=== PATIENT | male | born 1935 | race Caucasian/White ===

== ENCOUNTER 2018-10-30 16:00 | Outpatient (RCR) | payer MEDICARE, BC, SELFPAY ==
--- NOTE | 2018-07-10 17:45 | PT.OIE ---
Current Diagnoses Unspecified sequelae of cerebral infarction (07/10/18) Other symptoms and signs involving the musculoskeletal system (07/10/18) Weakness (07/10/18) Provider Visit Care Team Role Provider Type Franky Wynn MD Family Provider Non-Staff Primary Care Provider Specialty: Medical Address: [address] [place] [address] [address], [address] Email: Salina Felton Attending Provider Non-Staff Specialty: Neurology Address: [address] [place] [address] [address], [place], [address] Phone: Fax: Email: Physical Therapy Initial Evaluation PT-OP-A Visit Information Start: 07/10/18 17:00 Freq: Status: Active Protocol: Document 07/10/18 15:15 HH (Rec: 07/10/18 17:44 [email or web address]) Out-Patient Physical Therapy Visit Information Visit Information Visit Type Initial Evaluation Visit Start Time 15:15 Visit Stop Time 16:00 Total Visit Minutes 45 Visit Number 1 Number of ELECTRIC DETECTOR OPERATOR Visits 0 Evaluation Information Evaluation Date 07/10/18 Precautions Precautions fall risk PT-OP-B Current Condition Start: 07/10/18 17:00 Freq: Status: Active Protocol: Document 07/10/18 15:15 HH (Rec: 07/10/18 17:44 [email or web address]) Current Condition History of Current Condition Onset Date 2010 Current Complaints 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 Pt is now able to amb as tolerated at home and community with his tripod cane. He c/o multiple falls during functional activities due to L sided weakness. But he states he is aware of his L sided weakness and position at all time. Pt also c/o difficulty to perform functional activities such as holding a cup of water and stair negotiation. Pt also c/o difficulty performing sit to stand from a lower surface. pt also currently uses step to pattern to ascend and descend with the use of handrail on R side. Prior Treatments and Tests Pt received physical therapy before and it did not help. Treatment Goals Patient/Caregiver Goals Pt and his expect receiving physical therapy can help pt's overall strength and functional mobility to reduce fall risks. Prior Functional Status Baseline Function- ADL's Modified Independent Baseline Function- Mobility Modified Independent Baseline Function- Gait use cane for community mobility; without cane for home mobility Current Functional Impairments (Reported) Functional Limitations- ADL's Pt reports difficulty doning his clothes and hold an object with his L arm due to weakness and insufficient ROM. Functional Limitations- Mobility/Gait Pt uses step to pattern with R sided handrails for stability during stair negotiation. Difficulty getting up from a lower surface. PT-OP-C Subjective Start: 07/10/18 17:00 Freq: Status: Active Protocol: Document 07/10/18 15:15 HH (Rec: 07/10/18 17:44 [email or web address]) OP-PT Subjective Patient Comments Patient Comments pt reports his mobility and strength has been the same for the past few years. Patient Reported Progress Same Patient Questionnaires Other Questionnaire Name and Score Pt did not fill out a questionnair. remind pt next visit OP-PT Pain Assessment Location Left Shoulder Pain Location Details anterior aspect of the L shoulder Intensity 3 Scale Used Numeric (1 - 10) Description Aching Dull Pinching Variations/Patterns during L shoulder passive elevation >90 degrees PT-OP-G Mobility & Gait Start: 07/10/18 17:00 Freq: Status: Active Protocol: Document 07/10/18 15:15 HH (Rec: 07/10/18 17:44 [email or web address]) OP Gait Assessment Gait Gait Assistance Required: Independent Assistive Devices Assistive Device Tripod Cane/Hurry Cane Comments Gait Comments L hip hiked and circumduction during swing phase of L LE PT-OP-H Neuro Start: 07/10/18 17:00 Freq: Status: Active Protocol: Document 07/10/18 15:15 HH (Rec: 07/10/18 17:44 [email or web address]) Sensation Evaluation Gross Sensation Gross Sensation WNL Muscle Tone Tone Assessment Left Upper Extremity Flexor Tone Description Moderate Hypertonicity Muscle Tone Comments Flexion synergy during exertion and reaching activities PT-OP-K Range of Motion Start: 07/10/18 17:00 Freq: Status: Active Protocol: Document 07/10/18 15:15 HH (Rec: 07/10/18 17:44 [email or web address]) Shoulder Goniometric Range of Motion Shoulder Measured in Degrees Left Passive Shoulder ROM WFL No Testing Position Sitting Flexion 70 Extension 30 Abduction 70 PT-OP-M Strength Start: 07/10/18 17:00 Freq: Status: Active Protocol: Document 07/10/18 15:15 (Rec: 07/10/18 17:44 [email or web address]) Shoulder Strength Shoulder Manual Muscle Testing Left Flexion 2+ Poor+ Extension 2+ Poor+ Abduction (C5) 2+ Poor+ Adduction 3+ Fair+ External Rotation 2+ Poor+ Internal Rotation 2+ Poor+ Elbow/Forearm Strength Elbow and Forearm Manual Muscle Testing Left Flexion (C6) 3+ Fair+ Extension (C7) 2+ Poor+ Hip Strength Hip Manual Muscle Testing Left Flexion (L2) 3 Fair Extension (S1) 3 Fair Abduction 3 Fair Adduction 4- Good- Knee Strength Knee Manual Muscle Testing Left Flexion (S2) 4- Good- Extension (L3) 4 Good PT-OP-Q Treatments Start: 07/10/18 17:00 Freq: Status: Active Protocol: Document 07/10/18 15:15 (Rec: 07/10/18 17:44 [email or web address]) Therapeutic Exercises Sitting Exercises 2 Sitting Exercise Name sit to stand with 3 inch box on R LE Side left Equipment Used grab bar, 3 inch box Reps/Minutes 5 x 2 sets Comments 3 inch box underneath right foot to facilitate WB on L LE 1 Sitting Exercise Name seated L arm reach with cane ( ARROM from R UE as needed) Side left Equipment Used mirror, cane Reps/Minutes 20 times x 5 Comments sagittal plane and frontal plane PT-OP-T Assessment and Plan Start: 07/10/18 17:00 Freq: Status: Active Protocol: Document 07/10/18 15:15 (Rec: 07/10/18 17:44 [email or web address]) Physical Therapy Assessment Rehab Potential Rehabilitation Potential Good Evaluation Complexity Number of Personal Factors/Comorbidities 3 or More Number of Body Systems Impaired 3 Clinical Presentation at Evaluation Stable Impairments Impairments Activity Tolerance Balance Functional Activities Functional Mobility Gait Pain Posture ROM Soft Tissue Mobility Strength Tone Transfers Goals Four Impairment ROM Short Term Goal (STG) To increase L GH passive/ active assisted flexion and abduction by 10 degrees STG Duration 4 weeks Custodial Goal (LTG) To increase L GH passive/ active assisted flexion and abduction by 20 degrees LTG Duration 8 weeks Three Impairment strength Short Term Goal (STG) improve overall hip muscular strength by 1/2 MMT grade for hip stability during amb STG Duration 4 weeks Custodial Goal (LTG) improve overall hip muscular strength by 1 MMT grade fpr hip stability during amb LTG Duration 8 weeks Two Impairment ADLs Short Term Goal (STG) able to perform floor recovery with min A with the use of chair STG Duration 4 weeks Counter Pocket Sewer Goal (LTG) able to perform floor recovery with SBA with the use of chair LTG Duration 8 weeks One Impairment strength Short Term Goal (STG) To be able to perform sit to stand with 3 inch box underneath R foot x 10 times with UE support STG Duration 4 weeks Counter Pocket Sewer Goal (LTG) to perform sit to stand with 3 inch box underneath R foot x 10 times without UE support LTG Duration 8 weeks Assessment Summary Assessment Pt is a very pleasant and motivated 83yo male who has chronic hx of MCA since 9 years ago. Pt also had multiple falls over the years due to weakness. Pt's also participated in this IE session as well today. Pt reports his functional mobility and strength have been the same over the years and previous physical therapy did not help to address his needs. Pt and his expect participating physical therapy will be able to increase overall strength and reduce his fall risks. pt currently is an independent ambulator at home and community with his tripod cane. He also able to negotiate 3 flights of stair at home with the use of R sided handrail and step to pattern independently. Upon assessment, pt demonstrates significant L hip weakness along with L hip hike and circumduction (swing phase) during amb. He also demonstrates flexor synergy at his L UE during exertion and reaching activities and c/o pinching pain during passive L GH flexion and abduction at 70-80 degrees. Pt is instructed to use his tripod cane for AAROM of L GH flexion and abduction with R UE assistance as needed. He is also instructed to use an 3-5 inch box underneath his R foot to perform sit to stand repeatedly to facilitate WB / muscular activation from the L LE. Pt will cont require skilled physical therapy to increase his overall functional strength and mobility for his multiple impairments (regain L UE ROM/ motor pattern, L LE strengthening, gait training.) Physical Therapy Plan Frequency and Duration Frequency of Treatment 2x/Week Duration of Treatment 8 weeks Plan of Care Start Date 07/10/18 Plan of Care End Date 09/02/18 Therapeutic Interventions Therapeutic Interventions Balance Training Gait Training Home Exercise Program Manual Therapy Neuromuscular Re-education Patient/Caregiver Education Soft Tissue Mobilization Therapeutic Activities Therapeutic Exercises Next Visit Focus/Plan Next Note Type Treatment Note Next Visit Plan PNF D1D2 neuro reeducation sit to stand with 3 inch box underneath his R foot UBE for AAROM on L UE AAROM bottle reach
--- NOTE | 2018-07-16 16:37 | PT.OTN ---
Current Diagnoses Unspecified sequelae of cerebral infarction (07/16/18) Other symptoms and signs involving the musculoskeletal system (07/16/18) Weakness (07/16/18) Physical Therapy Treatment Note PT-OP-A Visit Information Start: 07/10/18 17:00 Freq: Status: Active Protocol: Document 07/16/18 12:00 HH (Rec: 07/16/18 16:37 HH [email or web address]) Out-Patient Physical Therapy Visit Information Visit Information Visit Type Treatment Note Visit Start Time 12:00 Visit Stop Time 12:45 Total Visit Minutes 45 Visit Number 2 PT-OP-B Current Condition Start: 07/10/18 17:00 Freq: Status: Active Protocol: Document 07/10/18 15:15 HH (Rec: 07/10/18 17:44 HH [email or web address]) Current Condition History of Current Condition Onset Date 2010 Current Complaints 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 Pt is now able to amb as tolerated at home and community with his tripod cane. He c/o multiple falls during functional activities due to L sided weakness. But he states he is aware of his L sided weakness and position at all time. Pt also c/o difficulty to perform functional activities such as holding a cup of water and stair negotiation. Pt also c/o difficulty performing sit to stand from a lower surface. pt also currently uses step to pattern to ascend and descend with the use of handrail on R side. Prior Treatments and Tests Pt received physical therapy before and it did not help. Treatment Goals Patient/Caregiver Goals Pt and his expect receiving physical therapy can help pt's overall strength and functional mobility to reduce fall risks. Prior Functional Status Baseline Function- ADL's Modified Independent Baseline Function- Mobility Modified Independent Baseline Function- Gait use cane for community mobility; without cane for home mobility Current Functional Impairments (Reported) Functional Limitations- ADL's Pt reports difficulty doning his clothes and hold an object with his L arm due to weakness and insufficient ROM. Functional Limitations- Mobility/Gait Pt uses step to pattern with R sided handrails for stability during stair negotiation. Difficulty getting up from a lower surface. PT-OP-C Subjective Start: 07/10/18 17:00 Freq: Status: Active Protocol: Document 07/16/18 12:00 HH (Rec: 07/16/18 16:37 [email or web address]) OP-PT Subjective Patient Comments Patient Comments Pt compliant to HEP but he states I have trouble to doing the sit to stand with the book underneath of R foot. I've been using my cane to stretch my arm and I walked couple flight of stairs everyday. PT-OP-G Mobility & Gait Start: 07/10/18 17:00 Freq: Status: Active Protocol: Document 07/10/18 15:15 HH (Rec: 07/10/18 17:44 [email or web address]) OP Gait Assessment Gait Gait Assistance Required: Independent Assistive Devices Assistive Device Tripod Cane/Hurry Cane Comments Gait Comments L hip hiked and circumduction during swing phase of L LE PT-OP-H Neuro Start: 07/10/18 17:00 Freq: Status: Active Protocol: Document 07/10/18 15:15 HH (Rec: 07/10/18 17:44 [email or web address]) Sensation Evaluation Gross Sensation Gross Sensation WNL Muscle Tone Tone Assessment Left Upper Extremity Flexor Tone Description Moderate Hypertonicity Muscle Tone Comments Flexion synergy during exertion and reaching activities PT-OP-K Range of Motion Start: 07/10/18 17:00 Freq: Status: Active Protocol: Document 07/10/18 15:15 HH (Rec: 07/10/18 17:44 [email or web address]) Shoulder Goniometric Range of Motion Shoulder Measured in Degrees Left Passive Shoulder ROM WFL No Testing Position Sitting Flexion 70 Extension 30 Abduction 70 PT-OP-M Strength Start: 07/10/18 17:00 Freq: Status: Active Protocol: Document 07/10/18 15:15 HH (Rec: 07/10/18 17:44 [email or web address]) Shoulder Strength Shoulder Manual Muscle Testing Left Flexion 2+ Poor+ Extension 2+ Poor+ Abduction (C5) 2+ Poor+ Adduction 3+ Fair+ External Rotation 2+ Poor+ Internal Rotation 2+ Poor+ Elbow/Forearm Strength Elbow and Forearm Manual Muscle Testing Left Flexion (C6) 3+ Fair+ Extension (C7) 2+ Poor+ Hip Strength Hip Manual Muscle Testing Left Flexion (L2) 3 Fair Extension (S1) 3 Fair Abduction 3 Fair Adduction 4- Good- Knee Strength Knee Manual Muscle Testing Left Flexion (S2) 4- Good- Extension (L3) 4 Good PT-OP-Q Treatments Start: 07/10/18 17:00 Freq: Status: Active Protocol: Document 07/16/18 12:00 (Rec: 07/16/18 16:37 [email or web address]) Therapeutic Exercises Sitting Exercises 4 Sitting Exercise Name UBE Reps/Minutes 3 mins Comments 30 secs clockwise and 30 secs anticlockwise 3 Sitting Exercise Name recumbent UE LE bike Reps/Minutes 5 mins 2 Sitting Exercise Name sit to stand with 4 inch box on R LE Side left Equipment Used grab bar, 4 inch box Reps/Minutes 10 x 3 sets Comments 4 inch box underneath right foot to facilitate WB on L LE 1 Sitting Exercise Name seated L arm reach with cane ( ARROM from R UE as needed) Side left Reps/Minutes 5 mins Comments hip hinge pattern, pass GH 90 degrees Standing Exercises 2 Standing Exercise Name Step over 5 inch yanci Equipment Used R UE on grab bar Reps/Minutes 2 minutes 1 Standing Exercise Name step up and down with 3 inch box Equipment Used R UE on grab bar Reps/Minutes 5 mins PT-OP-T Assessment and Plan Start: 07/10/18 17:00 Freq: Status: Active Protocol: Document 07/16/18 12:00 (Rec: 07/16/18 16:37 [email or web address]) Physical Therapy Assessment Impairments Impairments Activity Tolerance Balance Functional Activities Functional Mobility Gait Pain Posture ROM Soft Tissue Mobility Strength Tone Transfers Progress Towards Goals Progress Towards Goals Slow Progress due to Activity Tolerance Slow Progress - Other Progress Comments Pt progress slowly due to L shoulder pain and poor understanding on pain science. Assessment Summary Assessment Pt reports difficulty performing sit to stand with 3 inch book under his R LE to facilitate increased WB on LLE . HEP education is given on proper set up the aforementioned ex and to use hip hinge for L GH AAROM with the cane. Pt is educated on pain science and safe painful range for ROM. Pt cont require overall strengthening on L hip flexor and hip extensors for stair negotiation. Pt presents difficulty to step over huddle in backward direction. Cont POC on neuro re-ed with the use UBE, recumbent bike to facilitate cross training effect, stagger sit to stand for L LE strengthening and overall dynamic balance training. Physical Therapy Plan Therapeutic Interventions Therapeutic Interventions Balance Training Gait Training Home Exercise Program Manual Therapy Neuromuscular Re-education Patient/Caregiver Education Soft Tissue Mobilization Therapeutic Activities Therapeutic Exercises Next Visit Focus/Plan Next Note Type Treatment Note Next Visit Plan UBE, recumbent bike to facilitate cross training effect, stagger sit to stand for L LE strengthening and overall dynamic balance training.
--- NOTE | 2018-07-31 18:00 | PT.OTN ---
Current Diagnoses Unspecified sequelae of cerebral infarction (07/31/18) Other symptoms and signs involving the musculoskeletal system (07/31/18) Weakness (07/31/18) Physical Therapy Treatment Note PT-OP-A Visit Information Start: 07/10/18 17:00 Freq: Status: Active Protocol: Document 07/31/18 16:00 HH (Rec: 07/31/18 17:59 HH [email or web address]) Out-Patient Physical Therapy Visit Information Visit Information Visit Type Treatment Note Visit Start Time 16:00 Visit Stop Time 16:45 Total Visit Minutes 45 Visit Number 3 Number of QUANTITY SURVEYOR Visits 0 PT-OP-B Current Condition Start: 07/10/18 17:00 Freq: Status: Active Protocol: Document 07/10/18 15:15 HH (Rec: 07/10/18 17:44 HH [email or web address]) Current Condition History of Current Condition Onset Date 2010 Current Complaints 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 Pt is now able to amb as tolerated at home and community with his tripod cane. He c/o multiple falls during functional activities due to L sided weakness. But he states he is aware of his L sided weakness and position at all time. Pt also c/o difficulty to perform functional activities such as holding a cup of water and stair negotiation. Pt also c/o difficulty performing sit to stand from a lower surface. pt also currently uses step to pattern to ascend and descend with the use of handrail on R side. Prior Treatments and Tests Pt received physical therapy before and it did not help. Treatment Goals Patient/Caregiver Goals Pt and his expect receiving physical therapy can help pt's overall strength and functional mobility to reduce fall risks. Prior Functional Status Baseline Function- ADL's Modified Independent Baseline Function- Mobility Modified Independent Baseline Function- Gait use cane for community mobility; without cane for home mobility Current Functional Impairments (Reported) Functional Limitations- ADL's Pt reports difficulty doning his clothes and hold an object with his L arm due to weakness and insufficient ROM. Functional Limitations- Mobility/Gait Pt uses step to pattern with R sided handrails for stability during stair negotiation. Difficulty getting up from a lower surface. PT-OP-C Subjective Start: 07/10/18 17:00 Freq: Status: Active Protocol: Document 07/31/18 16:00 HH (Rec: 07/31/18 17:59 HH [email or web address]) OP-PT Subjective Patient Comments Patient Comments Pt missed visits due to holiday celebration. Pt reports he has not done any HEP. I am lazy to do those exercises. I also feel my leg is stiff lately. Patient Reported Progress Same PT-OP-G Mobility & Gait Start: 07/10/18 17:00 Freq: Status: Active Protocol: Document 07/10/18 15:15 HH (Rec: 07/10/18 17:44 [email or web address]) OP Gait Assessment Gait Gait Assistance Required: Independent Assistive Devices Assistive Device Tripod Cane/Hurry Cane Comments Gait Comments L hip hiked and circumduction during swing phase of L LE PT-OP-H Neuro Start: 07/10/18 17:00 Freq: Status: Active Protocol: Document 07/10/18 15:15 HH (Rec: 07/10/18 17:44 [email or web address]) Sensation Evaluation Gross Sensation Gross Sensation WNL Muscle Tone Tone Assessment Left Upper Extremity Flexor Tone Description Moderate Hypertonicity Muscle Tone Comments Flexion synergy during exertion and reaching activities PT-OP-K Range of Motion Start: 07/10/18 17:00 Freq: Status: Active Protocol: Document 07/10/18 15:15 HH (Rec: 07/10/18 17:44 [email or web address]) Shoulder Goniometric Range of Motion Shoulder Measured in Degrees Left Passive Shoulder ROM WFL No Testing Position Sitting Flexion 70 Extension 30 Abduction 70 PT-OP-M Strength Start: 07/10/18 17:00 Freq: Status: Active Protocol: Document 07/10/18 15:15 HH (Rec: 07/10/18 17:44 [email or web address]) Shoulder Strength Shoulder Manual Muscle Testing Left Flexion 2+ Poor+ Extension 2+ Poor+ Abduction (C5) 2+ Poor+ Adduction 3+ Fair+ External Rotation 2+ Poor+ Internal Rotation 2+ Poor+ Elbow/Forearm Strength Elbow and Forearm Manual Muscle Testing Left Flexion (C6) 3+ Fair+ Extension (C7) 2+ Poor+ Hip Strength Hip Manual Muscle Testing Left Flexion (L2) 3 Fair Extension (S1) 3 Fair Abduction 3 Fair Adduction 4- Good- Knee Strength Knee Manual Muscle Testing Left Flexion (S2) 4- Good- Extension (L3) 4 Good PT-OP-Q Treatments Start: 07/10/18 17:00 Freq: Status: Active Protocol: Document 07/31/18 16:00 (Rec: 07/31/18 17:59 [email or web address]) Therapeutic Exercises Sitting Exercises 3 Sitting Exercise Name recumbent UE LE bike Reps/Minutes 5 mins 1 Sitting Exercise Name seated L arm reach with cane ( ARROM from R UE as needed) Side left Reps/Minutes 5 mins Comments hip hinge pattern, pass GH 90 degrees Standing Exercises 3 Standing Exercise Name side step over 5 inch with UE on bar Equipment Used R UE on grab bar Reps/Minutes 2 minutes 2 Standing Exercise Name Step over 5 inch yanci Equipment Used R UE on grab bar Reps/Minutes 2 minutes Manual Therapy Treatment Manual Techniques PNF on L scap and hip Type D1 D2 Body Position Sidelying Comments along with pelvic rotation PT-OP-T Assessment and Plan Start: 07/10/18 17:00 Freq: Status: Active Protocol: Document 07/31/18 16:00 (Rec: 07/31/18 17:59 [email or web address]) Physical Therapy Assessment Assessment Summary Assessment Review of HEP with pt today. Pt requires constant encouragment for HEP participation. Pt also requires constant cues to facilitate foot clearance during gait training. Physical Therapy Plan Next Visit Focus/Plan Next Note Type Treatment Note Next Visit Plan UBE, recumbent press, stair training, fall recovery, dynamic balance training, gait training with cues on feet clearance.
--- NOTE | 2018-08-05 16:01 | PT.OTN ---
Current Diagnoses Unspecified sequelae of cerebral infarction (08/05/18) Other symptoms and signs involving the musculoskeletal system (08/05/18) Weakness (08/05/18) Physical Therapy Treatment Note PT-OP-A Visit Information Start: 07/10/18 17:00 Freq: Status: Active Protocol: Document 08/05/18 15:15 DCW (Rec: 08/05/18 16:01 DCW [id number]) Out-Patient Physical Therapy Visit Information Visit Information Visit Type Treatment Note Visit Start Time 15:15 Visit Stop Time 16:00 Total Visit Minutes 45 Visit Number 4 Number of HARD ROCK MINER BLASTING Visits 0 Evaluation Information Evaluation Date 07/10/18 PT-OP-B Current Condition Start: 07/10/18 17:00 Freq: Status: Active Protocol: Document 07/10/18 15:15 HH (Rec: 07/10/18 17:44 HH [email or web address]) Current Condition History of Current Condition Onset Date 2010 Current Complaints 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 Pt is now able to amb as tolerated at home and community with his tripod cane. He c/o multiple falls during functional activities due to L sided weakness. But he states he is aware of his L sided weakness and position at all time. Pt also c/o difficulty to perform functional activities such as holding a cup of water and stair negotiation. Pt also c/o difficulty performing sit to stand from a lower surface. pt also currently uses step to pattern to ascend and descend with the use of handrail on R side. Prior Treatments and Tests Pt received physical therapy before and it did not help. Treatment Goals Patient/Caregiver Goals Pt and his expect receiving physical therapy can help pt's overall strength and functional mobility to reduce fall risks. Prior Functional Status Baseline Function- ADL's Modified Independent Baseline Function- Mobility Modified Independent Baseline Function- Gait use cane for community mobility; without cane for home mobility Current Functional Impairments (Reported) Functional Limitations- ADL's Pt reports difficulty doning his clothes and hold an object with his L arm due to weakness and insufficient ROM. Functional Limitations- Mobility/Gait Pt uses step to pattern with R sided handrails for stability during stair negotiation. Difficulty getting up from a lower surface. PT-OP-C Subjective Start: 07/10/18 17:00 Freq: Status: Active Protocol: Document 08/05/18 15:15 DCW (Rec: 08/05/18 16:01 DCW [id number]) OP-PT Subjective Patient Comments Patient Comments Pt reports he feels fine today . Pt reports that he walked around the block this weekend, and has been spending time trying to clean up his yard. PT-OP-G Mobility & Gait Start: 07/10/18 17:00 Freq: Status: Active Protocol: Document 07/10/18 15:15 HH (Rec: 07/10/18 17:44 HH [email or web address]) OP Gait Assessment Gait Gait Assistance Required: Independent Assistive Devices Assistive Device Tripod Cane/Hurry Cane Comments Gait Comments L hip hiked and circumduction during swing phase of L LE PT-OP-H Neuro Start: 07/10/18 17:00 Freq: Status: Active Protocol: Document 07/10/18 15:15 HH (Rec: 07/10/18 17:44 HH [email or web address]) Sensation Evaluation Gross Sensation Gross Sensation WNL Muscle Tone Tone Assessment Left Upper Extremity Flexor Tone Description Moderate Hypertonicity Muscle Tone Comments Flexion synergy during exertion and reaching activities PT-OP-K Range of Motion Start: 07/10/18 17:00 Freq: Status: Active Protocol: Document 07/10/18 15:15 HH (Rec: 07/10/18 17:44 HH [email or web address]) Shoulder Goniometric Range of Motion Shoulder Measured in Degrees Left Passive Shoulder ROM WFL No Testing Position Sitting Flexion 70 Extension 30 Abduction 70 PT-OP-M Strength Start: 07/10/18 17:00 Freq: Status: Active Protocol: Document 07/10/18 15:15 HH (Rec: 07/10/18 17:44 HH [email or web address]) Shoulder Strength Shoulder Manual Muscle Testing Left Flexion 2+ Poor+ Extension 2+ Poor+ Abduction (C5) 2+ Poor+ Adduction 3+ Fair+ External Rotation 2+ Poor+ Internal Rotation 2+ Poor+ Elbow/Forearm Strength Elbow and Forearm Manual Muscle Testing Left Flexion (C6) 3+ Fair+ Extension (C7) 2+ Poor+ Hip Strength Hip Manual Muscle Testing Left Flexion (L2) 3 Fair Extension (S1) 3 Fair Abduction 3 Fair Adduction 4- Good- Knee Strength Knee Manual Muscle Testing Left Flexion (S2) 4- Good- Extension (L3) 4 Good PT-OP-Q Treatments Start: 07/10/18 17:00 Freq: Status: Active Protocol: Document 08/05/18 15:15 DCW (Rec: 08/05/18 16:01 [facility] [id number]) Therapeutic Exercises Sitting Exercises 5 Sitting Exercise Name Sit<->stand on level ground /s UE support 3 Sitting Exercise Name recumbent UE LE bike Reps/Minutes 5 mins 2 Sitting Exercise Name sit to stand with 4 inch box on R LE Side left Equipment Used grab bar, 4 inch box Reps/Minutes 10 x 3 sets Comments 4 inch box underneath right foot to facilitate WB on L LE 1 Sitting Exercise Name seated L arm reach with cane ( ARROM from R UE as needed) Side left Reps/Minutes 5 mins Comments hip hinge pattern, pass GH 90 degrees Standing Exercises 3 Standing Exercise Name side step over 5 inch with UE on bar Equipment Used R UE on grab bar Reps/Minutes 2 minutes 2 Standing Exercise Name Step over 5 inch yanci Equipment Used R UE on grab bar Reps/Minutes 2 minutes Manual Therapy Treatment Joint Mobilizations GH joint Joint GH Direction Joint compression Body Position Sitting Comments Increased joint proprioception Manual Techniques PNF on L GH Type D1/D2 Body Position Sitting PT-OP-T Assessment and Plan Start: 07/10/18 17:00 Freq: Status: Active Protocol: Document 08/05/18 15:15 DCW (Rec: 08/05/18 16:01 [facility] [id number]) Physical Therapy Assessment Impairments Impairments Activity Tolerance Balance Functional Activities Functional Mobility Gait Pain Posture ROM Soft Tissue Mobility Strength Tone Transfers Progress Towards Goals Progress Towards Goals Slow Progress due to Activity Tolerance Slow Progress - Other Progress Comments Pt progress slowly due to L shoulder pain and poor understanding on pain science. Assessment Summary Assessment Pt tolerated treatment well, although admitted when he was leaving that he is embarrassed that he has to rely so much on other people. Physical Therapy Plan Therapeutic Interventions Therapeutic Interventions Balance Training Gait Training Home Exercise Program Manual Therapy Neuromuscular Re-education Patient/Caregiver Education Soft Tissue Mobilization Therapeutic Activities Therapeutic Exercises Next Visit Focus/Plan Next Note Type Treatment Note Next Visit Plan UBE, recumbent bike to facilitate cross training effect, stagger sit to stand for L LE strengthening and overall dynamic balance training.
--- NOTE | 2018-08-07 17:40 | PT.OTN ---
Current Diagnoses Unspecified sequelae of cerebral infarction (08/07/18) Other symptoms and signs involving the musculoskeletal system (08/07/18) Weakness (08/07/18) Physical Therapy Treatment Note PT-OP-A Visit Information Start: 07/10/18 17:00 Freq: Status: Active Protocol: Document 08/07/18 15:15 HH (Rec: 08/07/18 17:40 HH [email or web address]) Out-Patient Physical Therapy Visit Information Visit Information Visit Type Treatment Note Visit Start Time 15:15 Visit Stop Time 16:00 Total Visit Minutes 45 Visit Number 5 Number of MINE ENGINEER Visits 0 PT-OP-B Current Condition Start: 07/10/18 17:00 Freq: Status: Active Protocol: Document 07/10/18 15:15 HH (Rec: 07/10/18 17:44 HH [email or web address]) Current Condition History of Current Condition Onset Date 2010 Current Complaints 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 Pt is now able to amb as tolerated at home and community with his tripod cane. He c/o multiple falls during functional activities due to L sided weakness. But he states he is aware of his L sided weakness and position at all time. Pt also c/o difficulty to perform functional activities such as holding a cup of water and stair negotiation. Pt also c/o difficulty performing sit to stand from a lower surface. pt also currently uses step to pattern to ascend and descend with the use of handrail on R side. Prior Treatments and Tests Pt received physical therapy before and it did not help. Treatment Goals Patient/Caregiver Goals Pt and his expect receiving physical therapy can help pt's overall strength and functional mobility to reduce fall risks. Prior Functional Status Baseline Function- ADL's Modified Independent Baseline Function- Mobility Modified Independent Baseline Function- Gait use cane for community mobility; without cane for home mobility Current Functional Impairments (Reported) Functional Limitations- ADL's Pt reports difficulty doning his clothes and hold an object with his L arm due to weakness and insufficient ROM. Functional Limitations- Mobility/Gait Pt uses step to pattern with R sided handrails for stability during stair negotiation. Difficulty getting up from a lower surface. PT-OP-C Subjective Start: 07/10/18 17:00 Freq: Status: Active Protocol: Document 08/07/18 15:15 HH (Rec: 08/07/18 17:40 HH [email or web address]) OP-PT Subjective Patient Comments Patient Comments pt reports he has been trying to walk more but his L arm is doing the same so far. Pt also states he is compliant to HEP arm reaching with cane. Patient Reported Progress Same PT-OP-G Mobility & Gait Start: 07/10/18 17:00 Freq: Status: Active Protocol: Document 07/10/18 15:15 HH (Rec: 07/10/18 17:44 [email or web address]) OP Gait Assessment Gait Gait Assistance Required: Independent Assistive Devices Assistive Device Tripod Cane/Hurry Cane Comments Gait Comments L hip hiked and circumduction during swing phase of L LE PT-OP-H Neuro Start: 07/10/18 17:00 Freq: Status: Active Protocol: Document 07/10/18 15:15 HH (Rec: 07/10/18 17:44 [email or web address]) Sensation Evaluation Gross Sensation Gross Sensation WNL Muscle Tone Tone Assessment Left Upper Extremity Flexor Tone Description Moderate Hypertonicity Muscle Tone Comments Flexion synergy during exertion and reaching activities PT-OP-K Range of Motion Start: 07/10/18 17:00 Freq: Status: Active Protocol: Document 07/10/18 15:15 HH (Rec: 07/10/18 17:44 [email or web address]) Shoulder Goniometric Range of Motion Shoulder Measured in Degrees Left Passive Shoulder ROM WFL No Testing Position Sitting Flexion 70 Extension 30 Abduction 70 PT-OP-M Strength Start: 07/10/18 17:00 Freq: Status: Active Protocol: Document 07/10/18 15:15 HH (Rec: 07/10/18 17:44 [email or web address]) Shoulder Strength Shoulder Manual Muscle Testing Left Flexion 2+ Poor+ Extension 2+ Poor+ Abduction (C5) 2+ Poor+ Adduction 3+ Fair+ External Rotation 2+ Poor+ Internal Rotation 2+ Poor+ Elbow/Forearm Strength Elbow and Forearm Manual Muscle Testing Left Flexion (C6) 3+ Fair+ Extension (C7) 2+ Poor+ Hip Strength Hip Manual Muscle Testing Left Flexion (L2) 3 Fair Extension (S1) 3 Fair Abduction 3 Fair Adduction 4- Good- Knee Strength Knee Manual Muscle Testing Left Flexion (S2) 4- Good- Extension (L3) 4 Good PT-OP-Q Treatments Start: 07/10/18 17:00 Freq: Status: Active Protocol: Document 08/07/18 15:15 HH (Rec: 08/07/18 17:40 [email or web address]) Therapeutic Exercises Sitting Exercises 3 Sitting Exercise Name recumbent UE LE bike Resistance 5 Reps/Minutes 10 mins Comments with L UE and LE only 1 Sitting Exercise Name seated L arm reach with cane ( ARROM from R UE as needed) Side left Reps/Minutes 5 mins Comments hip hinge pattern, pass GH 90 degrees Standing Exercises single leg stance with support on bar Standing Exercise Name high knee hold, R UE on grab bar Equipment Used grab bar Reps/Minutes 10 mins Comments alternate R and L. 3 Standing Exercise Name side step over 5 inch with UE on bar Equipment Used R UE on grab bar Reps/Minutes 5 mins Manual Therapy Treatment Soft Tissue Mobilization posterior glide Body Location post glide at L GH joint Body Position seated Comments post glide with passive L GH flexion PT-OP-T Assessment and Plan Start: 07/10/18 17:00 Freq: Status: Active Protocol: Document 08/07/18 15:15 HH (Rec: 08/07/18 17:40 [email or web address]) Physical Therapy Assessment Assessment Summary Assessment Pt momo tx well. Tx focused on L UE and LE strengthening and single leg balance. Pt presents WFL hip and knee flexion to facilitate foot clearance but he somehow prefers to use circumduction during amb. pt does present slight right hip drop during single leg stance. Educated pt to focus on single leg stance with UE support at kitchen counter. Recommended pt to participate fitness class at [facility] to increase overall fitness with the use of machines. Physical Therapy Plan Next Visit Focus/Plan Next Note Type Treatment Note Next Visit Plan recumbent press on L side primarily, stagger sit to stand for L LE strengthening and single leg balance balance gait training to increase stride length on R LE
--- NOTE | 2018-08-12 16:00 | PT.OTN ---
Current Diagnoses Unspecified sequelae of cerebral infarction (08/12/18) Other symptoms and signs involving the musculoskeletal system (08/12/18) Weakness (08/12/18) Physical Therapy Treatment Note PT-OP-A Visit Information Start: 07/10/18 17:00 Freq: Status: Active Protocol: Document 08/12/18 15:15 DCW (Rec: 08/12/18 16:00 DCW [id number]) Out-Patient Physical Therapy Visit Information Visit Information Visit Type Treatment Note Visit Start Time 15:15 Visit Stop Time 16:00 Total Visit Minutes 45 Visit Number 6 Number of AUTOMATIC LEHR OPERATOR Visits 0 Evaluation Information Evaluation Date 07/10/18 PT-OP-B Current Condition Start: 07/10/18 17:00 Freq: Status: Active Protocol: Document 07/10/18 15:15 HH (Rec: 07/10/18 17:44 HH [email or web address]) Current Condition History of Current Condition Onset Date 2010 Current Complaints 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 Pt is now able to amb as tolerated at home and community with his tripod cane. He c/o multiple falls during functional activities due to L sided weakness. But he states he is aware of his L sided weakness and position at all time. Pt also c/o difficulty to perform functional activities such as holding a cup of water and stair negotiation. Pt also c/o difficulty performing sit to stand from a lower surface. pt also currently uses step to pattern to ascend and descend with the use of handrail on R side. Prior Treatments and Tests Pt received physical therapy before and it did not help. Treatment Goals Patient/Caregiver Goals Pt and his expect receiving physical therapy can help pt's overall strength and functional mobility to reduce fall risks. Prior Functional Status Baseline Function- ADL's Modified Independent Baseline Function- Mobility Modified Independent Baseline Function- Gait use cane for community mobility; without cane for home mobility Current Functional Impairments (Reported) Functional Limitations- ADL's Pt reports difficulty doning his clothes and hold an object with his L arm due to weakness and insufficient ROM. Functional Limitations- Mobility/Gait Pt uses step to pattern with R sided handrails for stability during stair negotiation. Difficulty getting up from a lower surface. PT-OP-C Subjective Start: 07/10/18 17:00 Freq: Status: Active Protocol: Document 08/12/18 15:15 DCW (Rec: 08/12/18 16:00 DCW [id number]) OP-PT Subjective Patient Comments Patient Comments Pt notes pain along the clavicle today, admits he doesn't have any idesa what I did to it. PT-OP-G Mobility & Gait Start: 07/10/18 17:00 Freq: Status: Active Protocol: Document 07/10/18 15:15 HH (Rec: 07/10/18 17:44 HH [email or web address]) OP Gait Assessment Gait Gait Assistance Required: Independent Assistive Devices Assistive Device Tripod Cane/Hurry Cane Comments Gait Comments L hip hiked and circumduction during swing phase of L LE PT-OP-H Neuro Start: 07/10/18 17:00 Freq: Status: Active Protocol: Document 07/10/18 15:15 HH (Rec: 07/10/18 17:44 HH [email or web address]) Sensation Evaluation Gross Sensation Gross Sensation WNL Muscle Tone Tone Assessment Left Upper Extremity Flexor Tone Description Moderate Hypertonicity Muscle Tone Comments Flexion synergy during exertion and reaching activities PT-OP-K Range of Motion Start: 07/10/18 17:00 Freq: Status: Active Protocol: Document 07/10/18 15:15 HH (Rec: 07/10/18 17:44 HH [email or web address]) Shoulder Goniometric Range of Motion Shoulder Measured in Degrees Left Passive Shoulder ROM WFL No Testing Position Sitting Flexion 70 Extension 30 Abduction 70 PT-OP-M Strength Start: 07/10/18 17:00 Freq: Status: Active Protocol: Document 07/10/18 15:15 HH (Rec: 07/10/18 17:44 HH [email or web address]) Shoulder Strength Shoulder Manual Muscle Testing Left Flexion 2+ Poor+ Extension 2+ Poor+ Abduction (C5) 2+ Poor+ Adduction 3+ Fair+ External Rotation 2+ Poor+ Internal Rotation 2+ Poor+ Elbow/Forearm Strength Elbow and Forearm Manual Muscle Testing Left Flexion (C6) 3+ Fair+ Extension (C7) 2+ Poor+ Hip Strength Hip Manual Muscle Testing Left Flexion (L2) 3 Fair Extension (S1) 3 Fair Abduction 3 Fair Adduction 4- Good- Knee Strength Knee Manual Muscle Testing Left Flexion (S2) 4- Good- Extension (L3) 4 Good PT-OP-Q Treatments Start: 07/10/18 17:00 Freq: Status: Active Protocol: Document 08/12/18 15:15 DCW (Rec: 08/12/18 16:00 DCW [id number]) Therapeutic Exercises Sitting Exercises Shoulder Flexion/Abduction Sitting Exercise Name Shoulder Flex/Abd Side bilateral Equipment Used Wand Comments AAROM 3 Sitting Exercise Name recumbent UE LE bike Resistance 5 Reps/Minutes 5 mins 1 Sitting Exercise Name seated L arm reach with cane ( ARROM from R UE as needed) Side left Reps/Minutes 5 mins Comments hip hinge pattern, pass GH 90 degrees Standing Exercises Weightbearing through UEs Standing Exercise Name WBing through UEs Side bilateral Equipment Used @ rail 3 Standing Exercise Name side step over 5 inch with UE on bar Equipment Used R UE on grab bar Reps/Minutes 2 minutes 2 Standing Exercise Name Step over 5 inch aynci Equipment Used R UE on grab bar Reps/Minutes 2 minutes Manual Therapy Treatment Joint Mobilizations GH joint Joint GH Direction Joint compression Body Position Sitting Comments Increased joint proprioception Manual Techniques PNF on L GH Type D1/D2 Body Position Sitting PT-OP-T Assessment and Plan Start: 07/10/18 17:00 Freq: Status: Active Protocol: Document 08/12/18 15:15 DCW (Rec: 08/12/18 16:00 DCW [id number]) Physical Therapy Assessment Impairments Impairments Activity Tolerance Balance Functional Activities Functional Mobility Gait Pain Posture ROM Soft Tissue Mobility Strength Tone Transfers Assessment Summary Assessment Pt in better spirits today, performed much of his hurdles with improved left foot clearance Physical Therapy Plan Therapeutic Interventions Therapeutic Interventions Balance Training Gait Training Home Exercise Program Manual Therapy Neuromuscular Re-education Patient/Caregiver Education Soft Tissue Mobilization Therapeutic Activities Therapeutic Exercises Next Visit Focus/Plan Next Note Type Treatment Note Next Visit Plan UBE, recumbent bike to facilitate cross training effect, stagger sit to stand for L LE strengthening and overall dynamic balance training.
--- NOTE | 2018-08-14 16:30 | PT.OPPN ---
Current Diagnoses Unspecified sequelae of cerebral infarction (08/14/18) Other symptoms and signs involving the musculoskeletal system (08/14/18) Weakness (08/14/18) Physical Therapy Progress Note PT-OP-A Visit Information Start: 07/10/18 17:00 Freq: Status: Active Protocol: Document 08/14/18 15:15 HH (Rec: 08/14/18 16:30 HH [email or web address]) Out-Patient Physical Therapy Visit Information Visit Information Visit Type Progress Note Visit Start Time 15:15 Visit Stop Time 16:00 Total Visit Minutes 45 Visit Number 7 Number of BOOK SALESMAN Visits 0 PT-OP-B Current Condition Start: 07/10/18 17:00 Freq: Status: Active Protocol: Document 07/10/18 15:15 HH (Rec: 07/10/18 17:44 HH [email or web address]) Current Condition History of Current Condition Onset Date 2010 Current Complaints 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 Pt is now able to amb as tolerated at home and community with his tripod cane. He c/o multiple falls during functional activities due to L sided weakness. But he states he is aware of his L sided weakness and position at all time. Pt also c/o difficulty to perform functional activities such as holding a cup of water and stair negotiation. Pt also c/o difficulty performing sit to stand from a lower surface. pt also currently uses step to pattern to ascend and descend with the use of handrail on R side. Prior Treatments and Tests Pt received physical therapy before and it did not help. Treatment Goals Patient/Caregiver Goals Pt and his expect receiving physical therapy can help pt's overall strength and functional mobility to reduce fall risks. Prior Functional Status Baseline Function- ADL's Modified Independent Baseline Function- Mobility Modified Independent Baseline Function- Gait use cane for community mobility; without cane for home mobility Current Functional Impairments (Reported) Functional Limitations- ADL's Pt reports difficulty doning his clothes and hold an object with his L arm due to weakness and insufficient ROM. Functional Limitations- Mobility/Gait Pt uses step to pattern with R sided handrails for stability during stair negotiation. Difficulty getting up from a lower surface. PT-OP-C Subjective Start: 07/10/18 17:00 Freq: Status: Active Protocol: Document 08/14/18 15:15 HH (Rec: 08/14/18 16:30 HH [email or web address]) OP-PT Subjective Patient Comments Patient Comments Pt reports his L shoulder pain decreased. I've been trying to walk a little bit more. PT-OP-G Mobility & Gait Start: 07/10/18 17:00 Freq: Status: Active Protocol: Document 07/10/18 15:15 HH (Rec: 07/10/18 17:44 HH [email or web address]) OP Gait Assessment Gait Gait Assistance Required: Independent Assistive Devices Assistive Device Tripod Cane/Hurry Cane Comments Gait Comments L hip hiked and circumduction during swing phase of L LE PT-OP-H Neuro Start: 07/10/18 17:00 Freq: Status: Active Protocol: Document 07/10/18 15:15 HH (Rec: 07/10/18 17:44 [email or web address]) Sensation Evaluation Gross Sensation Gross Sensation WNL Muscle Tone Tone Assessment Left Upper Extremity Flexor Tone Description Moderate Hypertonicity Muscle Tone Comments Flexion synergy during exertion and reaching activities PT-OP-K Range of Motion Start: 07/10/18 17:00 Freq: Status: Active Protocol: Document 07/10/18 15:15 HH (Rec: 07/10/18 17:44 [email or web address]) Shoulder Goniometric Range of Motion Shoulder Measured in Degrees Left Passive Shoulder ROM WFL No Testing Position Sitting Flexion 70 Extension 30 Abduction 70 PT-OP-M Strength Start: 07/10/18 17:00 Freq: Status: Active Protocol: Document 07/10/18 15:15 HH (Rec: 07/10/18 17:44 [email or web address]) Shoulder Strength Shoulder Manual Muscle Testing Left Flexion 2+ Poor+ Extension 2+ Poor+ Abduction (C5) 2+ Poor+ Adduction 3+ Fair+ External Rotation 2+ Poor+ Internal Rotation 2+ Poor+ Elbow/Forearm Strength Elbow and Forearm Manual Muscle Testing Left Flexion (C6) 3+ Fair+ Extension (C7) 2+ Poor+ Hip Strength Hip Manual Muscle Testing Left Flexion (L2) 3 Fair Extension (S1) 3 Fair Abduction 3 Fair Adduction 4- Good- Knee Strength Knee Manual Muscle Testing Left Flexion (S2) 4- Good- Extension (L3) 4 Good PT-OP-T Assessment and Plan Start: 12/12/18 17:00 Freq: Status: Active Protocol: Document 08/14/18 15:15 (Rec: 08/14/18 16:30 [email or web address]) Physical Therapy Assessment Goals 5 Impairment gait pattern Process Cheese Cooker Goal (LTG) to use 2 point gait pattern with SPC on R side. LTG Duration 8 weeks Progress Towards Goals Progress Towards Goals Slow Progress due to Activity Tolerance Slow Progress due to Noncompliance Slow Progress - Other Progress Comments pt's L UE ROM did not progress as expected due to poor compliance for HEP and his chronic CVA. However, pt has shown improved B LE strength and improved L foot clearance during amb along with faster gait speed. Assessment Summary Assessment Adjusted pt's cane height today. Pt presents reduced R trunk lean and improved L LE stride length. Introduced 2 point gait pattern today but he requires max cues for initial contact for LLE and R cane. Pt does demonstrates improved L single leg balance and weight acceptance for R LE propulsion. Physical Therapy Plan Next Visit Focus/Plan Next Note Type Treatment Note Next Visit Plan cont 2 point gait pattern training L step over/up training single leg balance
--- NOTE | 2018-08-19 16:07 | PT.OTN ---
Current Diagnoses Unspecified sequelae of cerebral infarction (08/19/18) Other symptoms and signs involving the musculoskeletal system (08/19/18) Weakness (08/19/18) Physical Therapy Treatment Note PT-OP-A Visit Information Start: 07/10/18 17:00 Freq: Status: Active Protocol: Document 08/19/18 15:20 DCW (Rec: 08/19/18 16:00 DCW [id number]) Out-Patient Physical Therapy Visit Information Visit Information Visit Type Treatment Note Visit Start Time 15:20 Visit Stop Time 16:00 Total Visit Minutes 40 Visit Number 8 Number of NUMERICAL CONTROL NESTING OPERATOR Visits 0 Evaluation Information Evaluation Date 07/10/18 PT-OP-B Current Condition Start: 07/10/18 17:00 Freq: Status: Active Protocol: Document 07/10/18 15:15 HH (Rec: 07/10/18 17:44 HH [email or web address]) Current Condition History of Current Condition Onset Date 2010 Current Complaints 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 Pt is now able to amb as tolerated at home and community with his tripod cane. He c/o multiple falls during functional activities due to L sided weakness. But he states he is aware of his L sided weakness and position at all time. Pt also c/o difficulty to perform functional activities such as holding a cup of water and stair negotiation. Pt also c/o difficulty performing sit to stand from a lower surface. pt also currently uses step to pattern to ascend and descend with the use of handrail on R side. Prior Treatments and Tests Pt received physical therapy before and it did not help. Treatment Goals Patient/Caregiver Goals Pt and his expect receiving physical therapy can help pt's overall strength and functional mobility to reduce fall risks. Prior Functional Status Baseline Function- ADL's Modified Independent Baseline Function- Mobility Modified Independent Baseline Function- Gait use cane for community mobility; without cane for home mobility Current Functional Impairments (Reported) Functional Limitations- ADL's Pt reports difficulty doning his clothes and hold an object with his L arm due to weakness and insufficient ROM. Functional Limitations- Mobility/Gait Pt uses step to pattern with R sided handrails for stability during stair negotiation. Difficulty getting up from a lower surface. PT-OP-C Subjective Start: 07/10/18 17:00 Freq: Status: Active Protocol: Document 08/19/18 15:20 DCW (Rec: 08/19/18 16:00 DCW [id number]) OP-PT Subjective Patient Comments Patient Comments Pt reports continued decline of shoulder pain, but admits the shoulder movement on the recumbent stepper does bother it a bit. PT-OP-G Mobility & Gait Start: 07/10/18 17:00 Freq: Status: Active Protocol: Document 07/10/18 15:15 HH (Rec: 07/10/18 17:44 HH [email or web address]) OP Gait Assessment Gait Gait Assistance Required: Independent Assistive Devices Assistive Device Tripod Cane/Hurry Cane Comments Gait Comments L hip hiked and circumduction during swing phase of L LE PT-OP-H Neuro Start: 07/10/18 17:00 Freq: Status: Active Protocol: Document 07/10/18 15:15 HH (Rec: 07/10/18 17:44 HH [email or web address]) Sensation Evaluation Gross Sensation Gross Sensation WNL Muscle Tone Tone Assessment Left Upper Extremity Flexor Tone Description Moderate Hypertonicity Muscle Tone Comments Flexion synergy during exertion and reaching activities PT-OP-K Range of Motion Start: 07/10/18 17:00 Freq: Status: Active Protocol: Document 07/10/18 15:15 HH (Rec: 07/10/18 17:44 HH [email or web address]) Shoulder Goniometric Range of Motion Shoulder Measured in Degrees Left Passive Shoulder ROM WFL No Testing Position Sitting Flexion 70 Extension 30 Abduction 70 PT-OP-M Strength Start: 07/10/18 17:00 Freq: Status: Active Protocol: Document 07/10/18 15:15 HH (Rec: 07/10/18 17:44 HH [email or web address]) Shoulder Strength Shoulder Manual Muscle Testing Left Flexion 2+ Poor+ Extension 2+ Poor+ Abduction (C5) 2+ Poor+ Adduction 3+ Fair+ External Rotation 2+ Poor+ Internal Rotation 2+ Poor+ Elbow/Forearm Strength Elbow and Forearm Manual Muscle Testing Left Flexion (C6) 3+ Fair+ Extension (C7) 2+ Poor+ Hip Strength Hip Manual Muscle Testing Left Flexion (L2) 3 Fair Extension (S1) 3 Fair Abduction 3 Fair Adduction 4- Good- Knee Strength Knee Manual Muscle Testing Left Flexion (S2) 4- Good- Extension (L3) 4 Good PT-OP-Q Treatments Start: 07/10/18 17:00 Freq: Status: Active Protocol: Document 08/19/18 15:20 DCW (Rec: 08/19/18 16:00 DCW [id number]) Cardio Equipment Recumbent Stepper (Sci-Fit) Duration (Minutes) 5 Resistance 3 Seat Position 14 Therapeutic Exercises Sitting Exercises Shoulder Flexion/Abduction Sitting Exercise Name Shoulder Flex/Abd Side bilateral Equipment Used Wand Comments AAROM 5 Sitting Exercise Name Sit<->stand on level ground /s UE support 4 Sitting Exercise Name Shoulder PROM Flexion Equipment Used Pulleys 1 Sitting Exercise Name seated L arm reach with cane ( ARROM from R UE as needed) Side left Reps/Minutes 5 mins Standing Exercises 3 Standing Exercise Name lateral toe-tap onto 6 inch step with UE on bar Equipment Used R UE on grab bar Reps/Minutes 2 minutes Manual Therapy Treatment Soft Tissue Mobilization posterior glide Body Location post glide at L GH joint Body Position seated Comments post glide with passive L GH flexion Joint Mobilizations GH joint Joint GH Direction Joint compression Body Position Sitting Comments Increased joint proprioception Manual Techniques PNF on L GH Type D1/D2 Body Position Sitting PT-OP-T Assessment and Plan Start: 07/10/18 17:00 Freq: Status: Active Protocol: Document 08/19/18 15:20 DCW (Rec: 08/19/18 16:00 DCW [id number]) Physical Therapy Assessment Impairments Impairments Activity Tolerance Balance Functional Activities Functional Mobility Gait Pain Posture ROM Soft Tissue Mobility Strength Tone Transfers Goals 5 Impairment gait pattern Alf Goal (LTG) to use 2 point gait pattern with SPC on R side. LTG Duration 8 weeks Four Impairment ROM Short Term Goal (STG) To increase L GH passive/ active assisted flexion and abduction by 10 degrees STG Duration 4 weeks Alf Goal (LTG) To increase L GH passive/ active assisted flexion and abduction by 20 degrees LTG Duration 8 weeks Three Impairment strength Short Term Goal (STG) improve overall hip muscular strength by 1/2 MMT grade for hip stability during amb STG Duration 4 weeks Alf Goal (LTG) improve overall hip muscular strength by 1 MMT grade fpr hip stability during amb LTG Duration 8 weeks Two Impairment ADLs Short Term Goal (STG) able to perform floor recovery with min A with the use of chair STG Duration 4 weeks Alf Goal (LTG) able to perform floor recovery with SBA with the use of chair LTG Duration 8 weeks One Impairment strength Short Term Goal (STG) To be able to perform sit to stand with 3 inch box underneath R foot x 10 times with UE support STG Duration 4 weeks Alf Goal (LTG) to perform sit to stand with 3 inch box underneath R foot x 10 times without UE support LTG Duration 8 weeks Assessment Summary Assessment Pt tolerated treatment well today, feels he is making some slow improvements. Physical Therapy Plan Therapeutic Interventions Therapeutic Interventions Balance Training Gait Training Home Exercise Program Manual Therapy Neuromuscular Re-education Patient/Caregiver Education Soft Tissue Mobilization Therapeutic Activities Therapeutic Exercises Next Visit Focus/Plan Next Note Type Treatment Note Next Visit Plan UBE, recumbent bike to facilitate cross training effect, stagger sit to stand for L LE strengthening and overall dynamic balance training.
--- NOTE | 2018-08-21 17:14 | PT.OTN ---
Current Diagnoses Unspecified sequelae of cerebral infarction (08/21/18) Other symptoms and signs involving the musculoskeletal system (08/21/18) Weakness (08/21/18) Physical Therapy Treatment Note PT-OP-A Visit Information Start: 07/10/18 17:00 Freq: Status: Active Protocol: Document 08/21/18 15:15 HH (Rec: 08/21/18 17:14 HH [email or web address]) Out-Patient Physical Therapy Visit Information Visit Information Visit Type Treatment Note Visit Start Time 15:15 Visit Stop Time 16:00 Total Visit Minutes 45 Visit Number 9 Number of SUPERINTENDENT RECREATION Visits 0 PT-OP-B Current Condition Start: 07/10/18 17:00 Freq: Status: Active Protocol: Document 07/10/18 15:15 HH (Rec: 07/10/18 17:44 HH [email or web address]) Current Condition History of Current Condition Onset Date 2010 Current Complaints 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 Pt is now able to amb as tolerated at home and community with his tripod cane. He c/o multiple falls during functional activities due to L sided weakness. But he states he is aware of his L sided weakness and position at all time. Pt also c/o difficulty to perform functional activities such as holding a cup of water and stair negotiation. Pt also c/o difficulty performing sit to stand from a lower surface. pt also currently uses step to pattern to ascend and descend with the use of handrail on R side. Prior Treatments and Tests Pt received physical therapy before and it did not help. Treatment Goals Patient/Caregiver Goals Pt and his expect receiving physical therapy can help pt's overall strength and functional mobility to reduce fall risks. Prior Functional Status Baseline Function- ADL's Modified Independent Baseline Function- Mobility Modified Independent Baseline Function- Gait use cane for community mobility; without cane for home mobility Current Functional Impairments (Reported) Functional Limitations- ADL's Pt reports difficulty doning his clothes and hold an object with his L arm due to weakness and insufficient ROM. Functional Limitations- Mobility/Gait Pt uses step to pattern with R sided handrails for stability during stair negotiation. Difficulty getting up from a lower surface. PT-OP-C Subjective Start: 07/10/18 17:00 Freq: Status: Active Protocol: Document 08/21/18 15:15 HH (Rec: 08/21/18 17:14 HH [email or web address]) OP-PT Subjective Patient Comments Patient Comments Pt states My told me i' ve been walking faster and better than before which is a good sign. Anita been conciously focusing on taking longer step as well. Patient Reported Progress Improving PT-OP-G Mobility & Gait Start: 07/10/18 17:00 Freq: Status: Active Protocol: Document 07/10/18 15:15 HH (Rec: 07/10/18 17:44 [email or web address]) OP Gait Assessment Gait Gait Assistance Required: Independent Assistive Devices Assistive Device Tripod Cane/Hurry Cane Comments Gait Comments L hip hiked and circumduction during swing phase of L LE PT-OP-H Neuro Start: 07/10/18 17:00 Freq: Status: Active Protocol: Document 07/10/18 15:15 HH (Rec: 07/10/18 17:44 [email or web address]) Sensation Evaluation Gross Sensation Gross Sensation WNL Muscle Tone Tone Assessment Left Upper Extremity Flexor Tone Description Moderate Hypertonicity Muscle Tone Comments Flexion synergy during exertion and reaching activities PT-OP-K Range of Motion Start: 07/10/18 17:00 Freq: Status: Active Protocol: Document 07/10/18 15:15 HH (Rec: 07/10/18 17:44 [email or web address]) Shoulder Goniometric Range of Motion Shoulder Measured in Degrees Left Passive Shoulder ROM WFL No Testing Position Sitting Flexion 70 Extension 30 Abduction 70 PT-OP-M Strength Start: 07/10/18 17:00 Freq: Status: Active Protocol: Document 07/10/18 15:15 HH (Rec: 07/10/18 17:44 [email or web address]) Shoulder Strength Shoulder Manual Muscle Testing Left Flexion 2+ Poor+ Extension 2+ Poor+ Abduction (C5) 2+ Poor+ Adduction 3+ Fair+ External Rotation 2+ Poor+ Internal Rotation 2+ Poor+ Elbow/Forearm Strength Elbow and Forearm Manual Muscle Testing Left Flexion (C6) 3+ Fair+ Extension (C7) 2+ Poor+ Hip Strength Hip Manual Muscle Testing Left Flexion (L2) 3 Fair Extension (S1) 3 Fair Abduction 3 Fair Adduction 4- Good- Knee Strength Knee Manual Muscle Testing Left Flexion (S2) 4- Good- Extension (L3) 4 Good PT-OP-Q Treatments Start: 07/10/18 17:00 Freq: Status: Active Protocol: Document 08/21/18 15:15 HH (Rec: 08/21/18 17:14 [email or web address]) Therapeutic Exercises Sitting Exercises scap retraction Sitting Exercise Name seated row Resistance black theratube Reps/Minutes 5 mins leg press Resistance 75 = 3 stripes Reps/Minutes 20 then 10 Comments L LE only Shoulder Flexion/Abduction Sitting Exercise Name Shoulder Flex/Abd Equipment Used with OH pulleys Comments AAROM 4 Sitting Exercise Name Shoulder PROM Flexion Equipment Used Pulleys Standing Exercises Step up with 3 inch box on LLE Side left Equipment Used 3 inch box Reps/Minutes 5 mins Comments trunk hold to facilitate increase hip flexion on L 2 Standing Exercise Name 1 step over on stair Reps/Minutes 10 mins Comments with finger touch support and without UE support Manual Therapy Treatment Soft Tissue Mobilization posterior glide Body Location post glide at L GH joint Body Position seated Comments post glide with AAROM L GH flexion during OH pulleys PT-OP-T Assessment and Plan Start: 07/10/18 17:00 Freq: Status: Active Protocol: Document 08/21/18 15:15 HH (Rec: 08/21/18 17:14 [email or web address]) Physical Therapy Assessment Assessment Summary Assessment Pt momo treatment well. Pt is able to reach L active elbow extension and shoulder extension to neutral during OH monae. post glide during AAROM flexion and abduction also performed today. Pt states he does feel stronger of his L LE and able to walk faster than before. But he cont feel unsafe to perform step over stair/ yanci without UE support. However, pt is able to perform R leg step over step today with CGA/ SBA without UE support due to his sufficient LLE strength. pt requires cues and confidence to make him feel safe. Recommend to cont focus on LLE strength and single leg balance. Physical Therapy Plan Next Visit Focus/Plan Next Note Type Treatment Note Next Visit Plan Recommend to cont focus on LLE strength and single leg balance. cont scap strengthening and mobility ex
--- NOTE | 2018-08-26 15:52 | PT.OTN ---
Current Diagnoses Unspecified sequelae of cerebral infarction (08/26/18) Other symptoms and signs involving the musculoskeletal system (08/26/18) Weakness (08/26/18) Physical Therapy Treatment Note PT-OP-A Visit Information Start: 07/10/18 17:00 Freq: Status: Active Protocol: Document 08/26/18 14:30 AMB (Rec: 08/26/18 15:50 AMB [email or web address]) Out-Patient Physical Therapy Visit Information Visit Information Visit Type Treatment Note Visit Start Time 15:15 Visit Stop Time 16:00 Total Visit Minutes 45 Visit Number 10 Number of HOTEL CONTROLLER Visits 0 PT-OP-B Current Condition Start: 07/10/18 17:00 Freq: Status: Active Protocol: Document 07/10/18 15:15 HH (Rec: 07/10/18 17:44 HH [email or web address]) Current Condition History of Current Condition Onset Date 2010 Current Complaints 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 Pt is now able to amb as tolerated at home and community with his tripod cane. He c/o multiple falls during functional activities due to L sided weakness. But he states he is aware of his L sided weakness and position at all time. Pt also c/o difficulty to perform functional activities such as holding a cup of water and stair negotiation. Pt also c/o difficulty performing sit to stand from a lower surface. pt also currently uses step to pattern to ascend and descend with the use of handrail on R side. Prior Treatments and Tests Pt received physical therapy before and it did not help. Treatment Goals Patient/Caregiver Goals Pt and his expect receiving physical therapy can help pt's overall strength and functional mobility to reduce fall risks. Prior Functional Status Baseline Function- ADL's Modified Independent Baseline Function- Mobility Modified Independent Baseline Function- Gait use cane for community mobility; without cane for home mobility Current Functional Impairments (Reported) Functional Limitations- ADL's Pt reports difficulty doning his clothes and hold an object with his L arm due to weakness and insufficient ROM. Functional Limitations- Mobility/Gait Pt uses step to pattern with R sided handrails for stability during stair negotiation. Difficulty getting up from a lower surface. PT-OP-C Subjective Start: 07/10/18 17:00 Freq: Status: Active Protocol: Document 08/26/18 14:30 AMB (Rec: 08/26/18 15:50 AMB [email or web address]) OP-PT Subjective Patient Comments Patient Comments I don't feel like I'm improving that much, but maybe a little. PT-OP-G Mobility & Gait Start: 07/10/18 17:00 Freq: Status: Active Protocol: Document 07/10/18 15:15 HH (Rec: 07/10/18 17:44 HH [email or web address]) OP Gait Assessment Gait Gait Assistance Required: Independent Assistive Devices Assistive Device Tripod Cane/Hurry Cane Comments Gait Comments L hip hiked and circumduction during swing phase of L LE PT-OP-H Neuro Start: 07/10/18 17:00 Freq: Status: Active Protocol: Document 07/10/18 15:15 HH (Rec: 07/10/18 17:44 HH [email or web address]) Sensation Evaluation Gross Sensation Gross Sensation WNL Muscle Tone Tone Assessment Left Upper Extremity Flexor Tone Description Moderate Hypertonicity Muscle Tone Comments Flexion synergy during exertion and reaching activities PT-OP-K Range of Motion Start: 07/10/18 17:00 Freq: Status: Active Protocol: Document 07/10/18 15:15 HH (Rec: 07/10/18 17:44 HH [email or web address]) Shoulder Goniometric Range of Motion Shoulder Measured in Degrees Left Passive Shoulder ROM WFL No Testing Position Sitting Flexion 70 Extension 30 Abduction 70 PT-OP-M Strength Start: 07/10/18 17:00 Freq: Status: Active Protocol: Document 07/10/18 15:15 HH (Rec: 07/10/18 17:44 HH [email or web address]) Shoulder Strength Shoulder Manual Muscle Testing Left Flexion 2+ Poor+ Extension 2+ Poor+ Abduction (C5) 2+ Poor+ Adduction 3+ Fair+ External Rotation 2+ Poor+ Internal Rotation 2+ Poor+ Elbow/Forearm Strength Elbow and Forearm Manual Muscle Testing Left Flexion (C6) 3+ Fair+ Extension (C7) 2+ Poor+ Hip Strength Hip Manual Muscle Testing Left Flexion (L2) 3 Fair Extension (S1) 3 Fair Abduction 3 Fair Adduction 4- Good- Knee Strength Knee Manual Muscle Testing Left Flexion (S2) 4- Good- Extension (L3) 4 Good PT-OP-Q Treatments Start: 07/10/18 17:00 Freq: Status: Active Protocol: Document 08/26/18 14:30 AMB (Rec: 08/26/18 15:50 AMB [email or web address]) Therapeutic Exercises Sitting Exercises leg press Resistance 75 = 3 stripes Reps/Minutes 20 then 10 Comments L LE only Shoulder Flexion/Abduction Sitting Exercise Name Shoulder Flex/Abd Equipment Used with OH pulleys Comments AAROM 5 Sitting Exercise Name Sit<->stand on level ground /s UE support Standing Exercises Step up with 3 inch box on LLE Side left Equipment Used 4 inch box Reps/Minutes 5 mins Comments trunk hold to facilitate increase hip flexion on L 3 Standing Exercise Name lateral toe-tap onto 6 inch step with UE on bar Equipment Used R UE on grab bar Reps/Minutes 2 minutes 1 Standing Exercise Name ascend/descend stairs Reps/Minutes with step over step gait Comments heavy use of rail Manual Therapy Treatment Joint Mobilizations GH joint Joint GH Direction Joint compression Body Position Sitting Comments Increased joint proprioception PT-OP-T Assessment and Plan Start: 07/10/18 17:00 Freq: Status: Active Protocol: Document 08/26/18 14:30 AMB (Rec: 08/26/18 15:52 AMB [email or web address]) Physical Therapy Assessment Assessment Summary Assessment Pt can better control L LE with gait, but this takes extensive concentration that is fatigueing for him. Physical Therapy Plan Next Visit Focus/Plan Next Note Type Treatment Note Next Visit Plan Recommend to cont focus on LLE strength and single leg balance. cont scap strengthening and mobility ex
--- NOTE | 2018-08-28 16:45 | PT.OTRE ---
Current Diagnoses Unspecified sequelae of cerebral infarction (08/28/18) Other symptoms and signs involving the musculoskeletal system (08/28/18) Weakness (08/28/18) Provider Visit Care Team Role Provider Type Franky Wynn MD Family Provider Non-Staff Primary Care Provider Specialty: Medical Address: [address] [place] [address] [address], [place], [address] Email: Salina Felton Attending Provider Non-Staff Specialty: Neurology Address: [address] [place] [address] [address], [address] Phone: Fax: Email: Physical Therapy Re-Evaluation PT-OP-A Visit Information Start: 07/10/18 17:00 Freq: Status: Active Protocol: Document 08/28/18 15:15 HH (Rec: 08/28/18 16:45 [email or web address]) Out-Patient Physical Therapy Visit Information Visit Information Visit Type Treatment Note Visit Note Re-eval today. 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 Pt is now able to amb as tolerated at home and community with his tripod cane. He c/o multiple falls during functional activities due to L sided weakness. But he states he is aware of his L sided weakness and position at all time. Pt also c/o difficulty to perform functional activities such as holding a cup of water and stair negotiation. Pt also c/o difficulty performing sit to stand from a lower surface. pt also currently uses step to pattern to ascend and descend with the use of handrail on R side. Prior Treatments and Tests Pt received physical therapy before and it did not help. Treatment Goals Patient/Caregiver Goals Pt and his expect receiving physical therapy can help pt's overall strength and functional mobility to reduce fall risks. Prior Functional Status Baseline Function- ADL's Modified Independent Baseline Function- Mobility Modified Independent Baseline Function- Gait use cane for community mobility; without cane for home mobility Current Functional Impairments (Reported) Functional Limitations- ADL's Pt reports difficulty doning his clothes and hold an object with his L arm due to weakness and insufficient ROM. Functional Limitations- Mobility/Gait Pt uses step to pattern with R sided handrails for stability during stair negotiation. Difficulty getting up from a lower surface. PT-OP-C Subjective Start: 07/10/18 17:00 Freq: Status: Active Protocol: Document 08/28/18 15:15 HH (Rec: 08/28/18 16:45 [email or web address]) OP-PT Subjective Patient Comments Patient Comments I think my walking speed and gait pattern have been improving lately. I feel faster and better. My shoulder didnt hurt as much lately as well Patient Reported Progress Improving OP-PT Pain Assessment Location Left Shoulder Intensity 2 Scale Used Numeric (1 - 10) Description Pinching Frequency Occasional Pain Aggravating Factors Exercise Pain Alleviating Factors Inactivity PT-OP-G Mobility & Gait Start: 07/10/18 17:00 Freq: Status: Active Protocol: Document 08/28/18 15:15 HH (Rec: 08/28/18 16:45 [email or web address]) OP Gait Assessment Assistive Devices Assistive Device Tripod Cane/Hurry Cane Gait Deviations General Gait Pattern Decreased Stride Length Decreased Feet Clearance Comments Gait Comments Pt is able to perform step over step gait now with improved L foot clearance PT-OP-H Neuro Start: 07/10/18 17:00 Freq: Status: Active Protocol: Document 07/10/18 15:15 HH (Rec: 07/10/18 17:44 [email or web address]) Sensation Evaluation Gross Sensation Gross Sensation WNL Muscle Tone Tone Assessment Left Upper Extremity Flexor Tone Description Moderate Hypertonicity Muscle Tone Comments Flexion synergy during exertion and reaching activities PT-OP-K Range of Motion Start: 07/10/18 17:00 Freq: Status: Active Protocol: Document 08/28/18 15:15 HH (Rec: 08/28/18 16:45 [email or web address]) Shoulder Goniometric Range of Motion Shoulder Measured in Degrees Left Passive Testing Position Sitting Flexion 100 Extension 35 Abduction 80 PT-OP-M Strength Start: 07/10/18 17:00 Freq: Status: Active Protocol: Document 08/28/18 15:15 HH (Rec: 08/28/18 16:45 [email or web address]) Shoulder Strength Shoulder Manual Muscle Testing Left Flexion 3- Fair- Extension 3- Fair- Abduction (C5) 2+ Poor+ Adduction 3+ Fair+ Hip Strength Hip Manual Muscle Testing Left Flexion (L2) 4- Good- Extension (S1) 4- Good- Abduction 3+ Fair+ Adduction 3+ Fair+ PT-OP-Q Treatments Start: 07/10/18 17:00 Freq: Status: Active Protocol: Document 08/28/18 15:15 (Rec: 08/28/18 16:45 [email or web address]) Therapeutic Exercises Sitting Exercises Shoulder Flexion/Abduction Sitting Exercise Name Shoulder Flex/Abd Equipment Used with OH pulleys Comments AAROM 5 Sitting Exercise Name Sit<->stand on level ground /s UE support Equipment Used with 4 inch box under R LE Reps/Minutes 6 reps x 5 sets Comments cues to use momentum 4 Sitting Exercise Name Shoulder PROM Flexion Equipment Used Pulleys Comments L FL to 110 degrees Standing Exercises step up with 3 inch box on R LE Side right Equipment Used 4 inch box Reps/Minutes 5 mins Step up with 3 inch box on LLE Side left Equipment Used 4 inch box Reps/Minutes 5 mins Comments trunk hold to facilitate increase hip flexion on L Gait Training Gait Activity step over step pattern Device Used tripod cane Comments step over step PT-OP-T Assessment and Plan Start: 07/10/18 17:00 Freq: Status: Active Protocol: Document 08/28/18 15:15 (Rec: 08/28/18 16:45 [email or web address]) Physical Therapy Assessment Goals sts 5 times Impairment STS Snf Goal (LTG) STS x 5 times under 40 seconds LTG Duration 4 weeks TUG Impairment TUG Practice Architect Goal (LTG) TUG under 30 seconds LTG Duration 4 weeks 5 Impairment gait pattern Snf Goal (LTG) to use 2 point gait pattern with SPC on R side. LTG Duration 4 weeks Four Snf Goal (LTG) To increase L GH passive/ active assisted flexion and abduction by 20 degrees LTG Duration 4 weeks Three Snf Goal (LTG) improve overall hip muscular strength by 1/2 MMT grade fpr hip stability during amb LTG Duration 4 weeks One Practice Architect Goal (LTG) to perform sit to stand with 3 inch box underneath R foot x 8 times without UE support LTG Duration 4 weeks Progress Towards Goals Progress Towards Goals Slow Progress due to Activity Tolerance Slow Progress - Other Assessment Summary Assessment Reeval today. Pt demonstrates improved overall 10-20 degrees shoulder passive/ assisted ROM since IE. Pt also able to step over 1 step with R foot without UE support for the first time today, but he cont to need UE support with L LE step up. Pt also demosntrates improve gait speed with step over step pattern. today's TUG = 35s and STS 5 times = 50s. Education on using momentum and place his L foot underneath chair for sit to stand activities. Pt is quite satisfied with his progress lately. Physical Therapy Plan Frequency and Duration Frequency of Treatment 2x/Week Duration of Treatment 4 weeks Plan of Care Start Date 08/28/18 Plan of Care End Date 09/26/18 Therapeutic Interventions Therapeutic Interventions Balance Training Gait Training Home Exercise Program Manual Therapy Neuromuscular Re-education Patient/Caregiver Education Soft Tissue Mobilization Therapeutic Activities Therapeutic Exercises Next Visit Focus/Plan Next Note Type Treatment Note Next Visit Plan Reassess techniques during sit to stand, Cont overall LE strengthening, focus on weigth acceptance on LLE, single leg balance, focus step over /step up training as well
--- NOTE | 2018-08-28 16:46 | PT.OPPOC ---
Current Diagnoses Unspecified sequelae of cerebral infarction (08/28/18) Other symptoms and signs involving the musculoskeletal system (08/28/18) Weakness (08/28/18) Provider Visit Care Team Role Provider Type Franky Wynn MD Family Provider Non-Staff Primary Care Provider Specialty: Medical Address: [address] [place] [address] [address], [place], [address] Email: Salina Felton Attending Provider Non-Staff Specialty: Neurology Address: [address] [place] [address] [address], [address] Phone: Fax: Email: Plan Of Care PT-OP-T Assessment and Plan Start: 07/10/18 17:00 Freq: Status: Active Protocol: Document 08/28/18 15:15 HH (Rec: 08/28/18 16:45 HH [email or web address]) Physical Therapy Assessment Goals sts 5 times Impairment STS Compliance Investigator Goal (LTG) STS x 5 times under 40 seconds LTG Duration 4 weeks TUG Impairment TUG Compliance Investigator Goal (LTG) TUG under 30 seconds LTG Duration 4 weeks 5 Impairment gait pattern Compliance Investigator Goal (LTG) to use 2 point gait pattern with SPC on R side. LTG Duration 4 weeks Four Compliance Investigator Goal (LTG) To increase L GH passive/ active assisted flexion and abduction by 20 degrees LTG Duration 4 weeks Three Alf Goal (LTG) improve overall hip muscular strength by 1/2 MMT grade fpr hip stability during amb LTG Duration 4 weeks One Compliance Investigator Goal (LTG) to perform sit to stand with 3 inch box underneath R foot x 8 times without UE support LTG Duration 4 weeks Progress Towards Goals Progress Towards Goals Slow Progress due to Activity Tolerance Slow Progress - Other Assessment Summary Assessment Reeval today. Pt demonstrates improved overall 10-20 degrees shoulder passive/ assisted ROM since IE. Pt also able to step over 1 step with R foot without UE support for the first time today, but he cont to need UE support with L LE step up. Pt also demosntrates improve gait speed with step over step pattern. today's TUG = 35s and STS 5 times = 50s. Education on using momentum and place his L foot underneath chair for sit to stand activities. Pt is quite satisfied with his progress lately. Physical Therapy Plan Frequency and Duration Frequency of Treatment 2x/Week Duration of Treatment 4 weeks Plan of Care Start Date 08/28/18 Plan of Care End Date 09/26/18 Therapeutic Interventions Therapeutic Interventions Balance Training Gait Training Home Exercise Program Manual Therapy Neuromuscular Re-education Patient/Caregiver Education Soft Tissue Mobilization Therapeutic Activities Therapeutic Exercises Next Visit Focus/Plan Next Note Type Treatment Note Next Visit Plan Reassess techniques during sit to stand, Cont overall LE strengthening, focus on weigth acceptance on LLE, single leg balance, focus step over /step up training as well Plan of Care Dates Plan of Care Start Date 08/28/18 Plan of Care End Date 09/26/18 Please Sign and Return: I have reviewed this Plan of Care and certify that the skilled therapy services above are required to meet the patient?s needs. Physician Signature Date Printed Name and Credentials Clinical Instructor Signature Printed Name and Credentials
--- NOTE | 2018-09-16 17:46 | PT.OTN ---
Current Diagnoses Unspecified sequelae of cerebral infarction (09/16/18) Other symptoms and signs involving the musculoskeletal system (09/16/18) Weakness (09/16/18) Physical Therapy Treatment Note PT-OP-A Visit Information Start: 07/10/18 17:00 Freq: Status: Active Protocol: Document 09/16/18 16:45 [facility] (Rec: 09/16/18 17:46 [facility] [id number]) Out-Patient Physical Therapy Visit Information Visit Information Visit Type Treatment Note Visit Start Time 16:45 Visit Stop Time 17:25 Total Visit Minutes 40 Visit Number 12 Number of MOTOR CHECKER Visits 0 PT-OP-B Current Condition Start: 07/10/18 17:00 Freq: Status: Active Protocol: Document 07/10/18 15:15 HH (Rec: 07/10/18 17:44 HH [email or web address]) Current Condition History of Current Condition Onset Date 2010 Current Complaints 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 Pt is now able to amb as tolerated at home and community with his tripod cane. He c/o multiple falls during functional activities due to L sided weakness. But he states he is aware of his L sided weakness and position at all time. Pt also c/o difficulty to perform functional activities such as holding a cup of water and stair negotiation. Pt also c/o difficulty performing sit to stand from a lower surface. pt also currently uses step to pattern to ascend and descend with the use of handrail on R side. Prior Treatments and Tests Pt received physical therapy before and it did not help. Treatment Goals Patient/Caregiver Goals Pt and his expect receiving physical therapy can help pt's overall strength and functional mobility to reduce fall risks. Prior Functional Status Baseline Function- ADL's Modified Independent Baseline Function- Mobility Modified Independent Baseline Function- Gait use cane for community mobility; without cane for home mobility Current Functional Impairments (Reported) Functional Limitations- ADL's Pt reports difficulty doning his clothes and hold an object with his L arm due to weakness and insufficient ROM. Functional Limitations- Mobility/Gait Pt uses step to pattern with R sided handrails for stability during stair negotiation. Difficulty getting up from a lower surface. PT-OP-C Subjective Start: 07/10/18 17:00 Freq: Status: Active Protocol: Document 09/16/18 16:45 LR (Rec: 09/16/18 17:46 [facility] [id number]) OP-PT Subjective Patient Comments Patient Comments notes some decline since he has had some days off PT d/ t weather & moving. PT-OP-G Mobility & Gait Start: 07/10/18 17:00 Freq: Status: Active Protocol: Document 08/28/18 15:15 HH (Rec: 08/28/18 16:45 HH [email or web address]) OP Gait Assessment Assistive Devices Assistive Device Tripod Cane/Hurry Cane Gait Deviations General Gait Pattern Decreased Stride Length Decreased Feet Clearance Comments Gait Comments Pt is able to perform step over step gait now with improved L foot clearance PT-OP-H Neuro Start: 07/10/18 17:00 Freq: Status: Active Protocol: Document 07/10/18 15:15 HH (Rec: 07/10/18 17:44 HH [email or web address]) Sensation Evaluation Gross Sensation Gross Sensation WNL Muscle Tone Tone Assessment Left Upper Extremity Flexor Tone Description Moderate Hypertonicity Muscle Tone Comments Flexion synergy during exertion and reaching activities PT-OP-K Range of Motion Start: 07/10/18 17:00 Freq: Status: Active Protocol: Document 08/28/18 15:15 HH (Rec: 08/28/18 16:45 HH [email or web address]) Shoulder Goniometric Range of Motion Shoulder Measured in Degrees Left Passive Testing Position Sitting Flexion 100 Extension 35 Abduction 80 PT-OP-M Strength Start: 07/10/18 17:00 Freq: Status: Active Protocol: Document 08/28/18 15:15 HH (Rec: 08/28/18 16:45 HH [email or web address]) Shoulder Strength Shoulder Manual Muscle Testing Left Flexion 3- Fair- Extension 3- Fair- Abduction (C5) 2+ Poor+ Adduction 3+ Fair+ Hip Strength Hip Manual Muscle Testing Left Flexion (L2) 4- Good- Extension (S1) 4- Good- Abduction 3+ Fair+ Adduction 3+ Fair+ PT-OP-Q Treatments Start: 07/10/18 17:00 Freq: Status: Active Protocol: Document 09/16/18 16:45 LR (Rec: 09/16/18 17:46 [facility] [id number]) Gym Equipment Shuttle Recovery Unilateral Squats Resistance 75 Shuttle Recovery Platform Stable Reps/Time 20 Bilateral Squats Resistance 100 Shuttle Recovery Platform Stable Reps/Time 20 Shuttle Balance blue clips Details WBOS progressing to no UE support Therapeutic Exercises Sitting Exercises Shoulder Flexion/Abduction Sitting Exercise Name Shoulder Flex/Abd Equipment Used with TRISH coolnatacha Comments AAROM 5 Sitting Exercise Name Sit<->stand on level ground /s UE support Standing Exercises step up with 3 inch box on R LE Side right Equipment Used 6 in step w/rail Reps/Minutes 10 Step up with 3 inch box on LLE Side left Equipment Used 6 inch step w/rail Reps/Minutes 10 Comments trunk hold to facilitate increase hip flexion on L Neuro Re-Education Treatment Balance Activities back walking Details backwards walk Reps/Duration 2x15ft rail prn fwd september Details fwd september Reps/Duration 15ft bar prn tandem stance Details tandem stance B toe taps Details toe taps to stair with limited bar support Reps/Duration 2x5 B Comments 6 in step PT-OP-T Assessment and Plan Start: 07/10/18 17:00 Freq: Status: Active Protocol: Document 09/16/18 16:45 [facility] (Rec: 09/16/18 17:46 [facility] [id number]) Physical Therapy Assessment Goals sts 5 times Impairment STS Ore Digger Goal (LTG) STS x 5 times under 40 seconds LTG Duration 4 weeks TUG Impairment TUG Ore Digger Goal (LTG) TUG under 30 seconds LTG Duration 4 weeks 5 Impairment gait pattern Care Home Goal (LTG) to use 2 point gait pattern with SPC on R side. LTG Duration 4 weeks Four Care Home Goal (LTG) To increase L GH passive/ active assisted flexion and abduction by 20 degrees LTG Duration 4 weeks Three Ore Digger Goal (LTG) improve overall hip muscular strength by 1/2 MMT grade fpr hip stability during amb LTG Duration 4 weeks One Care Home Goal (LTG) to perform sit to stand with 3 inch box underneath R foot x 8 times without UE support LTG Duration 4 weeks Assessment Summary Assessment Pt unable to do sit to stands with box under RLE today, but was able to tolerate further balance and gait training. Physical Therapy Plan Frequency and Duration Frequency of Treatment 2x/Week Duration of Treatment 4 weeks Plan of Care Start Date 08/28/18 Plan of Care End Date 09/26/18 Next Visit Focus/Plan Next Note Type Treatment Note Next Visit Plan Reassess techniques during sit to stand, Cont overall LE strengthening, focus on weigth acceptance on LLE, single leg balance, focus step over /step up training as well
--- NOTE | 2018-09-18 16:42 | PT.OTN ---
Current Diagnoses Unspecified sequelae of cerebral infarction (09/18/18) Other symptoms and signs involving the musculoskeletal system (09/18/18) Weakness (09/18/18) Physical Therapy Treatment Note PT-OP-A Visit Information Start: 07/10/18 17:00 Freq: Status: Active Protocol: Document 09/18/18 15:35 HH (Rec: 09/18/18 16:40 HH [email or web address]) Out-Patient Physical Therapy Visit Information Visit Information Visit Type Treatment Note Visit Start Time 15:35 Visit Stop Time 16:20 Total Visit Minutes 45 Visit Number 13 Number of MACHINE PECAN GATHERER Visits 0 PT-OP-B Current Condition Start: 07/10/18 17:00 Freq: Status: Active Protocol: Document 07/10/18 15:15 HH (Rec: 07/10/18 17:44 HH [email or web address]) Current Condition History of Current Condition Onset Date 2010 Current Complaints 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 Pt is now able to amb as tolerated at home and community with his tripod cane. He c/o multiple falls during functional activities due to L sided weakness. But he states he is aware of his L sided weakness and position at all time. Pt also c/o difficulty to perform functional activities such as holding a cup of water and stair negotiation. Pt also c/o difficulty performing sit to stand from a lower surface. pt also currently uses step to pattern to ascend and descend with the use of handrail on R side. Prior Treatments and Tests Pt received physical therapy before and it did not help. Treatment Goals Patient/Caregiver Goals Pt and his expect receiving physical therapy can help pt's overall strength and functional mobility to reduce fall risks. Prior Functional Status Baseline Function- ADL's Modified Independent Baseline Function- Mobility Modified Independent Baseline Function- Gait use cane for community mobility; without cane for home mobility Current Functional Impairments (Reported) Functional Limitations- ADL's Pt reports difficulty doning his clothes and hold an object with his L arm due to weakness and insufficient ROM. Functional Limitations- Mobility/Gait Pt uses step to pattern with R sided handrails for stability during stair negotiation. Difficulty getting up from a lower surface. PT-OP-C Subjective Start: 07/10/18 17:00 Freq: Status: Active Protocol: Document 09/18/18 15:35 HH (Rec: 09/18/18 16:40 HH [email or web address]) OP-PT Subjective Patient Comments Patient Comments Me and my wish I could cont therapy to get stronger and more mobile. So i could help out my if needed. Pt just received new prescription for cont therapy. Pt is now amb at home without SPC sometimes. PT-OP-G Mobility & Gait Start: 07/10/18 17:00 Freq: Status: Active Protocol: Document 08/28/18 15:15 HH (Rec: 08/28/18 16:45 HH [email or web address]) OP Gait Assessment Assistive Devices Assistive Device Tripod Cane/Hurry Cane Gait Deviations General Gait Pattern Decreased Stride Length Decreased Feet Clearance Comments Gait Comments Pt is able to perform step over step gait now with improved L foot clearance PT-OP-H Neuro Start: 07/10/18 17:00 Freq: Status: Active Protocol: Document 07/10/18 15:15 HH (Rec: 07/10/18 17:44 [email or web address]) Sensation Evaluation Gross Sensation Gross Sensation WNL Muscle Tone Tone Assessment Left Upper Extremity Flexor Tone Description Moderate Hypertonicity Muscle Tone Comments Flexion synergy during exertion and reaching activities PT-OP-K Range of Motion Start: 07/10/18 17:00 Freq: Status: Active Protocol: Document 08/28/18 15:15 HH (Rec: 08/28/18 16:45 [email or web address]) Shoulder Goniometric Range of Motion Shoulder Measured in Degrees Left Passive Testing Position Sitting Flexion 100 Extension 35 Abduction 80 PT-OP-M Strength Start: 07/10/18 17:00 Freq: Status: Active Protocol: Document 08/28/18 15:15 HH (Rec: 08/28/18 16:45 [email or web address]) Shoulder Strength Shoulder Manual Muscle Testing Left Flexion 3- Fair- Extension 3- Fair- Abduction (C5) 2+ Poor+ Adduction 3+ Fair+ Hip Strength Hip Manual Muscle Testing Left Flexion (L2) 4- Good- Extension (S1) 4- Good- Abduction 3+ Fair+ Adduction 3+ Fair+ PT-OP-Q Treatments Start: 07/10/18 17:00 Freq: Status: Active Protocol: Document 09/18/18 15:35 HH (Rec: 09/18/18 16:40 HH [email or web address]) Therapeutic Exercises Sitting Exercises 4 Sitting Exercise Name Shoulder PROM Flexion Equipment Used Pulleys Comments L FL to 110 degrees Standing Exercises standing heel raise Standing Exercise Name unilateral heel raise without UE support Reps/Minutes 5 mins Comments without UE support step up with 3 inch box on R LE Side right Equipment Used 6 in step w/rail Reps/Minutes 10 Step up with 3 inch box on LLE Side left Equipment Used 6 inch step w/rail Reps/Minutes 10 Comments trunk hold to facilitate increase hip flexion on L Neuro Re-Education Treatment Balance Activities RLE step up on 5/7inch step without UE Equipment stair Comments facilitate LLE single leg balance gait belt and CGA PT-OP-T Assessment and Plan Start: 07/10/18 17:00 Freq: Status: Active Protocol: Document 09/18/18 15:35 HH (Rec: 09/18/18 16:40 [email or web address]) Physical Therapy Assessment Assessment Summary Assessment Pt presented to clinic with slight decrease in gait speed compared to 2 weeks ago possibly due to inactivity because of snow recently. Tx focus on LLE single leg balance. Pt was able to progress to 7inch step up without RUE support today , with CGA. Pt states 'I do feel more confident if i do it consistently regarding my single leg balance.' Physical Therapy Plan Next Visit Focus/Plan Next Note Type Treatment Note Next Visit Plan Reassess TUG, 5 times STS, Cont overall LE strengthening, focus on weigth acceptance on LLE, single leg balance, focus step over /step up training as well attempt 2 pt gait training again.
--- NOTE | 2018-09-23 14:05 | PT.OTN ---
Current Diagnoses Unspecified sequelae of cerebral infarction (09/23/18) Other symptoms and signs involving the musculoskeletal system (09/23/18) Weakness (09/23/18) Physical Therapy Treatment Note PT-OP-A Visit Information Start: 07/10/18 17:00 Freq: Status: Active Protocol: Document 09/23/18 12:46 LRN (Rec: 09/23/18 13:11 LRN [id number]) Out-Patient Physical Therapy Visit Information Visit Information Visit Type Treatment Note Visit Start Time 12:46 Visit Stop Time 13:33 Total Visit Minutes 47 Visit Number 14 Number of CLASSIFIED AD TAKER Visits 0 Evaluation Information Evaluation Date 07/10/18 PT-OP-B Current Condition Start: 07/10/18 17:00 Freq: Status: Active Protocol: Document 07/10/18 15:15 HH (Rec: 07/10/18 17:44 HH [email or web address]) Current Condition History of Current Condition Onset Date 2010 Current Complaints 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 Pt is now able to amb as tolerated at home and community with his tripod cane. He c/o multiple falls during functional activities due to L sided weakness. But he states he is aware of his L sided weakness and position at all time. Pt also c/o difficulty to perform functional activities such as holding a cup of water and stair negotiation. Pt also c/o difficulty performing sit to stand from a lower surface. pt also currently uses step to pattern to ascend and descend with the use of handrail on R side. Prior Treatments and Tests Pt received physical therapy before and it did not help. Treatment Goals Patient/Caregiver Goals Pt and his expect receiving physical therapy can help pt's overall strength and functional mobility to reduce fall risks. Prior Functional Status Baseline Function- ADL's Modified Independent Baseline Function- Mobility Modified Independent Baseline Function- Gait use cane for community mobility; without cane for home mobility Current Functional Impairments (Reported) Functional Limitations- ADL's Pt reports difficulty doning his clothes and hold an object with his L arm due to weakness and insufficient ROM. Functional Limitations- Mobility/Gait Pt uses step to pattern with R sided handrails for stability during stair negotiation. Difficulty getting up from a lower surface. PT-OP-C Subjective Start: 07/10/18 17:00 Freq: Status: Active Protocol: Document 09/23/18 12:46 LRN (Rec: 09/23/18 13:38 LRN [id number]) OP-PT Subjective Patient Comments Patient Comments UTI and on antibiotics. Last night went to ER for GI problems and was given an enema. Has a cold. PT-OP-E Functional Tests Start: 07/10/18 17:00 Freq: Status: Active Protocol: Document 09/23/18 12:46 LRN (Rec: 09/23/18 13:38 LRN [id number]) Functional Tests Five Times Sit to Stand Test Score 51 sec's Comments GB/Use of hands to assist standing Timed Up and Go (TUG) Score 34 secs Comments Used hands and SPC TUG Impairment Rating 100% Impaired (Score 20) PT-OP-G Mobility & Gait Start: 07/10/18 17:00 Freq: Status: Active Protocol: Document 08/28/18 15:15 HH (Rec: 08/28/18 16:45 HH [email or web address]) OP Gait Assessment Assistive Devices Assistive Device Tripod Cane/Hurry Cane Gait Deviations General Gait Pattern Decreased Stride Length Decreased Feet Clearance Comments Gait Comments Pt is able to perform step over step gait now with improved L foot clearance PT-OP-H Neuro Start: 07/10/18 17:00 Freq: Status: Active Protocol: Document 07/10/18 15:15 HH (Rec: 07/10/18 17:44 HH [email or web address]) Sensation Evaluation Gross Sensation Gross Sensation WNL Muscle Tone Tone Assessment Left Upper Extremity Flexor Tone Description Moderate Hypertonicity Muscle Tone Comments Flexion synergy during exertion and reaching activities PT-OP-K Range of Motion Start: 07/10/18 17:00 Freq: Status: Active Protocol: Document 08/28/18 15:15 HH (Rec: 08/28/18 16:45 HH [email or web address]) Shoulder Goniometric Range of Motion Shoulder Measured in Degrees Left Passive Testing Position Sitting Flexion 100 Extension 35 Abduction 80 PT-OP-M Strength Start: 07/10/18 17:00 Freq: Status: Active Protocol: Document 08/28/18 15:15 HH (Rec: 08/28/18 16:45 HH [email or web address]) Shoulder Strength Shoulder Manual Muscle Testing Left Flexion 3- Fair- Extension 3- Fair- Abduction (C5) 2+ Poor+ Adduction 3+ Fair+ Hip Strength Hip Manual Muscle Testing Left Flexion (L2) 4- Good- Extension (S1) 4- Good- Abduction 3+ Fair+ Adduction 3+ Fair+ PT-OP-Q Treatments Start: 07/10/18 17:00 Freq: Status: Active Protocol: Document 09/23/18 12:46 LRN (Rec: 09/23/18 13:38 LRN [id number]) Gym Equipment Shuttle Recovery Unilateral Squats Details Knee control with 50# Resistance 50# & 75# Reps/Time 20x each Therapeutic Exercises Sitting Exercises LLE knee roll in Side left Comments Assist to start Standing Exercises Sit to Stand Equipment Used Chair hand supports Reps/Minutes 5x 2 Comments Appears to have poor WBing in LLE on standing step up with 3 inch box on R LE Side right Equipment Used 6 in step w/rail Reps/Minutes 5 Step up with 3 inch box on LLE Side left Equipment Used 6 inch step w/rail Reps/Minutes 5' Comments trunk hold to facilitate increase hip flexion on L Gait Training Gait Activity step over step pattern Device Used tripod cane Comments step over step Keeping L toes headed forward. TUG assessed. Neuro Re-Education Treatment Balance Activities Hurdles Details Stepping over widespread hurdles Surface Level Equipment Single rail & tripod cane Reps/Duration 6 laps Self-Care/Home Management Treatment Education Patient Education Home Exercise Program Activities Self-Care/Home Management Activities I/S pt to restart LLE Hip rolls inward in supine and sitting. PT-OP-T Assessment and Plan Start: 07/10/18 17:00 Freq: Status: Active Protocol: Document 09/23/18 12:46 LRN (Rec: 09/23/18 13:11 LRN [id number]) Physical Therapy Assessment Goals sts 5 times Impairment STS Windows Infrastructure Engineer Goal (LTG) STS x 5 times under 40 seconds LTG Duration 4 weeks (09/23/18: 51 sec's) TUG Impairment TUG Long-Term Goal (LTG) TUG under 30 seconds LTG Duration 4 weeks (09/23/18: 34 sec's) 5 Impairment gait pattern Long-Term Goal (LTG) to use 2 point gait pattern with SPC on R side. LTG Duration 4 weeks Four Long-Term Goal (LTG) To increase L GH passive/ active assisted flexion and abduction by 20 degrees LTG Duration 4 weeks Three Long-Term Goal (LTG) improve overall hip muscular strength by 1/2 MMT grade fpr hip stability during amb LTG Duration 4 weeks Two Impairment ADLs Short Term Goal (STG) able to perform floor recovery with min A with the use of chair STG Duration 4 weeks Long-Term Goal (LTG) able to perform floor recovery with SBA with the use of chair LTG Duration 8 weeks One Long-Term Goal (LTG) to perform sit to stand with 3 inch box underneath R foot x 8 times without UE support LTG Duration 4 weeks Progress Towards Goals Progress Towards Goals Slow Progress due to Activity Tolerance Slow Progress - Other Assessment Summary Assessment Per TUG of 34 sec's pt is 100 impaired. Per 5TST Test pt is at risk of falling with score of 51 sec's. Pt has had other medical issues to deal with and appeared fatigued. Pt follows directions well. Physical Therapy Plan Frequency and Duration Frequency of Treatment 2x/Week Duration of Treatment 4 weeks Plan of Care Start Date 08/28/18 Plan of Care End Date 09/26/18 Next Visit Focus/Plan Next Note Type Treatment Note Next Visit Plan Review LLE roll in ex (pt calls AOT Bedding Super Holdingsfly ex), Cont overall LE strengthening, focus on weigth acceptance on LLE, single leg balance, focus step over /step up training as well attempt 2 pt gait training again.
--- NOTE | 2018-09-25 17:58 | PT.OTRE ---
Current Diagnoses Unspecified sequelae of cerebral infarction (09/25/18) Other symptoms and signs involving the musculoskeletal system (09/25/18) Weakness (09/25/18) Provider Visit Care Team Role Provider Type Franky Wynn MD Family Provider Non-Staff Primary Care Provider Specialty: Medical Address: [address] [place] [address] [address], [address] Email: Salina Felton Attending Provider Non-Staff Specialty: Neurology Address: [address] [place] [address] [address], [address] Phone: Fax: Email: Physical Therapy Re-Evaluation PT-OP-A Visit Information Start: 07/10/18 17:00 Freq: Status: Active Protocol: Document 09/25/18 16:45 HH (Rec: 09/25/18 17:54 HH [email or web address]) Out-Patient Physical Therapy Visit Information Visit Information Visit Type Treatment Note Visit Note POC ends today. Reeval today. 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 Pt is now able to amb as tolerated at home and community with his tripod cane. He c/o multiple falls during functional activities due to L sided weakness. But he states he is aware of his L sided weakness and position at all time. Pt also c/o difficulty to perform functional activities such as holding a cup of water and stair negotiation. Pt also c/o difficulty performing sit to stand from a lower surface. pt also currently uses step to pattern to ascend and descend with the use of handrail on R side. Prior Treatments and Tests Pt received physical therapy before and it did not help. Treatment Goals Patient/Caregiver Goals Pt and his expect receiving physical therapy can help pt's overall strength and functional mobility to reduce fall risks. Prior Functional Status Baseline Function- ADL's Modified Independent Baseline Function- Mobility Modified Independent Baseline Function- Gait use cane for community mobility; without cane for home mobility Current Functional Impairments (Reported) Functional Limitations- ADL's Pt reports difficulty doning his clothes and hold an object with his L arm due to weakness and insufficient ROM. Functional Limitations- Mobility/Gait Pt uses step to pattern with R sided handrails for stability during stair negotiation. Difficulty getting up from a lower surface. PT-OP-C Subjective Start: 07/10/18 17:00 Freq: Status: Active Protocol: Document 09/25/18 16:45 HH (Rec: 09/25/18 17:54 [email or web address]) OP-PT Subjective Patient Comments Patient Comments Im feeling better now from the UTI. I think i am getting stronger for the past 2 months . i am now able to amb without AD at home. I am also able to touch my forehead with my wrist everyday now. PT-OP-E Functional Tests Start: 07/10/18 17:00 Freq: Status: Active Protocol: Document 09/25/18 16:45 HH (Rec: 09/25/18 17:56 [email or web address]) Functional Tests Five Times Sit to Stand Test Score 51 sec's Timed Up and Go (TUG) Score 34 secs Comments Used hands and SPC TUG Impairment Rating 100% Impaired (Score 20) PT-OP-G Mobility & Gait Start: 07/10/18 17:00 Freq: Status: Active Protocol: Document 08/28/18 15:15 HH (Rec: 08/28/18 16:45 [email or web address]) OP Gait Assessment Assistive Devices Assistive Device Tripod Cane/Hurry Cane Gait Deviations General Gait Pattern Decreased Stride Length Decreased Feet Clearance Comments Gait Comments Pt is able to perform step over step gait now with improved L foot clearance PT-OP-H Neuro Start: 07/10/18 17:00 Freq: Status: Active Protocol: Document 07/10/18 15:15 HH (Rec: 07/10/18 17:44 [email or web address]) Sensation Evaluation Gross Sensation Gross Sensation WNL Muscle Tone Tone Assessment Left Upper Extremity Flexor Tone Description Moderate Hypertonicity Muscle Tone Comments Flexion synergy during exertion and reaching activities PT-OP-K Range of Motion Start: 07/10/18 17:00 Freq: Status: Active Protocol: Document 08/28/18 15:15 HH (Rec: 08/28/18 16:45 [email or web address]) Shoulder Goniometric Range of Motion Shoulder Measured in Degrees Left Passive Testing Position Sitting Flexion 100 Extension 35 Abduction 80 PT-OP-M Strength Start: 07/10/18 17:00 Freq: Status: Active Protocol: Document 09/25/18 16:45 HH (Rec: 09/25/18 17:56 [email or web address]) Hip Strength Hip Manual Muscle Testing Left Flexion (L2) 4- Good- Extension (S1) 4- Good- Abduction 3+ Fair+ Adduction 4 Good Knee Strength Knee Manual Muscle Testing Left Flexion (S2) 4 Good Extension (L3) 4 Good PT-OP-Q Treatments Start: 07/10/18 17:00 Freq: Status: Active Protocol: Document 09/25/18 16:45 HH (Rec: 09/25/18 17:54 [email or web address]) Therapeutic Exercises Standing Exercises Sit to Stand Equipment Used without support Reps/Minutes 5 x [address] his L LE underneath chair Therapeutic Activity Therapeutic Activity stair climbing Name ascend and descend Comments up with RLE down with LLE Gait Training Gait Activity step over step pattern Device Used without AD Comments step over step Keeping L toes headed forward. TUG assessed. Neuro Re-Education Treatment Balance Activities RLE step up on 5/7inch step without UE Details ascend Equipment stair Comments facilitate LLE single leg balance gait belt and CGA PT-OP-T Assessment and Plan Start: 07/10/18 17:00 Freq: Status: Active Protocol: Document 09/25/18 16:45 (Rec: 09/25/18 17:54 [email or web address]) Physical Therapy Assessment Goals sts 5 times Impairment STS Mcfp Goal (LTG) STS x 5 times under 40 seconds LTG Duration 4 weeks (09/23/18: 51 sec's) TUG Impairment TUG Travel Guide Goal (LTG) TUG under 30 seconds LTG Duration 4 weeks (09/23/18: 34 sec's) 5 Impairment gait pattern Mcfp Goal (LTG) to use 2 point gait pattern with/ without SPC on R side. LTG Duration 4 weeks Two Mcfp Goal (LTG) able to perform floor recovery with SBA with the use of chair LTG Duration 4 weeks One Mcfp Goal (LTG) to perform sit to stand without AD/ support x 5 times independently LTG Duration 4 weeks Progress Towards Goals Progress Towards Goals Slow Progress due to Activity Tolerance Slow Progress - Other Assessment Summary Assessment Pt has shown slight improvements recently. Pt started to amb at home without AD. Pt was also able to sit to stand without AD x 5 x2 today but needed cues to place his LLE under the chair to facilitate WB on LLE. He amb without AD x 400 feet today with CGA/SBA. Physical Therapy Plan Frequency and Duration Frequency of Treatment 2x/Week Duration of Treatment 4 weeks Plan of Care Start Date 09/25/18 Plan of Care End Date 10/26/18 Therapeutic Interventions Therapeutic Interventions Balance Training Gait Training Home Exercise Program Manual Therapy Neuromuscular Re-education Patient/Caregiver Education Soft Tissue Mobilization Therapeutic Activities Therapeutic Exercises Next Visit Focus/Plan Next Note Type Treatment Note Next Visit Plan Review LLE roll in ex (pt calls butterfly ex), review sit to stand Cont overall LE strengthening, focus on weigth acceptance on LLE, single leg balance, focus step over /step up training as well gait training without AD
--- NOTE | 2018-09-25 17:58 | PT.OPPOC ---
Current Diagnoses Unspecified sequelae of cerebral infarction (09/25/18) Other symptoms and signs involving the musculoskeletal system (09/25/18) Weakness (09/25/18) Provider Visit Care Team Role Provider Type Franky Wynn MD Family Provider Non-Staff Primary Care Provider Specialty: Medical Address: [address] [place] [address] [address], [address] Email: Salina Felton Attending Provider Non-Staff Specialty: Neurology Address: [address] [place] [address] [address], [place], [address] Phone: Fax: Email: Plan Of Care PT-OP-T Assessment and Plan Start: 07/10/18 17:00 Freq: Status: Active Protocol: Document 09/25/18 16:45 HH (Rec: 09/25/18 17:54 HH [email or web address]) Physical Therapy Assessment Goals sts 5 times Impairment STS Nuclear Equipment Research Engineer Goal (LTG) STS x 5 times under 40 seconds LTG Duration 4 weeks (09/23/18: 51 sec's) TUG Impairment TUG [facility] Goal (LTG) TUG under 30 seconds LTG Duration 4 weeks (09/23/18: 34 sec's) 5 Impairment gait pattern [facility] Goal (LTG) to use 2 point gait pattern with/ without SPC on R side. LTG Duration 4 weeks Two [facility] Goal (LTG) able to perform floor recovery with SBA with the use of chair LTG Duration 4 weeks One Nuclear Equipment Research Engineer Goal (LTG) to perform sit to stand without AD/ support x 5 times independently LTG Duration 4 weeks Progress Towards Goals Progress Towards Goals Slow Progress due to Activity Tolerance Slow Progress - Other Assessment Summary Assessment Pt has shown slight improvements recently. Pt started to amb at home without AD. Pt was also able to sit to stand without AD x 5 x2 today but needed cues to place his LLE under the chair to facilitate WB on LLE. He amb without AD x 400 feet today with CGA/SBA. Physical Therapy Plan Frequency and Duration Frequency of Treatment 2x/Week Duration of Treatment 4 weeks Plan of Care Start Date 09/25/18 Plan of Care End Date 10/26/18 Therapeutic Interventions Therapeutic Interventions Balance Training Gait Training Home Exercise Program Manual Therapy Neuromuscular Re-education Patient/Caregiver Education Soft Tissue Mobilization Therapeutic Activities Therapeutic Exercises Next Visit Focus/Plan Next Note Type Treatment Note Next Visit Plan Review LLE roll in ex (pt calls butterfly ex), review sit to stand Cont overall LE strengthening, focus on weigth acceptance on LLE, single leg balance, focus step over /step up training as well gait training without AD Plan of Care Dates Plan of Care Start Date 09/25/18 Plan of Care End Date 10/26/18 Please Sign and Return: I have reviewed this Plan of Care and certify that the skilled therapy services above are required to meet the patient?s needs. Physician Signature Date Printed Name and Credentials Clinical Instructor Signature Printed Name and Credentials
--- NOTE | 2018-09-30 15:59 | PT.OTN ---
Current Diagnoses Unspecified sequelae of cerebral infarction (09/30/18) Other symptoms and signs involving the musculoskeletal system (09/30/18) Weakness (09/30/18) Physical Therapy Treatment Note PT-OP-A Visit Information Start: 07/10/18 17:00 Freq: Status: Active Protocol: Document 09/30/18 15:25 DCW (Rec: 09/30/18 15:59 DCW [id number]) Out-Patient Physical Therapy Visit Information Visit Information Visit Type Treatment Note Visit Start Time 15:25 Visit Stop Time 16:00 Total Visit Minutes 35 Visit Number 16 Number of FILLER LEAF CUTTER LONG Visits 0 Evaluation Information Evaluation Date 07/10/18 PT-OP-B Current Condition Start: 07/10/18 17:00 Freq: Status: Active Protocol: Document 07/10/18 15:15 HH (Rec: 07/10/18 17:44 HH [email or web address]) Current Condition History of Current Condition Onset Date 2010 Current Complaints 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 Pt is now able to amb as tolerated at home and community with his tripod cane. He c/o multiple falls during functional activities due to L sided weakness. But he states he is aware of his L sided weakness and position at all time. Pt also c/o difficulty to perform functional activities such as holding a cup of water and stair negotiation. Pt also c/o difficulty performing sit to stand from a lower surface. pt also currently uses step to pattern to ascend and descend with the use of handrail on R side. Prior Treatments and Tests Pt received physical therapy before and it did not help. Treatment Goals Patient/Caregiver Goals Pt and his expect receiving physical therapy can help pt's overall strength and functional mobility to reduce fall risks. Prior Functional Status Baseline Function- ADL's Modified Independent Baseline Function- Mobility Modified Independent Baseline Function- Gait use cane for community mobility; without cane for home mobility Current Functional Impairments (Reported) Functional Limitations- ADL's Pt reports difficulty doning his clothes and hold an object with his L arm due to weakness and insufficient ROM. Functional Limitations- Mobility/Gait Pt uses step to pattern with R sided handrails for stability during stair negotiation. Difficulty getting up from a lower surface. PT-OP-C Subjective Start: 07/10/18 17:00 Freq: Status: Active Protocol: Document 09/30/18 15:25 DCW (Rec: 09/30/18 15:59 DCW [id number]) OP-PT Subjective Patient Comments Patient Comments Pt feeling much better after getting his UTI taken care of. PT-OP-E Functional Tests Start: 07/10/18 17:00 Freq: Status: Active Protocol: Document 09/25/18 16:45 HH (Rec: 09/25/18 17:56 HH [email or web address]) Functional Tests Five Times Sit to Stand Test Score 51 sec's Timed Up and Go (TUG) Score 34 secs Comments Used hands and SPC TUG Impairment Rating 100% Impaired (Score 20) PT-OP-G Mobility & Gait Start: 07/10/18 17:00 Freq: Status: Active Protocol: Document 08/28/18 15:15 HH (Rec: 08/28/18 16:45 HH [email or web address]) OP Gait Assessment Assistive Devices Assistive Device Tripod Cane/Hurry Cane Gait Deviations General Gait Pattern Decreased Stride Length Decreased Feet Clearance Comments Gait Comments Pt is able to perform step over step gait now with improved L foot clearance PT-OP-H Neuro Start: 07/10/18 17:00 Freq: Status: Active Protocol: Document 07/10/18 15:15 HH (Rec: 07/10/18 17:44 HH [email or web address]) Sensation Evaluation Gross Sensation Gross Sensation WNL Muscle Tone Tone Assessment Left Upper Extremity Flexor Tone Description Moderate Hypertonicity Muscle Tone Comments Flexion synergy during exertion and reaching activities PT-OP-K Range of Motion Start: 07/10/18 17:00 Freq: Status: Active Protocol: Document 08/28/18 15:15 HH (Rec: 08/28/18 16:45 HH [email or web address]) Shoulder Goniometric Range of Motion Shoulder Measured in Degrees Left Passive Testing Position Sitting Flexion 100 Extension 35 Abduction 80 PT-OP-M Strength Start: 07/10/18 17:00 Freq: Status: Active Protocol: Document 09/25/18 16:45 HH (Rec: 09/25/18 17:56 HH [email or web address]) Hip Strength Hip Manual Muscle Testing Left Flexion (L2) 4- Good- Extension (S1) 4- Good- Abduction 3+ Fair+ Adduction 4 Good Knee Strength Knee Manual Muscle Testing Left Flexion (S2) 4 Good Extension (L3) 4 Good PT-OP-Q Treatments Start: 07/10/18 17:00 Freq: Status: Active Protocol: Document 09/30/18 15:25 DCW (Rec: 09/30/18 15:59 DCW [id number]) Cardio Equipment Recumbent Elliptical (Biodex) Duration (Minutes) 5 Resistance 3 Seat Position 11 Therapeutic Exercises Sitting Exercises 2 Sitting Exercise Name Seated Marching Side bilateral Resistance 5# 1 Sitting Exercise Name LAQ Side bilateral Resistance 5# Standing Exercises standing heel raise Standing Exercise Name unilateral heel raise without UE support Reps/Minutes 5 mins Comments without UE support step up with 3 inch box on R LE Side right Equipment Used 6 in step w/rail Reps/Minutes 5 Step up with 3 inch box on LLE Side left Equipment Used 6 inch step w/rail Reps/Minutes 5' Comments trunk hold to facilitate increase hip flexion on L single leg stance with support on bar Standing Exercise Name high knee hold, R UE on grab bar Equipment Used grab bar Reps/Minutes 5 mins Comments alternate R and L. Gait Training Gait Activity step over step pattern Device Used without AD Comments step over step Keeping L toes headed forward, verbal and tactile cues for L arm swing PT-OP-T Assessment and Plan Start: 07/10/18 17:00 Freq: Status: Active Protocol: Document 09/30/18 15:25 DCW (Rec: 09/30/18 15:59 DCW [id number]) Physical Therapy Assessment Goals sts 5 times Impairment STS Administrative Nursing Supervisor Goal (LTG) STS x 5 times under 40 seconds LTG Duration 4 weeks (09/23/18: 51 sec's) TUG Impairment TUG Group Home Goal (LTG) TUG under 30 seconds LTG Duration 4 weeks (09/23/18: 34 sec's) 5 Impairment gait pattern Group Home Goal (LTG) to use 2 point gait pattern with/ without SPC on R side. LTG Duration 4 weeks Four Group Home Goal (LTG) To increase L GH passive/ active assisted flexion and abduction by 20 degrees LTG Duration 4 weeks Three Group Home Goal (LTG) improve overall hip muscular strength by 1/2 MMT grade fpr hip stability during amb LTG Duration 4 weeks Two Impairment ADLs Short Term Goal (STG) able to perform floor recovery with min A with the use of chair STG Duration 4 weeks Group Home Goal (LTG) able to perform floor recovery with SBA with the use of chair LTG Duration 4 weeks One Group Home Goal (LTG) to perform sit to stand without AD/ support x 5 times independently LTG Duration 4 weeks Assessment Summary Assessment Pt continues to demonstrate mild improvements over the course of his rehabilitation, tolerated treatment well today . Physical Therapy Plan Frequency and Duration Frequency of Treatment 2x/Week Duration of Treatment 4 weeks Plan of Care Start Date 09/25/18 Plan of Care End Date 10/26/18 Therapeutic Interventions Therapeutic Interventions Balance Training Gait Training Home Exercise Program Manual Therapy Neuromuscular Re-education Patient/Caregiver Education Soft Tissue Mobilization Therapeutic Activities Therapeutic Exercises Next Visit Focus/Plan Next Note Type Treatment Note Next Visit Plan Review LLE roll in ex (pt calls butterfly ex), review sit to stand Cont overall LE strengthening, focus on weigth acceptance on LLE, single leg balance, focus step over /step up training as well gait training without AD
--- NOTE | 2018-10-02 16:56 | PT.OTN ---
Current Diagnoses Unspecified sequelae of cerebral infarction (10/02/18) Other symptoms and signs involving the musculoskeletal system (10/02/18) Weakness (10/02/18) Physical Therapy Treatment Note PT-OP-A Visit Information Start: 07/10/18 17:00 Freq: Status: Active Protocol: Document 10/02/18 15:45 HH (Rec: 10/02/18 16:56 [id number]) Out-Patient Physical Therapy Visit Information Visit Information Visit Type Treatment Note Visit Start Time 15:45 Visit Stop Time 16:30 Total Visit Minutes 45 Visit Number 17 Number of PIPE STRIPPER Visits 0 PT-OP-B Current Condition Start: 07/10/18 17:00 Freq: Status: Active Protocol: Document 07/10/18 15:15 HH (Rec: 07/10/18 17:44 HH [email or web address]) Current Condition History of Current Condition Onset Date 2010 Current Complaints 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 Pt is now able to amb as tolerated at home and community with his tripod cane. He c/o multiple falls during functional activities due to L sided weakness. But he states he is aware of his L sided weakness and position at all time. Pt also c/o difficulty to perform functional activities such as holding a cup of water and stair negotiation. Pt also c/o difficulty performing sit to stand from a lower surface. pt also currently uses step to pattern to ascend and descend with the use of handrail on R side. Prior Treatments and Tests Pt received physical therapy before and it did not help. Treatment Goals Patient/Caregiver Goals Pt and his expect receiving physical therapy can help pt's overall strength and functional mobility to reduce fall risks. Prior Functional Status Baseline Function- ADL's Modified Independent Baseline Function- Mobility Modified Independent Baseline Function- Gait use cane for community mobility; without cane for home mobility Current Functional Impairments (Reported) Functional Limitations- ADL's Pt reports difficulty doning his clothes and hold an object with his L arm due to weakness and insufficient ROM. Functional Limitations- Mobility/Gait Pt uses step to pattern with R sided handrails for stability during stair negotiation. Difficulty getting up from a lower surface. PT-OP-C Subjective Start: 07/10/18 17:00 Freq: Status: Active Protocol: Document 10/02/18 15:45 HH (Rec: 10/02/18 16:56 [id number]) OP-PT Subjective Patient Comments Patient Comments Im getting up from chair better and easier now. Im also very careful when im not using my cane at home to move around. PT-OP-E Functional Tests Start: 07/10/18 17:00 Freq: Status: Active Protocol: Document 09/25/18 16:45 HH (Rec: 09/25/18 17:56 [email or web address]) Functional Tests Five Times Sit to Stand Test Score 51 sec's Timed Up and Go (TUG) Score 34 secs Comments Used hands and SPC TUG Impairment Rating 100% Impaired (Score 20) PT-OP-G Mobility & Gait Start: 07/10/18 17:00 Freq: Status: Active Protocol: Document 08/28/18 15:15 HH (Rec: 08/28/18 16:45 [email or web address]) OP Gait Assessment Assistive Devices Assistive Device Tripod Cane/Hurry Cane Gait Deviations General Gait Pattern Decreased Stride Length Decreased Feet Clearance Comments Gait Comments Pt is able to perform step over step gait now with improved L foot clearance PT-OP-H Neuro Start: 07/10/18 17:00 Freq: Status: Active Protocol: Document 07/10/18 15:15 HH (Rec: 07/10/18 17:44 [email or web address]) Sensation Evaluation Gross Sensation Gross Sensation WNL Muscle Tone Tone Assessment Left Upper Extremity Flexor Tone Description Moderate Hypertonicity Muscle Tone Comments Flexion synergy during exertion and reaching activities PT-OP-K Range of Motion Start: 07/10/18 17:00 Freq: Status: Active Protocol: Document 08/28/18 15:15 HH (Rec: 08/28/18 16:45 [email or web address]) Shoulder Goniometric Range of Motion Shoulder Measured in Degrees Left Passive Testing Position Sitting Flexion 100 Extension 35 Abduction 80 PT-OP-M Strength Start: 07/10/18 17:00 Freq: Status: Active Protocol: Document 09/25/18 16:45 HH (Rec: 09/25/18 17:56 [email or web address]) Hip Strength Hip Manual Muscle Testing Left Flexion (L2) 4- Good- Extension (S1) 4- Good- Abduction 3+ Fair+ Adduction 4 Good Knee Strength Knee Manual Muscle Testing Left Flexion (S2) 4 Good Extension (L3) 4 Good PT-OP-Q Treatments Start: 07/10/18 17:00 Freq: Status: Active Protocol: Document 10/02/18 15:45 HH (Rec: 10/02/18 16:56 [id number]) Cardio Equipment Recumbent Stepper (Sci-Fit) Duration (Minutes) 8 Resistance 1 Other L LE and UE only Therapeutic Exercises Standing Exercises lateral weight shift Standing Exercise Name lateral weight shift Equipment Used R foot on 6 inch step Reps/Minutes 20 Comments LLE stance Sit to Stand Equipment Used without support Reps/Minutes 8 x 2 step up with 3 inch box on R LE Side right Equipment Used 6 in step w/rail Reps/Minutes 5 Step up with 3 inch box on LLE Standing Exercise Name eccentric step down Side left Equipment Used 6 inch step w/rail Reps/Minutes 10 x 3 Comments single leg step down, CGA at trunk single leg stance with support on bar Standing Exercise Name high knee hold, R UE on grab bar Equipment Used grab bar Reps/Minutes 5 mins Comments alternate R and L. Neuro Re-Education Treatment Balance Activities single leg stance Equipment next to //bar Comments without UE support, LLE single leg stance. CGA at trunk PT-OP-T Assessment and Plan Start: 07/10/18 17:00 Freq: Status: Active Protocol: Document 10/02/18 15:45 HH (Rec: 10/02/18 16:56 [id number]) Physical Therapy Assessment Assessment Summary Assessment Pt was able to sit to stand w/ o support 10 x 2 with L foot behind his knee today. he was also able to amb without AD x200 feet. No signs of LOB noted. Tx focused on increasing weight acceptance on LLE: LLE SLS, 5 inch box step down, lateral shift with RLE on 5inch box. Physical Therapy Plan Next Visit Focus/Plan Next Note Type Treatment Note Next Visit Plan review sit to stand SLS balance ex L LE strengthening
--- NOTE | 2018-10-07 16:50 | PT.OTN ---
Current Diagnoses Unspecified sequelae of cerebral infarction (10/07/18) Other symptoms and signs involving the musculoskeletal system (10/07/18) Weakness (10/07/18) Physical Therapy Treatment Note PT-OP-A Visit Information Start: 07/10/18 17:00 Freq: Status: Active Protocol: Document 10/07/18 16:46 EA (Rec: 10/07/18 16:50 EA [id number]) Out-Patient Physical Therapy Visit Information Visit Information Visit Type Treatment Note Visit Start Time 16:15 Visit Stop Time 16:45 Total Visit Minutes 35 Visit Number 18 Number of REGISTERED PHARMACIST Visits 0 PT-OP-B Current Condition Start: 07/10/18 17:00 Freq: Status: Active Protocol: Document 07/10/18 15:15 HH (Rec: 07/10/18 17:44 HH [email or web address]) Current Condition History of Current Condition Onset Date 2010 Current Complaints 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 Pt is now able to amb as tolerated at home and community with his tripod cane. He c/o multiple falls during functional activities due to L sided weakness. But he states he is aware of his L sided weakness and position at all time. Pt also c/o difficulty to perform functional activities such as holding a cup of water and stair negotiation. Pt also c/o difficulty performing sit to stand from a lower surface. pt also currently uses step to pattern to ascend and descend with the use of handrail on R side. Prior Treatments and Tests Pt received physical therapy before and it did not help. Treatment Goals Patient/Caregiver Goals Pt and his expect receiving physical therapy can help pt's overall strength and functional mobility to reduce fall risks. Prior Functional Status Baseline Function- ADL's Modified Independent Baseline Function- Mobility Modified Independent Baseline Function- Gait use cane for community mobility; without cane for home mobility Current Functional Impairments (Reported) Functional Limitations- ADL's Pt reports difficulty doning his clothes and hold an object with his L arm due to weakness and insufficient ROM. Functional Limitations- Mobility/Gait Pt uses step to pattern with R sided handrails for stability during stair negotiation. Difficulty getting up from a lower surface. PT-OP-C Subjective Start: 07/10/18 17:00 Freq: Status: Active Protocol: Document 10/07/18 16:46 EA (Rec: 10/07/18 16:50 EA [id number]) OP-PT Subjective Patient Comments Patient Comments Pt reports they are late today due to heavy traffic coming. PT-OP-E Functional Tests Start: 07/10/18 17:00 Freq: Status: Active Protocol: Document 09/25/18 16:45 HH (Rec: 09/25/18 17:56 HH [email or web address]) Functional Tests Five Times Sit to Stand Test Score 51 sec's Timed Up and Go (TUG) Score 34 secs Comments Used hands and SPC TUG Impairment Rating 100% Impaired (Score 20) PT-OP-G Mobility & Gait Start: 07/10/18 17:00 Freq: Status: Active Protocol: Document 08/28/18 15:15 HH (Rec: 08/28/18 16:45 HH [email or web address]) OP Gait Assessment Assistive Devices Assistive Device Tripod Cane/Hurry Cane Gait Deviations General Gait Pattern Decreased Stride Length Decreased Feet Clearance Comments Gait Comments Pt is able to perform step over step gait now with improved L foot clearance PT-OP-H Neuro Start: 07/10/18 17:00 Freq: Status: Active Protocol: Document 07/10/18 15:15 HH (Rec: 07/10/18 17:44 HH [email or web address]) Sensation Evaluation Gross Sensation Gross Sensation WNL Muscle Tone Tone Assessment Left Upper Extremity Flexor Tone Description Moderate Hypertonicity Muscle Tone Comments Flexion synergy during exertion and reaching activities PT-OP-K Range of Motion Start: 07/10/18 17:00 Freq: Status: Active Protocol: Document 08/28/18 15:15 HH (Rec: 08/28/18 16:45 HH [email or web address]) Shoulder Goniometric Range of Motion Shoulder Measured in Degrees Left Passive Testing Position Sitting Flexion 100 Extension 35 Abduction 80 PT-OP-M Strength Start: 07/10/18 17:00 Freq: Status: Active Protocol: Document 09/25/18 16:45 HH (Rec: 09/25/18 17:56 HH [email or web address]) Hip Strength Hip Manual Muscle Testing Left Flexion (L2) 4- Good- Extension (S1) 4- Good- Abduction 3+ Fair+ Adduction 4 Good Knee Strength Knee Manual Muscle Testing Left Flexion (S2) 4 Good Extension (L3) 4 Good PT-OP-Q Treatments Start: 07/10/18 17:00 Freq: Status: Active Protocol: Document 10/07/18 16:46 EA (Rec: 10/07/18 16:50 EA [id number]) Cardio Equipment Recumbent Stepper (Sci-Fit) Duration (Minutes) 8 Resistance 1 Other L LE and UE only Therapeutic Exercises Standing Exercises lateral weight shift Standing Exercise Name lateral weight shift Equipment Used R foot on 6 inch step Reps/Minutes 20 Comments LLE stance Sit to Stand Equipment Used without support Reps/Minutes 8 x 2 step up with 3 inch box on R LE Side right Equipment Used 6 in step w/rail Reps/Minutes 5 Step up with 3 inch box on LLE Standing Exercise Name eccentric step down Side left Equipment Used 6 inch step w/rail Reps/Minutes 10 x 3 Comments single leg step down, CGA at trunk single leg stance with support on bar Standing Exercise Name high knee hold, R UE on grab bar Equipment Used grab bar Reps/Minutes 5 mins Comments alternate R and L. 1 Standing Exercise Name 6 lunges (steady) with clasped hands Equipment Used stairs Reps/Minutes x 5 reps x 2 Comments CGA PT-OP-T Assessment and Plan Start: 07/10/18 17:00 Freq: Status: Active Protocol: Document 10/07/18 16:46 EA (Rec: 10/07/18 16:50 EA [id number]) Physical Therapy Assessment Assessment Summary Assessment Tolerated treatment well. requires CGA during SLS and lunge exercises. Physical Therapy Plan Next Visit Focus/Plan Next Note Type Treatment Note Next Visit Plan review sit to stand SLS balance ex L LE strengthening
--- NOTE | 2018-10-09 16:59 | PT.OTN ---
Current Diagnoses Unspecified sequelae of cerebral infarction (10/09/18) Other symptoms and signs involving the musculoskeletal system (10/09/18) Weakness (10/09/18) Physical Therapy Treatment Note PT-OP-A Visit Information Start: 07/10/18 17:00 Freq: Status: Active Protocol: Document 10/09/18 13:45 HH (Rec: 10/09/18 16:59 HH [email or web address]) Out-Patient Physical Therapy Visit Information Visit Information Visit Type Treatment Note Visit Start Time 13:45 Visit Stop Time 14:30 Total Visit Minutes 45 Visit Number 19 Number of BLOCK SAW OPERATOR Visits 0 PT-OP-B Current Condition Start: 07/10/18 17:00 Freq: Status: Active Protocol: Document 07/10/18 15:15 HH (Rec: 07/10/18 17:44 HH [email or web address]) Current Condition History of Current Condition Onset Date 2010 Current Complaints 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 Pt is now able to amb as tolerated at home and community with his tripod cane. He c/o multiple falls during functional activities due to L sided weakness. But he states he is aware of his L sided weakness and position at all time. Pt also c/o difficulty to perform functional activities such as holding a cup of water and stair negotiation. Pt also c/o difficulty performing sit to stand from a lower surface. pt also currently uses step to pattern to ascend and descend with the use of handrail on R side. Prior Treatments and Tests Pt received physical therapy before and it did not help. Treatment Goals Patient/Caregiver Goals Pt and his expect receiving physical therapy can help pt's overall strength and functional mobility to reduce fall risks. Prior Functional Status Baseline Function- ADL's Modified Independent Baseline Function- Mobility Modified Independent Baseline Function- Gait use cane for community mobility; without cane for home mobility Current Functional Impairments (Reported) Functional Limitations- ADL's Pt reports difficulty doning his clothes and hold an object with his L arm due to weakness and insufficient ROM. Functional Limitations- Mobility/Gait Pt uses step to pattern with R sided handrails for stability during stair negotiation. Difficulty getting up from a lower surface. PT-OP-C Subjective Start: 07/10/18 17:00 Freq: Status: Active Protocol: Document 10/09/18 13:45 HH (Rec: 10/09/18 16:59 HH [email or web address]) OP-PT Subjective Patient Comments Patient Comments Im doing fine. PT-OP-E Functional Tests Start: 07/10/18 17:00 Freq: Status: Active Protocol: Document 09/25/18 16:45 HH (Rec: 09/25/18 17:56 HH [email or web address]) Functional Tests Five Times Sit to Stand Test Score 51 sec's Timed Up and Go (TUG) Score 34 secs Comments Used hands and SPC TUG Impairment Rating 100% Impaired (Score 20) PT-OP-G Mobility & Gait Start: 07/10/18 17:00 Freq: Status: Active Protocol: Document 08/28/18 15:15 HH (Rec: 08/28/18 16:45 HH [email or web address]) OP Gait Assessment Assistive Devices Assistive Device Tripod Cane/Hurry Cane Gait Deviations General Gait Pattern Decreased Stride Length Decreased Feet Clearance Comments Gait Comments Pt is able to perform step over step gait now with improved L foot clearance PT-OP-H Neuro Start: 07/10/18 17:00 Freq: Status: Active Protocol: Document 07/10/18 15:15 HH (Rec: 07/10/18 17:44 HH [email or web address]) Sensation Evaluation Gross Sensation Gross Sensation WNL Muscle Tone Tone Assessment Left Upper Extremity Flexor Tone Description Moderate Hypertonicity Muscle Tone Comments Flexion synergy during exertion and reaching activities PT-OP-K Range of Motion Start: 07/10/18 17:00 Freq: Status: Active Protocol: Document 08/28/18 15:15 HH (Rec: 08/28/18 16:45 HH [email or web address]) Shoulder Goniometric Range of Motion Shoulder Measured in Degrees Left Passive Testing Position Sitting Flexion 100 Extension 35 Abduction 80 PT-OP-M Strength Start: 07/10/18 17:00 Freq: Status: Active Protocol: Document 09/25/18 16:45 HH (Rec: 09/25/18 17:56 HH [email or web address]) Hip Strength Hip Manual Muscle Testing Left Flexion (L2) 4- Good- Extension (S1) 4- Good- Abduction 3+ Fair+ Adduction 4 Good Knee Strength Knee Manual Muscle Testing Left Flexion (S2) 4 Good Extension (L3) 4 Good PT-OP-Q Treatments Start: 07/10/18 17:00 Freq: Status: Active Protocol: Document 10/09/18 13:45 (Rec: 10/09/18 16:59 [email or web address]) Therapeutic Exercises Standing Exercises forward lunges on 5 inch box Side left Equipment Used 5 inch box Reps/Minutes 8 x 2 Comments next to //bar lateral weight shift Standing Exercise Name lateral weight shift Equipment Used R foot on 6 inch step Reps/Minutes 20 Comments LLE stance Sit to Stand Equipment Used without support Reps/Minutes 8 x 2 step up with 3 inch box on R LE Side right Equipment Used 6 in step w/rail Reps/Minutes 5 Step up with 3 inch box on LLE Standing Exercise Name eccentric step down Side left Equipment Used 6 inch step w/rail Reps/Minutes 10 x 3 Comments single leg step down, CGA at trunk Neuro Re-Education Treatment Balance Activities single leg stance Equipment next to //bar Comments without UE support, LLE single leg stance. CGA at trunk PT-OP-T Assessment and Plan Start: 07/10/18 17:00 Freq: Status: Active Protocol: Document 10/09/18 13:45 (Rec: 10/09/18 16:59 [email or web address]) Physical Therapy Assessment Goals 2 min walk test Impairment increased time for amb Short Term Goal (STG) 162 ft with SPC 143ft without SPC goal : 180 ft with SPC and 160 ft without SPC STG Duration 4 weeks TUG Diesel Trailer Mechanic Goal (LTG) 10/09: TUG =26s with SPc TUG= 27s without SPC goal TUG 22 second with/ without SPC LTG Duration 4 weeks Assessment Summary Assessment Pt cont required cues to bend his L knee under chair for sit to stand. Pt momo tx well today primarily focused on single leg strengthening, SLS and gait training. Pt showed improved TUG score = 26-27s with/without SPC and 2 min walk test = 143ft to 162 ft with/without SPC. Physical Therapy Plan Next Visit Focus/Plan Next Note Type Treatment Note Next Visit Plan review sit to stand SLS training, single leg strengthening L LE strengthening forward lunges
--- NOTE | 2018-10-14 15:17 | PT.OTN ---
Current Diagnoses Unspecified sequelae of cerebral infarction (10/14/18) Other symptoms and signs involving the musculoskeletal system (10/14/18) Weakness (10/14/18) Physical Therapy Treatment Note PT-OP-A Visit Information Start: 07/10/18 17:00 Freq: Status: Active Protocol: Document 10/14/18 14:29 EA (Rec: 10/14/18 14:32 EA [id number]) Out-Patient Physical Therapy Visit Information Visit Information Visit Type Treatment Note Visit Start Time 13:45 Visit Stop Time 14:30 Total Visit Minutes 45 Visit Number 20 Number of PIPE FITTER Visits 0 PT-OP-B Current Condition Start: 07/10/18 17:00 Freq: Status: Active Protocol: Document 07/10/18 15:15 HH (Rec: 07/10/18 17:44 HH [email or web address]) Current Condition History of Current Condition Onset Date 2010 Current Complaints 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 Pt is now able to amb as tolerated at home and community with his tripod cane. He c/o multiple falls during functional activities due to L sided weakness. But he states he is aware of his L sided weakness and position at all time. Pt also c/o difficulty to perform functional activities such as holding a cup of water and stair negotiation. Pt also c/o difficulty performing sit to stand from a lower surface. pt also currently uses step to pattern to ascend and descend with the use of handrail on R side. Prior Treatments and Tests Pt received physical therapy before and it did not help. Treatment Goals Patient/Caregiver Goals Pt and his expect receiving physical therapy can help pt's overall strength and functional mobility to reduce fall risks. Prior Functional Status Baseline Function- ADL's Modified Independent Baseline Function- Mobility Modified Independent Baseline Function- Gait use cane for community mobility; without cane for home mobility Current Functional Impairments (Reported) Functional Limitations- ADL's Pt reports difficulty doning his clothes and hold an object with his L arm due to weakness and insufficient ROM. Functional Limitations- Mobility/Gait Pt uses step to pattern with R sided handrails for stability during stair negotiation. Difficulty getting up from a lower surface. PT-OP-C Subjective Start: 07/10/18 17:00 Freq: Status: Active Protocol: Document 10/14/18 14:29 EA (Rec: 10/14/18 14:32 EA [id number]) OP-PT Subjective Patient Comments Patient Comments Patient reports : I'm quite tired today as woke early this morning. PT-OP-E Functional Tests Start: 07/10/18 17:00 Freq: Status: Active Protocol: Document 10/09/18 13:45 HH (Rec: 10/09/18 17:01 HH [email or web address]) Functional Tests 2 Minute Walk Test Distance 162 Device Used SPC Comments 143 ft without SPC Timed Up and Go (TUG) Score 26s Comments with SPC PT-OP-G Mobility & Gait Start: 07/10/18 17:00 Freq: Status: Active Protocol: Document 08/28/18 15:15 HH (Rec: 08/28/18 16:45 HH [email or web address]) OP Gait Assessment Assistive Devices Assistive Device Tripod Cane/Hurry Cane Gait Deviations General Gait Pattern Decreased Stride Length Decreased Feet Clearance Comments Gait Comments Pt is able to perform step over step gait now with improved L foot clearance PT-OP-H Neuro Start: 07/10/18 17:00 Freq: Status: Active Protocol: Document 07/10/18 15:15 HH (Rec: 07/10/18 17:44 HH [email or web address]) Sensation Evaluation Gross Sensation Gross Sensation WNL Muscle Tone Tone Assessment Left Upper Extremity Flexor Tone Description Moderate Hypertonicity Muscle Tone Comments Flexion synergy during exertion and reaching activities PT-OP-K Range of Motion Start: 07/10/18 17:00 Freq: Status: Active Protocol: Document 08/28/18 15:15 HH (Rec: 08/28/18 16:45 HH [email or web address]) Shoulder Goniometric Range of Motion Shoulder Measured in Degrees Left Passive Testing Position Sitting Flexion 100 Extension 35 Abduction 80 PT-OP-M Strength Start: 07/10/18 17:00 Freq: Status: Active Protocol: Document 09/25/18 16:45 HH (Rec: 09/25/18 17:56 HH [email or web address]) Hip Strength Hip Manual Muscle Testing Left Flexion (L2) 4- Good- Extension (S1) 4- Good- Abduction 3+ Fair+ Adduction 4 Good Knee Strength Knee Manual Muscle Testing Left Flexion (S2) 4 Good Extension (L3) 4 Good PT-OP-Q Treatments Start: 07/10/18 17:00 Freq: Status: Active Protocol: Document 10/14/18 14:29 EA (Rec: 10/14/18 14:32 EA [id number]) Therapeutic Exercises Sitting Exercises 5 Sitting Exercise Name Hip ABD with upright posture/ no back support Side left Resistance Lv 1 Reps/Minutes x 10 reps 4 Sitting Exercise Name Squeeze ball in standing/inbet knees Side bilateral Reps/Minutes x 5SH x 10 reps Comments Foot facing FWD Standing Exercises forward lunges on 5 inch box Side left Equipment Used 5 inch box Reps/Minutes 8 x 2 Comments next to //bar lateral weight shift Standing Exercise Name lateral weight shift Equipment Used R foot on 6 inch step Reps/Minutes 20 Comments LLE stance Sit to Stand Equipment Used without support Reps/Minutes 8 x 2 Step up with 3 inch box on LLE Standing Exercise Name eccentric step down Side left Equipment Used 6 inch step w/rail Reps/Minutes 10 x 3 Comments single leg step down, CGA at trunk single leg stance with support on bar Standing Exercise Name high knee hold, R UE on grab bar Equipment Used grab bar Reps/Minutes 5 mins Comments slight knee ext/flexion 1 Standing Exercise Name 6 lunges (steady) with clasped hands Equipment Used stairs Reps/Minutes x 5 reps x 2 Comments CGA Neuro Re-Education Treatment Balance Activities Hurdles Details Stepping over widespread hurdles Surface Level Equipment Single rail & tripod cane Reps/Duration 3 PT-OP-T Assessment and Plan Start: 07/10/18 17:00 Freq: Status: Active Protocol: Document 10/14/18 14:29 EA (Rec: 10/14/18 14:32 EA [id number]) Physical Therapy Assessment Assessment Summary Assessment Pt tolerated treatment well. requires interval rest due to fatigue. Physical Therapy Plan Next Visit Focus/Plan Next Note Type Treatment Note Next Visit Plan review sit to stand SLS training, single leg strengthening L LE strengthening forward lunges
--- NOTE | 2018-10-16 15:38 | PT.OTN ---
Current Diagnoses Unspecified sequelae of cerebral infarction (10/16/18) Other symptoms and signs involving the musculoskeletal system (10/16/18) Weakness (10/16/18) Physical Therapy Treatment Note PT-OP-A Visit Information Start: 07/10/18 17:00 Freq: Status: Active Protocol: Document 10/16/18 13:45 HH (Rec: 10/16/18 15:33 HH [email or web address]) Out-Patient Physical Therapy Visit Information Visit Information Visit Type Treatment Note Visit Start Time 13:45 Visit Stop Time 14:30 Total Visit Minutes 45 Visit Number 21 Number of DRY PLACER MACHINE OPERATOR Visits 0 PT-OP-B Current Condition Start: 07/10/18 17:00 Freq: Status: Active Protocol: Document 07/10/18 15:15 HH (Rec: 07/10/18 17:44 HH [email or web address]) Current Condition History of Current Condition Onset Date 2010 Current Complaints 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 Pt is now able to amb as tolerated at home and community with his tripod cane. He c/o multiple falls during functional activities due to L sided weakness. But he states he is aware of his L sided weakness and position at all time. Pt also c/o difficulty to perform functional activities such as holding a cup of water and stair negotiation. Pt also c/o difficulty performing sit to stand from a lower surface. pt also currently uses step to pattern to ascend and descend with the use of handrail on R side. Prior Treatments and Tests Pt received physical therapy before and it did not help. Treatment Goals Patient/Caregiver Goals Pt and his expect receiving physical therapy can help pt's overall strength and functional mobility to reduce fall risks. Prior Functional Status Baseline Function- ADL's Modified Independent Baseline Function- Mobility Modified Independent Baseline Function- Gait use cane for community mobility; without cane for home mobility Current Functional Impairments (Reported) Functional Limitations- ADL's Pt reports difficulty doning his clothes and hold an object with his L arm due to weakness and insufficient ROM. Functional Limitations- Mobility/Gait Pt uses step to pattern with R sided handrails for stability during stair negotiation. Difficulty getting up from a lower surface. PT-OP-C Subjective Start: 07/10/18 17:00 Freq: Status: Active Protocol: Document 10/16/18 13:45 HH (Rec: 10/16/18 15:33 HH [email or web address]) OP-PT Subjective Patient Comments Patient Comments Patient reports : I'm quite tired today since i didnt have a good sleep and i had a cold since last week. PT-OP-E Functional Tests Start: 07/10/18 17:00 Freq: Status: Active Protocol: Document 10/09/18 13:45 HH (Rec: 10/09/18 17:01 HH [email or web address]) Functional Tests 2 Minute Walk Test Distance 162 Device Used SPC Comments 143 ft without SPC Timed Up and Go (TUG) Score 26s Comments with SPC PT-OP-G Mobility & Gait Start: 07/10/18 17:00 Freq: Status: Active Protocol: Document 08/28/18 15:15 HH (Rec: 08/28/18 16:45 HH [email or web address]) OP Gait Assessment Assistive Devices Assistive Device Tripod Cane/Hurry Cane Gait Deviations General Gait Pattern Decreased Stride Length Decreased Feet Clearance Comments Gait Comments Pt is able to perform step over step gait now with improved L foot clearance PT-OP-H Neuro Start: 07/10/18 17:00 Freq: Status: Active Protocol: Document 07/10/18 15:15 HH (Rec: 07/10/18 17:44 HH [email or web address]) Sensation Evaluation Gross Sensation Gross Sensation WNL Muscle Tone Tone Assessment Left Upper Extremity Flexor Tone Description Moderate Hypertonicity Muscle Tone Comments Flexion synergy during exertion and reaching activities PT-OP-K Range of Motion Start: 07/10/18 17:00 Freq: Status: Active Protocol: Document 08/28/18 15:15 HH (Rec: 08/28/18 16:45 HH [email or web address]) Shoulder Goniometric Range of Motion Shoulder Measured in Degrees Left Passive Testing Position Sitting Flexion 100 Extension 35 Abduction 80 PT-OP-M Strength Start: 07/10/18 17:00 Freq: Status: Active Protocol: Document 09/25/18 16:45 HH (Rec: 09/25/18 17:56 HH [email or web address]) Hip Strength Hip Manual Muscle Testing Left Flexion (L2) 4- Good- Extension (S1) 4- Good- Abduction 3+ Fair+ Adduction 4 Good Knee Strength Knee Manual Muscle Testing Left Flexion (S2) 4 Good Extension (L3) 4 Good PT-OP-Q Treatments Start: 07/10/18 17:00 Freq: Status: Active Protocol: Document 10/16/18 13:45 HH (Rec: 10/16/18 15:33 HH [email or web address]) Cardio Equipment Recumbent Stepper (Sci-Fit) Duration (Minutes) 8 Resistance 1 Other L LE and UE only Therapeutic Exercises Standing Exercises forward lunges on 5 inch box Side left Equipment Used 5 inch box Reps/Minutes 8 x 2 Comments next to //bar Sit to Stand Equipment Used without support Reps/Minutes 8 x 3 Comments cues for L LE under chair step up with 3 inch box on R LE Side right Equipment Used 6 in step w/rail Reps/Minutes 5 Step up with 3 inch box on LLE Standing Exercise Name eccentric step down Side left Equipment Used 6 inch step w/rail Reps/Minutes 10 x 3 Comments single leg step down, CGA at trunk Therapeutic Activity Therapeutic Activity stair climbing Name without railings Reps/Minutes 10 mins Comments single step up to facilitate LE single leg balance Gait Training Gait Activity step over step pattern Device Used //bar Surface level Distance/Duration 200 Treatment Focus joint isolation Comments cues to facilitate L knee Neuro Re-Education Treatment Balance Activities single leg stance Equipment next to //bar Comments without UE support, LLE single leg stance. CGA at trunk PT-OP-T Assessment and Plan Start: 07/10/18 17:00 Freq: Status: Active Protocol: Document 10/16/18 13:45 HH (Rec: 10/16/18 15:33 HH [email or web address]) Physical Therapy Assessment Assessment Summary Assessment Pt presents decreased in gait speed and increased in weakness possibly due to his cold. Pt cont requires mod cues to tuck in his L knee underneath his chair. Educated pt to use rocking trunk motion to assist STS. Pt's rehab progress has been at [facility]. consider d/c next week. Physical Therapy Plan Next Visit Focus/Plan Next Note Type Treatment Note Next Visit Plan review his STS mechanics, gait mechanics walking program with/without AD to increase tolerance. gait training without cane. stair climbing as momo
--- NOTE | 2018-10-24 13:13 | PT.OPPOC ---
Current Diagnoses Unspecified sequelae of cerebral infarction (10/28/18) Other symptoms and signs involving the musculoskeletal system (10/28/18) Weakness (10/28/18) Provider Visit Care Team Role Provider Type Franky Wynn MD Family Provider Non-Staff Primary Care Provider Specialty: Medical Address: [address] [place] [address] [address], [place], [address] Email: Salina Felton Attending Provider Non-Staff Specialty: Neurology Address: [address] [place] [address] [address], [place], [address] Phone: Fax: Email: Plan Of Care PT-OP-T Assessment and Plan Start: 07/10/18 17:00 Freq: Status: Active Protocol: Document 10/23/18 13:45 (Rec: 10/24/18 13:10 [email or web address]) Physical Therapy Assessment Goals 2 min walk test Impairment increased time for amb [employer]Th Grade Teacher Goal (LTG) 160 ft with SPC 140 ft without SPC (10/23/18) goal : 180 ft with SPC and 160 ft without SPC LTG Duration 12 weeks sts 5 times 8Th Grade Teacher Goal (LTG) 5 times STS = 44s (10/23/18) goal = 5 times STS under 35s with UE support 40s without UE support LTG Duration 12 weeks TUG 8Th Grade Teacher Goal (LTG) 10/23 = TUG with SPC 24s goal = TUG with SPC 22s, without SPC =24s LTG Duration 12 weeks 5 Impairment Floor recovery Shelter Goal (LTG) To be able to recover ffrom floor with a chair LTG Duration 12 weeks Progress Towards Goals Progress Towards Goals Slow Progress due to Medical Issues Slow Progress - Other Progress Comments Pt had a GLF last who presents significant swelling on L knee and ankle by 1.5 to 2 inches more than R LE. Pt appears to move slightly slower for walking test today but there's improvements with TUG and STS tests. Pt is going to see Dr. Dial for further evaluation. Pt will cont benefit from skilled therapy to improve his mobility and balance to reduce fall risks. Added floor recovery and ankle ROM into tx plan as pt's requested. Physical Therapy Plan Frequency and Duration Frequency of Treatment 2x/Week Duration of Treatment 12 Plan of Care Start Date 10/23/18 Plan of Care End Date 01/23/19 Therapeutic Interventions Therapeutic Interventions Balance Training Gait Training Home Exercise Program Joint Mobilizations Manual Therapy Neuromuscular Re-education Patient/Caregiver Education Self-Care/Home Management Soft Tissue Mobilization Therapeutic Activities Therapeutic Exercises Next Visit Focus/Plan Next Note Type Treatment Note Next Visit Plan review his STS mechanics, gait mechanics movement isolation (at L hip and ankle) walking program with/without AD to increase tolerance. gait training without cane. stair climbing as momo Plan of Care Dates Plan of Care Start Date 10/23/18 Plan of Care End Date 01/23/19 Please Sign and Return: I have reviewed this Plan of Care and certify that the skilled therapy services above are required to meet the patient?s needs. Physician Signature Date Printed Name and Credentials Clinical Instructor Signature Printed Name and Credentials
--- NOTE | 2018-10-24 13:13 | PT.OTRE ---
Current Diagnoses Unspecified sequelae of cerebral infarction (10/23/18) Other symptoms and signs involving the musculoskeletal system (10/23/18) Weakness (10/23/18) Provider Visit Care Team Role Provider Type Franky Wynn MD Family Provider Non-Staff Primary Care Provider Specialty: Medical Address: [address] [place] [address] [address], [place], [address] Email: Salina Felton Attending Provider Non-Staff Specialty: Neurology Address: [address] [place] [address] [address], [place], [address] Phone: Fax: Email: Physical Therapy Re-Evaluation PT-OP-A Visit Information Start: 07/10/18 17:00 Freq: Status: Active Protocol: Document 10/23/18 13:45 (Rec: 10/24/18 13:10 [email or web address]) Out-Patient Physical Therapy Visit Information Visit Information Visit Type Treatment Note Visit Note Re-eval today. Pt's stated Pt fell last while pivoting awar from the dumpster. Pt was unable to stabilize his tripod cane and lost balance. They had to call 911 to assist pt up on the floor. Pt also had lacerations and bruises on L side of the body LE >UE. Pt is going to see Dr. Dial for evaluation today due to noticeable swelling on L knee and ankle. 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 Pt is now able to amb as tolerated at home and community with his tripod cane. He c/o multiple falls during functional activities due to L sided weakness. But he states he is aware of his L sided weakness and position at all time. Pt also c/o difficulty to perform functional activities such as holding a cup of water and stair negotiation. Pt also c/o difficulty performing sit to stand from a lower surface. pt also currently uses step to pattern to ascend and descend with the use of handrail on R side. Prior Treatments and Tests Pt received physical therapy before and it did not help. Treatment Goals Patient/Caregiver Goals Pt and his expect receiving physical therapy can help pt's overall strength and functional mobility to reduce fall risks. Prior Functional Status Baseline Function- ADL's Modified Independent Baseline Function- Mobility Modified Independent Baseline Function- Gait use cane for community mobility; without cane for home mobility Current Functional Impairments (Reported) Functional Limitations- ADL's Pt reports difficulty doning his clothes and hold an object with his L arm due to weakness and insufficient ROM. Functional Limitations- Mobility/Gait Pt uses step to pattern with R sided handrails for stability during stair negotiation. Difficulty getting up from a lower surface. PT-OP-C Subjective Start: 07/10/18 17:00 Freq: Status: Active Protocol: Document 10/23/18 13:45 HH (Rec[facility]24[facility]18 [email or web address] Subjective Patient Comments Patient Comments My leg is quite stiff after the fall. Patient Reported Progress Worse PT-OP-E Functional Tests Start: 07/10/18 17:00 Freq: Status: Active Protocol: Document 10/23/18 13:45 HH (Rec: 10/24/18 13:10 [email or web address]) Functional Tests 2 Minute Walk Test Distance 160 Device Used SPC Comments 140 ft without SPC Five Times Sit to Stand Test Score 44 seconds Timed Up and Go (TUG) Score 24s Comments SPC PT-OP-G Mobility & Gait Start: 07/10/18 17:00 Freq: Status: Active Protocol: Document 10/23/18 13:45 HH (Rec: 10/24/18 13:12 [email or web address]) OP Gait Assessment Gait Gait Assistance Required: Independent Assistive Devices Assistive Device Straight Cane Gait Deviations General Gait Pattern Wide Based Gait Factors Limiting Gait Function Factors Limiting Gait Function Abnormal Tonal Influences Decreased Activity Tolerance Decreased Sensation Decreased Strength Limited Range of Motion Poor Balance Comments Gait Comments cont to show limited movement isolation at L ankle and hip to faciliate better foot clearance. PT-OP-H Neuro Start: 07/10/18 17:00 Freq: Status: Active Protocol: Document 07/10/18 15:15 HH (Rec: 07/10/18 17:44 HH [email or web address]) Sensation Evaluation Gross Sensation Gross Sensation WNL Muscle Tone Tone Assessment Left Upper Extremity Flexor Tone Description Moderate Hypertonicity Muscle Tone Comments Flexion synergy during exertion and reaching activities PT-OP-J Posture/Palpation/Skin Start: 07/10/18 17:00 Freq: Status: Active Protocol: Document 10/23/18 13:45 HH (Rec: 10/24/18 13:10 HH [email or web address]) Skin Assessment Circumference Measurement R ankle Location figure 8 at maleoli and midfoot Measurement (Centimeters) 23 Comments inches L ankle Location figure 8 at maleoli and midfoot Measurement (Centimeters) 24.5 Comments inches R tibial tuberosity Measurement (Centimeters) 15 Comments inches L tibial tuberosity. Measurement (Centimeters) 16 Comments inches R distal thigh Location superior pole of patella Measurement (Centimeters) 18 Comments inches L distal thigh Location superior pole of patella Measurement (Centimeters) 20 Comments inches. noticeable swelling. PT-OP-K Range of Motion Start: 07/10/18 17:00 Freq: Status: Active Protocol: Document 08/28/18 15:15 HH (Rec: 08/28/18 16:45 HH [email or web address]) Shoulder Goniometric Range of Motion Shoulder Measured in Degrees Left Passive Testing Position Sitting Flexion 100 Extension 35 Abduction 80 PT-OP-M Strength Start: 07/10/18 17:00 Freq: Status: Active Protocol: Document 09/25/18 16:45 HH (Rec: 09/25/18 17:56 HH [email or web address]) Hip Strength Hip Manual Muscle Testing Left Flexion (L2) 4- Good- Extension (S1) 4- Good- Abduction 3+ Fair+ Adduction 4 Good Knee Strength Knee Manual Muscle Testing Left Flexion (S2) 4 Good Extension (L3) 4 Good PT-OP-Q Treatments Start: 07/10/18 17:00 Freq: Status: Active Protocol: Document 10/16/18 13:45 HH (Rec: 10/16/18 15:33 HH [email or web address]) Cardio Equipment Recumbent Stepper (Sci-Fit) Duration (Minutes) 8 Resistance 1 Other L LE and UE only Therapeutic Exercises Standing Exercises forward lunges on 5 inch box Side left Equipment Used 5 inch box Reps/Minutes 8 x 2 Comments next to //bar Sit to Stand Equipment Used without support Reps/Minutes 8 x 3 Comments cues for L LE under chair step up with 3 inch box on R LE Side right Equipment Used 6 in step w/rail Reps/Minutes 5 Step up with 3 inch box on LLE Standing Exercise Name eccentric step down Side left Equipment Used 6 inch step w/rail Reps/Minutes 10 x 3 Comments single leg step down, CGA at trunk Therapeutic Activity Therapeutic Activity stair climbing Name without railings Reps/Minutes 10 mins Comments single step up to facilitate LE single leg balance Gait Training Gait Activity step over step pattern Device Used //bar Surface level Distance/Duration 200 Treatment Focus joint isolation Comments cues to facilitate L knee Neuro Re-Education Treatment Balance Activities single leg stance Equipment next to //bar Comments without UE support, LLE single leg stance. CGA at trunk PT-OP-T Assessment and Plan Start: 07/10/18 17:00 Freq: Status: Active Protocol: Document 10/23/18 13:45 HH (Rec: 10/24/18 13:10 [email or web address]) Physical Therapy Assessment Goals 2 min walk test Impairment increased time for amb Thickener Operator Goal (LTG) 160 ft with SPC 140 ft without SPC (10/23/18) goal : 180 ft with SPC and 160 ft without SPC LTG Duration 12 weeks sts 5 times Usp Goal (LTG) 5 times STS = 44s (10/23/18) goal = 5 times STS under 35s with UE support 40s without UE support LTG Duration 12 weeks TUG Thickener Operator Goal (LTG) 10/23 = TUG with SPC 24s goal = TUG with SPC 22s, without SPC =24s LTG Duration 12 weeks 5 Impairment Floor recovery Thickener Operator Goal (LTG) To be able to recover ffrom floor with a chair LTG Duration 12 weeks Progress Towards Goals Progress Towards Goals Slow Progress due to Medical Issues Slow Progress - Other Progress Comments Pt had a GLF last who presents significant swelling on L knee and ankle by 1.5 to 2 inches more than R LE. Pt appears to move slightly slower for walking test today but there's improvements with TUG and STS tests. Pt is going to see Dr. Dial for further evaluation. Pt will cont benefit from skilled therapy to improve his mobility and balance to reduce fall risks. Added floor recovery and ankle ROM into tx plan as pt's requested. Physical Therapy Plan Frequency and Duration Frequency of Treatment 2x/Week Duration of Treatment 12 Plan of Care Start Date 10/23/18 Plan of Care End Date 01/23/19 Therapeutic Interventions Therapeutic Interventions Balance Training Gait Training Home Exercise Program Joint Mobilizations Manual Therapy Neuromuscular Re-education Patient/Caregiver Education Self-Care/Home Management Soft Tissue Mobilization Therapeutic Activities Therapeutic Exercises Next Visit Focus/Plan Next Note Type Treatment Note Next Visit Plan review his STS mechanics, gait mechanics movement isolation (at L hip and ankle) walking program with/without AD to increase tolerance. gait training without cane. stair climbing as momo
--- NOTE | 2018-10-28 13:41 | PT.OTN ---
Current Diagnoses Unspecified sequelae of cerebral infarction (10/28/18) Other symptoms and signs involving the musculoskeletal system (10/28/18) Weakness (10/28/18) Physical Therapy Treatment Note PT-OP-A Visit Information Start: 07/10/18 17:00 Freq: Status: Active Protocol: Document 10/28/18 10:27 EA (Rec: 10/28/18 10:33 EA [id number]) Out-Patient Physical Therapy Visit Information Visit Information Visit Type Treatment Note Visit Start Time 09:45 Visit Stop Time 10:30 Total Visit Minutes 38 Visit Number 23 PT-OP-B Current Condition Start: 07/10/18 17:00 Freq: Status: Active Protocol: Document 07/10/18 15:15 HH (Rec: 07/10/18 17:44 HH [email or web address]) Current Condition History of Current Condition Onset Date 2010 Current Complaints 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 Pt is now able to amb as tolerated at home and community with his tripod cane. He c/o multiple falls during functional activities due to L sided weakness. But he states he is aware of his L sided weakness and position at all time. Pt also c/o difficulty to perform functional activities such as holding a cup of water and stair negotiation. Pt also c/o difficulty performing sit to stand from a lower surface. pt also currently uses step to pattern to ascend and descend with the use of handrail on R side. Prior Treatments and Tests Pt received physical therapy before and it did not help. Treatment Goals Patient/Caregiver Goals Pt and his expect receiving physical therapy can help pt's overall strength and functional mobility to reduce fall risks. Prior Functional Status Baseline Function- ADL's Modified Independent Baseline Function- Mobility Modified Independent Baseline Function- Gait use cane for community mobility; without cane for home mobility Current Functional Impairments (Reported) Functional Limitations- ADL's Pt reports difficulty doning his clothes and hold an object with his L arm due to weakness and insufficient ROM. Functional Limitations- Mobility/Gait Pt uses step to pattern with R sided handrails for stability during stair negotiation. Difficulty getting up from a lower surface. PT-OP-C Subjective Start: 07/10/18 17:00 Freq: Status: Active Protocol: Document 10/28/18 10:27 EA (Rec: 10/28/18 10:33 EA [id number]) OP-PT Subjective Patient Comments Patient Comments Pt reports had afall last night and had to call 911 just get him up; states went to checked by his doctor but no recommended hospitalization; states my butts still hurts. PT-OP-E Functional Tests Start: 07/10/18 17:00 Freq: Status: Active Protocol: Document 10/23/18 13:45 HH (Rec: 10/24/18 13:10 [email or web address]) Functional Tests 2 Minute Walk Test Distance 160 Device Used SPC Comments 140 ft without SPC Five Times Sit to Stand Test Score 44 seconds Timed Up and Go (TUG) Score 24s Comments SPC PT-OP-G Mobility & Gait Start: 07/10/18 17:00 Freq: Status: Active Protocol: Document 10/23/18 13:45 HH (Rec: 10/24/18 13:12 HH [email or web address]) OP Gait Assessment Gait Gait Assistance Required: Independent Assistive Devices Assistive Device Straight Cane Gait Deviations General Gait Pattern Wide Based Gait Factors Limiting Gait Function Factors Limiting Gait Function Abnormal Tonal Influences Decreased Activity Tolerance Decreased Sensation Decreased Strength Limited Range of Motion Poor Balance Comments Gait Comments cont to show limited movement isolation at L ankle and hip to faciliate better foot clearance. PT-OP-H Neuro Start: 07/10/18 17:00 Freq: Status: Active Protocol: Document 07/10/18 15:15 HH (Rec: 07/10/18 17:44 HH [email or web address]) Sensation Evaluation Gross Sensation Gross Sensation WNL Muscle Tone Tone Assessment Left Upper Extremity Flexor Tone Description Moderate Hypertonicity Muscle Tone Comments Flexion synergy during exertion and reaching activities PT-OP-J Posture/Palpation/Skin Start: 07/10/18 17:00 Freq: Status: Active Protocol: Document 10/23/18 13:45 HH (Rec: 10/24/18 13:10 [email or web address]) Skin Assessment Circumference Measurement R ankle Location figure 8 at maleoli and midfoot Measurement (Centimeters) 23 Comments inches L ankle Location figure 8 at maleoli and midfoot Measurement (Centimeters) 24.5 Comments inches R tibial tuberosity Measurement (Centimeters) 15 Comments inches L tibial tuberosity. Measurement (Centimeters) 16 Comments inches R distal thigh Location superior pole of patella Measurement (Centimeters) 18 Comments inches L distal thigh Location superior pole of patella Measurement (Centimeters) 20 Comments inches. noticeable swelling. PT-OP-K Range of Motion Start: 07/10/18 17:00 Freq: Status: Active Protocol: Document 08/28/18 15:15 HH (Rec: 08/28/18 16:45 HH [email or web address]) Shoulder Goniometric Range of Motion Shoulder Measured in Degrees Left Passive Testing Position Sitting Flexion 100 Extension 35 Abduction 80 PT-OP-M Strength Start: 07/10/18 17:00 Freq: Status: Active Protocol: Document 09/25/18 16:45 HH (Rec: 09/25/18 17:56 HH [email or web address]) Hip Strength Hip Manual Muscle Testing Left Flexion (L2) 4- Good- Extension (S1) 4- Good- Abduction 3+ Fair+ Adduction 4 Good Knee Strength Knee Manual Muscle Testing Left Flexion (S2) 4 Good Extension (L3) 4 Good PT-OP-Q Treatments Start: 07/10/18 17:00 Freq: Status: Active Protocol: Document 10/28/18 10:27 EA (Rec: 10/28/18 10:33 EA [id number]) Cardio Equipment Recumbent Stepper (Sci-Fit) Duration (Minutes) 8 Resistance 1 Other L LE and UE only Therapeutic Exercises Sitting Exercises 5 Sitting Exercise Name Hip ADD with upright posture/ no back support Side left Resistance Lv 1 Reps/Minutes x 10 reps 4 Sitting Exercise Name Squeeze ball in standing/inbet knees Side bilateral Reps/Minutes x 5SH x 10 reps Comments Foot facing FWD Standing Exercises forward lunges on 5 inch box Standing Exercise Name Lv isometric to left hip ADD to maintain neutral hip Side left Equipment Used 5 inch box Reps/Minutes 8 x 2 Comments next to //bar lateral weight shift Standing Exercise Name lateral weight shift Equipment Used R foot on 6 inch step Reps/Minutes 20 Comments LLE stance Sit to Stand Equipment Used without support Reps/Minutes 8 x 3 Comments cues for L LE under chair Neuro Re-Education Treatment Balance Activities single leg stance Equipment next to //bar Comments without UE support, LLE single leg stance. CGA at trunk Hurdles Details Stepping over widespread hurdles Surface Level Equipment Single rail & tripod cane Reps/Duration 4 Comments Cues to improve left HIP IR RLE step up on 5/7inch step without UE Details ascend Equipment stair Comments facilitate LLE single leg balance gait belt and CGA tandem stance Details tandem stance on foam PT-OP-T Assessment and Plan Start: 07/10/18 17:00 Freq: Status: Active Protocol: Document 10/28/18 12:23 EA (Rec: 10/28/18 12:24 EA [id number]) Physical Therapy Assessment Assessment Summary Assessment Pt requires cues to ensure hip IR during swing and hip flexion. Tolerated treatment with no leg discomfort noted during therex. Physical Therapy Plan Next Visit Focus/Plan Next Note Type Treatment Note
--- NOTE | 2018-10-30 16:00 | PT.OTN ---
Current Diagnoses Unspecified sequelae of cerebral infarction (10/30/18) Other symptoms and signs involving the musculoskeletal system (10/30/18) Weakness (10/30/18) Physical Therapy Treatment Note PT-OP-A Visit Information Start: 07/10/18 17:00 Freq: Status: Active Protocol: Document 10/30/18 16:00 RCC (Rec: 10/30/18 17:56 RCC [email or web address]) Out-Patient Physical Therapy Visit Information Visit Information Visit Type Treatment Note Visit Start Time 16:00 Visit Stop Time 16:43 Total Visit Minutes 43 Visit Number 24 Number of SEARCH ENGINEER Visits 0 Evaluation Information Evaluation Date 07/10/18 Precautions Precautions fall risk PT-OP-B Current Condition Start: 07/10/18 17:00 Freq: Status: Active Protocol: Document 07/10/18 15:15 HH (Rec: 07/10/18 17:44 HH [email or web address]) Current Condition History of Current Condition Onset Date 2010 Current Complaints 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 Pt is now able to amb as tolerated at home and community with his tripod cane. He c/o multiple falls during functional activities due to L sided weakness. But he states he is aware of his L sided weakness and position at all time. Pt also c/o difficulty to perform functional activities such as holding a cup of water and stair negotiation. Pt also c/o difficulty performing sit to stand from a lower surface. pt also currently uses step to pattern to ascend and descend with the use of handrail on R side. Prior Treatments and Tests Pt received physical therapy before and it did not help. Treatment Goals Patient/Caregiver Goals Pt and his expect receiving physical therapy can help pt's overall strength and functional mobility to reduce fall risks. Prior Functional Status Baseline Function- ADL's Modified Independent Baseline Function- Mobility Modified Independent Baseline Function- Gait use cane for community mobility; without cane for home mobility Current Functional Impairments (Reported) Functional Limitations- ADL's Pt reports difficulty doning his clothes and hold an object with his L arm due to weakness and insufficient ROM. Functional Limitations- Mobility/Gait Pt uses step to pattern with R sided handrails for stability during stair negotiation. Difficulty getting up from a lower surface. PT-OP-C Subjective Start: 07/10/18 17:00 Freq: Status: Active Protocol: Document 10/30/18 16:00 RCC (Rec: 10/30/18 17:56 RCC [email or web address]) OP-PT Subjective Patient Comments Patient Comments Pt states that he was doing exercises earlier today before coming to therapy, and he is a fatigued. PT-OP-D Balance Start: 07/10/18 17:00 Freq: Status: Active Protocol: Document 10/30/18 16:00 RCC (Rec: 10/30/18 17:56 RCC [email or web address]) Balance Tests Single Limb Standing Single Limb- Right unable without arm support Single Limb- Left unable without arm support PT-OP-E Functional Tests Start: 07/10/18 17:00 Freq: Status: Active Protocol: Document 10/23/18 13:45 HH (Rec: 10/24/18 13:10 HH [email or web address]) Functional Tests 2 Minute Walk Test Distance 160 Device Used SPC Comments 140 ft without SPC Five Times Sit to Stand Test Score 44 seconds Timed Up and Go (TUG) Score 24s Comments SPC PT-OP-G Mobility & Gait Start: 07/10/18 17:00 Freq: Status: Active Protocol: Document 10/23/18 13:45 HH (Rec: 10/24/18 13:12 HH [email or web address]) OP Gait Assessment Gait Gait Assistance Required: Independent Assistive Devices Assistive Device Straight Cane Gait Deviations General Gait Pattern Wide Based Gait Factors Limiting Gait Function Factors Limiting Gait Function Abnormal Tonal Influences Decreased Activity Tolerance Decreased Sensation Decreased Strength Limited Range of Motion Poor Balance Comments Gait Comments cont to show limited movement isolation at L ankle and hip to faciliate better foot clearance. PT-OP-H Neuro Start: 07/10/18 17:00 Freq: Status: Active Protocol: Document 07/10/18 15:15 HH (Rec: 07/10/18 17:44 HH [email or web address]) Sensation Evaluation Gross Sensation Gross Sensation WNL Muscle Tone Tone Assessment Left Upper Extremity Flexor Tone Description Moderate Hypertonicity Muscle Tone Comments Flexion synergy during exertion and reaching activities PT-OP-J Posture/Palpation/Skin Start: 07/10/18 17:00 Freq: Status: Active Protocol: Document 10/23/18 13:45 HH (Rec: 10/24/18 13:10 HH [email or web address]) Skin Assessment Circumference Measurement R ankle Location figure 8 at maleoli and midfoot Measurement (Centimeters) 23 Comments inches L ankle Location figure 8 at maleoli and midfoot Measurement (Centimeters) 24.5 Comments inches R tibial tuberosity Measurement (Centimeters) 15 Comments inches L tibial tuberosity. Measurement (Centimeters) 16 Comments inches R distal thigh Location superior pole of patella Measurement (Centimeters) 18 Comments inches L distal thigh Location superior pole of patella Measurement (Centimeters) 20 Comments inches. noticeable swelling. PT-OP-K Range of Motion Start: 07/10/18 17:00 Freq: Status: Active Protocol: Document 08/28/18 15:15 HH (Rec: 08/28/18 16:45 HH [email or web address]) Shoulder Goniometric Range of Motion Shoulder Measured in Degrees Left Passive Testing Position Sitting Flexion 100 Extension 35 Abduction 80 PT-OP-M Strength Start: 07/10/18 17:00 Freq: Status: Active Protocol: Document 09/25/18 16:45 HH (Rec: 09/25/18 17:56 HH [email or web address]) Hip Strength Hip Manual Muscle Testing Left Flexion (L2) 4- Good- Extension (S1) 4- Good- Abduction 3+ Fair+ Adduction 4 Good Knee Strength Knee Manual Muscle Testing Left Flexion (S2) 4 Good Extension (L3) 4 Good PT-OP-Q Treatments Start: 07/10/18 17:00 Freq: Status: Active Protocol: Document 10/30/18 16:00 RCC (Rec: 10/30/18 17:56 RCC [email or web address]) Cardio Equipment Recumbent Stepper (Sci-Fit) Duration (Minutes) 8 Resistance 1 Other L LE and UE only Therapeutic Exercises Sitting Exercises hip abduction Side left Resistance L2 band Reps/Minutes x12 Comments PT holding band 4 Sitting Exercise Name Squeeze ball bet knees Side bilateral Reps/Minutes x 5SH x 10 reps Comments Foot facing FWD Standing Exercises hip extension and abduction with scooter board Side left Equipment Used standing bar for UE Reps/Minutes 10 each Comments guided hip abd and ext with L foot on scooter board lateral weight shift Standing Exercise Name lateral weight shift Equipment Used R foot on 5 inch step Reps/Minutes 20 Comments LLE stance Sit to Stand Equipment Used without support Reps/Minutes 2x10 Comments cues for L LE under chair Gait Training Gait Activity 2 point gait pattern Device Used tripoint-cane on R UE Level of Assistance CGA (close) Surface level Distance/Duration 200 ft Comments verbal cues Neuro Re-Education Treatment Balance Activities single leg stance Equipment UE on // bar Comments unable to perform without UE support, LLE single leg stance . CGA at trunk Hurdles Details Stepping over yanci- forward Surface Level Equipment Single rail & tripod cane Reps/Duration 4 Comments Cues to improve left HIP IR; attempted lateral step over but unable. RLE step up on 5/7inch step without UE Details ascend Equipment stair Comments facilitate LLE single leg balance gait belt and CGA tandem stance Details tandem stance on firm Comments eyes closed PT-OP-T Assessment and Plan Start: 07/10/18 17:00 Freq: Status: Active Protocol: Document 10/30/18 16:00 RCC (Rec: 10/30/18 17:56 RCC [email or web address]) Physical Therapy Assessment Assessment Summary Assessment Pt unable to perform SLS without UE support today, and unable to step over yanci laterally leading with the LLE . Pt likely more fatigued today due to performing HEP prior to session. Physical Therapy Plan Frequency and Duration Frequency of Treatment 2x/Week Duration of Treatment 12 Plan of Care Start Date 10/23/18 Plan of Care End Date 01/23/19 Next Visit Focus/Plan Next Note Type Treatment Note Next Visit Plan prog. gait and standing balance as tolerated, LLE strengthening and coordination
--- NOTE | 2018-11-06 13:41 | PT.OTN ---
Current Diagnoses Unspecified sequelae of cerebral infarction (10/30/18) Other symptoms and signs involving the musculoskeletal system (10/30/18) Weakness (10/30/18) Physical Therapy Treatment Note PT-OP-A Visit Information Start: 07/10/18 17:00 Freq: Status: Active Protocol: Document 11/06/18 13:36 (Rec: 11/06/18 13:39 [id number]) Out-Patient Physical Therapy Visit Information Visit Information Visit Type Discharge Summary Visit Note Pt's called in, pt admitted to hospital in [place] due to hematoma at his L knee and cellulitis at LLE after a fall 3 weeks. She stated pt has shown increased weakness recently. Pt most likely will be d/c to his mother in law's home today but they plan to stay there for a while. She requested to D/C from therapy today until further notice. Protocol: Document 11/06/18 13:36 (Rec: 11/06/18 13:39 [id number]) Physical Therapy Plan Discharge Physical Therapy Discharge Reasons Change in Medical Status Discharge Comments Pt's called in, pt admitted to hospital in [place] due to hematoma at his L knee and cellulitis at LLE after a fall 3 weeks. She stated pt has shown increased weakness recently. Pt most likely will be d/c to his mother in law's home today but they plan to stay there for a while. She requested to D/C from therapy today until further notice.
--- NOTE | 2018-11-06 18:05 | PT.OPDS ---
Current Diagnoses Unspecified sequelae of cerebral infarction (10/30/18) Other symptoms and signs involving the musculoskeletal system (10/30/18) Weakness (10/30/18) Provider Visit Care Team Role Provider Type Franky Wynn MD Family Provider Non-Staff Primary Care Provider Specialty: Medical Address: [address] [place] [address] [address] [place], [address] Email: Salina Felton Attending Provider Non-Staff Specialty: Neurology Address: [address] [place] [address] [address], [place], [address] Phone: Fax: Email: Visit Number Visit Number 24 Discharge Summary PT-OP-B Current Condition Start: 07/10/18 17:00 Freq: Status: Active Protocol: Document 07/10/18 15:15 HH (Rec: 07/10/18 17:44 [email or web address]) Current Condition History of Current Condition Onset Date 2010 Current Complaints 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 Pt is now able to amb as tolerated at home and community with his tripod cane. He c/o multiple falls during functional activities due to L sided weakness. But he states he is aware of his L sided weakness and position at all time. Pt also c/o difficulty to perform functional activities such as holding a cup of water and stair negotiation. Pt also c/o difficulty performing sit to stand from a lower surface. pt also currently uses step to pattern to ascend and descend with the use of handrail on R side. Prior Treatments and Tests Pt received physical therapy before and it did not help. Treatment Goals Patient/Caregiver Goals Pt and his expect receiving physical therapy can help pt's overall strength and functional mobility to reduce fall risks. Prior Functional Status Baseline Function- ADL's Modified Independent Baseline Function- Mobility Modified Independent Baseline Function- Gait use cane for community mobility; without cane for home mobility Current Functional Impairments (Reported) Functional Limitations- ADL's Pt reports difficulty doning his clothes and hold an object with his L arm due to weakness and insufficient ROM. Functional Limitations- Mobility/Gait Pt uses step to pattern with R sided handrails for stability during stair negotiation. Difficulty getting up from a lower surface. PT-OP-C Subjective Start: 07/10/18 17:00 Freq: Status: Active Protocol: Document 10/30/18 16:00 RCC (Rec: 10/30/18 17:56 RCC [email or web address]) OP-PT Subjective Patient Comments Patient Comments Pt states that he was doing exercises earlier today before coming to therapy, and he is a fatigued. PT-OP-D Balance Start: 07/10/18 17:00 Freq: Status: Active Protocol: Document 10/30/18 16:00 RCC (Rec: 10/30/18 17:56 RCC [email or web address]) Balance Tests Single Limb Standing Single Limb- Right unable without arm support Single Limb- Left unable without arm support PT-OP-E Functional Tests Start: 07/10/18 17:00 Freq: Status: Active Protocol: Document 10/23/18 13:45 HH (Rec: 10/24/18 13:10 HH [email or web address]) Functional Tests 2 Minute Walk Test Distance 160 Device Used SPC Comments 140 ft without SPC Five Times Sit to Stand Test Score 44 seconds Timed Up and Go (TUG) Score 24s Comments SPC PT-OP-G Mobility & Gait Start: 07/10/18 17:00 Freq: Status: Active Protocol: Document 10/23/18 13:45 HH (Rec: 10/24/18 13:12 HH [email or web address]) OP Gait Assessment Gait Gait Assistance Required: Independent Assistive Devices Assistive Device Straight Cane Gait Deviations General Gait Pattern Wide Based Gait Factors Limiting Gait Function Factors Limiting Gait Function Abnormal Tonal Influences Decreased Activity Tolerance Decreased Sensation Decreased Strength Limited Range of Motion Poor Balance Comments Gait Comments cont to show limited movement isolation at L ankle and hip to faciliate better foot clearance. PT-OP-H Neuro Start: 07/10/18 17:00 Freq: Status: Active Protocol: Document 07/10/18 15:15 HH (Rec: 07/10/18 17:44 HH [email or web address]) Sensation Evaluation Gross Sensation Gross Sensation WNL Muscle Tone Tone Assessment Left Upper Extremity Flexor Tone Description Moderate Hypertonicity Muscle Tone Comments Flexion synergy during exertion and reaching activities PT-OP-J Posture/Palpation/Skin Start: 07/10/18 17:00 Freq: Status: Active Protocol: Document 10/23/18 13:45 HH (Rec: 10/24/18 13:10 HH [email or web address]) Skin Assessment Circumference Measurement R ankle Location figure 8 at maleoli and midfoot Measurement (Centimeters) 23 Comments inches L ankle Location figure 8 at maleoli and midfoot Measurement (Centimeters) 24.5 Comments inches R tibial tuberosity Measurement (Centimeters) 15 Comments inches L tibial tuberosity. Measurement (Centimeters) 16 Comments inches R distal thigh Location superior pole of patella Measurement (Centimeters) 18 Comments inches L distal thigh Location superior pole of patella Measurement (Centimeters) 20 Comments inches. noticeable swelling. PT-OP-K Range of Motion Start: 07/10/18 17:00 Freq: Status: Active Protocol: Document 08/28/18 15:15 HH (Rec: 08/28/18 16:45 HH [email or web address]) Shoulder Goniometric Range of Motion Shoulder Measured in Degrees Left Passive Testing Position Sitting Flexion 100 Extension 35 Abduction 80 PT-OP-M Strength Start: 07/10/18 17:00 Freq: Status: Active Protocol: Document 09/25/18 16:45 HH (Rec: 09/25/18 17:56 HH [email or web address]) Hip Strength Hip Manual Muscle Testing Left Flexion (L2) 4- Good- Extension (S1) 4- Good- Abduction 3+ Fair+ Adduction 4 Good Knee Strength Knee Manual Muscle Testing Left Flexion (S2) 4 Good Extension (L3) 4 Good PT-OP-T Assessment and Plan Start: 07/10/18 17:00 Freq: Status: Active Protocol: Document 11/06/18 13:36 HH (Rec: 11/06/18 13:39 HH [id number]) Physical Therapy Plan Discharge Physical Therapy Discharge Reasons Change in Medical Status Discharge Comments Pt's called in, pt admitted to hospital in [place] due to hematoma at his L knee and cellulitis at LLE after a fall 3 weeks. She stated pt has shown increased weakness recently. Pt most likely will be d/c to his mother in law's home today but they plan to stay there for a while. She requested to D/C from therapy today until further notice.
== END 2018-10-31 12:09 ==
LOC: PHYS 16:00
PROVIDERS: Family Provider Otolaryngology Otolaryngology/Facial Plastic Surgery; PCP Otolaryngology Otolaryngology/Facial Plastic Surgery; Visit Provider Psychiatry & Neurology Neurology
DX: I69.30 Unspecified sequelae of cerebral infarction (principal); R53.1 Weakness; R29.898 Other symptoms and signs involving the musculoskeletal system
CPT/HCPCS: 97110; 97112; 97116; 97140; 97162; 97164; 97530

== ENCOUNTER → 2018-12-04 16:30 | Outpatient (CLI) | payer MEDICARE, BC, SELFPAY ==
--- NOTE | 2018-12-04 | DI.RAD.S_ITS ---
PROCEDURE: XR CHEST 2V INDICATIONS: COUGH, CONGESTION, SOB TECHNIQUE: 2 views of the chest were acquired. COMPARISON: None. FINDINGS: Surgical changes and devices: None. Lungs and pleura: No acute consolidation. Scattered subsegmental atelectasis and/or scarring . No pleural effusions or pneumothorax. Mediastinum: Mediastinal contours are normal. Heart size is normal. Bones and chest wall: No suspicious bony abnormalities. Soft tissues appear unremarkable. IMPRESSION: No acute consolidation. Scattered subsegmental atelectasis and/or scarring Dictated by: Juan Mendoza M.D. on 12/04/2018 at 17:20 Approved by: Juan Mendoza M.D. on 12/04/2018 at 17:22
== END ==
PROVIDERS: Family Provider Otolaryngology Otolaryngology/Facial Plastic Surgery; PCP Otolaryngology Otolaryngology/Facial Plastic Surgery; Visit Provider Internal Medicine
DX: R05 Cough (principal); R06.02 Shortness of breath; R09.89 Other specified symptoms and signs involving the circulatory and respiratory systems
CPT/HCPCS: 71046

== ENCOUNTER → 2019-07-14 11:21 | Outpatient (CLI) | payer MEDICARE, OTHER, SELFPAY ==
[2019-07-14 12:36] LABS: Cholesterol 214 mg/dL (140-199); HDL Cholesterol 47 mg/dL (40-60); LDL Cholesterol Calculated 154 mg/dL (<100); Triglycerides 63 mg/dL (35-150)
== END ==
PROVIDERS: PCP Otolaryngology Otolaryngology/Facial Plastic Surgery; Visit Provider Internal Medicine Cardiovascular Disease
DX: I25.10 Atherosclerotic heart disease of native coronary artery without angina pectoris (principal)
CPT/HCPCS: 36415; 80061

== ENCOUNTER → 2019-10-22 11:08 | Outpatient (CLI) | payer MEDICARE, OTHER, SELFPAY ==
[2019-10-22 13:10] LABS: Add Manual Diff / Slide Review NO; Basophils Absolute Auto 0 /uL (0-100); Basophils Percent Auto 0.4 % (0-2); Eosinophils Absolute Auto 0 /uL (0-450); Eosinophils Percent Auto 0.9 % (2-4); Hematocrit 42.2 % (41-53); Hemoglobin 14.1 g/dL (13.5-17.5); Lymphocytes Absolute Auto 2300 /uL (1100-4500); Mean Corpuscular HGB Conc 33.4 % (30-36); Mean Corpuscular Hemoglobin 27.7 PG (26-34); Mean Corpuscular Volume 82.9 fL (80-100); Monocytes Absolute Auto 400 /uL (0-900); Monocytes Percent Auto 7.8 % (3-14); Neutrophils Absolute Auto 2000 /uL (1500-7000); Neutrophils Percent Auto 41.9 % (50-75); Platelet Count 128 X10^3/uL (150-400); Red Blood Cell Count 5.09 X10^6/uL (4.5-5.9); White Blood Cell Count 4.7 X10^3/uL (4.5-11.0)
== END ==
PROVIDERS: PCP Internal Medicine; Referring Provider Internal Medicine; Visit Provider Internal Medicine
DX: D69.6 Thrombocytopenia, unspecified (principal)
CPT/HCPCS: 36415; 85025

== ENCOUNTER → 2020-01-19 10:55 | Outpatient (CLI) | payer MEDICARE, OTHER, SELFPAY ==
--- NOTE | 2020-01-19 10:57 | DI.CT.S_ITS ---
PROCEDURE: CT ABDOMEN PELVIS W CON INDICATIONS: Appendiceal mass TECHNIQUE: After the administration of oral and intravenous contrast, 5 mm thick sections acquired from the diaphragms to the symphysis. 5 mm thick coronal and sagittal reformats were performed. For radiation dose reduction, the following was used: automated exposure control, adjustment of mA and/or kV according to patient size. COMPARISON: Outside Facility, RG, CT IVP, 09/14/2019, 18:12. FINDINGS: Image quality: Excellent. ABDOMEN: Lung bases: Lung bases are clear. Heart size is normal. Coronary artery calcifications are partially visualized. Solid organs: Liver is normal in size and enhancement. Punctate calcifications are layered in the gallbladder fundus. No gallbladder wall thickening or pericholecystic fluid. Biliary system is non-dilated. Pancreas enhances normally. Spleen is normal in size and enhancement. A small splenule is present adjacent to the medial aspect of the spleen and a small splenule is present along the inferior margin of the spleen. No adrenal nodules. Kidneys are normal in size and enhancement, without hydronephrosis. Peritoneum and bowel: Stomach, small bowel, and colon loops are normal in caliber and wall thickness. An enhancing soft tissue mass is redemonstrated at the appendiceal tip. This measures 1.0 x 0.8 x 1.0 cm on the current study and previously measured 1.0 x 1.0 x 0.9 cm on the study dated 09/14/19. No periappendiceal fat stranding or free fluid. No free fluid or air. Nodes and vessels: No retroperitoneal or mesenteric adenopathy. Aorta and inferior vena cava are normal in caliber. There are scattered atheromatous calcifications throughout the aorta and iliac arteries bilaterally. Miscellaneous: No ventral hernias. PELVIS: Genitourinary: Bladder wall thickness is normal. Surgical clips are present at the prostate bed. Miscellaneous: No inguinal adenopathy. There are moderate bilateral fat containing inguinal hernias. Bones: No suspicious bony lesions. No vertebral body compression fractures. IMPRESSION: 1. Stable size of the enhancing mass at the tip of the appendix when compared with the study dated 09/14/19. 2. Cholelithiasis. No findings to suggest choledocholithiasis or acute cholecystitis. 3. Aortic atherosclerosis and coronary artery calcifications. Dictated by: Jaja Sanchez M.D. on 01/19/2020 at 14:25 Approved by: Jaja Sanchez M.D. on 01/19/2020 at 14:38
[2020-01-19 11:43] LABS: BUN Creatinine Ratio 21.3 (6-22); Blood Urea Nitrogen 16 mg/dL (9-20); Estimated Glomerular Filt Rate > 60.0 mL/min (>60)
== END ==
PROVIDERS: PCP Internal Medicine; Referring Provider Surgery; Visit Provider Surgery
DX: K38.8 Other specified diseases of appendix (principal); K80.20 Calculus of gallbladder without cholecystitis without obstruction; I25.10 Atherosclerotic heart disease of native coronary artery without angina pectoris; K40.20 Bilateral inguinal hernia, without obstruction or gangrene, not specified as recurrent
CPT/HCPCS: 36415; 74177; 82565; 84520; Q9967

== ENCOUNTER → 2020-02-21 11:21 | Outpatient (CLI) | payer MEDICARE, OTHER, SELFPAY ==
[2020-02-23 10:50] LABS: COVID19 Sendout Not Detected (Not Detect)
== END ==
PROVIDERS: PCP Internal Medicine; Visit Provider Physician Assistant
DX: Z01.812 Encounter for preprocedural laboratory examination (principal)
CPT/HCPCS: 87635

== ENCOUNTER 2020-02-24 08:04 | Inpatient (IN) | payer MEDICARE, OTHER, SELFPAY ==
[2020-02-19 12:27] VITALS: BMI 33.4
[2020-02-24] VITALS (20 sets, daily range): BP systolic 124–175; BP diastolic 72–99; PULSE 55–84; RESP 12–20; TEMP 35.5–37; O2SAT 9–99; BMI 33.4
--- NOTE | 2020-02-24 | PATH_ITS ---
[facility] Accession Number: [id number] . 01 Material submitted: . PART A: appendix - APPENDIX PART B: small bowel - SMALL BOWEL . 02 Diagnosis: A. Appendix, Appendectomy: Gastrointestinal stromal tumor (GIST), spindle cell type. Please see summary data below. . B. Colon, Resection: Segment of colon with patchy ischemia-type changes in area of defect, favor procedure-related. Negative for active inflammation, granulomas, dysplasia, and malignancy. . Surgical Pathology Case Summary: Procedure: Appendectomy. Tumor Site: Appendix. Tumor Size: Greatest dimension 9 mm. Tumor Focality: Unifocal. Histologic Type: Gastrointestinal stromal tumor, spindle cell type. Mitotic Rate: 0 per 5 mm2. Necrosis: Not identified. Histologic Grade: G1: Low-grade; mitotic rate less than 5 per 5 mm2. Risk Assessment: None (0%). Margins: Uninvolved by GIST. Distance of Tumor from Closest Margin: 4 cm, per gross description. Regional Lymph Nodes: Number of Lymph Nodes Involved: 0. Number of Lymph Nodes Examined: 1. Pathologic Stage Classification (AJCC 8th Edition): Primary Tumor: pT1. Regional Lymph Nodes: pN0. . Additional findings: Fibrous obliteraiton of appendiceal tip. . Immunohistochemical studies: KIT (CD117) - Positive. DOG1- Positive. . Pre-Resection Treatment: No known pre-resection therapy. Treatment Effect: No known pre-surgical therapy. [facility] 02/27/2020 1610 Local . 02 Comment: As part of routine supplier quality manager, selected slides were reviewed by Dr. Jones, who agrees with the interpretation. Dr. Mcdaniel discussed results with Dr. Tolbert on 02/27/2020. . Part B was submitted and labeled as Small bowel. However, the surgical procedure report describes a partial sigmoid colectomy and the histologic sections for part B are colon. . 02 Electronically signed: . Cori Mcdaniel MD, Pathologist NPI- [id number] . 01 Gross description: . Specimen A is received in formalin, labeled with patient identification and appendix. It consists of an intact vermiform appendix, measuring 7.6 cm in length and 0.6 cm in diameter. The yellow-ambrose and lobulated mesoappendix is 8.5 x 4.9 x 1.9 cm. A 0.9 x 0.9 x 0.6 cm firm lesion protrudes out of the pink-ambrose and dull serosal surface. The lesion is 4.0 cm to the proximal margin. The serosa at the protruding lesion is inked black. The staple line at the proximal margin is removed, and the tissue underneath is inked blue. Sectioning the protruding lesion reveals a heterogeneously yellow-ambrose cut surface, and the lesion has a total depth of 0.6 cm. The uninvolved part of the appendix has a 0.2 cm in diameter lumen, which is lined by yellow-ambrose and grossly unremarkable mucosa. The wall thickness is 0.2 cm. Sectioning the adipose tissue reveals two lymph node candidates, measuring 0.5 cm in greatest dimension. The entire appendix is submitted. Topographical Field Assistant sections are submitted in seven cassettes. . Summary of Sections: A1 - Proximal margin, shaved, one piece. A2 - The entire bisected appendiceal tip, two pieces. A3 - The entire section of lesion to the appendiceal lumen, four pieces. A4 - Cross sections of the appendix between the appendiceal tip and lesion, three pieces. A5-A6 - The remaining cross sections of appendix between the lesion and proximal end, six pieces each. A7 - Two intact lymph node candidates, two pieces. . Specimen B is received in formalin, labeled with patient identification and two small bowel. It consists of an unoriented segment of small bowel, measuring 14.5 cm in length and 2.5 cm in diameter. Both ends are stapled shut and are randomly designated as margin A and margin B. There are two transmural defects present on the pink-ambrose and dull serosal surface. The first transmural defect is 4.3 x 1.3 cm and located adjacent to margin A and 9.2 cm to margin B. The second transmural defect is 1.3 x 0.7 cm and located adjacent to margin B and 10.2 cm to margin A. Also, present is a second intestinal segment, which is 2.7 cm in length and 2.5 cm in diameter and located at 1.5 cm from margin B of the first intestinal segment. Both small bowels are attached to a 16.7 x 6.5 x 3.0 cm yellow-ambrose and lobulated mesointestinal adipose tissue. Both ends of the second intestinal segment is stapled shut and are designated as margin #1 (closest to margin B of the first intestinal segment) and margin #2. . Opening two intestinal segments reveal yellow-ambrose mucosa without any grossly identified discrete masses or lesions. The mucosa at the first defect of the first intestinal segment has diminished folding. There are two lymph node candidates present within the fat, measuring 0.7 cm and 0.9 cm in greatest dimension. Topographical Field Assistant sections are submitted in nine cassettes. . Summary of Sections: B1 - Margin A, shave, one piece. B2 - Margin B, shave, one piece. B3 - Topographical Field Assistant first transmural defect to normal mucosa, inked transmural defect edge, three pieces. B4 - Topographical Field Assistant second transmural defect to normal mucosa, inked transmural defect edge, two pieces. B5 - Topographical Field Assistant uninvolved mucosa of intestinal segment #1, shave, two pieces. B6 - Margin #1, shave, two pieces. B7 - Margin #2, shave, two pieces. B8 - Topographical Field Assistant mucosa of second intestinal segment, two pieces. B9 - Two intact lymph node candidates, two pieces. ([id number]) /[facility] 02/27/2020 1610 Local . 02 Microscopic: . Immunohistochemical stains were performed to characterize the cells of interest on block A3. All control stains showed appropriate reactivity. . Results: TRISTA - Negative. Beta-Catenin - Negative, No nuclear staining. CD34 - Positive. Desmin - Negative. S100 - Negative. Smooth Muscle Actin - Negative. CD117 - Positive. DOG1 - Positive. Ki-67 - Rare positive cells. . Interpretation: The immunophenotype is compatible with the gastrointestinal stromal tumor with very low mitotic activity. . * This test was developed and its performance characteristics determined by [facility]. It has not been cleared or approved by the U.S. Food and Drug Administration. The FDA has determined that such clearance or approval is not necessary. This test is used for clinical purposes. It should not be regarded as investigational or for research. . 02 Pathologist provided ICD-10: K38.8 . 02 CPT . 188671, 642520, I23978, Y50029 Performed at: 01 [facility] [address] [id number] MD Michael Burleson MD Phone: [phone] Performed at: [id number] [place], [place] [id number] MD Cori Mcdaniel MD Phone: [phone]
--- NOTE | 2020-02-24 07:40 | PM.HP.1 ---
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 In size is less than 1 cm there is no associated lymphadenopathy he is here today for a elective laparoscopic appendectomy. Please refer to the H&P from December 2019 for further detail. 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 (Acute) CVA (cerebral vascular accident) (Acute) Difficulty swallowing (Acute) Easy bruisability (Acute) Eczema (Acute) Edema (Acute) Heart attack (Acute 03/2015) HTN (hypertension) (Acute) Prostate cancer (Acute) Seizures (Acute) Sleep apnea (Acute) TBI (traumatic brain injury) (Acute) Surgical History H/O craniotomy (Acute 1995) History of radical prostatectomy (Acute 1998) Hx of heart artery stent (Acute 04/2016) Hx of radical prostatectomy (Acute) Stented coronary artery (Acute 03/2015) Family & Social History Family History Mother Stroke Family/Other Cancer Social History: household members spouse Tobacco & Substance use: Smoking Status Former smoker alcohol intake never Substance Use Type does not use Meds Home Medications and Allergies Home Medications Medication Instructions Recorded Confirmed Type apixaban 5 mg tablet 5 mg PO BID 10/22/19 02/24/20 History carvedilol 6.25 mg tablet 6.25 mg PO BID 10/22/19 02/24/20 History cholecalciferol (vitamin D3) 100 4,000 unit PO DAILY 10/22/19 02/24/20 History mcg (4,000 unit) capsule docusate sodium 100 mg capsule 100 mg PO DAILY 10/22/19 02/23/20 History losartan 50 mg tablet 50 mg PO DAILY 10/22/19 02/24/20 History phenazopyridine 100 mg tablet 100 mg PO TID 10/22/19 02/23/20 History polyethylene glycol 3350 17 17 gram PO DAILY 10/22/19 02/24/20 History gram/dose oral powder Allergies Allergy/AdvReac Type Severity Reaction Status Date / Time Influenza Virus Vaccines Allergy Localized Verified 02/24/20 08:34 Swelling Penicillins Allergy Saw rings Verified 02/24/20 08:34 around lights Review of Systems Review of Systems Narrative: A 10 point review of systems is negative except as noted in the HPI Exam Narrative Exam Narrative: General-no acute distress, well nourished elderly male HEENT-moist mucous membranes, no scleral icterus Neck-supple, no lymphadenopathy Chest- non labored respirations, clear to auscultation bilaterally Cardiac-regular rate no peripheral edema Abdomen-soft, nontender, non distended Extremities-warm, well perfused Neurological-alert and oriented, no focal deficits Assessment & Plan Assessment and plan (1) Mass of appendix: Status: Acute Assessment & Plan narrative: 85-year-old man with a 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 We discussed the technical nature of the procedure hand the operative risks including bleeding infection damage to surrounding structures need for further surgery. His questions have been answered he is in agreement with this plan will proceed to the operating room. COVID-19 COVID-19 status: Negative
[2020-02-24] MEDS: LACTATED RINGERS 1,000 ML 42 ML IV ×2 (08:24→11:25)
[2020-02-24] MEDS: levoFLOXacin 500 MG/100 ML PIGGYBACK 100 MG IV ×2 (09:41→18:46)
--- NOTE | 2020-02-24 10:11 | SUR.OPER ---
Supine on padded OR bed, head on pillow, safety belt at thigh, left arm padded and tucked at side. Right arm secured on padded arm oard <90 degrees abduction. Legs uncrossed. Padded footboard in place. Tape over blanket to secure lower legs.
[2020-02-24] MEDS: BUPIVACAINE 0.25% (PF) VIAL 30 ML INJ (10:18)
[2020-02-24] MEDS: ACETAMINOPHEN IV 1,000 MG/100 ML VIAL 400 MG IV (12:40)
[2020-02-24] MEDS: HYDROMORPHONE 2 MG INJ IV (13:35)
--- NOTE | 2020-02-24 14:17 | PT-IP ANOTE ---
Received PT orders and reviewed chart. Pt currently off the floor for procedure. Will check on pt for evaluation 02/24.
--- NOTE | 2020-02-24 14:36 | SUR.PHASEI ---
Pt recieved to PACU after general anesthesia at 1318. Airway patent, self maintained. Report received from PAULA Rodriguez and Dr Iyer. Pt restless, pulling at things. Safety maintained. Medicated for pain by Dr Iyer.
[2020-02-24] MEDS: SODIUM CHLORIDE 0.9% 1,000 ML 100 ML IV (14:37)
--- NOTE | 2020-02-24 14:40 | SUR.PHASEI ---
Pt calm. VSS. Report called to PAULA Lindsey. Transferred to 221 via bed. Belongings bag, cane, and CPAP transferred with pt. Received in room by PAULA Lindsey. Bedside handoff completed.
--- NOTE | 2020-02-24 14:59 | PC.NURSE ---
Patient drowsy but easily arousable. Rates abdominal pain 10/06. C/o nausea, no emesis, no antiemetics ordered. Note sent to Dr Cleary in surgery at 1500. O2 sats on RA 90-91% placed on 1L sats 95%. Patient has CPAP. Bed alarm on.
--- NOTE | 2020-02-24 16:09 | PM.OP.1 ---
Operative Date/Time/Diagnoses Date of procedure: 02/24/20 Time of procedure: 16:09 Pre-op diagnosis: Appendiceal mass Post-op diagnosis: same Procedure & Clinicians Procedure: Laparoscopic converted to open appendectomy, partial sigmoid colectomy Same procedure as scheduled: Yes Indications: This is a 85-year-old man who was found to have an incidental less than 1 cm mass at the tip of the appendix consistent with a carcinoid with no evidence of lymphadenopathy. History significant for a complicated radical robotic prostatectomy converted to an open laparotomy. Surgeon: Yao Cleary Computer Networker: Mag Tolbert Click Yes if Unassisted: No Anesthesia Type: General Operative Notes Findings: Extremely dense adhesions in the right lower quadrant between the cecum and the sigmoid colon and appendix. Specimen(s): other (Appendix, colon) Estimated Blood Loss (mL): 50 Procedure in detail: Patient was brought to the operating room and placed supine on the table. Bilateral lower extremity compression devices were applied. General anesthesia was induced and he was intubated with an endotracheal tube. He received Levaquin prior to skin incision. A time-out was performed. Began by making a 1 cm infraumbilical skin incision. The subcutaneous tissues were divided the umbilical stalk was grasped elevated and the fascia was sharply incised. Blue trocar was then inserted into the abdomen. Pneumoperitoneum was established inspection of the abdomen was performed and demonstrated no evidence of injury upon entry. Placed two 5 mm working ports were then placed in the suprapubic position as well as the left lower quadrant. General inspection of the abdomen demonstrated extensive adhesions between the right colon/cecum, appendix and the sigmoid colon consistent with a history of complicated prostatectomy. An extensive lysis of adhesions was performed with the laparoscopic william sharply to separate these structures. Despite this it remained extremely difficult to adequately mobilize the appendix. I converted the procedure to open laparotomy for failure to safely progress. I went through the previous midline laparotomy scar and the abdomen was fully opened below the umbilicus. The Bookwalter was then placed to aid with retraction. I continued with the lysis of adhesions. During the course of the adhesed sigmoid colon from the cecum a large full-thickness rent in the sigmoid colon was made. This was quickly controlled with some clamps and suture to prevent contamination. The appendix was now fully mobilized from the adhesions and a fullness of the tip of the appendix was noted however there was no evidence of metastatic carcinoma. The mesentery to the appendix was divided using the LigaSure device and then the appendix was transected at its base using load of blue staple Endo-JOSE. The appendix was then passed off the field as specimen. attention was then turned to the colotomy. Given the length several cm of the rent I decided the best course of action was to resect this segment of sigmoid colon rather than attempt to close it primarily. A window within the mesentery to the segment of sigmoid colon was made above and below the injury and then the colon was transected using the Endo-JOSE stapler blue load. Next a [id number] functional end to end anastomosis was formed. Placed a 3 0 silk stitch at the crotch of the anastomosis. Then a colotomy was made in each limb of the colon and a Endo-JOSE stapler a common channel was formed. Inspection of the channel demonstrated no evidence of hemorrhage and it was widely patent. I then closed the opening of the common channel using a running 3 0 PDS suture and then the anastomosis was oversewn using 3 0 silk in Lembert fashion. The bowel was then returned to the abdomen and was copiously irrigated with several liters of sterile saline and hemostasis was achieved. Next the midline fascia was closed using a running #1 PDS from both above and below. Subcutaneous tissues were reapproximated using 3 0 Vicryl and skin incisions were closed using reji. A left lower quadrant drain was placed through 1 of the previous laparoscopic sites to lay near the anastomosis and down into the pelvis. This was secured with 3 0 nylon suture. Patient emerged from anesthesia was extubated and transferred to recovery room in stable condition.
[2020-02-24] MEDS: carvediloL 6.25 MG TABLET PO (20:32)
[2020-02-24] MEDS: SODIUM CHLORIDE 0.9% FLUSH 10 ML IV (20:33)
[2020-02-24] MEDS: OXYCODONE IR 5 MG TABLET PO (20:35)
[2020-02-25] VITALS (16 sets, daily range): BP systolic 127–157; BP diastolic 54–84; PULSE 81–95; RESP 16–20; TEMP 36.2–38.5; O2SAT 93–99
[2020-02-25] MEDS: HYDROMORPHONE 0.5 MG INJ IV ×2 (00:21→19:56)
[2020-02-25] MEDS: ONDANSETRON 4 MG/2 ML INJ IV ×3 (00:21→15:36)
[2020-02-25] MEDS: SODIUM CHLORIDE 0.9% 1,000 ML 100 ML IV ×2 (00:31→11:57)
[2020-02-25 05:21] LABS: Add Manual Diff / Slide Review NO; Basophils Absolute Auto 0 /uL (0-100); Basophils Percent Auto 0.2 % (0-2); Eosinophils Absolute Auto 0 /uL (0-450); Hematocrit 38.7 % (41-53); Hemoglobin 12.8 g/dL (13.5-17.5); Lymphocytes Absolute Auto 1700 /uL (1100-4500); Lymphocytes Percent Auto 15.4 % (25-40); Mean Corpuscular Hemoglobin 27.2 PG (26-34); Mean Corpuscular Volume 82.2 fL (80-100); Monocytes Absolute Auto 500 /uL (0-900); Neutrophils Absolute Auto 8500 /uL (1500-7000); Neutrophils Percent Auto 79.4 % (50-75); Platelet Count 126 X10^3/uL (150-400); Red Blood Cell Count 4.71 X10^6/uL (4.5-5.9); Red Cell Distribution Width 14.1 % (11.6-14.8); White Blood Cell Count 10.8 X10^3/uL (4.5-11.0)
[2020-02-25 05:41] LABS: BUN Creatinine Ratio 14.4 (6-22); Blood Urea Nitrogen 13 mg/dL (9-20); Calcium 8.3 mg/dL (8.4-10.2); Carbon Dioxide 27 mmol/L (22-32); Chloride 104 mmol/L (98-107); Estimated Glomerular Filt Rate > 60.0 mL/min (>60); Glucose 135 mg/dL (80-110); HEMOLYSIS < 15 (0-50); Magnesium 1.7 mg/dL (1.6-2.3); Phosphorous 3.3 mg/dL (2.3-3.7); Potassium 4.6 mmol/L (3.4-5.1); Sodium 136 mmol/L (137-145)
--- NOTE | 2020-02-25 09:19 | PM.PNPO.1 ---
Subjective Subjective Date Patient Seen: 02/25/20 Time Patient Seen: 09:19 Interval history: No acute overnight events. This morning he feels mild nausea no emesis not having flatus or bowel movement. He did drink a little bit of clear liquids yesterday evening he has moderate incisional abdominal pain. Exam Vital Signs (past 8 hours): - 02/25/20 02:00 02/25/20 04:10 02/25/20 06:00 Temperature 99.4 F Pulse Rate 89 Respiratory Rate 18 Blood Pressure 133/66 Pulse Oximetry 96 96 95 02/25/20 06:30 02/25/20 07:28 02/25/20 07:33 Temperature 99.4 F 97.2 F L Pulse Rate 82 Respiratory Rate 16 Blood Pressure 154/82 H Pulse Oximetry 94 93 Oxygen Delivery Method Room Air Oxygen Flow Rate 0 Narrative Exam Narrative: General elderly male alert oriented no acute distress Chest nonlabored respiration Abdomen soft appropriately tender to palpation dressing to midline clean dry intact left-sided GALA drain serosanguineous output. Objective Labs Result Diagrams: 02/25/20 05:03 02/25/20 05:03 Labs: Laboratory Results - last 24 hr 02/25/20 02/25/20 05:03 05:03 WBC 10.8 RBC 4.71 Hgb 12.8 L Hct 38.7 L MCV 82.2 MCH 27.2 MCHC 33.0 RDW 14.1 Plt Count 126 L Neut % (Auto) 79.4 H Lymph % (Auto) 15.4 L Spencer % (Auto) 5.0 Eos % (Auto) 0.0 L Baso % (Auto) 0.2 Neut # (Auto) 8500 H Lymph # (Auto) 1700 Spencer # (Auto) 500 Eos # (Auto) 0 Baso # (Auto) 0 Sodium 136 L Potassium 4.6 Chloride 104 Carbon Dioxide 27 BUN 13 Creatinine 0.90 Estimated GFR > 60.0 BUN/Creatinine Ratio 14.4 Glucose 135 H Calcium 8.3 L Phosphorus 3.3 Magnesium 1.7 Assessment & Plan Post-op Postoperative Procedures: Procedures Operation Date: 02/24/20 09:15 Actual Procedures Side Surgeon p Appendectomy, partial cholectomy, lysis of adhesions Yao Cleary MD Postoperative status narrative: 85-year-old man postoperative day 1 after a laparoscopic to open appendectomy extensive lysis of adhesions and partial sigmoid colectomy for a presumed carcinoid of the appendix tip in the setting of extensive pelvic adhesions. Overall he is recovering appropriately. -1 L bolus of normal saline now for low urine output and increased IV fluid rate to 125 mL/hr continue Diaz catheter for today to monitor urine output -okay for clears as tolerates and chewing gum -out of bed to chair and ambulate with physical therapy -continue Levaquin for a total of 5 days for intra-abdominal contamination -SCDs start prophylactic Lovenox Quality VTE Deep Vein Thrombosis/Pulmonary Embolism Present on Admission: No
[2020-02-25] MEDS: LOSARTAN 50 MG TABLET PO (10:33)
[2020-02-25] MEDS: carvediloL 6.25 MG TABLET PO ×2 (10:33→23:19)
[2020-02-25] MEDS: SODIUM CHLORIDE 0.9% 500 ML 1000 ML IV (10:34)
--- NOTE | 2020-02-25 11:36 | CM.MNRNOTE ---
Patient has a bulky dressing to his lower midline, this is cdi. He also has a GALA drain that is putting out ss drainage, a small amount. Patient is getting up with physical therapy now and working with OT. Will medicated him with pain medication as soon as he is sitting up in the chair. Given Zofran around 0730 and somewhat helpful. Patient able to take some drinks of water and tolerate well. Patient has a hx of CVA in 2008 and does have some residual affects to his r.arm and r.leg. His bowel tones are + but hypoactive. Patient is getting a 1000cc bolus of NS and his is at bedside.
--- NOTE | 2020-02-25 11:52 | OT.IP.EVAL ---
Current Diagnoses Other specified diseases of appendix (02/24/20) Surgery Performed Operation Date: 02/24/20 09:15 Actual Procedures p Appendectomy, partial cholectomy, lysis of adhesions - Yao Cleary MD Past Medical History (Last Updated 02/24/20 @ 08:56 by Bethany Pelaez RN) Atrial fibrillation (Acute) Brain tumor (Acute) Cellulitis (Acute) Coronary artery abnormality (Acute) Coronary artery disease involving [place] coronary artery without angina pectoris (Acute) CVA (cerebral vascular accident) (Acute) Difficulty swallowing (Acute) Easy bruisability (Acute) Eczema (Acute) Edema (Acute) Heart attack (Acute 03/2015) HTN (hypertension) (Acute) Prostate cancer (Acute) Seizures (Acute) Sleep apnea (Acute) TBI (traumatic brain injury) (Acute) Surgical History (Last Reviewed 02/24/20 @ 07:40 by Yao Cleary MD) H/O craniotomy (Acute 1995) History of radical prostatectomy (Acute 1998) Hx of heart artery stent (Acute 04/2016) Hx of radical prostatectomy (Acute) Stented coronary artery (Acute 03/2015) Occupational Therapy Inpatient Evaluation/Re-Eval M1 PT/OT-IP Prior Functional Status Start: 02/25/20 13:57 Freq: NEEDED Status: Active Protocol: Document 02/25/20 11:13 [facility] (Rec: 02/25/20 14:16 [facility] [id number]) Medical Review Prior Functional Status Medical History Reviewed Yes Diet/Fluid Consistency Clear Liquids Communication able to make needs known. no deficits noted. 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 Pt has very limited LUE movement and fine motor control. He tends to walk with a L circumduction gait with toe point out. Pt can amb in the house independently by furniture cursing independently. He is able to climb stairs as needed with step to pattern and R handrail . Pt had 2-3 falls within the past year. Activities of Daily Living and IADL's Pt is independent with SPC for ADLs including toileting, dressing, self cleaning with his RUE except showering. assisted sponge bath of his back usually. Pt likes to take garbage out at his yard couple times a day. Social History Household Members spouse,family Living Arrangements House Number of Floors (Floors) One Floor Number of Stairs To Enter/Railing? 1 door step to get in Home Environment High Toilet,Walk in Shower,Tub /Shower Home Equipment Straight Cane,Grab Bars In Shower Employment Status Retired Additional Social History Comment Pt lives with his in [place] but they have been staying in [facility] mostly for the past year since pt's mother in law health is declining who is currently W/C bound. is the primary CG for her mother, patient and her brother who has mental health issue. She also recently suffered from a fall resulting fx on her nose and R wrist. She stated they are open to skilled rehab for pt but hopefully it's COVID 19 free. M2 OT-IP Current Condition Start: 02/25/20 13:57 Freq: Status: Active Protocol: Document 02/25/20 11:13 [facility] (Rec: 02/25/20 14:16 [facility] [id number]) Occupational Therapy Current Condition Current Condition Evaluation Date 02/25/20 Treatment Diagnosis Appendectomy, partial cholectomy, decreased self care Diagnosis Onset Date 02/24/20 Post Operative Precautions Abdominal Surgery Precautions Log Roll,Lifting Restrictions, Gait Belt above Incisional Area M3 OT- IP Subjective and Pain Start: 02/25/20 13:57 Freq: Status: Active Protocol: Document 02/25/20 11:13 [facility] (Rec: 02/25/20 14:16 [facility] [id number]) OT- Subjective Occupational Therapy Visit Type Type Initial Evaluation Visit Start Time 11:13 Visit Stop Time 11:52 Total Visit Minutes 39 Occupational Therapy Visit Comments Patient Comments Cotxt with PT due to pt needing extensive assist for mobilty needs. Pt's present in the room for OT eval. Patient/Caregiver Goals TO go home. OT Pain Assessment Pain When Pain Assessed During Mobility Pain Present Pain Present Pain Reported Location Abdomen Intensity 4 Scale Used Numeric (0 - 10) Management Techniques Re-positioning M4 OT- IP ADL's Start: 02/25/20 13:57 Freq: Status: Active Protocol: Document 02/25/20 11:13 [facility] (Rec: 02/25/20 14:16 [facility] [id number]) OT OXU-Urnl-Edodswb Comments OT Self-Feeding Comments Pt on clear liquids. Pt's assisting to try to feed him jello and able to take one sip of water. OT ADL-Grooming Comments OT Grooming Comments Pt able to wash his face after set-up of wash cloth. OT ADL-Oral Care Comments Oral Care Comments Not at this time. OT ADL-Dressing General Eval Lower Body Dressing Ability Total Assistance Areas Needing Assistance Socks OT ADL-Toileting General Evaluation Toileting Ability Total Assistance Areas Needing Assistance Empty Catheter or Colostomy Comments OT Toileting Comments Pt has [place] in. OT ADL-Bathing Comments OT Bathing Comments Able to assist pt to sponge off his back and change out gowns. M5 OT- IP IADL's Start: 02/25/20 13:57 Freq: Status: Active Protocol: Document 02/25/20 11:13 [facility] (Rec: 02/25/20 14:16 [facility] [id number]) OT-Instrumental Activities of Daily Living Vehicle Service Agent Vehicle Service Agent Caregiver Provides Assist Vehicle Service Agent Comments Prior pt likes to assist to take out the trash. M6 OT- IP Functional Cognition Start: 02/25/20 13:57 Freq: Status: Active Protocol: Document 02/25/20 11:13 [facility] (Rec: 02/25/20 14:16 [facility] [id number]) Cognitive Factors Limiting Selfcare Function Cognitive Ability Level of Alertness Alert Patient Orientation Name,Place,Situation Attention Span Ability Capable of Focused Attention, Capable of Sustained Attention Ability to Follow Commands Able to Follow Multi-Step Commands Cognitive Comments Cognitive Assessment Comments Pt appears to be at baseline for cognition and able to follow 1-2 step commands appropriately. OT- Vision and Hearing OT- Hearing Assessment OT- Hearing Assessment WFL OT- Vision Assessment Visual Acuity WFL M7 OT- IP Mobility and Balance Start: 02/25/20 13:57 Freq: Status: Active Protocol: Document 02/25/20 11:13 [facility] (Rec: 02/25/20 14:16 [facility] [id number]) OT- Bed Mobility Assessment Rolling Type of Rolling Roll to Left Level of Assistance Maximum Assistance,2 Person Assistance Supine to Sit Supine to Sit Assist Maximum Assistance,2 Person Assistance Scooting Scooting to Edge of Bed Maximum Assistance,1 Person Assistance OT-Transfer Assessment Sit to and From Stand Sit to and from Stand Moderate Assistance,2 Person Assistance Transfers Transfer Ability Moderate Assistance,Maximum Assistance,2 Person Assistance Technique Transfer Destination Bed,Chair Transfer Technique Stand Step Pivot Devices Transfer Assistive Devices Gait Belt,Large Based Quad Cane Comments Mobility Comments Due to abdominal pain pt needing MAX AX 2 for bed mobility needs and initial education for log rolling. Pt MODA X 2 to stand with quad cane and able to transfer to recliner with MODA X 2 assist for balance and steadying and to help lower down to the recliner. Pt's states most of their furniture is low , however she thinking about getting/borrowing a lift recliner. OT- Gait Assessment Comments Gait Ability Comments Not at this time, transfer only. OT- Balance Assessment Sitting Balance and Reactions Static Sitting Balance Ability Good Dynamic Sitting Balance Ability Fair Standing Balance and Reactions Static Standing Balance Ability Poor Dynamic Standing Balance Ability Poor M8 OT- IP Objective Assessments Start: 02/25/20 13:57 Freq: Status: Active Protocol: Document 02/25/20 11:13 [facility] (Rec: 02/25/20 14:16 [facility] [id number]) OT Gross Range of Motion Upper Extremity Range of Motion Assessment Left Impaired OT Strength Upper Extremity Strength Assessment Left Impaired Shoulder 2- Elbow 3 Forearm 2- Wrist 2- Hand 2- OT-Muscle Tone Assessment Muscle Tone WNL No Muscle Tone Location Left Upper Extremity Type of Tone Hypertonicity M9 OT- IP Assessment and Plan Start: 02/25/20 13:57 Freq: Status: Active Protocol: Document 02/25/20 11:13 [facility] (Rec: 02/25/20 14:16 [facility] [id number]) OT Summary Assessment and Plan Potential Rehabilitation Potential Good Analytic Complexity at Evaluation Low Summary OT Impairments Pain,Balance,Functional Mobility,Grooming,Dressing, Toileting,Bathing,Toilet Transfers,Shower Transfers, Activity Tolerance Progress Towards Goals Slow Progress due to Pain,Slow Progress due to Medical Issues,Slow Progress due to Activity Tolerance,Slow Progress due to Cognition Assessment Summary Pt low mod complexity due to barriers of pain, decreased mobility and Adl needs and now needing extensive assist for all Adl and mobility needs. Due to recent appendectomy and partial cholectomy, pt needing MAX A x 2 for bed mobilty and MODA x 2 for transfer with quadcane. Pt prior able to be MARIA A with ADl needs except for showering. Pt's current level too great for family to assist at this time and would be best for pt to go to skilled rehab prior to going home. Goals Self-Feeding Goal Independent Grooming Goal Independent Dressing Goal Independent Toileting Goal Independent Bathing Goal Minimal Assistance Toilet Transfer Goal Independent Shower Transfer Goal Independent Patient/Caregiver Education Goal Demonstrate Post-Op Precautions,Caregiver Independent Assisting Patient Days to Meet Goals 15 Frequency of Treatment Frequency Of Treatment Once a Day Treatment Plan OT Treatment Plan ADL Training,Functional Mobility,Patient/Family Education,Discharge Planning Other Treatment Recommendations and Next [place] [facility] [place]. Treatment Focus Discharge Recommendations OT Discharge Recommendations SNF Rehab Other Discharge Recommendations Pending progress and caregiver training possible to go home with assist. However at this time recommend SNF. Home Equipment Needs Defer to SNF Transportation Needs at Discharge Wheelchair/Cabulance
[2020-02-25] MEDS: OXYCODONE IR 5 MG TABLET PO (11:57)
--- NOTE | 2020-02-25 13:10 | PT.IIE ---
Current Diagnoses Other specified diseases of appendix (02/24/20) Surgery Performed Operation Date: 02/24/20 09:15 Actual Procedures p Appendectomy, partial cholectomy, lysis of adhesions - Yao Cleary MD Surgical History (Last Reviewed 02/24/20 @ 07:40 by Yao Cleary MD) H/O craniotomy (Acute 1995) History of radical prostatectomy (Acute 1998) Hx of heart artery stent (Acute 04/2016) Hx of radical prostatectomy (Acute) Stented coronary artery (Acute 03/2015) Medical History (Last Updated 02/24/20 @ 08:56 by Bethany Pelaez RN) Atrial fibrillation (Acute) Brain tumor (Acute) Cellulitis (Acute) Coronary artery abnormality (Acute) Coronary artery disease involving [place] coronary artery without angina pectoris (Acute) CVA (cerebral vascular accident) (Acute) Difficulty swallowing (Acute) Easy bruisability (Acute) Eczema (Acute) Edema (Acute) Heart attack (Acute 03/2015) HTN (hypertension) (Acute) Prostate cancer (Acute) Seizures (Acute) Sleep apnea (Acute) TBI (traumatic brain injury) (Acute) Physical Therapy Inpatient Evaluation/Re-Eval M1 PT/OT-IP Prior Functional Status Start: 02/25/20 09:42 Freq: NEEDED Status: Active Protocol: Document 02/25/20 12:29 (Rec: 02/25/20 13:09 [id number]) Medical Review Prior Functional Status Medical History Reviewed Yes Diet/Fluid Consistency Clear Liquids Communication able to make needs known. no deficits noted. 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 Pt has very limited LUE movement and fine motor control. He tends to walk with a L circumduction gait with toe point out. Pt can amb in the house independently by furniture curising independently. He is able to climb stairs as needed with step to pattern and R handrail . Pt had 2-3 falls within the past year. Activities of Daily Living and IADL's Pt is independent with SPC for ADLs including toileting, dressing, self cleaning with his RUE except showering. assisted sponge bath of his back usually. Pt likes to take garbage out at his yard couple times a day. Social History Household Members spouse,family Living Arrangements House Number of Floors (Floors) One Floor Number of Stairs To Enter/Railing? 1 door step to get in Home Environment High Toilet,Walk in Shower,Tub /Shower Home Equipment Straight Cane,Grab Bars In Shower Employment Status Retired Additional Social History Comment Pt lives with his in [place] but they have been staying in [facility] mostly for the past year since pt's mother in law health is declining who is currently W/C bound. is the primary CG for her mother, patient and her brother who has mental health issue. She also recently sufferred from a fall resulting fx on her nose and R wrist. She stated they are open to skilled rehab for pt but hopefully it's COVID 19 free. M2 PT-IP Current Condition Start: 02/25/20 09:42 Freq: NEEDED Status: Active Protocol: Document 02/25/20 12:29 [facility] (Rec: 02/25/20 13:09 [id number]) Physical Therapy Current Condition Current Condition Evaluation Date 02/25/20 Treatment Diagnosis Appendectomy, partial cholectomy, lysis of adhesions , weakness Onset Date 02/24/20 Precautions Abdominal Surgery Precautions Log Roll,Lifting Restrictions, Gait Belt above Incisional Area Weight Bearing Status Weight Bearing Status Full Weight Bearing M3 PT-IP Subjective Start: 02/25/20 09:42 Freq: NEEDED Status: Active Protocol: Document 02/25/20 12:29 [facility] (Rec: 02/25/20 13:09 [id number]) Subjective Physical Therapy Visit Type Type Initial Evaluation Visit Start Time 10:50 Visit Stop Time 11:40 Total Visit Minutes 50 Notes Pt's at baseline to provide social hx. Co-tx with FILOMENA Cifuentes for this session. Pt also has a GALA drain that is putting out ss drainage, a small amount. Number of SOLAR THERMAL INSTALLER Visits 0 Physical Therapy Visit Comments Patient Comments My abdominal hurts when i move Patient Goals To be independent again. Therapy Pain Assessment Pain When Pain Assessed During Mobility Pain Present Pain Present Pain Reported Location Abdomen Intensity 4 Scale Used Numeric (0 - 10) Description Aching,Acute Pain Behaviors Calling Out,Facial Grimacing, Guarding Pain Management Techniques Timing of Activity with Medications M4 PT-IP Mobility and Gait Start: 02/25/20 09:42 Freq: NEEDED Status: Active Protocol: Document 02/25/20 12:29 [facility] (Rec: 02/25/20 13:09 [id number]) PT-Bed Mobility Assessment Rolling Type of Rolling Log Rolling,Roll to Left Level of Assist Maximal Assistance,2 Person Assistance Supine to Sit Supine to Sit Maximum Assistance,2 Person Assistance,Bedrails Scooting Scooting to Edge of Bed Maximum Assistance Scooting Up and Down in Bed Maximum Assistance PT-Transfer Assessment Sit to and From Stand Sit to and from Stand Moderate Assistance,2 Person Assistance,Use of Upper Extremities Equipment Transfer Assistive Device Gait Belt,Large Based Quad Cane Orthotic/Prosthetic Devices or Brace: No Transfers Transfer Destination Bed,Chair Transfer Technique LBQC Transfer Ability Level of Assist Moderate Assistance,2 Person Assistance,Use of Upper Extremities Comments Mobility Comments Pt was awake in bed upon PT and OT arrival. at bedside to provide social hx. Pt appeared to be AxO x 4. BP at 138/80. Educated pt regarding log roll method at first but pt impulsively attempted to use supine to long sit who c/o signifcant abdominal pain. Pt then was assisted max A x 2 to reposition to the middle of bed. Pt then attempted to log roll to L side first initially but needed max A x 2 to complete followed by sidelying to sit. Pt was calling out for pain in transition and required max A to scoot towards EOB. Pt was sitting with RUE support on bed rail for BP measuring. His BP at 169/77 and needed 3 mins rest to back to 125/56. Pt did c/o nausea and slight lightheadiness but no emesis. Pt was able to sit independently without support intermittently while resting. He was then provided with large based quad cane with RUE and he was able to stand up with mod A x 2. Pt then took 4 small stand step laterally to chair on his R side. Meanwhile, this PT noticed pt dragged his L LE and needed min assistance to propel. He then reached back for R chair armrest and needed mod Ax 2 to descend. Pt cont c/o abdominal pain 4/10 and BP at 138/80. pt was sitting in chair comfortably after and stated pain was his primary c/ o. Call light placed within reach. Notifed nursing staff for transfer only to pt's R side with 2PA. Gait Assessment Comments Gait Comments pt did not amb Stair Climbing Assessment Comments Stair Climbing Comments did not assess PT-Balance Assessment Sitting Balance and Reactions Static Sitting Balance Ability Normal Dynamic Sitting Balance Ability Good M5 PT-IP Objective Assessments Start: 02/25/20 09:42 Freq: NEEDED Status: Active Protocol: Document 02/25/20 12:29 [facility] (Rec: 02/25/20 13:09 [email or web address] Orientation Orientation/Cognition Level of Alertness Alert Orientation Name,Age,Birthday,Month,Date, Year,Day of Week,Place, Situation Language Function Ability No Deficits Noted Safety Awareness Decreased Safety Awareness Memory Description No Deficits Noted Gross Range of Motion Upper Extremity ROM Assessment Left Impaired Impairments 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 and poor fine motor control able to abduct shoulder approx 40-50 degrees unable to fully extend his L arm and fingers Lower Extremity ROM Assessment Left Impaired Strength Upper Extremity Strength Assessment Left Impaired Shoulder 2- Elbow 3 Wrist 2- Hand 2- Lower Extremity Strength Assessment Left Impaired Hip 3+ Knee 4- Ankle 3 Coordination Assessment Gross Coordination Gross Coordination Impaired Sensation Assessment Sensation Gross Sensation WNL Muscle Tone Muscle Tone WNL No Muscle Tone Location Left Upper Extremity Type of Tone Hypertonicity,Flexor Severity of Tone Moderate M6 PT-IP Treatment Start: 02/25/20 09:42 Freq: NEEDED Status: Active Protocol: Document 02/25/20 12:29 (Rec: 02/25/20 13:09 [id number]) Physical Therapy Treatment Other Treatments Other Treatment Performed seated leg press against floor on L M7 PT-IP Assessment and Plan Start: 02/25/20 09:42 Freq: NEEDED Status: Active Protocol: Document 02/25/20 12:29 (Rec: 02/25/20 13:09 [id number]) PT Summary Assessment and Plan Potential Rehabilitation Potential Good Status of Condition at Evaluation Evolving Summary Impairments Pain,ROM,Strength,Balance, Coordination,Tone,Bed Mobility ,Transfers,Gait,Activity Tolerance Assessment Summary This is a high complexity evaluation for this 85yo male s/p POD 1 Appendectomy, partial cholectomy, lysis of adhesions, along L hemiplegia. Pt is relatively independent with his SPC prior to surgery and only needed min assistance for showering and IADLs from his . Upon assessment, pt needed max Ax 2 for bed mobility and mod A x 2 for chair transfer to with large based quad cane. His pain is his primary limitation for all mobility. In addition, his is the primary CG for pt, her mother and her brother within the same household who was recently fx her wrist and nose. Pt's current very limited mobility and extensive skilled care needed will be a significant burden to his . In my professional opinion, pt will benefit from skilled care to improve his functional mobility and strength prior to d/c to home. Goals Bed Mobility Goal Contact Guard Assistance Transfer Goal Contact Guard Assistance,Cane Gait Goal Contact Guard Assistance,Cane Gait Distance 50 Other Goals BSC with CGA with LBQC/SPC complete PF step with LBQC/SPC Days to Meet Goals 10 Frequency of Treatment Frequency Of Treatment Once a Day Treatment Plan Physical Therapy Treatment Plan Bed Mobility Training,Transfer Training,Gait Training, Therapeutic Exercise,Balance Retraining,Post Op Education, Discharge Planning,Hot or Cold Pack,Neuromuscular Re-ed Other Recommendations and Next Treatment review log roll Focus bed mob, transfer, gait training Recommendations To Nursing Amount of Assist Needed 2 Person Assist Discharge Recommendations PT Discharge Recommendations SNF Rehab Transportation Needs at Discharge Wheelchair/Cabulance
--- NOTE | 2020-02-25 13:32 | CM.DANOTE ---
DCP Assessment: EMR reviewed: Patient is a 85 yr old male who was admitted for Appendectomy preformed by Dr Cleary. PCP is Dr. Dial. CM/RN met with patient at the bedside and explained role. Patient was alert and oriented x3 at time of CM visit just drowsy from pain medication. Patient currently lives with his , and two other family members that the patients Odalys take care of. Patient is independent with all ADL's accept bathing. Patients assists with that. PT evaluation done and recommend SNF at D/C. CM/RN spoke with patient and patient chose [facility]. CM/RN called December to review patient for possible admission. December called back and stated that they will accept patient at D/C patient will just need a new COVID screening prior to admission. PASRR completed. patient will need three midnights prior to admission. should be ready for D/C on Sunday or Sunday. I: Medicare and Commercial insurance Plan: D/C to SNF- accepted at [facility] when medically stable. Daniella Tavarez RN Discharge Planning/Care Management Advanced directive, confirm from FAMILY Start: 02/24/20 15:25 Freq: Q24H Status: Active Protocol: Document 02/24/20 17:43 AK (Rec: 02/24/20 17:43 AK [id number]) Advance Directive, confirm on record Time 17:43 Person contacted Copy received No CM Discharge Assessment Start: 02/25/20 13:25 Freq: Status: Active Protocol: Document 02/25/20 13:25 HS (Rec: 02/25/20 13:32 HS [id number]) Discharge Planning Assessment Assigned Base Remover Daniella Tavarez RN DPOA/Assigned Designee Name Odalys Burk () Contact Information [phone] Advance Directives? Yes History Provided By Patient,Medical Record Prior Living Arrangements House Household Members spouse,family Type of transporation used prior to Relies on Others admit Independent with ADL's Yes: with all ADL's except showering Needs Assistance With Bathing Caregiver for Another No DME Already Rented / Owned FWW / Walker,Cane Patient/Family Preference Correction Facility Barriers to Discharge Yes Discharge Plan Correction Facility Referrals Initiated Correction If patient plan is SNF: Has PASSR been Yes completed? Medicare Choice List Provided Yes SNF/HH Preference [facility] choice then [facility] Contact Name/Phone CM/RN Contacted [facility] at [facility] [phone] and she is reviewing Has Agency SNF been contacted Yes Whiteboard Updated in Patient Room with Yes name and ext. 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 Height 172.72 cm Weight 99.79 kg Body Mass Index (BMI) 33.4 Hearing Ability Normal Visual Impairment No Limitations Visual Assist None Dentition Type Teeth, Natural Present Comment Hx of multiple strokes, TBI Hx Blood Transfusions Yes Hx Blood Transfusion Reaction No alcohol intake never Smoking Status Former smoker how long ago did patient quit smoking Quit 40 years ago Substance Use Type does not use Musculoskeletal Symptoms Joint Swelling,Muscle Weakness History of Falling (Recent or History of Yes ) Patient is completely paralyzed or No completely immobile Prosthesis or Orthotic Device Cane Comment Hemiplegia, hemiparesis Is patient on oxygen? Yes: Med rec from 2017 reports Oxygen use Hx Sleep Apnea Yes: CPAP compliance unknown Currently Taking a Beta Taj Yes: Carvedilol Anti-Coagulant Therapy Yes: Eliquis per records, Plavix per Surgeon-unknown instructions given to pt Has a Translator Unable to locate any cardiopulmonary technician or records Hx Pacemaker/ICD No Pacemaker Rep Required? No dysphagia Yes Urinary Catheter Present No Hx Urinary Self Catheterization No Diabetes No Presence of External or Internal Medical Yes: Cardiac stent Devices Have you had any close contact with Unknown someone diagnosed with COVID-19? Marital Status Lives With spouse
[2020-02-25] MEDS: SODIUM CHLORIDE 0.9% 1,000 ML 125 ML IV (19:24)
[2020-02-25] MEDS: PROCHLORPERAZINE 10 MG/2 ML VIAL IV (19:25)
[2020-02-25] MEDS: levoFLOXacin 500 MG/100 ML PIGGYBACK 100 MG IV (19:26)
--- NOTE | 2020-02-25 23:46 | PC.NURSE ---
Evening note: [place] had issues with nausea tonight, Zofran given with little to no relief. Patient somewhat restless in first couple hours of shift, not able to get comfortable, feeling like he may throw up. Abd drsg with shadow drainage which I marked with pen, outer drsg dry/intact. GALA with 10 ml sero-sang drainage. Abdomen distended, patient belching occasionally, denies passing any flatus today. BT quiet. Dr Cleary here earlier in evening, stated concern that patient may be developing an ileus. About an hour later I notified Dr Huang of pts continued nausea and of 50 ml clear emesis x 1 which looked like clear sputum. Dr Huang ordered for patient to be NPO, as well as to give Compazine which I did. After nausea resolved I also administered Dilaudid 0.5 mg IV for pain or 03/08. Patient able to sleep after that for a few hours, no facial grimace, wearing CPAP with 2L bled in, saturation remains 94-95% No further complaints of nausea/emesis. VS stable. Pt oriented x 3, very [place], fall precautions in place & pt instructed to call nurse for any needs/concerns. here for the majority of the afternoon/evening but left for the night.
[2020-02-26] VITALS (52 sets, daily range): BP systolic 100–195; BP diastolic 50–107; PULSE 71–152; RESP 17–39; TEMP 36.4–37.3; O2SAT 91–96
[2020-02-26] MEDS: ONDANSETRON 4 MG/2 ML INJ IV ×2 (02:03→07:41)
[2020-02-26] MEDS: SODIUM CHLORIDE 0.9% 1,000 ML 125 ML IV ×2 (04:11→15:35)
[2020-02-26] MEDS: PROCHLORPERAZINE 10 MG/2 ML VIAL IV (04:20)
[2020-02-26 05:24] LABS: Add Manual Diff / Slide Review NO; Basophils Absolute Auto 0 /uL (0-100); Basophils Percent Auto 0.1 % (0-2); Eosinophils Absolute Auto 0 /uL (0-450); Eosinophils Percent Auto 0.1 % (2-4); Hematocrit 36.6 % (41-53); Hemoglobin 12.1 g/dL (13.5-17.5); Lymphocytes Absolute Auto 1400 /uL (1100-4500); Lymphocytes Percent Auto 13.4 % (25-40); Mean Corpuscular HGB Conc 33.1 % (30-36); Mean Corpuscular Hemoglobin 27.3 PG (26-34); Mean Corpuscular Volume 82.5 fL (80-100); Monocytes Absolute Auto 400 /uL (0-900); Monocytes Percent Auto 4.2 % (3-14); Neutrophils Absolute Auto 8300 /uL (1500-7000); Neutrophils Percent Auto 82.2 % (50-75); Platelet Count 112 X10^3/uL (150-400); Red Blood Cell Count 4.44 X10^6/uL (4.5-5.9); Red Cell Distribution Width 14.5 % (11.6-14.8); White Blood Cell Count 10.1 X10^3/uL (4.5-11.0)
[2020-02-26 05:34] LABS: BUN Creatinine Ratio 13.8 (6-22); Blood Urea Nitrogen 12 mg/dL (9-20); Calcium 8.2 mg/dL (8.4-10.2); Carbon Dioxide 23 mmol/L (22-32); Chloride 105 mmol/L (98-107); Estimated Glomerular Filt Rate > 60.0 mL/min (>60); Glucose 137 mg/dL (80-110); HEMOLYSIS < 15 (0-50); Magnesium 1.8 mg/dL (1.6-2.3); Phosphorous 2.1 mg/dL (2.3-3.7); Sodium 136 mmol/L (137-145)
[2020-02-26] MEDS: METOPROLOL TARTRATE 5 MG/5 ML INJ IV ×4 (05:37→21:07)
--- NOTE | 2020-02-26 05:59 | PC.NURSE ---
Pt is AxOx4, fatigued appearing; tolerating RA at 96%; Noticed some wheezing at start of shift that subsided. Denied pain throughout most of shift, rating abdomen pain at most 2/10, denying need for pain med. Nauseous throughout most of shift. Zofran and Compazine given with little noticeable effect. Pt vomitted 50cc of clear liquid. Bowel Tones Postive; denies any gas. HTN 180/103, HR 95; Dr. Huang called and ordered 5mg IV metoprolol. Given with minimal effects; BP 163/102 HR 92; Tele was placed Diaz patent with clem urine. GALA drain NPO with some ice chips NS@125mL/hr Dressing is clean, dry, intact. B/L SCDs on
[2020-02-26] MEDS: LOSARTAN 50 MG TABLET PO (07:41)
[2020-02-26] MEDS: carvediloL 6.25 MG TABLET PO (07:41)
[2020-02-26] MEDS: ENOXAPARIN 30 MG/0.3 ML SYRINGE SUBCUT (07:44)
[2020-02-26] MEDS: POTASSIUM PHOSPHATE 15 MMOL in DEXTROSE 5% IN WATER 250 ML 63.75 ML IV (09:11)
--- NOTE | 2020-02-26 09:20 | P.PN_ITS ---
Subjective Subjective Date Patient Seen: 02/26/20 Time Patient Seen: 09:21 Interval history: Episode of emesis overnight. Continues to feel nauseous and bloated. No flatus or BM. Hypertension overnight. Exam Vital Signs (past 8 hours): - 02/26/20 04:00 02/26/20 05:00 02/26/20 05:58 Temperature 98.6 F Pulse Rate 94 H 91 H Respiratory Rate 18 Blood Pressure 180/103 H 163/102 H Pulse Oximetry 93 95 Oxygen Delivery Method Room Air Oxygen Flow Rate 0 Narrative Exam Narrative: General elderly man alert oriented no acute distress Abdomen distended, appropriately tender to palpation, drain left lower quadrant scant serosanguineous output. Objective Labs Result Diagrams: 02/26/20 04:56 02/26/20 04:56 Labs: Laboratory Results - last 24 hr 02/26/20 02/26/20 04:56 04:56 WBC 10.1 RBC 4.44 L Hgb 12.1 L Hct 36.6 L MCV 82.5 MCH 27.3 MCHC 33.1 RDW 14.5 Plt Count 112 L Neut % (Auto) 82.2 H Lymph % (Auto) 13.4 L Lassen % (Auto) 4.2 Eos % (Auto) 0.1 L Baso % (Auto) 0.1 Neut # (Auto) 8300 H Lymph # (Auto) 1400 [place]assen # (Auto) 400 Eos # (Auto) 0 Baso # (Auto) 0 Sodium 136 L Potassium 4.0 Chloride 105 Carbon Dioxide 23 BUN 12 Creatinine 0.87 Estimated GFR > 60.0 BUN/Creatinine Ratio 13.8 Glucose 137 H Calcium 8.2 L Phosphorus 2.1 L D Magnesium 1.8 Assessment & Plan Post-op Postoperative Procedures: Procedures Operation Date: 02/24/20 09:15 Actual Procedures Side Surgeon p Appendectomy, partial cholectomy, lysis of adhesions Yao Cleary MD Postoperative status narrative: 85-year-old man postoperative day 2 after a laparoscopic converted to open appendectomy and partial sigmoid colectomy. # postoperative ileus-nasogastric tube placed continue to intermittent low wall suction. Okay for ice chips. Start Protonix 20 mg b.i.d. for reflux. Await return of bowel function # left hemiplegia due to previous stroke-continue physical therapy anticipate will require discharge to rehab when ready. #Chronic atrial fibrillation-Resume apixaban today. #VTE prophylaxis-continue SCDS, change from pLovenox to Apixaban #HTN-IV Metroprolol #Remove altamirano catheter today #Replace electrolytes Quality VTE Deep Vein Thrombosis/Pulmonary Embolism Present on Admission: No
[2020-02-26] MEDS: PANTOPRAZOLE 40 MG VIAL 20 MG IV ×2 (10:32→21:06)
[2020-02-26] MEDS: LIDOCAINE JELLY 2% 5 ML 1 APPLIC TOP (10:33)
--- NOTE | 2020-02-26 11:01 | PC.NURSE ---
I notified the RN of patient's elevated BP, Pulse and Resp.
--- NOTE | 2020-02-26 11:04 | PC.NURSE ---
Checked BP after patient had NG Tube placed.
--- NOTE | 2020-02-26 11:09 | PC.NURSE ---
Addendum entered by Danyelle Johnson R.N. 02/26/20 11:18: Patients dressing to ML and GALA taken off and now open to air. Patients incision with reji that are well approximated and intact. Bowel Tones are hypoactive x4, HR remains irregular. Patient will be moving to room 226 now. Original Note: Patient complains of nausea this am. Given Zofran. Initial Blood Pressure 190s/110s. Given po blood pressure meds and down to 130s/80s. into see patient and states that patient most likely has an illeus. He placed an NG tube down his left nare with lidocaine jelly and immediatly how around 1650ml of green/black bile out into tube. Then patient went into AFib RVR, and pulse as high as 160s. Given 5mg of iv metoprolol and pulse only down to 109. EKG obtained that showed AFIB RVR and patient did have an irregular heart rate. Patient is going to be moved to ICU to monitor his heart better and possibly be started on a gtt for his increase in blood pressure and pulse.
--- NOTE | 2020-02-26 11:49 | DI.RAD.S_ITS ---
PROCEDURE: XR CHEST 1V INDICATIONS: afib TECHNIQUE: One view of the chest was acquired. COMPARISON: [facility], CR, XR CHEST 2V, 12/04/2018, 16:41. FINDINGS: Surgical changes and devices: An orogastric tube is present, the tip of which is projected over the gastric fundus. Lungs and pleura: Lung volumes are low. Lungs are clear. No pleural effusions or pneumothorax. Mediastinum: Mediastinal contours appear normal. Heart size is normal. Bones and chest wall: No suspicious bony lesions. Overlying soft tissues appear unremarkable. IMPRESSION: Low lung volumes. No acute cardiopulmonary findings. Dictated by: Jaja Sanchez M.D. on 02/26/2020 at 13:25 Approved by: Jaja Sanchez M.D. on 02/26/2020 at 13:26
[2020-02-26] MEDS: DILTIAZEM 125 MG/125 ML PIGGYBACK IV (12:01)
--- NOTE | 2020-02-26 12:32 | PT-IP ANOTE ---
Pt in a fib with RVR this AM. Will check for appropriateness of PT later this PM.
--- NOTE | 2020-02-26 12:35 | OT.IPNOTE ---
Per nursing HOLD pt from therapy as pt this AM A-fib with RVR, therefore check on pt tomorrow.
--- NOTE | 2020-02-26 12:36 | PC.NURSE ---
Addendum entered by Mellissa Donald R.N. 02/26/20 15:13: PT able to move Patient to chair with 3 P assist. Denies pain, HR increased to 130 with activity. Denies pain. Addendum entered by Mellissa Donald R.N. 02/26/20 14:52: Diltiazem increased @ 1240 to 15ml/hr. Tolerating well. Pt remains drowsy. HR down to 95. Original Note: Admission from 221 Pt arived into 226, Afib RVR, not controlled with Metroprolol. Midline incision to ABD MALLIKA, and GALA drain on L side, HR 130s Bedside tele placed. Pt denies pain, except with movement to ABD. NG tube to LIS placed this AM by Dr Cleary. CXR done, and echo ordered. Pt has Hx with stroke and residual weakness to L side. is at bedside, involved in his care. Discussed code status, Pt and have stated full code, Diltiazem gtt started at 5mls/hr, increased to 10mls/hr. HR remains 100. BA active. Ice chips at bedside.
[2020-02-26] MEDS: MAGNESIUM SULFATE 2 GM/50 ML PIGGYBACK IV (14:04)
--- NOTE | 2020-02-26 14:05 | PC.NURSE ---
Chart accessed-Dr. Pan requested to look at pt's lab values as she is consulting on this pt.
--- NOTE | 2020-02-26 15:00 | PT.IPTN ---
Current Diagnoses Other specified diseases of appendix (02/24/20) Surgery Performed Operation Date: 02/24/20 09:15 Actual Procedures p Appendectomy, partial cholectomy, lysis of adhesions - Yao Cleary MD Physical Therapy Treatment Note M2 PT-IP Current Condition Start: 02/25/20 09:42 Freq: NEEDED Status: Active Protocol: Document 02/25/20 12:29 HH (Rec: 02/25/20 13:09 [id number]) Physical Therapy Current Condition Current Condition Evaluation Date 02/25/20 Treatment Diagnosis Appendectomy, partial cholectomy, lysis of adhesions , weakness Onset Date 02/24/20 Precautions Abdominal Surgery Precautions Log Roll,Lifting Restrictions, Gait Belt above Incisional Area Weight Bearing Status Weight Bearing Status Full Weight Bearing M3 PT-IP Subjective Start: 02/25/20 09:42 Freq: NEEDED Status: Active Protocol: Document 02/26/20 14:25 SP (Rec: 02/26/20 16:10 SP [email or web address]) Subjective Physical Therapy Visit Type Type Treatment Note Visit Start Time 14:25 Visit Stop Time 15:00 Total Visit Minutes 35 Notes Pt's in room during tx. Co-tx with OT and SUPPORT MERCHANDISER student Susie assisted with patient's mobility during tx. Number of SUPPORT MERCHANDISER Visits 1 Physical Therapy Visit Comments Patient Comments My abdomen hurts when am moving. Patient Goals To be independent again. Therapy Pain Assessment Pain When Pain Assessed During Mobility Pain Present Pain Present Pain Reported Location Abdomen Scale Used no pain scale rating given Description Acute Pain Behaviors Facial Grimacing,Guarding, Restlessness Pain Management Techniques Re-positioning,Timing of Activity with Medications M4 PT-IP Mobility and Gait Start: 02/25/20 09:42 Freq: NEEDED Status: Active Protocol: Document 02/26/20 14:25 SP (Rec: 02/26/20 16:10 SP [email or web address]) PT-Bed Mobility Assessment Supine to Sit Supine to Sit Maximum Assistance,2 Person Assistance,Head of Bed Elevated,Bedrails Scooting Scooting to Edge of Bed Maximum Assistance PT-Transfer Assessment Sit to and From Stand Sit to and from Stand Maximum Assistance,2 Person Assistance,Use of Upper Extremities Equipment Transfer Assistive Device Gait Belt,Large Based Quad Cane Orthotic/Prosthetic Devices or Brace: No Transfers Transfer Destination Chair Transfer Technique SBQC Transfer Ability Level of Assist Moderate Assistance,1 Person Assistance,2 Person Assistance ,Use of Upper Extremities Comments Mobility Comments Pt was awake with nursing in room when arrived. SPTA noted L anterior ankle rubor and warmth L>R. Instructed LE ankle pumps, heel slides in elevated supine, pt able to complete self. High elevated supine to sitting to R required Max assist of 2 persons for trunk righting support while patient using bed rail with RUE for self movement and pt initated then required Min of 1 with repostioning L>RLE to EOB, scoot to EOB Max A of 2 persons while patient using his RUE to WB on bed. Pt required Max support at upper back and from front with coordination with pt each LE scoot forward using bed transfer pad. Pt required sitting rest for recovery once at EOB, OT provided trunk support to lean on from behind . Sit to stand Max A of 2-3 person then SPT using SBQC to right bed to chair, support at trunk of 3 person via gait belt and therapist knee in front of patient's B knees to prevent buckling, cuing required for sequencing BLE and SBQC, support required to stabilize SBQC, cuing for directioning side and back step to chair with L knee into full extension and demonstrated hip hike to reposition, cued for reaching back for chair and and Max of 2-3 person for slow descent into chair, pt able to wt shift to L with Max trunk support for therapist to assist gown out from under R thigh. scoot self back in chair using UE/LE. Pt completed ADLs in sitting with OT, SUPPORT MERCHANDISER/SPTA assisted as needed. Pt had call light and all needs in each before left, in room. Gait Assessment Comments Gait Comments pt did not ambulate, only R side stepping using SBQC Max of 3 person including tube mgt . See mobility comments for details. Stair Climbing Assessment Comments Stair Climbing Comments did not assess PT-Balance Assessment Sitting Balance and Reactions Static Sitting Balance Ability Poor Dynamic Sitting Balance Ability Poor Standing Balance and Reactions Static Standing Balance Ability Poor Dynamic Standing Balance Ability Poor Device Used SBQC 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 and poor fine motor control able to abduct shoulder approx 40-50 degrees unable to fully extend his L arm and fingers Lower Extremity ROM Assessment Left Impaired Strength Upper Extremity Strength Assessment Left Impaired Shoulder 2- Elbow 3 Wrist 2- Hand 2- Lower Extremity Strength Assessment Left Impaired Hip 3+ Knee 4- Ankle 3 Coordination Assessment Gross Coordination Gross Coordination Impaired Sensation Assessment Sensation Gross Sensation WNL Muscle Tone Muscle Tone WNL No Muscle Tone Location Left Upper Extremity Type of Tone Hypertonicity,Flexor Severity of Tone Moderate M6 PT-IP Treatment Start: 02/25/20 09:42 Freq: NEEDED Status: Active Protocol: Document 02/26/20 14:25 SP (Rec: 02/26/20 16:10 SP [email or web address]) Physical Therapy Treatment Exercises Exercises Ankle Pumps,Heel Slides M7 PT-IP Assessment and Plan Start: 02/25/20 09:42 Freq: NEEDED Status: Active Protocol: Document 02/26/20 14:25 SP (Rec: 02/26/20 16:10 SP [email or web address]) PT Summary Assessment and Plan Potential Rehabilitation Potential Good Status of Condition at Evaluation Evolving Summary Impairments Pain,ROM,Strength,Balance, Coordination,Tone,Bed Mobility ,Transfers,Gait,Activity Tolerance Assessment Summary Pt is self motivating and would benefit from being seen for therapy bid to improve strength toward increased functional mobility. Max Ax 2, Min x1 for bed mobility and Max x3 persons for chair transfer to R with small based quad cane. His pain and decreased activity tolerance is his primary limitation for all mobility. In addition, his is the primary CG for pt , her mother and her brother within the same household who was recently fx her wrist and nose. Pt's current very limited mobility and extensive skilled care needed will be a significant burden to his . In my professional opinion, pt will benefit from skilled care to improve his functional mobility and strength prior to d/c to home. Goals Bed Mobility Goal Contact Guard Assistance Transfer Goal Contact Guard Assistance,Cane Gait Goal Contact Guard Assistance,Cane Gait Distance 50 Other Goals BSC with CGA with LBQC/SPC complete PF step with LBQC/SPC Days to Meet Goals 10 Frequency of Treatment Frequency Of Treatment Once a Day Treatment Plan Physical Therapy Treatment Plan Bed Mobility Training,Transfer Training,Gait Training, Therapeutic Exercise,Balance Retraining,Post Op Education, Discharge Planning,Hot or Cold Pack,Neuromuscular Re-ed Other Recommendations and Next Treatment review log roll Focus bed mob, transfer, gait training Recommendations To Nursing Amount of Assist Needed 3 or More Person Assist, Mechanical Lift Discharge Recommendations PT Discharge Recommendations SNF Rehab Transportation Needs at Discharge Wheelchair/Cabulance
--- NOTE | 2020-02-26 15:00 | OT.IP.TRT ---
Current Diagnoses Other specified diseases of appendix (02/24/20) Surgery Performed Operation Date: 02/24/20 09:15 Actual Procedures p Appendectomy, partial cholectomy, lysis of adhesions - Yao Cleary MD Occupational Therapy Treatment Note M2 OT-IP Current Condition Start: 02/25/20 13:57 Freq: Status: Active Protocol: Document 02/25/20 11:13 [facility] (Rec: 02/25/20 14:16 [facility] [id number]) Occupational Therapy Current Condition Current Condition Evaluation Date 02/25/20 Treatment Diagnosis Appendectomy, partial cholectomy, decreased self care Diagnosis Onset Date 02/24/20 Post Operative Precautions Abdominal Surgery Precautions Log Roll,Lifting Restrictions, Gait Belt above Incisional Area M3 OT- IP Subjective and Pain Start: 02/25/20 13:57 Freq: Status: Active Protocol: Document 02/26/20 15:07 [facility] (Rec: 02/26/20 15:28 [facility] [id number]) OT- Subjective Occupational Therapy Visit Type Type Treatment Note Visit Start Time 14:26 Visit Stop Time 15:00 Total Visit Minutes 34 Occupational Therapy Visit Comments Patient Comments Pt agreeable to try to get up to the recliner. [employer] and [employer] student present in addition to pt's for cotxt session. Patient/Caregiver Goals To go home. OT Pain Assessment Pain When Pain Assessed During Mobility Pain Present Pain Present Pain Reported Location Abdomen Pain Behaviors Facial Grimacing,Guarding, Holding Area M4 OT- IP ADL's Start: 02/25/20 13:57 Freq: Status: Active Protocol: Document 02/26/20 15:07 [facility] (Rec: 02/26/20 15:28 [facility] [id number]) OT MSC-Otqi-Hmhxtgd Comments OT Self-Feeding Comments Pt is NPO and only allowed ice chips at this time. OT ADL-Grooming General Evaluation Grooming Ability Moderate Assistance Comments OT Grooming Comments Pt able to wash his face after set-up and needing assist to help brush his hair on the back of his head. OT ADL-Oral Care Comments Oral Care Comments Not at this time. OT ADL-Dressing General Eval Upper Body Dressing Ability Maximum Assistance Lower Body Dressing Ability Total Assistance Areas Needing Assistance Socks Comments OT Dressing Comments MAX A to be able to assist to change out his gown due to management of all medical lines and tubing. OT ADL-Toileting Comments OT Toileting Comments Pt has altamirano in. OT ADL-Bathing Bathing Type Bathing Type Sponge Bath Comments OT Bathing Comments Pt able to assist to wash his chest and arms and needing assist to get underneath his armpits and back while seated in the recliner. M5 OT- IP IADL's Start: 02/25/20 13:57 Freq: Status: Active Protocol: Document 02/25/20 11:13 [facility] (Rec: 02/25/20 14:16 [facility] [id number]) OT-Instrumental Activities of Daily Living Solution Engineer Solution Engineer Caregiver Provides Assist Solution Engineer Comments Prior pt likes to assist to take out the trash. M6 OT- IP Functional Cognition Start: 02/25/20 13:57 Freq: Status: Active Protocol: Document 02/25/20 11:13 [facility] (Rec: 02/25/20 14:16 [facility] [id number]) Cognitive Factors Limiting Selfcare Function Cognitive Ability Level of Alertness Alert Patient Orientation Name,Place,Situation Attention Span Ability Capable of Focused Attention, Capable of Sustained Attention Ability to Follow Commands Able to Follow Multi-Step Commands Cognitive Comments Cognitive Assessment Comments Pt appears to be at baseline for cognition and able to follow 1-2 step commands appropriately. OT- Vision and Hearing OT- Hearing Assessment OT- Hearing Assessment WFL OT- Vision Assessment Visual Acuity WFL M7 OT- IP Mobility and Balance Start: 02/25/20 13:57 Freq: Status: Active Protocol: Document 02/26/20 15:07 [facility] (Rec: 02/26/20 15:28 [facility] [id number]) OT- Bed Mobility Assessment Supine to Sit Supine to Sit Assist Maximum Assistance,2 Person Assistance Scooting Scooting to Edge of Bed Maximum Assistance,2 Person Assistance OT-Transfer Assessment Sit to and From Stand Sit to and from Stand Maximum Assistance,2 Person Assistance Transfers Transfer Ability Maximum Assistance,2 Person Assistance Technique Transfer Destination Bed,Chair Transfer Technique Stand Step Pivot Devices Transfer Assistive Devices Gait Belt,Small Based Quad Cane Comments Mobility Comments Having to get off on the right side of the bed due to NG tubing and therefore had to assist pt with HOB up to get his trunk to the edge of the bed. Pt able to initiate to assist to help move his legs to the edge of the bed. MAX A X2 heavy assist with use of green pad to scoot to the edge of the bed. MAX A x3 for transfer from the bed to recliner. Assist for balance, weight shifting, management of all tubing and lines and assist to more his left leg. In addition pt needing assist to help lower down to the recliner. Pt's HR fluctuating from 99-180, nursing aware. OT- Gait Assessment Comments Gait Ability Comments Only transfer to the right at this time. For nursing would be best to use overhead lift at this time for transfers. OT- Balance Assessment Sitting Balance and Reactions Static Sitting Balance Ability Fair Standing Balance and Reactions Static Standing Balance Ability Poor Dynamic Standing Balance Ability Poor Document 02/26/20 15:07 [facility] (Rec: 02/26/20 15:28 [facility] [id number]) OT Summary Assessment and Plan Potential Rehabilitation Potential Good Analytic Complexity at Evaluation Low Summary OT Impairments Pain,Balance,Functional Mobility,Grooming,Dressing, Toileting,Bathing,Toilet Transfers,Shower Transfers, Activity Tolerance Progress Towards Goals Slow Progress due to Pain,Slow Progress due to Medical Issues,Slow Progress due to Activity Tolerance Assessment Summary Pt still requiring extensive assist x2-3 for mobility and ADl needs and at this time would be best for pt to go to skilled rehab when medically stable. Pt's pain, decreased activity tolerance, and not being able to be get up like he use to, history of CVA with left sided weakness are pt's limiting factors. However pt is very cooperative and motivated to get better. Goals Self-Feeding Goal Independent Grooming Goal Independent Dressing Goal Independent Toileting Goal Independent Bathing Goal Minimal Assistance Toilet Transfer Goal Independent Shower Transfer Goal Independent Patient/Caregiver Education Goal Demonstrate Post-Op Precautions,Caregiver Independent Assisting Patient Days to Meet Goals 15 Frequency of Treatment Frequency Of Treatment Once a Day Treatment Plan OT Treatment Plan ADL Training,Functional Mobility,Patient/Family Education,Discharge Planning Other Treatment Recommendations and Next Transfer to [facility] with MODA x 2. Treatment Focus Discharge Recommendations OT Discharge Recommendations SNF Rehab Home Equipment Needs Defer to SNF Transportation Needs at Discharge Wheelchair/Cabulance
--- NOTE | 2020-02-26 16:09 | PM.CN ---
History of Present Illness Consult details Date Patient Seen: 02/26/20 Chief complaint: INPT Reason for consult: Atrial fibrillation with RVR Requesting provider: Yao Cleary Narrative: Eddie Burk is an 85-year-old male with a past medical history significant for coronary artery disease status post VA, CVA with residual left-sided hemiparesis, hypertension, hyperlipidemia, prostate cancer status post recent complicated robotic laparoscopic prostatectomy converted to open laparotomy who presented with appendiceal mass and elective appendectomy. The patient was found to have dense intra-abdominal adhesions and laparoscopic appendectomy was converted to open laparotomy and required partial sigmoid colectomy. The patient currently has an ileus and went to atrial fibrillation with RVR for which medicine team was consulted to help manage heart rate. Patient is currently on diltiazem gtt and metoprolol 5 mg IV every 6 hours with adequate rate control and HR in the 70's. Patient has no complaints other than irritation of throat by NG tube and abdominal pain with movement. He denies headache, chest pain, shortness of breath, palpitations, lightheadedness or dizziness, abdominal pain at rest, nausea, vomiting, or dysuria. Meds Home Medications and Allergies Home Medications Medication Instructions Recorded Confirmed Type apixaban 5 mg tablet 5 mg PO BID 10/22/19 02/24/20 History carvedilol 6.25 mg tablet 6.25 mg PO BID 10/22/19 02/24/20 History cholecalciferol (vitamin D3) 100 4,000 unit PO DAILY 10/22/19 02/24/20 History mcg (4,000 unit) capsule docusate sodium 100 mg capsule 100 mg PO DAILY 10/22/19 02/23/20 History losartan 50 mg tablet 50 mg PO DAILY 10/22/19 02/24/20 History phenazopyridine 100 mg tablet 100 mg PO TID 10/22/19 02/23/20 History polyethylene glycol 3350 17 17 gram PO DAILY 10/22/19 02/24/20 History gram/dose oral powder Allergies Allergy/AdvReac Type Severity Reaction Status Date / Time Influenza Virus Vaccines Allergy Localized Verified 02/24/20 08:34 Swelling Penicillins Allergy Saw rings Verified 02/24/20 08:34 around lights Review of Systems Review of Systems Narrative: A 10 system comprehensive review of systems was conducted with the patient and found to be negative except as above in the History of Present Illness. Exam Vital Signs (past 8 hours): - 02/26/20 09:14 02/26/20 11:05 02/26/20 11:38 Temperature Pulse Rate 85 Respiratory Rate Blood Pressure 130/83 Pulse Oximetry 93 93 02/26/20 11:40 02/26/20 12:03 02/26/20 12:35 Temperature 99.1 F Pulse Rate 109 H 125 H 106 H Respiratory Rate 30 H 25 H Blood Pressure 100/52 L 101/69 105/58 L Pulse Oximetry 94 92 02/26/20 12:40 02/26/20 12:45 02/26/20 12:50 Temperature Pulse Rate 110 H 135 H 106 H Respiratory Rate 25 H 26 H 24 Blood Pressure 102/56 L 110/59 L 117/53 L Pulse Oximetry 93 95 92 02/26/20 12:55 02/26/20 13:00 02/26/20 13:05 Temperature Pulse Rate 110 H 98 H 102 H Respiratory Rate 28 H 26 H 27 H Blood Pressure 117/56 L 114/61 116/59 L Pulse Oximetry 95 93 92 02/26/20 13:10 02/26/20 13:15 02/26/20 13:20 Temperature Pulse Rate 98 H 100 H 95 H Respiratory Rate 26 H 25 H 24 Blood Pressure 132/60 106/56 L 107/59 L Pulse Oximetry 94 94 95 02/26/20 13:25 02/26/20 13:30 02/26/20 13:35 Temperature Pulse Rate 90 109 H 101 H Respiratory Rate 26 H 29 H 28 H Blood Pressure 113/55 L 111/75 114/69 Pulse Oximetry 95 95 94 02/26/20 13:40 02/26/20 13:41 02/26/20 13:45 Temperature Pulse Rate 101 H 99 H 99 H Respiratory Rate 31 H 31 H 29 H Blood Pressure 129/61 114/69 Pulse Oximetry 95 94 94 02/26/20 13:50 02/26/20 13:55 02/26/20 14:00 Temperature Pulse Rate 96 H 96 H 97 H Respiratory Rate 23 28 H 27 H Blood Pressure 118/63 127/65 117/58 L Pulse Oximetry 95 94 94 02/26/20 14:05 02/26/20 14:10 02/26/20 14:15 Temperature Pulse Rate 93 H 96 H 90 Respiratory Rate 26 H 24 26 H Blood Pressure Pulse Oximetry 94 93 94 02/26/20 14:20 02/26/20 14:25 02/26/20 14:30 Temperature Pulse Rate 90 96 H 117 H Respiratory Rate 26 H 32 H 32 H Blood Pressure Pulse Oximetry 93 93 93 02/26/20 14:31 02/26/20 14:35 02/26/20 14:40 Temperature Pulse Rate 105 H 114 H 152 H Respiratory Rate 31 H 32 H 35 H Blood Pressure 109/56 L Pulse Oximetry 94 02/26/20 14:43 02/26/20 14:45 02/26/20 15:00 Temperature Pulse Rate 105 H 99 H 102 H Respiratory Rate 33 H 39 H Blood Pressure 123/69 118/58 L Pulse Oximetry 93 02/26/20 15:55 Temperature Pulse Rate 97 H Respiratory Rate Blood Pressure 117/58 L Pulse Oximetry 95 Oxygen Delivery Method Room Air Oxygen Flow Rate 0 Narrative Exam Narrative: General: Elderly male lying in bed and in no acute distress, appears acutely ill, mildly diaphoretic, well-developed, well-nourished, appropriately interactive. HEENT: Normocephalic, atraumatic. External ears without defect. Pupils equal, round, and reactive to light. Anicteric sclerae, moist conjunctivae, and no lid lag. NG tube in place set to intermittent suction with bilious drainage. Neck: Supple with full range of motion. No jugular venous distension. No lymphadenopathy or thyromegaly. Cardiovascular: Irregularly irregular without murmurs, rubs, or gallops appreciated. Pulmonary: Diminished throughout but clear to auscultation bilaterally in anterior lung donnelly. Normal respiratory effort with no use of accessory muscles. Abdomen: Mildly firm abdomen, moderate distension, no bowel sounds appreciated. Midline surgical wound with reji in place Extremities: No clubbing, cyanosis, or edema. Skin: Normal temperature, turgor, and texture; no rash, ulcers, or subcutaneous nodules appreciated. Neurological: Cranial nerves grossly intact. Left-sided hemiparesis. Psychiatric: Normal mood and affect. Appears alert and oriented to person, place, and time. Objective Labs Result Diagrams: 02/26/20 04:56 02/26/20 04:56 Labs: Laboratory Results - last 24 hr 02/26/20 02/26/20 04:56 04:56 WBC 10.1 RBC 4.44 L Hgb 12.1 L Hct 36.6 L MCV 82.5 MCH 27.3 MCHC 33.1 RDW 14.5 Plt Count 112 L Neut % (Auto) 82.2 H Lymph % (Auto) 13.4 L Stanley % (Auto) 4.2 Eos % (Auto) 0.1 L Baso % (Auto) 0.1 Neut # (Auto) 8300 H Lymph # (Auto) 1400 Stanley # (Auto) 400 Eos # (Auto) 0 Baso # (Auto) 0 Sodium 136 L Potassium 4.0 Chloride 105 Carbon Dioxide 23 BUN 12 Creatinine 0.87 Estimated GFR > 60.0 BUN/Creatinine Ratio 13.8 Glucose 137 H Calcium 8.2 L Phosphorus 2.1 L D Magnesium 1.8 Assessment & Plan Assessment & Plan narrative: Eddie Burk is an 85-year-old male with a past medical history significant for coronary artery disease status post VA, CVA with residual left-sided hemiparesis, hypertension, hyperlipidemia, 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 The patient was found to have dense intra-abdominal adhesions and laparoscopic appendectomy was converted to open laparotomy and required partial sigmoid colectomy. The patient currently has an ileus and went to atrial fibrillation with RVR for which medicine team was consulted to help manage heart rate. 1. Acute ileus, secondary to recent laparotomy for elective appendectomy not present on admission. Active. -Patient had appendiceal mass and elective appendectomy with complication of dense intra-abdominal adhesions requiring conversion of laparoscopic appendectomy to open procedure. Patient has now developed ileus and has NG tube in place. Patient is NPO. -Continue management per primary general surgery team. 2. Paroxysmal atrial fibrillation with acute RVR, present on admission. Active. -Patient denies previous history of atrial fibrillation although atrial fibrillation is documented in PMH. -PO medications have been held due to ileus as above including carvedilol 6.25 mg twice daily and Eliquis 5 mg twice daily. -Continue to monitor electrolytes and replete as necessary. Goal K > 4.0 and Mg > 2.0. Current potassium 4.0 and magnesium 1.8. Plan to give magnesium sulfate 2 g IV x1. -Ordered TSH with reflex, pending. -Ordered echocardiogram, pending. -Patient was started on diltiazem gtt per general surgery team and will continue and titrate off as heart rate allows while continuing metoprolol 5 mg IV every 6 hours with hold parameters for SBP < 100 mmHg. 3. Hypertension, chronic, present on admission. Stable. -Held oral medications including carvedilol 6.25 mg twice daily and losartan 50 mg daily while NPO and may restart per general surgery. 4. ASCVD with history of VA status post stent x1 and CVA with residual left-sided hemiparesis on Eliquis, chronic, present on admission. Presumed stable. -Patient reports he was previously on statin therapy but is no longer on statin due to the side effects that he has read about. 5. Prostate cancer status post recent complicated robotic laprascopic prostatectomy requiring conversion to open procedure. -Continue previous outpatient follow-up per PCP or oncology. 6. Obstructive sleep apnea on CPAP, present on admission. Stable. -Continue home CPAP. Thank you for this most interesting consult. Medicine team will continue to follow along with you.
[2020-02-26 17:14] LABS: TSH w/ Reflex to FT4 0.44 uIU/mL (0.47-4.68)
[2020-02-26 17:35] LABS: Appearance Urine UA CLEAR; Bilirubin Urine UA NEGATIVE (NEGATIVE); Color Urine UA YELLOW; Glucose Urine UA NEGATIVE (Negative); Ketones Urine UA 2+ (NEGATIVE); Leukocyte Esterase Urine UA NEGATIVE (NEGATIVE); Nitrite Urine UA NEGATIVE (Negative); Occult Blood Urine UA 2+ (Negative); Protein Urine UA TRACE (Negative); Specific Gravity Urine UA >=1.030 (1.000-1.035); Urobilinogen Urine UA 0.2 E.U./dL (0.2); pH Urine UA 5.5 (4.5-8.0)
[2020-02-26 17:43] LABS: Bacteria Urine Occasional (0-1); Hyaline Casts Urine 1-5/LPF; RBC Urine 5-10/HPF (0-5/HPF); Squamous Epithelial Cell Urine 1-5 /HPF (0-5/HPF); WBC Urine 1-5/HPF (0-5/HPF)
[2020-02-26 17:44] LABS: Culture Indicated Urine Cult Not Indicated; Mucus Urine 2+ (Negative); Other Casts Urine 1-5/HPF Waxy Casts
--- NOTE | 2020-02-26 18:48 | DI.ECHO.S_ITS ---
[facility] + [facility] +---------+ : : [address] : : : : [address] : : : : [place], : : : : [place] [address] : : : : Phone: [phone] [id number] Echocardiogram Report + + :Name: VIOLTETA VIVAS Study Date: 02/27/2020 Height: 68 in : :[facility] Weight: 220 lb : : Gender: Male BSA: 2.1 m2 : :: 1935 Age: 85 yrs BP: 138/67 mmHg: :Reason For Study: Atrial fibrillation : :Ordering Physician: [place] : :Hospitalist Performed By: Salina Page : :Referring: RAMSES ABDUL : + + Interpretation Summary Technically difficult study limiting valve and endothelial visualization. 1) Mildly-moderately increased left ventricular thickness (concentric) with normal size and hyperdynamic systolic function (EF 70-75%). 2) Normal right ventricular size and function. 3) There is mild aortic stenosis (valve area 1.6cm2, mean gradient 16mmHg). 4) The IVC is dilated (diameter is greater than 2.1 cm) and it collapses less than 50% with a sniff. This suggests a high right atrial pressure of 15 mm Hg. 5) No prior Echo available for comparison. Procedure: A two-dimensional transthoracic echocardiogram with color flow and Doppler was performed. The study quality was technically difficult. There is no prior echocardiogram noted for this patient. A contrast injection of Definity was performed to improve assessment of LV function. The patient was in atrial fibrillation with heart rates between 80-115 bpm during the exam. Left Ventricle: The left ventricle is normal in size. Left ventricular wall thickness is mild-moderately increased. The left ventricle is hyperdynamic. The ejection fraction is estimated to be 70-75%. There are no obvious focal wall motion abnormalities noted but poor endocardial definition reduces the sensitivity for the detection of such. Diastolic function could not be accurately assessed due to atrial fibrillation. Right Ventricle: The right ventricle is grossly normal size. The right ventricular systolic function is normal. Atria: Both atria are moderately dilated. There is no Doppler evidence for an interatrial shunt. Mitral Valve: The mitral valve is normal. There is mild to moderate mitral annular calcification. There is trace mitral regurgitation. Aortic Valve: The aortic valve is trileaflet. The aortic valve is mildly calcified. The peak aortic velocity is 2.5 m/sec. The aortic valve mean gradient is 15.7 mmHg. The calculated aortic valve area is 1.6 cm2. The aortic valve area is 1.5 centimeters squared by planimetry. There is mild aortic stenosis. No aortic regurgitation is present. Tricuspid Valve: The tricuspid valve is not well visualized, but is grossly normal. There is trace tricuspid regurgitation. The right ventricular systolic pressure is estimated to be at least 43 mmHg based on an estimated right atrial pressure of 15 mm Hg. Pulmonic Valve: The pulmonic valve is not well visualized. Great Vessels: The aortic root is normal size. The ascending aorta is at the upper limits of normal in size. The pulmonary is not well visualized. The IVC is dilated (diameter is greater than 2.1 cm) and it collapses less than 50% with a sniff. This suggests a high right atrial pressure of 15 mm Hg. Pericardium/ Pleura There is no pericardial effusion. There is no pleural effusion. MMode/2D Measurements & Calculations LVIDd: 4.6 cm LVOT diam: 2.3 cm LVIDs: 3.6 cm Ao root diam: 3.5 cm IVSd: 1.2 cm asc Aorta Diam: 3.8 cm LVPWd: 1.3 cm LV llanes. diameter/BSA (cm/m^2): 2.2 LV sys. diameter/BSA (cm/m^2): 1.7 FS: 21.6 % LA A2 area: 22.0 cm2 RA long axis: 4.7 cm LA A4 area: 32.1 cm2 RA area: 21.6 cm2 LA length (vol): 6.4 cm RA vol: 83.5 ml LA vol: 94.5 ml RA : 39.2 ml/m2 LA vol index: 44.4 ml/m2 RVD1 (basal): 4.9 cm IVC diam: 2.2 cm TAPSE: 1.9 cm Doppler Measurements & Calculations Ao V2 max: 252.7 cm/sec LVOT Max [place]: 98.7 cm/sec Ao V2 mean: 190.8 cm/sec LV V1 max P.9 mmHg Ao V2 VTI: 41.7 cm LV V1 VTI: 16.8 cm Ao max P.6 mmHg Ao mean P.7 mmHg NERY(I,D): 1.6 cm2 TR max [place]: 266.2 cm/sec NERY(V,D): 1.6 cm2 TR max P.4 mmHg NERY indexed to BSA (cm^2/m^2): 0.76 sev ratio: 0.40 SV(LVOT): 67.1 ml Reading Physician:02:12 PM
--- NOTE | 2020-02-26 21:32 | PC.NURSE ---
2100- Patient diltiazem gtt titrated to off. Labetolol IV given per order. Will monitor.
--- NOTE | 2020-02-26 21:34 | PC.NURSE ---
2100- Diltiazem gtt titrated to off. Lopressor 5mg IV given per order. Will monitor.
[2020-02-27] VITALS (82 sets, daily range): BP systolic 113–146; BP diastolic 57–79; PULSE 79–106; RESP 15–36; TEMP 36–37.7; O2SAT 82–97
[2020-02-27] MEDS: SODIUM CHLORIDE 0.9% 1,000 ML 125 ML IV ×2 (00:44→08:12)
[2020-02-27] MEDS: METOPROLOL TARTRATE 5 MG/5 ML INJ IV ×4 (03:21→21:22)
[2020-02-27 05:18] LABS: Add Manual Diff / Slide Review NO; Basophils Absolute Auto 0 /uL (0-100); Basophils Percent Auto 0.1 % (0-2); Eosinophils Absolute Auto 0 /uL (0-450); Eosinophils Percent Auto 0.2 % (2-4); Hematocrit 34.2 % (41-53); Hemoglobin 11.3 g/dL (13.5-17.5); Lymphocytes Absolute Auto 2200 /uL (1100-4500); Lymphocytes Percent Auto 25.7 % (25-40); Mean Corpuscular HGB Conc 33.1 % (30-36); Mean Corpuscular Hemoglobin 27.2 PG (26-34); Mean Corpuscular Volume 82.3 fL (80-100); Monocytes Absolute Auto 400 /uL (0-900); Monocytes Percent Auto 4.5 % (3-14); Neutrophils Absolute Auto 6000 /uL (1500-7000); Neutrophils Percent Auto 69.5 % (50-75); Platelet Count 114 X10^3/uL (150-400); Red Blood Cell Count 4.16 X10^6/uL (4.5-5.9); Red Cell Distribution Width 14.8 % (11.6-14.8); White Blood Cell Count 8.7 X10^3/uL (4.5-11.0)
[2020-02-27 05:25] LABS: BUN Creatinine Ratio 13.6 (6-22); Blood Urea Nitrogen 12 mg/dL (9-20); Carbon Dioxide 28 mmol/L (22-32); Chloride 107 mmol/L (98-107); Estimated Glomerular Filt Rate > 60.0 mL/min (>60); Glucose 104 mg/dL (80-110); HEMOLYSIS < 15 (0-50); Magnesium 2.3 mg/dL (1.6-2.3); Phosphorous 1.8 mg/dL (2.3-3.7); Potassium 3.6 mmol/L (3.4-5.1); Sodium 138 mmol/L (137-145)
[2020-02-27 05:37] LABS: Hemoglobin A1C% w Est Avg Glu 5.2 % (4.0-6.0)
[2020-02-27 06:21] LABS: TSH w/ Reflex to FT4 0.72 uIU/mL (0.47-4.68)
[2020-02-27] MEDS: PANTOPRAZOLE 40 MG VIAL 20 MG IV ×2 (07:38→21:22)
--- NOTE | 2020-02-27 07:39 | P.PN_ITS ---
Subjective Subjective Date Patient Seen: 02/27/20 Time Patient Seen: 07:39 Interval history: In NG tube was placed yesterday for his ileus which is drained approximately 3 L of bilious contents subsequently. Had atrial fibrillation with RVR yesterday not responsive to the Toprol and required transfer to the intensive care unit for diltiazem drip. Drip was weaned off early this morning. Feels more comfortable than he did yesterday and regards to his abdominal bloating and discomfort. Exam Vital Signs (past 8 hours): - 02/26/20 23:46 02/27/20 00:00 02/27/20 01:00 Temperature 97.5 F L Pulse Rate 99 H 88 93 H Respiratory Rate 17 25 H Blood Pressure 133/65 118/64 Pulse Oximetry 96 97 02/27/20 02:00 02/27/20 03:19 02/27/20 03:26 Temperature Pulse Rate 90 102 H 90 Respiratory Rate Blood Pressure 113/61 Pulse Oximetry 92 02/27/20 04:00 02/27/20 04:01 02/27/20 06:59 Temperature 96.8 F L Pulse Rate 90 Respiratory Rate Blood Pressure 113/61 Pulse Oximetry 94 94 93 Oxygen Delivery Method Room Air Oxygen Flow Rate 0 Narrative Exam Narrative: General elderly man alert oriented no acute distress Chest nonlabored respirations Abdomen soft appropriately tender to palpation moderately distended, left lower quadrant GALA serosanguineous scant output 5 mL overnight. Incision clean dry intact reji Objective Labs Result Diagrams: 02/27/20 04:40 02/27/20 04:40 Labs: Laboratory Results - last 24 hr 02/26/20 02/26/20 02/27/20 04:56 14:25 04:40 WBC 8.7 RBC 4.16 L Hgb 11.3 L Hct 34.2 L MCV 82.3 MCH 27.2 MCHC 33.1 RDW 14.8 Plt Count 114 L Neut % (Auto) 69.5 Lymph % (Auto) 25.7 [place] % (Auto) 4.5 Eos % (Auto) 0.2 L Baso % (Auto) 0.1 Neut # (Auto) 6000 Lymph # (Auto) 2200 [place] # (Auto) 400 Eos # (Auto) 0 Baso # (Auto) 0 Sodium Potassium Chloride Carbon Dioxide BUN Creatinine Estimated GFR BUN/Creatinine Ratio Glucose Hemoglobin A1c Calcium Phosphorus Magnesium TSH 0.44 L Free T4 2.40 H Urine Color Yellow Urine Appearance Clear Urine pH 5.5 Ur Specific [place] >=1.030 H Urine Protein Trace H Urine Glucose (UA) Negative Urine Ketones 2+ H Urine Occult Blood 2+ H Urine Nitrate Negative Urine Bilirubin Negative Urine Urobilinogen 0.2 Ur Leukocyte Esterase Negative Urine RBC 5-10/hpf H Urine WBC 1-5/hpf Ur Squamous Epith Cells 1-5 /hpf Urine Bacteria Occasional (0-1) Hyaline Casts 1-5/lpf Other Casts 1-5/hpf waxy casts Urine Mucus 2+ H Ur Culture Indicated? Cult not indicated 02/27/20 02/27/20 02/27/20 04:40 04:40 04:40 WBC RBC Hgb Hct MCV MCH MCHC RDW Plt Count Neut % (Auto) Lymph % (Auto) [place] % (Auto) Eos % (Auto) Baso % (Auto) Neut # (Auto) Lymph # (Auto) [place] # (Auto) Eos # (Auto) Baso # (Auto) Sodium 138 Potassium 3.6 Chloride 107 Carbon Dioxide 28 BUN 12 Creatinine 0.88 Estimated GFR > 60.0 BUN/Creatinine Ratio 13.6 Glucose 104 Hemoglobin A1c 5.2 Calcium 8.0 L Phosphorus 1.8 L Magnesium 2.3 TSH 0.72 D Free T4 Urine Color Urine Appearance Urine pH Ur Specific [place] Urine Protein Urine Glucose (UA) Urine Ketones Urine Occult Blood Urine Nitrate Urine Bilirubin Urine Urobilinogen Ur Leukocyte Esterase Urine RBC Urine WBC Ur Squamous Epith Cells Urine Bacteria Hyaline Casts Other Casts Urine Mucus Ur Culture Indicated? 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 He is beginning to make a gradual recovery. # atrial fibrillation-diltiazem drip weaned off continue the Toprol 5 mg Q 6 hours for rate control. Echocardiogram ordered. Electrolytes repleted. # postoperative ileus-continued nasogastric tube. Nearly 3 L were drained yeste rday no flatus or bowel movement yet will await return of bowel function. Okay for ice chips and sips of clears as long as tube is functioning. -out of bed ambulate physical therapy -SCDs and prophylactic Lovenox for VT prophylaxis Quality VTE Deep Vein Thrombosis/Pulmonary Embolism Present on Admission: No
[2020-02-27] MEDS: SODIUM CHLORIDE 0.9% FLUSH 10 ML IV (07:44)
[2020-02-27] MEDS: HYDROMORPHONE 0.5 MG INJ IV (07:52)
[2020-02-27] MEDS: POTASSIUM PHOSPHATE 15 MMOL in DEXTROSE 5% IN WATER 250 ML 63.75 ML IV (07:59)
--- NOTE | 2020-02-27 08:03 | PC.NURSE ---
Addendum entered by Mellissa Donald R.N. 02/27/20 15:01: K rider infusing, IVF changed to d5Ns. Denies pain, BT are much improved, hyperactive at present. Lungs are dim, occassional exp wheeze with exertion. L side upper and lower ext remain weak, per baseline post CVA. Addendum entered by Mellissa Donald R.N. 02/27/20 14:42: Last CBG 80, Dr Pan changing IVF to D5Ns @ same rate 125mls/hr. A1c today was 5.2 Addendum entered by Mellissa Donald R.N. 02/27/20 14:27: 1420- at bedside, continues to be very supportive with care. Echo has been completed, no results back at this time. New IV started as IV site lost during echo. R AC flushes with ease. K replaced.Denies pain at present. Addendum entered by Mellissa Donald R.N. 02/27/20 11:10: 1030-Dilt gtt restarted with HR sustained 110's at rest. Pt reports increased pain to coccyx, lipoma is on R buttocks, waffle cushion provided, continue to offload side to side. NG continues with green, bile secretions. Echo for 1130 today. Original Note: AM shift Start of shift 0700, noted Pt HR 110-130, gave AM Scheduled Metoprolol. Hr 95-100 soon after. Pt denies CP or SOB, noted with some exertional exp wheeze, Dr Cleary rounding on Pt and made aware. NS cont @ 125 mls/hr. Spo2 94% RA, NG to LIS, bile sludge to suction canister. Denies nausea, Reports significantly less nausea and discomfort than 24 hrs prior. at bedside, updated on POC, Echo for later today.
[2020-02-27] MEDS: ENOXAPARIN 40 MG/0.4 ML SYRINGE SUBCUT (08:10)
--- NOTE | 2020-02-27 12:08 | OT.IP.TRT ---
Current Diagnoses Other specified diseases of appendix (02/24/20) Surgery Performed Operation Date: 02/24/20 09:15 Actual Procedures p Appendectomy, partial cholectomy, lysis of adhesions - Yao Cleary MD Occupational Therapy Treatment Note M2 OT-IP Current Condition Start: 02/25/20 13:57 Freq: Status: Active Protocol: Document 02/25/20 11:13 [facility] (Rec: 02/25/20 14:16 [facility] [id number]) Occupational Therapy Current Condition Current Condition Evaluation Date 02/25/20 Treatment Diagnosis Appendectomy, partial cholectomy, decreased self care Diagnosis Onset Date 02/24/20 Post Operative Precautions Abdominal Surgery Precautions Log Roll,Lifting Restrictions, Gait Belt above Incisional Area M3 OT- IP Subjective and Pain Start: 02/25/20 13:57 Freq: Status: Active Protocol: Document 02/27/20 14:01 [facility] (Rec: 02/27/20 14:06 [facility] [id number]) OT- Subjective Occupational Therapy Visit Type Type Treatment Note Visit Start Time 10:58 Visit Stop Time 11:08 Total Visit Minutes 10 Occupational Therapy Visit Comments Patient Comments Pt siting at the edge of bed with NURSING COORDINATOR and nursing aid when came in to see pt. Patient/Caregiver Goals Pt would like to go home but open to going to skilled rehab if needed. OT Pain Assessment Pain When Pain Assessed During Mobility Pain Present Pain Present Pain Reported M5 OT- IP IADL's Start: 02/25/20 13:57 Freq: Status: Active Protocol: Document 02/25/20 11:13 [facility] (Rec: 02/25/20 14:16 [facility] [id number]) OT-Instrumental Activities of Daily Living Health Facilities Surveyor Health Facilities Surveyor Caregiver Provides Assist Health Facilities Surveyor Comments Prior pt likes to assist to take out the trash. M6 OT- IP Functional Cognition Start: 02/25/20 13:57 Freq: Status: Active Protocol: Document 02/25/20 11:13 [facility] (Rec: 02/25/20 14:16 [facility] [id number]) Cognitive Factors Limiting Selfcare Function Cognitive Ability Level of Alertness Alert Patient Orientation Name,Place,Situation Attention Span Ability Capable of Focused Attention, Capable of Sustained Attention Ability to Follow Commands Able to Follow Multi-Step Commands Cognitive Comments Cognitive Assessment Comments Pt appears to be at baseline for cognition and able to follow 1-2 step commands appropriately. OT- Vision and Hearing OT- Hearing Assessment OT- Hearing Assessment WFL OT- Vision Assessment Visual Acuity WFL M7 OT- IP Mobility and Balance Start: 02/25/20 13:57 Freq: Status: Active Protocol: Document 02/27/20 14:01 [facility] (Rec: 02/27/20 14:06 [facility] [id number]) OT- Bed Mobility Assessment Sit to Supine Sit to Supine Assist Maximum Assistance,2 Person Assistance OT-Transfer Assessment Sit to and From Stand Sit to and from Stand Moderate Assistance,2 Person Assistance Transfers Transfer Ability Moderate Assistance,2 Person Assistance Technique Transfer Destination Bed Transfer Technique Stand Step Pivot Devices Transfer Assistive Devices Gait Belt,Stephany Walker Comments Mobility Comments Pt initially unable to stand and needing assist to block with left knee and assist to stand. Once up needing assist to help move stephany-walker and for weight shifting so pt able to move his left leg. MAX A x2 to help get back to bed via log rolling. OT- Balance Assessment Sitting Balance and Reactions Static Sitting Balance Ability Good Standing Balance and Reactions Static Standing Balance Ability Poor Dynamic Standing Balance Ability Poor M9 OT- IP Assessment and Plan Start: 02/25/20 13:57 Freq: Status: Active Protocol: Document 02/27/20 14:01 [facility] (Rec: 02/27/20 14:06 [facility] [id number]) OT Summary Assessment and Plan Potential Rehabilitation Potential Good Analytic Complexity at Evaluation Low Summary OT Impairments Pain,Balance,Functional Mobility,Grooming,Dressing, Toileting,Bathing,Toilet Transfers,Shower Transfers, Activity Tolerance Progress Towards Goals Slow Progress due to Pain,Slow Progress due to Medical Issues,Slow Progress due to Activity Tolerance Assessment Summary Pt improved to needing two person assist for mobility however decreased activity tolerance and still needing more assist than able to provide at home at this time and best for pt to go to skilled rehab prior to going home. Goals Self-Feeding Goal Independent Grooming Goal Independent Dressing Goal Independent Toileting Goal Independent Bathing Goal Minimal Assistance Toilet Transfer Goal Independent Shower Transfer Goal Independent Patient/Caregiver Education Goal Demonstrate Post-Op Precautions,Caregiver Independent Assisting Patient Days to Meet Goals 15 Frequency of Treatment Frequency Of Treatment Once a Day Treatment Plan OT Treatment Plan ADL Training,Functional Mobility,Patient/Family Education,Discharge Planning Other Treatment Recommendations and Next Transfer [place] [facility] [place]A [place] 2. Treatment Focus Discharge Recommendations OT Discharge Recommendations SNF Rehab Home Equipment Needs Defer to SNF Transportation Needs at Discharge Wheelchair/Cabulance
--- NOTE | 2020-02-27 12:48 | PT.IPTN ---
Current Diagnoses Other specified diseases of appendix (02/24/20) Surgery Performed Operation Date: 02/24/20 09:15 Actual Procedures p Appendectomy, partial cholectomy, lysis of adhesions - Yao Cleary MD Physical Therapy Treatment Note M2 PT-IP Current Condition Start: 02/25/20 09:42 Freq: NEEDED Status: Active Protocol: Document 02/25/20 12:29 [facility] (Rec: 02/25/20 13:09 [id number]) Physical Therapy Current Condition Current Condition Evaluation Date 02/25/20 Treatment Diagnosis Appendectomy, partial cholectomy, lysis of adhesions , weakness Onset Date 02/24/20 Precautions Abdominal Surgery Precautions Log Roll,Lifting Restrictions, Gait Belt above Incisional Area Weight Bearing Status Weight Bearing Status Full Weight Bearing M3 PT-IP Subjective Start: 02/25/20 09:42 Freq: NEEDED Status: Active Protocol: Document 02/27/20 10:38 LJ (Rec: 02/27/20 12:48 LJ [email or web address]) Subjective Physical Therapy Visit Type Type Treatment Note Visit Start Time 10:38 Visit Stop Time 11:07 Total Visit Minutes 29 Notes Pt's in room during tx. Co-tx with OT and SUPERVISOR KENNEL. Scheduled proceedure at 1100 Physical Therapy Visit Comments Patient Comments Wants to try to stand at side of bed Therapy Pain Assessment Pain When Pain Assessed During Mobility Pain Present Pain Present Pain Reported M4 PT-IP Mobility and Gait Start: 02/25/20 09:42 Freq: NEEDED Status: Active Protocol: Document 02/27/20 10:38 LJ (Rec: 02/27/20 12:48 LJ [id number]) PT-Bed Mobility Assessment Rolling Type of Rolling Log Rolling,Roll to Left Supine to Sit Supine to Sit Moderate Assistance,2 Person Assistance,Bedrails Scooting Scooting to Edge of Bed Moderate Assistance PT-Transfer Assessment Sit to and From Stand Sit to and from Stand Moderate Assistance,2 Person Assistance,Use of Upper Extremities Equipment Transfer Assistive Device Gait Belt,Stephany Walker Orthotic/Prosthetic Devices or Brace: No Comments Mobility Comments Nursing x2 in room assisting pt with bed bath. Logroll required ModA with upper and lower trunk x2 with PHOTOGRAPHY EDITOR assisting with upper trunk and SUPERVISOR KENNEL with LEs. Pt able to scoot to edge of bed Petey x1. Cued to place feet on floor for better balance. Pt held onto bed cane for support while sitting on EOB for 2 minutes prior to standing. Heart rate elevated so nursing requested pt continue seated rest. First attempt at standing required cueing for hand placement on bed cane then transfer to stephany-walker with left UE unable to assist. PHOTOGRAPHY EDITOR assisting with left side balance while standing. Pt cued to bring feet closer together while standing for better balance. Pt stood CGA x1 with nursing assisting with lines for 2 minutes with cueing for proper posture. Pt able to scoot LLE under body for better alignment and stability. Pt then cued to take several marching stepswhile leaning on stephany- walker. Pt fatigued and returned to seated position which he performed with slow and controlled descent CGA. Second attempt at standing was with OT assisting . Pt struggled at first 2 attempts and on third attempt came to complete standing position. Cued to bring feet closer together for better balance. Pt fatigued and requested to return to bed. Took several small steps to left for proper positioning for return to bed with OT guarding LLE to pervent buckling. Pt required ModA x2 to return to bed lifting legs and lowering trunk. Pt positioned correctly in bed with Petey x1. Pt left with nursing in room. Gait Assessment Comments Gait Comments pt did not ambulate, only L side stepping using SBQC ModA x2 person including tube mgt. See mobility comments for details. 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 and poor fine motor control able to abduct shoulder approx 40-50 degrees unable to fully extend his L arm and fingers Lower Extremity ROM Assessment Left Impaired Strength Upper Extremity Strength Assessment Left Impaired Shoulder 2- Elbow 3 Wrist 2- Hand 2- Lower Extremity Strength Assessment Left Impaired Hip 3+ Knee 4- Ankle 3 Coordination Assessment Gross Coordination Gross Coordination Impaired Sensation Assessment Sensation Gross Sensation WNL Muscle Tone Muscle Tone WNL No Muscle Tone Location Left Upper Extremity Type of Tone Hypertonicity,Flexor Severity of Tone Moderate M6 PT-IP Treatment Start: 02/25/20 09:42 Freq: NEEDED Status: Active Protocol: Document 02/27/20 10:38 LJ (Rec: 02/27/20 12:48 LJ [id number]) Physical Therapy Treatment Exercises Exercises Ankle Pumps,Heel Slides Other Treatments Other Treatment Performed pressing L foot into floor prior to standing attempts M7 PT-IP Assessment and Plan Start: 02/25/20 09:42 Freq: NEEDED Status: Active Protocol: Document 02/27/20 10:38 LJ (Rec: 02/27/20 12:48 LJ [id number]) PT Summary Assessment and Plan Potential Rehabilitation Potential Good Status of Condition at Evaluation Evolving Summary Impairments Pain,ROM,Strength,Balance, Coordination,Tone,Bed Mobility ,Transfers,Gait,Activity Tolerance Assessment Summary Pt improving with bed mobility and standing. Still requiring ModA x2 for mobility and standing including small steps sideways. Pt is motivated to increase functional mobility. Would benefit with therapy x2 per day. Goals Bed Mobility Goal Contact Guard Assistance Transfer Goal Contact Guard Assistance,Cane Gait Goal Contact Guard Assistance,Cane Gait Distance 50 Other Goals BSC with CGA with LBQC/SPC complete PF step with LBQC/SPC Days to Meet Goals 10 Frequency of Treatment Frequency Of Treatment Once a Day Treatment Plan Physical Therapy Treatment Plan Bed Mobility Training,Transfer Training,Gait Training, Therapeutic Exercise,Balance Retraining,Post Op Education, Discharge Planning,Hot or Cold Pack,Neuromuscular Re-ed Recommendations To Nursing Amount of Assist Needed 3 or More Person Assist Discharge Recommendations PT Discharge Recommendations SNF Rehab Transportation Needs at Discharge Wheelchair/Cabulance
[2020-02-27] MEDS: POTASSIUM CHLORIDE 40 MEQ in SODIUM CHLORIDE 0.9% 500 ML 130 ML IV (13:50)
[2020-02-27] MEDS: DILTIAZEM 125 MG/125 ML PIGGYBACK 15 MG IV (14:17)
[2020-02-27] MEDS: DEXTROSE 5%-0.9% NS 1,000 ML 125 ML IV (14:53)
--- NOTE | 2020-02-27 17:13 | P.PN_ITS ---
Subjective Subjective Date Patient Seen: 02/27/20 Interval history: The patient is resting in bed comfortably. He is more lively today and in good spirits. He continues to be in atrial fibrillation with RVR and will plan to restart diltiazem gtt with goal heart rate <100. Continue metoprolol 5 mg IV every 6 hours. Patient has no complaints and denies headache, chest pain, shortness of breath, nausea, vomiting, fever, chills, or dysuria. He has good bowel sounds today but has not yet passed flatus or had a BM. He is voiding via Diaz catheter without difficulty. Exam Vital Signs (past 8 hours): - 02/27/20 10:00 02/27/20 11:20 02/27/20 11:25 Temperature Pulse Rate 103 H 105 H Respiratory Rate 29 H 36 H Blood Pressure Pulse Oximetry 95 92 93 02/27/20 11:30 02/27/20 11:35 02/27/20 11:40 Temperature Pulse Rate 97 H 96 H 95 H Respiratory Rate 29 H 27 H 29 H Blood Pressure Pulse Oximetry 02/27/20 11:45 02/27/20 11:50 02/27/20 11:55 Temperature Pulse Rate 99 H 100 H 96 H Respiratory Rate 26 H 29 H 25 H Blood Pressure Pulse Oximetry 02/27/20 12:00 02/27/20 12:05 02/27/20 12:10 Temperature 99.9 F H Pulse Rate 94 H 92 H 96 H Respiratory Rate 28 H 27 H 15 Blood Pressure 139/78 Pulse Oximetry 92 02/27/20 12:15 02/27/20 12:20 02/27/20 12:25 Temperature Pulse Rate 90 91 H 94 H Respiratory Rate 26 H 27 H 29 H Blood Pressure Pulse Oximetry 02/27/20 12:30 02/27/20 12:35 02/27/20 12:40 Temperature Pulse Rate 95 H 98 H 102 H Respiratory Rate 24 28 H 29 H Blood Pressure Pulse Oximetry 02/27/20 12:45 02/27/20 12:50 02/27/20 12:55 Temperature Pulse Rate 102 H 98 H 100 H Respiratory Rate 29 H 27 H 29 H Blood Pressure Pulse Oximetry 83 L 02/27/20 12:56 02/27/20 13:00 02/27/20 13:05 Temperature Pulse Rate 106 H 103 H 104 H Respiratory Rate 29 H 27 H 27 H Blood Pressure 139/78 Pulse Oximetry 92 93 02/27/20 13:10 02/27/20 13:15 02/27/20 13:20 Temperature Pulse Rate 100 H 103 H 97 H Respiratory Rate 29 H 26 H 29 H Blood Pressure Pulse Oximetry 94 94 94 02/27/20 13:25 02/27/20 13:30 02/27/20 13:35 Temperature Pulse Rate 98 H 104 H 95 H Respiratory Rate 29 H 31 H 28 H Blood Pressure Pulse Oximetry 94 93 93 02/27/20 13:40 02/27/20 13:45 02/27/20 13:50 Temperature Pulse Rate 98 H 102 H 98 H Respiratory Rate 29 H 29 H 30 H Blood Pressure Pulse Oximetry 94 94 93 02/27/20 13:55 02/27/20 14:00 02/27/20 14:05 Temperature Pulse Rate 103 H 99 H 97 H Respiratory Rate 28 H 30 H 29 H Blood Pressure Pulse Oximetry 93 93 94 02/27/20 14:10 02/27/20 14:15 02/27/20 14:20 Temperature Pulse Rate 99 H 102 H 106 H Respiratory Rate 30 H 30 H 28 H Blood Pressure Pulse Oximetry 94 93 93 02/27/20 14:25 02/27/20 14:30 02/27/20 14:35 Temperature Pulse Rate 100 H 101 H 95 H Respiratory Rate 28 H 28 H 26 H Blood Pressure Pulse Oximetry 92 91 91 02/27/20 14:40 02/27/20 14:45 02/27/20 14:50 Temperature Pulse Rate 93 H 95 H 92 H Respiratory Rate 28 H 24 24 Blood Pressure Pulse Oximetry 91 91 91 02/27/20 14:55 02/27/20 15:00 02/27/20 15:05 Temperature Pulse Rate 92 H 86 88 Respiratory Rate 27 H 27 H 27 H Blood Pressure Pulse Oximetry 92 92 93 02/27/20 15:10 02/27/20 15:15 02/27/20 15:21 Temperature Pulse Rate 81 79 83 Respiratory Rate 29 H 29 H 30 H Blood Pressure Pulse Oximetry 92 93 82 L 02/27/20 15:22 02/27/20 15:25 02/27/20 15:30 Temperature Pulse Rate 84 81 87 Respiratory Rate 29 H 30 H 32 H Blood Pressure 129/71 Pulse Oximetry 94 94 95 02/27/20 15:35 02/27/20 15:37 02/27/20 15:40 Temperature 98.5 F Pulse Rate 84 85 Respiratory Rate 26 H 30 H Blood Pressure Pulse Oximetry 95 94 02/27/20 15:45 02/27/20 15:50 02/27/20 15:55 Temperature Pulse Rate 85 85 86 Respiratory Rate 34 H 28 H 28 H Blood Pressure Pulse Oximetry 94 91 94 02/27/20 16:00 02/27/20 16:05 02/27/20 16:10 Temperature Pulse Rate 86 87 88 Respiratory Rate 30 H 28 H 31 H Blood Pressure 132/68 Pulse Oximetry 94 94 94 02/27/20 16:15 Temperature Pulse Rate 89 Respiratory Rate 29 H Blood Pressure Pulse Oximetry 94 Oxygen Delivery Method Room Air,CPAP Oxygen Flow Rate 0 Narrative Exam Narrative: General: Elderly male lying in bed and in no acute distress, appears acutely ill, mildly diaphoretic, well-developed, well-nourished, appropriately interactive. HEENT: Normocephalic, atraumatic. External ears without defect. Pupils equal, round, and reactive to light. Anicteric sclerae, moist conjunctivae, and no lid lag. NG tube in place set to intermittent suction with brown drainage. Neck: Supple with full range of motion. No jugular venous distension. No lymphadenopathy or thyromegaly. Cardiovascular: Irregularly irregular without murmurs, rubs, or gallops appreciated. Pulmonary: Diminished throughout but clear to auscultation bilaterally in anterior lung donnelly. Normal respiratory effort with no use of accessory muscles. Abdomen: Abdomen more soft today, moderate distension, bowel sounds hypoactive but present. Midline surgical wound with reji in place and healing well and does not appear infected. Extremities: No clubbing, cyanosis, or edema. Skin: Normal temperature, turgor, and texture; no rash, ulcers, or subcutaneous nodules appreciated. Neurological: Cranial nerves grossly intact. Left-sided hemiparesis. Psychiatric: Normal mood and affect. Appears alert and oriented to person, place, and time. Objective Labs Result Diagrams: 02/27/20 04:40 02/27/20 04:40 Labs: Laboratory Results - last 24 hr 02/26/20 02/26/20 02/27/20 04:56 14:25 04:40 WBC 8.7 RBC 4.16 L Hgb 11.3 L Hct 34.2 L MCV 82.3 MCH 27.2 MCHC 33.1 RDW 14.8 Plt Count 114 L Neut % (Auto) 69.5 Lymph % (Auto) 25.7 [place] % (Auto) 4.5 Eos % (Auto) 0.2 L Baso % (Auto) 0.1 Neut # (Auto) 6000 Lymph # (Auto) 2200 [place] # (Auto) 400 Eos # (Auto) 0 Baso # (Auto) 0 Sodium Potassium Chloride Carbon Dioxide BUN Creatinine Estimated GFR BUN/Creatinine Ratio Glucose Hemoglobin A1c Calcium Phosphorus Magnesium TSH 0.44 L Free T4 2.40 H Urine Color Yellow Urine Appearance Clear Urine pH 5.5 Ur Specific [place] >=1.030 H Urine Protein Trace H Urine Glucose (UA) Negative Urine Ketones 2+ H Urine Occult Blood 2+ H Urine Nitrate Negative Urine Bilirubin Negative Urine Urobilinogen 0.2 Ur Leukocyte Esterase Negative Urine RBC 5-10/hpf H Urine WBC 1-5/hpf Ur Squamous Epith Cells 1-5 /hpf Urine Bacteria Occasional (0-1) Hyaline Casts 1-5/lpf Other Casts 1-5/hpf waxy casts Urine Mucus 2+ H Ur Culture Indicated? Cult not indicated 02/27/20 02/27/20 02/27/20 04:40 04:40 04:40 WBC RBC Hgb Hct MCV MCH MCHC RDW Plt Count Neut % (Auto) Lymph % (Auto) [place] % (Auto) Eos % (Auto) Baso % (Auto) Neut # (Auto) Lymph # (Auto) [place] # (Auto) Eos # (Auto) Baso # (Auto) Sodium 138 Potassium 3.6 Chloride 107 Carbon Dioxide 28 BUN 12 Creatinine 0.88 Estimated GFR > 60.0 BUN/Creatinine Ratio 13.6 Glucose 104 Hemoglobin A1c 5.2 Calcium 8.0 L Phosphorus 1.8 L Magnesium 2.3 TSH 0.72 D Free T4 Urine Color Urine Appearance Urine pH Ur Specific [place] Urine Protein Urine Glucose (UA) Urine Ketones Urine Occult Blood Urine Nitrate Urine Bilirubin Urine Urobilinogen Ur Leukocyte Esterase Urine RBC Urine WBC Ur Squamous Epith Cells Urine Bacteria Hyaline Casts Other Casts Urine Mucus Ur Culture Indicated? 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 The patient was found to have dense intra-abdominal adhesions and laparoscopic appendectomy was converted to open laparotomy and required partial sigmoid colectomy. The patient currently has an ileus and went to atrial fibrillation with RVR for which medicine team was consulted to help manage heart rate. 1. Acute ileus, secondary to recent laparotomy for elective appendectomy to remove appendiceal mass, not present on admission. Active. -Patient had appendiceal mass and elective appendectomy with complication of den se intra-abdominal adhesions requiring conversion of laparoscopic appendectomy to open procedure. Patient has now developed ileus and has NG tube in place. Patient is NPO. -Continue management per primary general surgery team. 2. Paroxysmal atrial fibrillation with acute RVR, present on admission. Active. -Patient spouse reports previous history of atrial fibrillation and reports that is why he is on Eliquis. -CHADS2 Vasc score 6. The patient's PO medications have been held due to ileus as above including carvedilol 6.25 mg twice daily and Eliquis 5 mg twice daily. -Continue to monitor electrolytes and replete as necessary. Goal K > 4.0 and Mg > 2.0. Current potassium 3.6 and magnesium 2.3. Received magnesium sulfate 2 g IV x1, received potassium phosphate 15 mmol x2 and ordered potassium chloride 40 mEq IV x1. -Repeat TSH normal at 0.72. -Ordered echocardiogram, pending. -Patient was started and titrated off diltiazem gtt. Plan to restart diltiazem gtt to better control heart rate with goal heart rate < 100 bpm. Continue metoprolol 5 mg IV every 6 hours with hold parameters for SBP < 100 mmHg. 3. Hypertension, chronic, present on admission. Stable. -Held oral medications including carvedilol 6.25 mg twice daily and losartan 50 mg daily while NPO and may restart per general surgery. 4. ASCVD with history of ND status post stent x1 and CVA with residual left- sided hemiparesis on Eliquis, chronic, present on admission. Presumed stable. -Patient reports he was previously on statin therapy but is no longer on statin due to side effect. Patient reports that he is injection called Repatha (Evolocumab) weekly. -The patient is followed by [facility] cardiology Dr. Jones. 5. Prostate cancer status post recent complicated robotic laprascopic prostatectomy requiring conversion to open procedure. -Continue previous outpatient follow-up per PCP or oncology. 6. Obstructive sleep apnea on CPAP, present on admission. Stable. -Continue home CPAP. Code status: Full code, designated surrogate decision maker is his spouse VTE prophylaxis: Enoxaparin (until able to restart PO Eliquis), SCDs Thank you for this most interesting consult. Medicine team will continue to follow along with you. Quality VTE Deep Vein Thrombosis/Pulmonary Embolism Present on Admission: No
[2020-02-27] MEDS: DILTIAZEM 125 MG/125 ML PIGGYBACK 10 MG IV (21:22)
[2020-02-28] VITALS (38 sets, daily range): BP systolic 99–166; BP diastolic 59–101; PULSE 83–129; RESP 15–43; TEMP 36.6–37.6; O2SAT 90–96
[2020-02-28] MEDS: DEXTROSE 5%-0.9% NS 1,000 ML 125 ML IV (01:45)
--- NOTE | 2020-02-28 02:52 | PC.NURSE ---
0230- Patient states he is passing gas. Abdomen looks less distended. Remains on Diltiazem gtt at 10mg/hr for heart rate control. Low grade temp of 99.0. Patient is in no distress. Will monitor.
[2020-02-28] MEDS: METOPROLOL TARTRATE 5 MG/5 ML INJ IV ×4 (03:38→21:00)
[2020-02-28 05:22] LABS: Add Manual Diff / Slide Review NO; Basophils Absolute Auto 0 /uL (0-100); Basophils Percent Auto 0.2 % (0-2); Eosinophils Absolute Auto 100 /uL (0-450); Eosinophils Percent Auto 1.2 % (2-4); Hemoglobin 10.9 g/dL (13.5-17.5); Lymphocytes Absolute Auto 2300 /uL (1100-4500); Lymphocytes Percent Auto 28.1 % (25-40); Mean Corpuscular HGB Conc 33.1 % (30-36); Mean Corpuscular Hemoglobin 27.5 PG (26-34); Mean Corpuscular Volume 83.1 fL (80-100); Monocytes Absolute Auto 500 /uL (0-900); Monocytes Percent Auto 5.9 % (3-14); Neutrophils Absolute Auto 5200 /uL (1500-7000); Neutrophils Percent Auto 64.6 % (50-75); Platelet Count 124 X10^3/uL (150-400); Red Blood Cell Count 3.98 X10^6/uL (4.5-5.9); Red Cell Distribution Width 14.4 % (11.6-14.8)
[2020-02-28 05:38] LABS: BUN Creatinine Ratio 13.7 (6-22); Blood Urea Nitrogen 10 mg/dL (9-20); Carbon Dioxide 28 mmol/L (22-32); Chloride 107 mmol/L (98-107); Estimated Glomerular Filt Rate > 60.0 mL/min (>60); Glucose 140 mg/dL (80-110); HEMOLYSIS < 15 (0-50); Magnesium 2.1 mg/dL (1.6-2.3); Potassium 3.6 mmol/L (3.4-5.1); Sodium 138 mmol/L (137-145)
[2020-02-28] MEDS: POTASSIUM CHLORIDE 40 MEQ in SODIUM CHLORIDE 0.9% 500 ML 130 ML IV (07:42)
[2020-02-28] MEDS: PANTOPRAZOLE 40 MG VIAL 20 MG IV ×2 (10:23→21:00)
[2020-02-28] MEDS: ENOXAPARIN 40 MG/0.4 ML SYRINGE SUBCUT (10:24)
[2020-02-28] MEDS: SODIUM CHLORIDE 0.9% FLUSH 10 ML IV ×2 (10:24→20:59)
--- NOTE | 2020-02-28 11:38 | PM.PNPO.1 ---
Subjective Subjective Date Patient Seen: 02/28/20 Time Patient Seen: 11:38 Interval history: The patient is a gentleman post appendectomy and partial sigmoid resection. He is feeling tight and is becoming wheezy. Has incisional pain but the remainder of his abdomen is not painful. He states he is passing flatus. No bowel movement. Exam Vital Signs (past 8 hours): - 02/28/20 04:00 02/28/20 04:04 02/28/20 05:00 Temperature Pulse Rate 83 88 Respiratory Rate 27 H 28 H Blood Pressure 130/86 158/81 H Pulse Oximetry 92 90 L 94 02/28/20 06:00 02/28/20 07:00 02/28/20 07:01 Temperature Pulse Rate 94 H 103 H 103 H Respiratory Rate 28 H 31 H 30 H Blood Pressure 138/62 160/89 H Pulse Oximetry 94 02/28/20 08:00 02/28/20 09:00 02/28/20 09:42 Temperature 98.0 F 99.7 F H Pulse Rate 104 H 99 H Respiratory Rate 31 H 30 H Blood Pressure 146/94 H 134/76 Pulse Oximetry 95 94 95 02/28/20 10:00 02/28/20 11:01 Temperature Pulse Rate 113 H 104 H Respiratory Rate 34 H 43 H Blood Pressure 148/93 H Pulse Oximetry 93 Oxygen Delivery Method Room Air,CPAP Oxygen Flow Rate 0 Narrative Exam Narrative: Lungs are clear to auscultation. No rales or rhonchi. Sounds a little tight however. He does have occasional audible wheezing when not listening to his chest. Heart fairly regular. No murmur heard. Abdomen is protuberant and distended. It is tight.( Patient and state that it is been this way since his prostatectomy operation in the distant past.) NG output is high. Urine output is adequate. Objective Labs Result Diagrams: 02/28/20 04:35 02/28/20 04:35 Labs: Laboratory Results - last 24 hr 02/28/20 02/28/20 04:35 04:35 WBC 8.0 RBC 3.98 L Hgb 10.9 L Hct 33.0 L MCV 83.1 MCH 27.5 MCHC 33.1 RDW 14.4 Plt Count 124 L Neut % (Auto) 64.6 Lymph % (Auto) 28.1 [place] % (Auto) 5.9 Eos % (Auto) 1.2 L Baso % (Auto) 0.2 Neut # (Auto) 5200 Lymph # (Auto) 2300 [place] # (Auto) 500 Eos # (Auto) 100 Baso # (Auto) 0 Sodium 138 Potassium 3.6 Chloride 107 Carbon Dioxide 28 BUN 10 Creatinine 0.73 Estimated GFR > 60.0 BUN/Creatinine Ratio 13.7 Glucose 140 H Calcium 8.0 L Phosphorus 2.0 L Magnesium 2.1 Assessment & Plan Post-op Postoperative Procedures: Procedures Operation Date: 02/24/20 09:15 Actual Procedures Side Surgeon p Appendectomy, partial cholectomy, lysis of adhesions Yao Cleary MD Postoperative status narrative: Patient doing okay. Fluid intake is significantly up compared output. Still having a lot of NG output. Postoperative plan narrative: Lasix due to his wheeze /tight chest and being way had on fluid. Dulcolax suppository to see if we can stimulate colonic function. Quality VTE Deep Vein Thrombosis/Pulmonary Embolism Present on Admission: No
[2020-02-28] MEDS: BISACODYL 10 MG SUPP PR (11:47)
[2020-02-28] MEDS: FUROSEMIDE 20 MG/2 ML VIAL IV (11:47)
--- NOTE | 2020-02-28 12:20 | DI.RAD.S_ITS ---
PROCEDURE: XR ACUTE ABDOMEN SERIES INDICATIONS: decreased bowel function TECHNIQUE: One view chest and two views of the abdomen were acquired. COMPARISON: [facility], CT, CT ABDOMEN PELVIS W CON, 01/19/2020, 12:03. FINDINGS: Surgical changes and devices: A gastric tube is seen, with the tip coiled upon itself and seen overlying the fundus of the stomach. Chest: An incomplete inspiratory result is noted, causing a crowded appearance to the lung markings. No focal infiltrates are seen. No pneumothorax or significant pleural effusions are seen. The cardiac contours are moderately enlarged. The aorta demonstrates calcification and tortuosity. Abdomen: Dilated loops of small bowel are seen, which measure up to 3.7 cm. No suspicious calcifications. Visualized solid organ contours appear normal. Pelvic postoperative changes are seen. There is a left-sided pelvic drain seen. Bones: No suspicious bony lesions. Age-appropriate bony degenerative changes are seen. Mild dextroconvex scoliotic curvature is seen. IMPRESSION: Dilated loops of small bowel are seen. Postoperative ileus is suspected. Differential diagnosis includes small bowel obstruction, yet this is considered to be less likely. Please consider short-term followup plain film versus CT. The tip of the gastric tube is seen overlying the fundus of the stomach. Mild cardiomegaly. Postoperative change of the pelvis is seen, with a left-sided drain. Prostatectomy is presumed. Dictated by: Karri Ron M.D. on 02/28/2020 at 12:56 Approved by: Karri Ron M.D. on 02/28/2020 at 13:01
--- NOTE | 2020-02-28 12:23 | PT.IPTN ---
Current Diagnoses Other specified diseases of appendix (02/24/20) Surgery Performed Operation Date: 02/24/20 09:15 Actual Procedures p Appendectomy, partial cholectomy, lysis of adhesions - Yao Cleary MD Physical Therapy Treatment Note M2 PT-IP Current Condition Start: 02/25/20 09:42 Freq: NEEDED Status: Active Protocol: Document 02/25/20 12:29 (Rec: 02/25/20 13:09 [id number]) Physical Therapy Current Condition Current Condition Evaluation Date 02/25/20 Treatment Diagnosis Appendectomy, partial cholectomy, lysis of adhesions , weakness Onset Date 02/24/20 Precautions Abdominal Surgery Precautions Log Roll,Lifting Restrictions, Gait Belt above Incisional Area Weight Bearing Status Weight Bearing Status Full Weight Bearing M3 PT-IP Subjective Start: 02/25/20 09:42 Freq: NEEDED Status: Active Protocol: Document 02/28/20 10:46 TAMERA (Rec: 02/28/20 12:23 LJ [id number]) Subjective Physical Therapy Visit Type Type Treatment Note Visit Start Time 10:46 Visit Stop Time 11:16 Total Visit Minutes 30 Notes wire in room during tx. CAN x2 giving pt bed bath sitting on EOB Physical Therapy Visit Comments Patient Comments wants to sit in chair after bath Therapy Pain Assessment Pain When Pain Assessed During Mobility Pain Present Pain Present Pain Reported M4 PT-IP Mobility and Gait Start: 02/25/20 09:42 Freq: NEEDED Status: Active Protocol: Document 02/28/20 10:46 TAMERA (Rec: 02/28/20 12:23 LJ [id number]) PT-Transfer Assessment Sit to and From Stand Sit to and from Stand Minimal Assistance,2 Person Assistance,Use of Upper Extremities Equipment Transfer Assistive Device Gait Belt,Abdifatah Walker Orthotic/Prosthetic Devices or Brace: No Transfers Transfer Destination Chair Transfer Ability Level of Assist Minimal Assistance,2 Person Assistance,Use of Upper Extremities Comments Mobility Comments Nursing in room giving pt bed bath while sitting on EOB. Pt sat upright without support from UEs during bath. Feet were not touching floor. Following bath pt stood up pushing off with right hand using bed cane then transferring same hand to abdifatah walker. Pt needed cues to stand upright. Pt experiencing wheezing and reported having a hard time breathing. Cued to perform PLB but unable to inhale deeply to perform diaphragmatic breathing. Pt stood for 1 minute prior to transferring to chair due to reporing dizziness. Pt then took 8 small steps laterally to the left to position himself in fromt of chair. No assistance needed with LLE but Petey needed to reposition hemiwalker on rithe side. This ws provided by CHECKING DEPARTMENT SUPERVISOR with direction from therapist. Pt was able to lower himself into chair without assist in a controlled manner. Pt was left in the chair with nursing in room Gait Assessment Comments Gait Comments see mobility section 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 and poor fine motor control able to abduct shoulder approx 40-50 degrees unable to fully extend his L arm and fingers Lower Extremity ROM Assessment Left Impaired Strength Upper Extremity Strength Assessment Left Impaired Shoulder 2- Elbow 3 Wrist 2- Hand 2- Lower Extremity Strength Assessment Left Impaired Hip 3+ Knee 4- Ankle 3 Coordination Assessment Gross Coordination Gross Coordination Impaired Sensation Assessment Sensation Gross Sensation WNL Muscle Tone Muscle Tone WNL No Muscle Tone Location Left Upper Extremity Type of Tone Hypertonicity,Flexor Severity of Tone Moderate M6 PT-IP Treatment Start: 02/25/20 09:42 Freq: NEEDED Status: Active Protocol: Document 02/28/20 10:46 TAMERA (Rec: 02/28/20 12:23 [id number]) Physical Therapy Treatment Education Education Provided Safety M7 PT-IP Assessment and Plan Start: 02/25/20 09:42 Freq: NEEDED Status: Active Protocol: Document 02/28/20 10:46 TAMERA (Rec: 02/28/20 12:23 LJ [id number]) PT Summary Assessment and Plan Potential Rehabilitation Potential Good Status of Condition at Evaluation Evolving Summary Impairments Pain,ROM,Strength,Balance, Coordination,Tone,Bed Mobility ,Transfers,Gait,Activity Tolerance Assessment Summary Pt requiring less assistance for transfers this tx. Able to lift and control LLE better. Still c/o pin in incision area while sitting. Alerted nursing about pts report of difficulty in breathing. Overall, pt appears to have improved slightly from yesterday morning tx. Goals Bed Mobility Goal Contact Guard Assistance Transfer Goal Contact Guard Assistance,Cane Gait Goal Contact Guard Assistance,Cane Gait Distance 50 Other Goals BSC with CGA with LBQC/SPC complete PF step with LBQC/SPC Days to Meet Goals 10 Frequency of Treatment Frequency Of Treatment Once a Day Treatment Plan Physical Therapy Treatment Plan Bed Mobility Training,Transfer Training,Gait Training, Therapeutic Exercise,Balance Retraining,Post Op Education, Discharge Planning,Hot or Cold Pack,Neuromuscular Re-ed Recommendations To Nursing Amount of Assist Needed 2 Person Assist Discharge Recommendations PT Discharge Recommendations SNF Rehab
--- NOTE | 2020-02-28 12:53 | OT.IP.TRT ---
Current Diagnoses Other specified diseases of appendix (02/24/20) Surgery Performed Operation Date: 02/24/20 09:15 Actual Procedures p Appendectomy, partial cholectomy, lysis of adhesions - Yao Cleary MD Occupational Therapy Treatment Note M2 OT-IP Current Condition Start: 02/25/20 13:57 Freq: Status: Active Protocol: Document 02/25/20 11:13 [facility] (Rec: 02/25/20 14:16 [facility] [id number]) Occupational Therapy Current Condition Current Condition Evaluation Date 02/25/20 Treatment Diagnosis Appendectomy, partial cholectomy, decreased self care Diagnosis Onset Date 02/24/20 Post Operative Precautions Abdominal Surgery Precautions Log Roll,Lifting Restrictions, Gait Belt above Incisional Area M3 OT- IP Subjective and Pain Start: 02/25/20 13:57 Freq: Status: Active Protocol: Document 02/28/20 13:14 [facility] (Rec: 02/28/20 13:24 [facility] [id number]) OT- Subjective Occupational Therapy Visit Type Type Treatment Note Visit Start Time 12:53 Visit Stop Time 13:10 Total Visit Minutes 17 Occupational Therapy Visit Comments Patient Comments Pt sitting on the commode when OT came to assist. Patient/Caregiver Goals To go home , but pt realizes that he will benefit from skilled rehab. OT Pain Assessment Pain When Pain Assessed During Mobility Pain Present Pain Present Pain Reported Location Abdomen Pain Behaviors Facial Grimacing,Guarding M4 OT- IP ADL's Start: 02/25/20 13:57 Freq: Status: Active Protocol: Document 02/28/20 13:14 [facility] (Rec: 02/28/20 13:24 [facility] [id number]) OT ADL-Toileting General Evaluation Toileting Ability Total Assistance Areas Needing Assistance Manage Clothing,Perform Perineal Hygiene Comments OT Toileting Comments MOD A while standign with abdifatah -walker and then dependent to assist for pericare and brief needs. M5 OT- IP IADL's Start: 02/25/20 13:57 Freq: Status: Active Protocol: Document 02/25/20 11:13 [facility] (Rec: 02/25/20 14:16 [facility] [id number]) OT-Instrumental Activities of Daily Living Funeral Assistant Funeral Assistant Caregiver Provides Assist Funeral Assistant Comments Prior pt likes to assist to take out the trash. M6 OT- IP Functional Cognition Start: 02/25/20 13:57 Freq: Status: Active Protocol: Document 02/25/20 11:13 [facility] (Rec: 02/25/20 14:16 [facility] [id number]) Cognitive Factors Limiting Selfcare Function Cognitive Ability Level of Alertness Alert Patient Orientation Name,Place,Situation Attention Span Ability Capable of Focused Attention, Capable of Sustained Attention Ability to Follow Commands Able to Follow Multi-Step Commands Cognitive Comments Cognitive Assessment Comments Pt appears to be at baseline for cognition and able to follow 1-2 step commands appropriately. OT- Vision and Hearing OT- Hearing Assessment OT- Hearing Assessment WFL OT- Vision Assessment Visual Acuity WFL M7 OT- IP Mobility and Balance Start: 02/25/20 13:57 Freq: Status: Active Protocol: Document 02/28/20 13:14 [facility] (Rec: 02/28/20 13:24 [facility] [id number]) OT- Bed Mobility Assessment Sit to Supine Sit to Supine Assist Maximum Assistance,2 Person Assistance OT-Transfer Assessment Sit to and From Stand Sit to and from Stand Moderate Assistance,2 Person Assistance Transfers Transfer Ability Moderate Assistance,2 Person Assistance Technique Transfer Destination Bed,Bedside Commode Transfer Technique Stand Step Pivot Devices Transfer Assistive Devices Gait Belt,Abdifatah Walker Comments Mobility Comments Pt initially needing assist to block his left knee in order to help stand and then needing assist to move the abdifatah-walker, weight shift and today better able to move his left LE when taking steps from the BSC back to the bed. OT- Balance Assessment Sitting Balance and Reactions Static Sitting Balance Ability Good Dynamic Sitting Balance Ability Fair Standing Balance and Reactions Static Standing Balance Ability Poor Dynamic Standing Balance Ability Poor M9 OT- IP Assessment and Plan Start: 02/25/20 13:57 Freq: Status: Active Protocol: Document 02/28/20 13:14 [facility] (Rec: 02/28/20 13:24 [facility] [id number]) OT Summary Assessment and Plan Potential Rehabilitation Potential Good Analytic Complexity at Evaluation Low Summary OT Impairments Pain,Balance,Functional Mobility,Grooming,Dressing, Toileting,Bathing,Toilet Transfers,Shower Transfers, Activity Tolerance Progress Towards Goals Progressing Toward Goals Assessment Summary Pt able to take more steps and able to sit on the BSC in order to have a bowel movement today. Pt still needing extensive assist x2 for all Adl and functional mobility need and maryse benefit from skilled rehab prior to going home. Goals Self-Feeding Goal Independent Grooming Goal Independent Dressing Goal Independent Toileting Goal Independent Bathing Goal Minimal Assistance Toilet Transfer Goal Independent Shower Transfer Goal Independent Patient/Caregiver Education Goal Demonstrate Post-Op Precautions,Caregiver Independent Assisting Patient Days to Meet Goals 15 Frequency of Treatment Frequency Of Treatment Once a Day Treatment Plan OT Treatment Plan ADL Training,Functional Mobility,Patient/Family Education,Discharge Planning Other Treatment Recommendations and Next JOSE x2 to transfer to [facility]. Treatment Focus Discharge Recommendations OT Discharge Recommendations SNF Rehab Home Equipment Needs Defer to SNF Transportation Needs at Discharge Wheelchair/Cabulance
[2020-02-28] MEDS: DEXTROSE 5%-0.9% NS 1,000 ML 21 ML IV (13:00)
--- NOTE | 2020-02-28 13:28 | P.PN_ITS ---
Subjective Subjective Date Patient Seen: 02/28/20 Interval history: The patient is resting in bedside chair comfortably. He complains of shortness of breath but is maintaining oxygen saturations and is not hypoxemic. Plan to decrease IV fluids with D5 NS to 40 mL/hr per general surgery and plan to gently diurese with furosemide 20 mg IV x1. Ordered chest x-ray and abdominal series t o further evaluate shortness of breath and ileus. He denies headache, chest pain, nausea, vomiting, fever, chills, or dysuria. He has good bowel sounds and is passing flatus. He has not yet had a bowel movement. He is voiding via Diaz catheter without difficulty. Exam Vital Signs (past 8 hours): - 02/28/20 06:00 02/28/20 07:00 02/28/20 07:01 Temperature Pulse Rate 94 H 103 H 103 H Respiratory Rate 28 H 31 H 30 H Blood Pressure 138/62 160/89 H Pulse Oximetry 94 02/28/20 08:00 02/28/20 09:00 02/28/20 09:42 Temperature 98.0 F 99.7 F H Pulse Rate 104 H 99 H Respiratory Rate 31 H 30 H Blood Pressure 146/94 H 134/76 Pulse Oximetry 95 94 95 02/28/20 10:00 02/28/20 11:01 02/28/20 11:14 Temperature Pulse Rate 113 H 104 H 98 H Respiratory Rate 34 H 43 H 32 H Blood Pressure 148/93 H 150/78 H Pulse Oximetry 93 95 02/28/20 12:00 02/28/20 12:03 02/28/20 13:03 Temperature Pulse Rate 100 H 96 H Respiratory Rate 33 H 32 H Blood Pressure 138/93 H Pulse Oximetry 96 95 96 02/28/20 13:12 Temperature Pulse Rate 115 H Respiratory Rate Blood Pressure 138/92 H Pulse Oximetry 95 Oxygen Delivery Method Room Air Oxygen Flow Rate 0 Narrative Exam Narrative: General: Elderly male lying in bed and in no acute distress, well-developed, well-nourished, appropriately interactive. HEENT: Normocephalic, atraumatic. External ears without defect. Pupils equal, round, and reactive to light. Anicteric sclerae, moist conjunctivae, and no lid lag. NG tube in place set to intermittent suction with brown drainage. Neck: Supple with full range of motion. Mild jugular venous distension. No lymphadenopathy or thyromegaly. Cardiovascular: Irregularly irregular without murmurs, rubs, or gallops appreciated. Pulmonary: Diminished throughout especially in right lower lobe but clear to auscultation bilaterally with fine bibasilar crackles. No wheezes or rhonchi. Normal respiratory effort with no use of accessory muscles. Abdomen: Abdomen soft, nontender other than over surgical wound, moderate distension, bowel sounds present. Midline surgical wound with reji in place and healing well and does not appear infected. Extremities: No clubbing or cyanosis. Trace edema to pretibial area bilaterally. Skin: Normal temperature, turgor, and texture; no rash, ulcers, or subcutaneous nodules appreciated. Neurological: Cranial nerves grossly intact. Chronic residual left-sided weakness from CVA. Psychiatric: Normal mood and affect. Appears alert and oriented to person, place, and time. Objective Labs Result Diagrams: 02/28/20 04:35 02/28/20 04:35 Labs: Laboratory Results - last 24 hr 02/28/20 02/28/20 04:35 04:35 WBC 8.0 RBC 3.98 L Hgb 10.9 L Hct 33.0 L MCV 83.1 MCH 27.5 MCHC 33.1 RDW 14.4 Plt Count 124 L Neut % (Auto) 64.6 Lymph % (Auto) 28.1 [place] % (Auto) 5.9 Eos % (Auto) 1.2 L Baso % (Auto) 0.2 Neut # (Auto) 5200 Lymph # (Auto) 2300 [place] # (Auto) 500 Eos # (Auto) 100 Baso # (Auto) 0 Sodium 138 Potassium 3.6 Chloride 107 Carbon Dioxide 28 BUN 10 Creatinine 0.73 Estimated GFR > 60.0 BUN/Creatinine Ratio 13.7 Glucose 140 H Calcium 8.0 L Phosphorus 2.0 L Magnesium 2.1 Assessment & Plan Assessment & Plan narrative: Eddie Burk is an 85-year-old male with a past medical history significant for coronary artery disease status post PA, CVA with residual left-sided hemiparesis, hypertension, hyperlipidemia, 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 The patient was found to have dense intra-abdominal adhesions and laparoscopic appendectomy was converted to open laparotomy and required partial sigmoid colectomy. The patient currently has an ileus and went to atrial fibrillation with RVR for which medicine team was consulted to help manage heart rate. 1. Acute ileus, secondary to recent laparotomy for elective appendectomy to remove appendiceal mass, not present on admission. Active. -Patient had appendiceal mass and elective appendectomy with complication of dense intra-abdominal adhesions requiring conversion of laparoscopic appendectomy to open procedure. Patient has now developed ileus and has NG tube in place. Patient is NPO. -Continue management per primary general surgery team. 2. Paroxysmal atrial fibrillation with acute RVR, present on admission. Active. -Patient spouse reports previous history of atrial fibrillation and reports that is why he is on Eliquis. -CHADS2 Vasc score 6. The patient's PO medications have been held due to ileus as above including carvedilol 6.25 mg twice daily and Eliquis 5 mg twice daily. General surgery started therapeutic Lovenox -Continue to monitor electrolytes and replete as necessary. Goal K > 4.0 and Mg > 2.0. Current potassium 3.6 and magnesium 2.1. Received magnesium sulfate 2 g IV x1, received potassium phosphate 15 mmol x2 and potassium chloride 40 mEq IV x1. Plan to give additional potassium chloride 40 mEq IV x1 today. -Repeat TSH normal at 0.72. -Echocardiogram demonstrated mildly-moderately increased left ventricular thickness (concentric) with normal size and hyperdynamic systolic function (EF 70-75%), normal right ventricular size and function, mild aortic stenosis (valve area 1.6cm2, mean gradient 16mmHg), IVC is dilated (diameter is greater than 2.1 cm) and it collapses less than 50% with a sniff. This suggests a high right atrial pressure of 15 mm Hg. -Continue diltiazem gtt titrated to control heart rate with goal HR < 100 bpm. Continue metoprolol 5 mg IV every 6 hours with hold parameters for SBP < 100 mmHg. -Plan to decrease fluids with D5 NS from 125 mL/hr to 40 mL/hr per general surgery and give furosemide 20 mg IV x1 as patient is now exhibiting shortness of breath and mild fluid overload from IV fluids and IV gtt. 3. Hypertension, chronic, present on admission. Stable. -Continue to hold oral medications including carvedilol 6.25 mg twice daily and losartan 50 mg daily while NPO and may restart per general surgery. 4. ASCVD with history of PA status post stent x1 and CVA with residual left- sided hemiparesis on Eliquis, chronic, present on admission. Presumed stable. -Patient reports he was previously on statin therapy but is no longer on statin due to side effect. Patient reports that he is on a weekly injection called Repatha (Evolocumab) to lower LDL. -The patient is followed by [facility] cardiology Dr. Jones. 5. Prostate cancer status post recent complicated robotic laprascopic prostatectomy requiring conversion to open procedure. -Continue previous outpatient follow-up per PCP or oncology. 6. Obstructive sleep apnea on CPAP, present on admission. Stable. -Continue home CPAP. Code status: Full code, designated surrogate decision maker is his spouse VTE prophylaxis: Enoxaparin (until able to restart PO Eliquis), SCDs Thank you for this most interesting consult. Medicine team will continue to follow along with you. Quality VTE Deep Vein Thrombosis/Pulmonary Embolism Present on Admission: No
[2020-02-28] MEDS: DILTIAZEM 125 MG/125 ML PIGGYBACK 15 MG IV (13:30)
[2020-02-28] MEDS: DEXTROSE 5%-0.9% NS 1,000 ML 40 ML IV (13:51)
--- NOTE | 2020-02-28 14:24 | PC.NURSE ---
pt with small to moderate amount of pain with most mobility- denies need for narcotic- afib continues mostly rvr in the one teens and 120's increased dilt gtt to 15 ( from 10) and also receiving iv lopressor q 6h, room air with own cpap from home use- neeru with small amount bloody drainage and ngt with >400cc output- also he took approx 150cc ice this shift- abd incision vicente- suppository given with scant results-abd series xrays taken
--- NOTE | 2020-02-28 14:59 | CM.DPNOTE ---
DCP Cont DC to [facility] remains the DC plan patient is agreeable to; now following closely for medical clearance and making sure COVID test is updated before DC to SNF JW
--- NOTE | 2020-02-28 18:13 | PC.NURSE ---
Evening shift note Pt resting in bed with at bedside, denies pain at this time, is passing flatus and states that he wants to get on bedpan. During time on bedpan pt HR goes into the 140's. Afib RVR continues in the 115-140's, increased dilt gtt to 20( from 15) per protocol and also receiving iv lopressor q 6h, currently wearing home cpap, is on room air otherwise, GALA drain with small amount bloody drainage. NG tube connected to LIS with >400cc output. 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
[2020-02-28] MEDS: DILTIAZEM 125 MG/125 ML PIGGYBACK 20 MG IV (19:28)
[2020-02-28] MEDS: HYDROMORPHONE 0.5 MG INJ IV (20:05)
[2020-02-28] MEDS: ENOXAPARIN 100 MG/ML SYRINGE SUBCUT (21:00)
[2020-02-29] VITALS (51 sets, daily range): BP systolic 90–173; BP diastolic 50–111; PULSE 73–132; RESP 8–46; TEMP 36.8–36.9; O2SAT 83–98
[2020-02-29] MEDS: POTASSIUM CHLORIDE 40 MEQ in SODIUM CHLORIDE 0.9% 500 ML 130 ML IV (01:32)
[2020-02-29] MEDS: DILTIAZEM 125 MG/125 ML PIGGYBACK 15 MG IV ×2 (02:09→10:42)
[2020-02-29] MEDS: METOPROLOL TARTRATE 5 MG/5 ML INJ IV ×3 (03:28→11:48)
--- NOTE | 2020-02-29 06:13 | PC.NURSE ---
Order Clerk Note-Patient has dozed intermittently with and without his own C-pap and 2L O2 bleed-in. RR 20s with occasional audible wheezing, fine crackles bases to auscultation. Remains in A-fib CVR/RVR 80s-120s, diltiazem gtt continues at 15mg/hr, 5mg IV metoprolol Q6h scheduled, see vital trends. Patient has been incontinent of 3 loose brown stools. NGT patent to LIS put out 300ml bile fluid. 40meq K+ Wilbert infused as ordered.
[2020-02-29 06:22] LABS: Add Manual Diff / Slide Review NO; Basophils Absolute Auto 0 /uL (0-100); Basophils Percent Auto 0.5 % (0-2); Eosinophils Absolute Auto 100 /uL (0-450); Eosinophils Percent Auto 1.1 % (2-4); Hematocrit 34.1 % (41-53); Hemoglobin 11.2 g/dL (13.5-17.5); Lymphocytes Absolute Auto 1800 /uL (1100-4500); Lymphocytes Percent Auto 23.5 % (25-40); Mean Corpuscular HGB Conc 32.9 % (30-36); Mean Corpuscular Hemoglobin 27.1 PG (26-34); Mean Corpuscular Volume 82.5 fL (80-100); Monocytes Absolute Auto 400 /uL (0-900); Monocytes Percent Auto 5.5 % (3-14); Neutrophils Absolute Auto 5400 /uL (1500-7000); Neutrophils Percent Auto 69.4 % (50-75); Platelet Count 142 X10^3/uL (150-400); Red Blood Cell Count 4.13 X10^6/uL (4.5-5.9); Red Cell Distribution Width 14.3 % (11.6-14.8); White Blood Cell Count 7.9 X10^3/uL (4.5-11.0)
[2020-02-29 06:32] LABS: BUN Creatinine Ratio 11.8 (6-22); Blood Urea Nitrogen 8 mg/dL (9-20); Calcium 8.1 mg/dL (8.4-10.2); Carbon Dioxide 27 mmol/L (22-32); Chloride 105 mmol/L (98-107); Estimated Glomerular Filt Rate > 60.0 mL/min (>60); Glucose 122 mg/dL (80-110); HEMOLYSIS < 15 (0-50); Magnesium 1.9 mg/dL (1.6-2.3); Phosphorous 2.8 mg/dL (2.3-3.7); Potassium 3.8 mmol/L (3.4-5.1); Sodium 138 mmol/L (137-145)
[2020-02-29] MEDS: ENOXAPARIN 100 MG/ML SYRINGE SUBCUT (08:27)
[2020-02-29] MEDS: PANTOPRAZOLE 40 MG VIAL 20 MG IV ×2 (08:28→21:22)
[2020-02-29] MEDS: FUROSEMIDE 40 MG/4 ML VIAL IV (10:17)
--- NOTE | 2020-02-29 10:46 | PC.NURSE ---
PT WITH INTERMITTENT INCISIONAL DISCOMFORT - MOSTLY WITH ACTIVITY - DECLINES USE OF NARCOTICS AT THIS TIME- UP TO BSC FOR LARGE LIQUID/SOFT BM BROWN IN COLOR- DENIES NAUSEA AND ABLE TO DISCONTINUE NGT AND GALA DRAIN PER MD ORDERS- WILL START PO INTAKE SLOWLY-
[2020-02-29] MEDS: ONDANSETRON 4 MG/2 ML INJ IV ×2 (12:55→22:46)
--- NOTE | 2020-02-29 13:01 | P.PN_ITS ---
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 The patient was found to have dense intra-abdominal adhesions and laparoscopic appendectomy was converted to open laparotomy and required partial sigmoid colectomy. The patient currently has an ileus and went to atrial fibrillation with RVR for which medicine team was consulted to help manage heart rate. The patient is sleeping in bed comfortably with CPAP in place. He is easily arousable and reports he slept very well overnight. He has no complaints and denies headache, chest pain, shortness of breath, abdominal pain, nausea, vomiting, fever, chills, or dysuria. Had some mild nausea earlier this morning per his spouses report. The patient has had several bowel movements and the NG tube has been removed. General surgery is allowing for sips and chips of water. Restarted his home medications and he converted from atrial fibrillation to sinus rhythm at 1630. Diuresed with another 40 mg IV Lasix today. Continue to monitor and replace electrolytes. He is up ambulating with assistance. Exam Vital Signs (past 8 hours): - 02/29/20 05:30 02/29/20 05:32 02/29/20 06:00 Temperature Pulse Rate 96 H 99 H 94 H Respiratory Rate 31 H 8 L 27 H Blood Pressure 138/111 H 141/83 H 136/75 Pulse Oximetry 97 97 90 L 02/29/20 06:30 02/29/20 07:00 02/29/20 07:30 Temperature 98.3 F Pulse Rate 96 H 95 H 119 H Respiratory Rate 23 25 H 26 H Blood Pressure 142/99 H 137/94 H 148/92 H Pulse Oximetry 94 93 96 02/29/20 08:00 02/29/20 08:30 02/29/20 09:00 Temperature 98.3 F Pulse Rate 106 H 87 90 Respiratory Rate 31 H 30 H 34 H Blood Pressure 152/81 H 147/89 H 133/75 Pulse Oximetry 95 94 86 L 02/29/20 10:00 02/29/20 10:09 02/29/20 10:23 Temperature Pulse Rate 119 H 116 H Respiratory Rate 32 H 31 H Blood Pressure 139/72 Pulse Oximetry 96 96 02/29/20 11:11 02/29/20 12:11 Temperature Pulse Rate Respiratory Rate Blood Pressure 140/93 H Pulse Oximetry 95 94 Oxygen Delivery Method Room Air Oxygen Flow Rate 0 Narrative Exam Narrative: General: Elderly male lying in bed and in no acute distress, well-developed, well-nourished, appropriately interactive. HEENT: Normocephalic, atraumatic. External ears without defect. Pupils equal, round, and reactive to light. Anicteric sclerae, moist conjunctivae, and no lid lag. NG tube removed. Neck: Supple with full range of motion. No jugular venous distension. No lymphadenopathy or thyromegaly. Cardiovascular: Regular rhythm and rate without murmurs, rubs, or gallops appreciated. Pulmonary: Diminished throughout but clear to auscultation bilaterally in anterior lung donnelly. No crackles, wheezes or rhonchi. Normal respiratory effort with no use of accessory muscles. Abdomen: Softer, distension improved now mild, nontender other than over surgical wound, bowel sounds present. Midline surgical wound with reji in place and healing well and does not appear infected. Extremities: No clubbing, cyanosis or edema. Skin: Normal temperature, turgor, and texture; no rash, ulcers, or subcutaneous nodules appreciated. Neurological: Cranial nerves grossly intact. Chronic residual left-sided weakness from CVA. Psychiatric: Normal mood and affect. Appears alert and oriented to person, place, and time. Objective Labs Result Diagrams: 02/29/20 06:15 02/29/20 06:15 Labs: Laboratory Results - last 24 hr 02/29/20 02/29/20 06:15 06:15 WBC 7.9 RBC 4.13 L Hgb 11.2 L Hct 34.1 L MCV 82.5 MCH 27.1 MCHC 32.9 RDW 14.3 Plt Count 142 L Neut % (Auto) 69.4 Lymph % (Auto) 23.5 L [place] % (Auto) 5.5 Eos % (Auto) 1.1 L Baso % (Auto) 0.5 Neut # (Auto) 5400 Lymph # (Auto) 1800 [place] # (Auto) 400 Eos # (Auto) 100 Baso # (Auto) 0 Sodium 138 Potassium 3.8 Chloride 105 Carbon Dioxide 27 BUN 8 L Creatinine 0.68 Estimated GFR > 60.0 BUN/Creatinine Ratio 11.8 Glucose 122 H Calcium 8.1 L Phosphorus 2.8 Magnesium 1.9 Assessment & Plan Assessment & Plan narrative: Eddie Burk is an 85-year-old male with a past medical history significant for coronary artery disease status post IN, CVA with residual left-sided hemiparesis, hypertension, hyperlipidemia, 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 The patient was found to have dense intra-abdominal adhesions and laparoscopic appendectomy was converted to open laparotomy and required partial sigmoid colectomy. The patient currently has an ileus and went to atrial fibrillation with RVR for which medicine team was consulted to help manage heart rate. 1. Acute ileus, secondary to recent laparotomy for elective appendectomy to remove appendiceal mass, not present on admission. Active. -Patient had appendiceal mass and elective appendectomy with complication of dense intra-abdominal adhesions requiring conversion of laparoscopic appendectomy to open procedure. Patient has now developed ileus and has NG tube in place. Patient is NPO. -Continue management per primary general surgery team. 2. Paroxysmal atrial fibrillation with acute RVR, chronic, present on admission. RVR resolved. -Patient spouse reports previous history of atrial fibrillation and reports that is why he is on Eliquis. -Repeat TSH normal at 0.72. -Echocardiogram demonstrated mildly-moderately increased left ventricular thickness (concentric) with normal size and hyperdynamic systolic function (EF 70-75%), normal right ventricular size and function, mild aortic stenosis (valve area 1.6cm2, mean gradient 16mmHg), IVC is dilated (diameter is greater than 2.1 cm) and it collapses less than 50% with a sniff. This suggests a high right atrial pressure of 15 mm Hg. -Discontinued IV fluids today. Received furosemide 20 mg IV x1 yesterday and will continue to diurese with furosemide 40 mg IV x1. -CHADS2 Vasc score 6. Discontinued therapeutic enoxaparin. Restarted home Eliquis 5 mg twice daily. -Restarted home carvedilol increased from 6.25 mg to 12.5 mg twice daily. Discontinue IV metoprolol. Plan to titrate off of diltiazem gtt as tolerated. -Continue to monitor electrolytes and replete as necessary. Goal K > 4.0 and Mg > 2.0. Current potassium 3.8 and magnesium 1.9. Received magnesium sulfate 2 g IV x1, received potassium phosphate 15 mmol x2 and potassium chloride 40 mEq IV x2. Plan to give another potassium chloride 40 mEq PO and magnesium chloride 128 mg x1. 3. Hypertension, chronic, present on admission. Stable. -Continue to hold losartan 50 mg daily for now until diltiazem gtt off. R estarted home carvedilol increased from 6.25 mg to 12.5 mg twice daily. 4. ASCVD with history of IN status post stent x1 and CVA with residual left- sided weakness on Eliquis, chronic, present on admission. Presumed stable. -Patient reports he was previously on statin therapy but is no longer on statin due to side effects. Patient reports that he is on a weekly injection called Repatha (Evolocumab) to lower LDL. -The patient is followed by [facility] cardiology Dr. Jones. 5. Prostate cancer status post recent complicated robotic laprascopic prostatectomy requiring conversion to open procedure. -Continue previous outpatient follow-up per PCP or oncology. 6. Obstructive sleep apnea on CPAP, present on admission. Stable. -Continue home CPAP. Code status: Full code, designated surrogate decision maker is his spouse VTE prophylaxis: Anastacia Spencer Thank you for this most interesting consult. Medicine team will sign off at this time but do not hesitate to contact us if further assistance is needed. Quality VTE Deep Vein Thrombosis/Pulmonary Embolism Present on Admission: No
[2020-02-29] MEDS: carvediloL 12.5 MG TABLET PO ×2 (14:35→21:23)
[2020-02-29] MEDS: MAGNESIUM CHLORIDE 64 MG TABLET 128 MG PO (14:36)
[2020-02-29] MEDS: POTASSIUM CHLORIDE 20 MEQ TAB 40 MEQ PO (14:37)
[2020-02-29] MEDS: ACETAMINOPHEN 325 MG TABLET 650 MG PO (14:37)
--- NOTE | 2020-02-29 14:40 | PM.PNPO.1 ---
Subjective Subjective Date Patient Seen: 02/29/20 Time Patient Seen: 14:40 Interval history: Patient feeling little better. Passing gas and had multiple bowel movements. When he passes gas he says he feels better. He says his abdomen feels less tight. He has been sipping some liquids but feels nauseated. Exam Vital Signs (past 8 hours): - 02/29/20 07:00 02/29/20 07:30 02/29/20 08:00 Temperature 98.3 F 98.3 F Pulse Rate 95 H 119 H 106 H Respiratory Rate 25 H 26 H 31 H Blood Pressure 137/94 H 148/92 H 152/81 H Pulse Oximetry 93 96 95 02/29/20 08:30 02/29/20 09:00 02/29/20 10:00 Temperature Pulse Rate 87 90 119 H Respiratory Rate 30 H 34 H 32 H Blood Pressure 147/89 H 133/75 Pulse Oximetry 94 86 L 02/29/20 10:09 02/29/20 10:23 02/29/20 11:11 Temperature Pulse Rate 116 H Respiratory Rate 31 H Blood Pressure 139/72 Pulse Oximetry 96 96 95 02/29/20 12:11 02/29/20 13:00 02/29/20 14:00 Temperature 98.2 F 98.2 F Pulse Rate 98 H 125 H Respiratory Rate 26 H 24 Blood Pressure 140/93 H 145/75 H 147/82 H Pulse Oximetry 94 90 L 92 Oxygen Delivery Method Room Air,CPAP Oxygen Flow Rate 0 Narrative Exam Narrative: Lungs are clear to auscultation. Heart irregularly irregular. Abdomen is distended but less so than yesterday. Not as tense. His incision is intact. There is some bronzing of the skin around the incision. Objective Labs Result Diagrams: 02/29/20 06:15 02/29/20 06:15 Labs: Laboratory Results - last 24 hr 02/29/20 02/29/20 06:15 06:15 WBC 7.9 RBC 4.13 L Hgb 11.2 L Hct 34.1 L MCV 82.5 MCH 27.1 MCHC 32.9 RDW 14.3 Plt Count 142 L Neut % (Auto) 69.4 Lymph % (Auto) 23.5 L [place] % (Auto) 5.5 Eos % (Auto) 1.1 L Baso % (Auto) 0.5 Neut # (Auto) 5400 Lymph # (Auto) 1800 [place] # (Auto) 400 Eos # (Auto) 100 Baso # (Auto) 0 Sodium 138 Potassium 3.8 Chloride 105 Carbon Dioxide 27 BUN 8 L Creatinine 0.68 Estimated GFR > 60.0 BUN/Creatinine Ratio 11.8 Glucose 122 H Calcium 8.1 L Phosphorus 2.8 Magnesium 1.9 Assessment & Plan Post-op Postoperative Procedures: Procedures Operation Date: 02/24/20 09:15 Actual Procedures Side Surgeon p Appendectomy, partial cholectomy, lysis of adhesions Yao Cleary MD Postoperative status narrative: Patient is slowly improving. His bowel function is returning. I am in no gamez however to give him and advancement of diet. In fact I think he should back off on his liquids and told him so. Diaz can come out today. He can start his p.o. meds for his AFib. He is fully anticoagulated now. Postoperative plan narrative: See above. Quality VTE Deep Vein Thrombosis/Pulmonary Embolism Present on Admission: No
--- NOTE | 2020-02-29 15:55 | PT-IP ANOTE ---
Pt refused therapy due to severe nausea, RN informed of pt c/o nausea and refusal.
[2020-02-29] MEDS: PROCHLORPERAZINE 10 MG/2 ML VIAL IV (15:56)
[2020-02-29] MEDS: DILTIAZEM 125 MG/125 ML PIGGYBACK 20 MG IV (16:18)
--- NOTE | 2020-02-29 16:52 | PC.NURSE ---
Addendum entered by Radha Jorgensen R.N. 03/01/20 02:59: Pt not able to urinate, still having loose stools, but no urine output. Dr. Huang notified, pt also SOB. Verbal orders to reinsert altamirano, and keep provider updated. 0033 BP 66/45 Dr. Huang and Marvin Duke updated, verbal orders to give 500ml Bolus of NS and stat cxr. Early lab draw ordered. 0128 NS ordered to infuse at 250ml/hr concurrent with 40mg K rider at 130mL/hr. 0330 BP 102/55 HR 87, currently infusing both gtts noted above, CPAP with 2L bleed in saturation at 98%, bed low and locked, call light within reach, at bedside, report given to oncoming shift, no further pt contact. Original Note: Evening shift note A/0x3, laying in bed, multiple loose stools for dayshift. NG tube and J/P drain removed, ok'd for sips and chips with PO meds. Pt c/o nausea, dayshift gave zofran IV, pt states didn't help. Continues to have incontinent loose BM, changed twice so far. Ditiazem gtt currently infusing at 15ml/hr with HR in 120-147, titrated gtt to 20ml/hr. PO home medications carvedilol given at 1430, no change in rate at this time. Administered compazine IV for continued nausea. at bedside, bed low and locked, call light within reach will continue to monitor. 1600 Dr. Pan consulting on this case, wants to change from gtt to Diltiazem PO, new orders place will begin to titrate gtt down. 1630 Pt converted to SR, Dr. Pan notified, confirmed by EKG, no PO diltiazem administered, order D/C'd will continue to titrate gtt down as tolerated. BP 110/59 HR 74, will continue to monitor.
[2020-02-29] MEDS: HYDROMORPHONE 0.5 MG INJ IV (19:26)
[2020-02-29] MEDS: APIXABAN 5 MG TABLET PO (21:23)
[2020-02-29] MEDS: SODIUM CHLORIDE 0.9% FLUSH 10 ML IV (21:23)
--- NOTE | 2020-02-29 22:13 | DI.RAD.S_ITS ---
PROCEDURE: XR CHEST 1V INDICATIONS: SOB TECHNIQUE: One view of the chest was acquired. COMPARISON: [facility], CR, XR CHEST 1V, 02/26/2020, 11:54. FINDINGS: Surgical changes and devices: None. Lungs and pleura: Lungs are clear. No pleural effusions or pneumothorax. Mediastinum: Mediastinal contours appear normal. Heart is enlarged Bones and chest wall: No suspicious bony lesions. Overlying soft tissues appear unremarkable. IMPRESSION: No acute cardiopulmonary disease process. Dictated by: Alisa Garcia MD, PhD on 03/01/2020 at 8:31 Approved by: Alisa Garcia MD, PhD on 03/01/2020 at 8:32
[2020-02-29] MEDS: LIDOCAINE 2% (UROJET) 5 ML GEL TOP (22:46)
[2020-03-01] VITALS (70 sets, daily range): BP systolic 63–121; BP diastolic 35–93; PULSE 0–93; RESP 8–36; TEMP 35.9–37.4; O2SAT 83–99; BMI 34.6
--- NOTE | 2020-03-01 | PATH_ITS ---
[facility] Accession Number: [id number] . 01 Material submitted: . rectum - RECTAL STUMP . 02 Diagnosis: Rectum, Stump, Resection: 1. Acute ischemia, including transmural ischemia at one resection margin. 2. Serositis. 3. Fibrinoid exudate suggestive of serosal adhesions. 4. Second resection margin appears viable. 5. No evidence of dysplasia or malignancy. MRV 03/03/2020 1701 Local . 02 Electronically signed: . Cori Mcdaniel MD, Pathologist NPI- [id number] . 01 Gross description: . Specimen A is received in formalin, labeled with patient identification and rectal stump. It consists of an unoriented segment of colon measuring 5.1 cm in length and 3.5 cm in diameter. Both ends are stapled shut and are randomly assigned as margin 1 and margin 2. A 1.7 x 0.8 cm unremarkable exposed mucosal opening is present at 0.5 cm to margin 1 and 4.1 cm to margin 2. The pink-ambrose and dull serosa has a 3.5 x 3.0 cm [place]-ambrose and necrotic area which abuts margin 2 and is 2.2 cm to margin 1. Ink code: green-margin 1; black-margin 2; blue-edge of the opening. Opening the specimen reveals thin-walled and [place]-ambrose mucosa with diminished folding at the necrotic area. The uninvolved mucosa is pink-ambrose with normal folding. Transit Mix Operator sections are submitted in four cassettes. . Summary of sections: A1 - margin 1 to the mucosal opening, two pieces. A2-A3 - fulfillment representative margin 2 to normal mucosa, perpendicular, one piece each. A4 - fulfillment representative uninvolved mucosa to the opening, two pieces. ([id number]) /MRV 03/03/2020 1701 Local . 02 Pathologist provided ICD-10: K91.89 . 02 CPT . 244202 Performed at: 01 [facility] [address] [id number] MD Michael Burleson MD Phone: [phone] Performed at: 02 [facility] [address] [place], [place] [id number] MD Cori Mcdaniel MD Phone: [phone]
[2020-03-01] MEDS: SODIUM CHLORIDE 0.9% 500 ML 1000 ML IV (01:00)
[2020-03-01] MEDS: SODIUM CHLORIDE 0.9% 1,000 ML 100 ML IV (01:00)
[2020-03-01 01:04] LABS: Hematocrit 31.5 % (41-53); Hemoglobin 10.7 g/dL (13.5-17.5); Mean Corpuscular HGB Conc 33.9 % (30-36); Mean Corpuscular Hemoglobin 27.8 PG (26-34); Mean Corpuscular Volume 81.9 fL (80-100); Platelet Count 144 X10^3/uL (150-400); Red Blood Cell Count 3.84 X10^6/uL (4.5-5.9); Red Cell Distribution Width 14.2 % (11.6-14.8); White Blood Cell Count 3.1 X10^3/uL (4.5-11.0)
[2020-03-01 01:05] LABS: Add Manual Diff / Slide Review YES; BUN Creatinine Ratio 13.2 (6-22); Blood Urea Nitrogen 18 mg/dL (9-20); Calcium 7.8 mg/dL (8.4-10.2); Carbon Dioxide 28 mmol/L (22-32); Chloride 103 mmol/L (98-107); Glucose 110 mg/dL (80-110); HEMOLYSIS < 15 (0-50); Magnesium 1.6 mg/dL (1.6-2.3); Phosphorous 2.6 mg/dL (2.3-3.7); Potassium 3.5 mmol/L (3.4-5.1); Sodium 136 mmol/L (137-145)
[2020-03-01] MEDS: POTASSIUM CHLORIDE 40 MEQ in SODIUM CHLORIDE 0.9% 500 ML 130 ML IV (01:40)
[2020-03-01 01:54] LABS: Procalcitonin 18.55 ng/mL (<0.5)
[2020-03-01] MEDS: MORPHINE 2 MG/ML INJ 1 MG IV (04:01)
[2020-03-01 04:18] LABS: Total Cells Counted 100
[2020-03-01 04:19] LABS: Neutrophils Absolute Manual 744 /uL (3000-5900)
[2020-03-01 04:21] LABS: Dohle Bodies 2+
--- NOTE | 2020-03-01 04:21 | DI.CT.S_ITS ---
PROCEDURE: CT ABDOMEN PELVIS W CON INDICATIONS: possible post op infection, sepsis TECHNIQUE: After the administration of intravenous contrast, 5 mm thick sections acquired from the diaphragm to the symphysis. 5 mm coronal and sagittal reformats were acquired. For radiation dose reduction, the following was used: automated exposure control, adjustment of mA and/or kV according to patient size. COMPARISON: [facility], CR, XR CHEST 1V, 02/26/2020, 11:54. [facility], CR, XR ACUTE ABDOMEN SERIES, 02/28/2020, 13:26. Outside Facility, RG, CT IVP, 09/14/2019, 18:12. [facility], CT, CT ABDOMEN PELVIS W CON, 01/19/2020, 12:03. FINDINGS: Image quality: Excellent. ABDOMEN: Lung bases: There is a small left pleural effusion. Bilateral dependent atelectasis. Heart size is mildly increased. The distal esophagus is filled with fluid, likely secondary to gastroesophageal reflux. Solid organs: Liver is normal in size and enhancement. Gallbladder contains gallstones. Biliary system is non dilated. Pancreas enhances normally. Spleen is normal in size and enhancement. No adrenal nodules. Kidneys demonstrate normal size and enhancement, without hydronephrosis. Peritoneum and bowel: Stomach is mildly distended with an air-fluid level. There is moderate amount of free air, presumably related to recent laparotomy. Bowel loops demonstrate normal wall thickness and caliber. There is surgical anastomosis is sigmoid colon. A xufvy-ng-lkvsyoug amount of free fluid is present. No organized fluid collections to suggest abscess. No free fluid or air. Nodes and vessels: No retroperitoneal or mesenteric adenopathy by size criteria. Aorta and inferior vena cava are normal in size. Miscellaneous: No ventral hernias. There are surgical skin reji. PELVIS: Genitourinary: Bladder is contracted. There is a Diaz catheter. Air within the bladder lumen is likely iatrogenic. Prostate is surgically absent. Miscellaneous: No inguinal adenopathy. Bilateral fat containing inguinal hernias. Bones: No suspicious bony lesions. No vertebral body compression fractures. IMPRESSION: 1. Moderate amount of free air in the peritoneal cavity likely related to recent surgery. 2. Dilated stomach with air-fluid level probably related to postoperative ileus. 3. A vqzzp-lk-ydoxuwxl amount of free fluid is present. No organized fluid collections to suggest abscess. 4. Cholelithiasis. 5. Small left pleural effusion and bibasilar atelectasis. No significant discrepancy with the machine rough rounder radiology preliminary report. Dictated by: Ekaterina Almonte M.D. on 03/01/2020 at 8:49 Approved by: Ekaterina Almonte M.D. on 03/01/2020 at 11:38
[2020-03-01] MEDS: MAGNESIUM SULFATE 2 GM/50 ML PIGGYBACK IV (04:33)
[2020-03-01] MEDS: ONDANSETRON 4 MG/2 ML INJ IV ×2 (05:19→11:27)
[2020-03-01] MEDS: PROCHLORPERAZINE 10 MG/2 ML VIAL IV (05:28)
[2020-03-01] MEDS: PANTOPRAZOLE 40 MG VIAL 20 MG IV ×2 (05:28→20:26)
[2020-03-01 05:44] LABS: Lactate (Lactic Acid) 1.4 mmol/L (0.7-2.1)
--- NOTE | 2020-03-01 05:44 | P.EN_ITS ---
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 Patient is now postop day 6. I was called to patient bedside in follow-up to prior episode of hypotension that was initially responsive to fluid bolus with pressure back the 90s with a MAP greater than 70. Nursing staff is spoke with Dr. Huang and notification of hypotensive episode and fluid bolus that has been ordered. Had requested labs be drawn finding a white count of 3.1 down from 7.9, and a 19% bandemia. Ordered procalcitonin which was found to be 18.5. At that time is also noted that potassium is 3.5 and magnesium was 1.6 increasing risk of the patient returning into atrial fibrillation, electrolytes replaced in patient received additional fluid boluses 500 cc. Maintenance IV of 100 cc/hours initiated. The patient subjectively improved. Patient was again re-evaluated upon identification of the elevated procalcitonin and found tympanitic abdomen firm to palpation with discomfort, low urine output concentrated urine. Order placed for a stat CT with contrast. Upon completion of imaging call was placed to Dr. Huang provide in the above information course of events who will come and evaluate the patient. -ordered lactate and blood cultures stat. -ordered an additional 2000 cc bolus of normal saline. -ordered meropenem 1 g IV every 8 hours. Thank you for allowing our participation in this patient's care, at this time medicine will continue to follow the patient and defer to the primary surgical team.
[2020-03-01 05:45] LABS: Alanine Aminotransferase 18 IU/L (<50); Albumin 2.9 g/dL (3.5-5.0); Albumin Globulin Ratio 1.3 (1.0-2.8); Alkaline Phosphatase 37 U/L (38-126); Aspartate Aminotransferase 21 IU/L (17-59); BUN Creatinine Ratio 11.5 (6-22); Bilirubin Total 4.6 mg/dL (0.2-1.3); Blood Urea Nitrogen 19 mg/dL (9-20); Calcium 7.7 mg/dL (8.4-10.2); Carbon Dioxide 26 mmol/L (22-32); Chloride 104 mmol/L (98-107); Globulin 2.3 g/dL (1.7-4.1); Glucose 103 mg/dL (80-110); HEMOLYSIS < 15 (0-50); Potassium 4.1 mmol/L (3.4-5.1); Sodium 137 mmol/L (137-145); Total Protein 5.2 g/dL (6.3-8.2)
[2020-03-01] MEDS: TETRACAINE/BENZOCAINE/BUTAMBEN (CETACAINE) BOTTLE 1 SPRAY TOP (05:50)
[2020-03-01] MEDS: MEROPENEM 1 GM/50 ML PIGGYBACK IV ×2 (05:53→17:49)
[2020-03-01] MEDS: SODIUM CHLORIDE 0.9% 2,000 ML 999 ML IV (05:53)
--- NOTE | 2020-03-01 05:55 | PC.NURSE ---
Addendum entered by Mellissa Donald R.N. 03/01/20 09:59: Eliquis reversal given @ 0735. NG to LIS with output of ~350 immediately post placement. [facility]MON[facility] STILL OPERATOR arrived for transport, went down to speak with anesthesia prior to OR. Consent signed at bedside. Addendum entered by Mellissa Donald R.N. 03/01/20 07:16: 0700-Dr Cleary into make plan, will go down to surgery within the hour. LR bolusing. BP stable, 92/51. Addendum entered by Mellissa Donald R.N. 03/01/20 06:20: 0530-Dr Huang at bedside to update , Plan for Surgical intervention today. IVF bolus changed to LR. Lab into obtain blood cultures. Original Note: Assumed care of Pt @ 0315. Pt diaphoretic and moaning in bed. BP 90/50.Second PIV started, K rider infusing. Mag rider added. Fluid bolus infusing for intermittent hypotension. STAT CT ordered, this RN down to CT with Pt, tolerated well. Continue IV fluid boluses to keep MAP >75. HR 70-80 NSR. ABD distended, no BT auscultated Pt reports increased burping and inability to pass flatus. Pale, CPAP with 2L bled in to keep O2 sat >90
[2020-03-01 06:01] LABS: Procalcitonin 50.89 ng/mL (<0.5)
[2020-03-01] MEDS: LACTATED RINGERS 1,000 ML 999 ML IV (06:02)
[2020-03-01] MEDS: LIDOCAINE JELLY 2% 5 ML 5 APPLIC TOP (06:50)
[2020-03-01] MEDS: HYDROMORPHONE 0.5 MG INJ IV ×4 (07:06→22:02)
[2020-03-01] MEDS: PROTHROMBIN CPLX(PCC)4FACT 3,000 UNIT in ISOOSMOTIC VEHICLE 0 ML 740 ML IV (07:30)
--- NOTE | 2020-03-01 07:39 | P.PN_ITS ---
Subjective Subjective Date Patient Seen: 03/01/20 Time Patient Seen: 07:39 Interval history: Acute decompensation overnight with hypotension worsening abdominal pain atrial fibrillation. CT demonstrates gross free air. Started on meropenem nasogastric tube and Diaz catheter were placed. Exam Vital Signs (past 8 hours): - 03/01/20 00:00 03/01/20 00:45 03/01/20 02:00 Temperature 96.6 F L 97.0 F L Pulse Rate 79 84 88 Respiratory Rate 31 H 34 H 36 H Blood Pressure 77/52 L 90/69 85/54 L Pulse Oximetry 97 99 97 03/01/20 03:04 03/01/20 04:00 03/01/20 05:00 Temperature 97.4 F L Pulse Rate 86 86 84 Respiratory Rate 31 H 33 H 31 H Blood Pressure 82/50 L 96/55 L 92/60 Pulse Oximetry 97 94 98 03/01/20 06:10 Temperature Pulse Rate 76 Respiratory Rate 26 H Blood Pressure 120/92 H Pulse Oximetry 94 Oxygen Delivery Method Room Air,CPAP Oxygen Flow Rate 2 Narrative Exam Narrative: General elderly man alert in acute distress Abdomen distended and extremely tender to palpation Extremities warm clammy Objective Labs Result Diagrams: 03/01/20 00:45 03/01/20 05:20 Labs: Laboratory Results - last 24 hr 03/01/20 03/01/20 03/01/20 00:45 00:45 00:45 WBC 3.1 L D RBC 3.84 L Hgb 10.7 L Hct 31.5 L MCV 81.9 MCH 27.8 MCHC 33.9 RDW 14.2 Plt Count 144 L Neut % (Auto) Not Reportable Lymph % (Auto) Not Reportable [place] % (Auto) Not Reportable Eos % (Auto) Not Reportable Baso % (Auto) Not Reportable Lymph # (Auto) Not Reportable [place] # (Auto) Not Reportable Baso # (Auto) Not Reportable Total Counted 100 Seg Neutrophils % 5.0 L Band Neutrophils % 19.0 H Lymphocytes % (Manual) 57.0 H Monocytes % (Manual) 8.0 Metamyelocytes % 6.0 H Myelocytes % 3.0 H Blast Cells % 2.0 H Neutrophils # (Manual) 744 L Dohle Bodies 2+ H RBC Morphology See below Sodium 136 L Potassium 3.5 Chloride 103 Carbon Dioxide 28 BUN 18 Creatinine 1.36 H Estimated GFR 50.0 L BUN/Creatinine Ratio 13.2 Glucose 110 Lactate Calcium 7.8 L Phosphorus 2.6 Magnesium 1.6 Total Bilirubin AST ALT Alkaline Phosphatase Total Protein Albumin Globulin Albumin/Globulin Ratio Procalcitonin 18.55 H Blood Type Antibody Screen Crossmatch 03/01/20 03/01/20 03/01/20 00:45 05:20 05:20 WBC RBC Hgb Hct MCV MCH MCHC RDW Plt Count Neut % (Auto) Lymph % (Auto) [place] % (Auto) Eos % (Auto) Baso % (Auto) Lymph # (Auto) [place] # (Auto) Baso # (Auto) Total Counted Seg Neutrophils % Band Neutrophils % Lymphocytes % (Manual) Monocytes % (Manual) Metamyelocytes % Myelocytes % Blast Cells % Neutrophils # (Manual) Dohle Bodies RBC Morphology Sodium 137 Potassium 4.1 Chloride 104 Carbon Dioxide 26 BUN 19 Creatinine 1.65 H Estimated GFR 40.0 L BUN/Creatinine Ratio 11.5 Glucose 103 Lactate Calcium 7.7 L Phosphorus Magnesium Total Bilirubin 4.6 H AST 21 ALT 18 Alkaline Phosphatase 37 L Total Protein 5.2 L Albumin 2.9 L Globulin 2.3 Albumin/Globulin Ratio 1.3 Procalcitonin 50.89 H Blood Type AB Positive Antibody Screen Negative Crossmatch See Detail 03/01/20 05:20 WBC RBC Hgb Hct MCV MCH MCHC RDW Plt Count Neut % (Auto) Lymph % (Auto) [place] % (Auto) Eos % (Auto) Baso % (Auto) Lymph # (Auto) [place] # (Auto) Baso # (Auto) Total Counted Seg Neutrophils % Band Neutrophils % Lymphocytes % (Manual) Monocytes % (Manual) Metamyelocytes % Myelocytes % Blast Cells % Neutrophils # (Manual) Dohle Bodies RBC Morphology Sodium Potassium Chloride Carbon Dioxide BUN Creatinine Estimated GFR BUN/Creatinine Ratio Glucose Lactate 1.4 Calcium Phosphorus Magnesium Total Bilirubin AST ALT Alkaline Phosphatase Total Protein Albumin Globulin Albumin/Globulin Ratio Procalcitonin Blood Type Antibody Screen Crossmatch Assessment & Plan Post-op Postoperative Procedures: Procedures Operation Date: 02/24/20 09:15 Actual Procedures Side Surgeon p Appendectomy, partial cholectomy, lysis of adhesions Yoa Cleary MD Operation Date: 03/01/20 08:00 <No data on this case meets the specified criteria> Postoperative plan narrative: 85-year-old man postoperative day 6 after an 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 He has an intestinal perforation I suspect that it is from the sigmoid anastomosis that has leaked. He will require emergent exploratory laparotomy. Spoke with the patient and his told him my concern about the anastomotic leak and explained the findings of the CT. I told him I planned to re-open his abdomen through the prior incision identify the source of free air and that he will potentially require either an ileostomy or a colostomy depending on what is feasible to do in the operating room. He resumed his Eliquis for anticoagulation yesterday because he was doing well and he is now receiving 3000 units of a Kcentra for reversal. Quality VTE Deep Vein Thrombosis/Pulmonary Embolism Present on Admission: No
[2020-03-01] MEDS: LACTATED RINGERS 1,000 ML 42 ML IV (08:13)
--- NOTE | 2020-03-01 08:16 | SUR.HOLD ---
Patient brought down from ICU with monitor and O2. Frequent cough, oral suction intermittently. NG to LOU. Spouse at bedside.
--- NOTE | 2020-03-01 08:58 | SUR.OPER ---
Supine on padded OR bed, head on pillow, arms secured on padded arm boards at <90 degrees abduction, legs uncrossed, safety belt at thigh, tape over blanket over lower legs.
--- NOTE | 2020-03-01 09:39 | OT.IP.TRT ---
Current Diagnoses Other specified diseases of appendix (02/24/20) Surgery Performed Operation Date: 02/24/20 09:15 Actual Procedures p Appendectomy, partial cholectomy, lysis of adhesions - Yao Cleary MD Operation Date: 03/01/20 08:00 Actual Procedures p Exploratory Laparotomy GEN - Yao Cleary MD Occupational Therapy Treatment Note M2 OT-IP Current Condition Start: 02/25/20 13:57 Freq: Status: Active Protocol: Document 02/25/20 11:13 [facility] (Rec: 02/25/20 14:16 [facility] [id number]) Occupational Therapy Current Condition Current Condition Evaluation Date 02/25/20 Treatment Diagnosis Appendectomy, partial cholectomy, decreased self care Diagnosis Onset Date 02/24/20 Post Operative Precautions Abdominal Surgery Precautions Log Roll,Lifting Restrictions, Gait Belt above Incisional Area M3 OT- IP Subjective and Pain Start: 02/25/20 13:57 Freq: Status: Active Protocol: Document 03/01/20 09:38 [facility] (Rec: 03/01/20 09:39 [facility] [id number]) OT- Subjective Occupational Therapy Visit Type Type Administrative Note Notes Pt in surgery today. Will hold and follow up after sx.
--- NOTE | 2020-03-01 09:45 | PT-IP ANOTE ---
Unable to see pt, pt going to surgery.
--- NOTE | 2020-03-01 10:28 | SUR.OPER ---
oPEN WOUND IRRIGATED WITH 7 L OF SALINE
--- NOTE | 2020-03-01 11:05 | PM.OP.1 ---
Operative Date/Time/Diagnoses Date of procedure: 03/01/20 Time of procedure: 11:05 Pre-op diagnosis: anastomotic leak Post-op diagnosis: same Procedure & Clinicians Procedure: exploratory laparotomy, partial coelctomy, end colostomy formation, wound vac placement Same procedure as scheduled: Yes Indications: 85M POD 6 SP open appendectomy and partial sigmoid colostomy that decompensated CT demonstrates gross free air taken to OR for exploratory laparotomy. Operative Notes Findings: Ischemic sigmoid anastamosis with leak Specimen(s): other (rectal stump) Estimated Blood Loss (mL): 100 Complications: none Post-operative Condition: stable Disposition: ICU
[2020-03-01] MEDS: ALBUTEROL 2.5 MG/3 ML NEB (ADULT) INH ×2 (11:27→11:39)
[2020-03-01] MEDS: LACTATED RINGERS 1,000 ML 150 ML IV ×2 (13:13→20:26)
--- NOTE | 2020-03-01 13:16 | PC.NURSE ---
Addendum entered by Mellissa Donald R.N. 03/01/20 14:48: Weaning down from 10L, currently 3L NC, Spo2 96% PICC Placed to E by in house line PAULA Martinez. Dual lumen. TPN to start tonight. LIS, NG with little out. Wound vac no issues, @ 125 mmHg. ÁNGEL x1, 90 mls out sero sang drainage. Scds in place. LR bolus going in over 2 hours. Low UOP, Dr Cleary aware, and will follow with boluses PRN. BP stable, 95/54, HR 72. Dilaudid x1 for pat control. CXR done to confirm PICC. Ice chips provided. Original Note: Rec'd Pt from PACU @ 1242 To room 226, Pt is drowsy, and pain is 7/10 to ABD. wound vac working @ 125 mmHg continuous, to midline, black foam intact. L side Ángel drain and new ostomy with scant serosang drainage. Diaz patent, dark clem urine. OR reports only 50mls of output post op. Pt able to open eyes and answer questions, A/o x3. LR @ 150mls/hr PICC line to be placed in house for access. Bp stable 101/57 HR79 NSR. 10L simple mask with coarse rhonchi bilaterally.
--- NOTE | 2020-03-01 14:03 | DI.RAD.S_ITS ---
PROCEDURE: XR CHEST FOR PICC 1V INDICATIONS: PICC placement COMPARISON: [facility], , XR CHEST 1V, 02/29/2020, 22:23. FINDINGS: PICC was placed by the intravenous therapy team from the right side. Fluoroscopic spot film demonstrates the tip of PICC projecting to the area of cavoatrial junction.. IMPRESSION: Tip of PICC projects to the area of cavoatrial junction. Dictated by: Linda Flanagan M.D. on 03/01/2020 at 14:07 Approved by: Linda Flanagan M.D. on 03/01/2020 at 14:08
[2020-03-01] MEDS: METOPROLOL TARTRATE 5 MG/5 ML INJ IV ×2 (14:36→16:56)
[2020-03-01] MEDS: LACTATED RINGERS 1,000 ML 500 ML IV (14:38)
[2020-03-01] MEDS: [UNRECOGNIZED DRUG - OTHER] IV (17:45)
[2020-03-01] MEDS: LYTES IV (17:45)
[2020-03-01] MEDS: TRACE ELEMENTS IV (17:45)
[2020-03-01] MEDS: CALCIUM IV (17:45)
[2020-03-01] MEDS: MULTIVITAMIN IV (17:45)
[2020-03-01] MEDS: DEXT IV (17:45)
[2020-03-01] MEDS: SODIUM CHLORIDE 0.9% FLUSH 10 ML IV (22:03)
[2020-03-02] VITALS (38 sets, daily range): BP systolic 90–132; BP diastolic 53–70; PULSE 73–92; RESP 14–22; TEMP 36.1–36.6; O2SAT 91–100
[2020-03-02] MEDS: METOPROLOL TARTRATE 5 MG/5 ML INJ IV ×4 (01:08→17:06)
[2020-03-02] MEDS: HYDROMORPHONE 0.5 MG INJ IV ×7 (01:59→20:56)
--- NOTE | 2020-03-02 02:13 | PC.NURSE ---
Addendum entered by Matilda Paulino R.N. 03/02/20 06:21: Patient remains in SR with BBB, occasional PVCs, rate 80s, see vital trends. Slept with own C-pap and 4L O2 bleed-in, keeping sats >90%. Medicated with 0.5mg IV Dilaudid twice per his request for abdominal pain. Wound Vac to abdomen patent, GALA put out total 145ml serous-sang drainage, 250ml UOP in Diaz, NGT output 350ml light bile, taking in ice chips. Original Note: [facility] Notes- 99-Initial scheduled IV dose 5mg metoprolol held for low BP 90/53(66) HRR NSR 80s. POLITICAL ANALYST informed and by 99 BP increased to 106/57(75) metoprolol given slowly as ordered, patient tolerated well. He has been drowsy and denies pain at this time. Will continue to monitor.
[2020-03-02] MEDS: LACTATED RINGERS 1,000 ML 150 ML IV (02:53)
[2020-03-02 05:16] LABS: Add Manual Diff / Slide Review NO; Basophils Absolute Auto 0 /uL (0-100); Basophils Percent Auto 0.6 % (0-2); Eosinophils Absolute Auto 0 /uL (0-450); Eosinophils Percent Auto 0.2 % (2-4); Hematocrit 30.6 % (41-53); Hemoglobin 10.1 g/dL (13.5-17.5); Lymphocytes Absolute Auto 1900 /uL (1100-4500); Lymphocytes Percent Auto 26.2 % (25-40); Mean Corpuscular HGB Conc 33.1 % (30-36); Mean Corpuscular Hemoglobin 27.5 PG (26-34); Monocytes Absolute Auto 400 /uL (0-900); Monocytes Percent Auto 5.2 % (3-14); Neutrophils Absolute Auto 5000 /uL (1500-7000); Neutrophils Percent Auto 67.8 % (50-75); Platelet Count 136 X10^3/uL (150-400); Red Blood Cell Count 3.69 X10^6/uL (4.5-5.9); Red Cell Distribution Width 14.5 % (11.6-14.8); White Blood Cell Count 7.4 X10^3/uL (4.5-11.0)
[2020-03-02] MEDS: MEROPENEM 1 GM/50 ML PIGGYBACK IV ×2 (05:18→17:54)
[2020-03-02 05:24] LABS: BUN Creatinine Ratio 21.3 (6-22); Blood Urea Nitrogen 27 mg/dL (9-20); Calcium 7.7 mg/dL (8.4-10.2); Carbon Dioxide 30 mmol/L (22-32); Chloride 105 mmol/L (98-107); Estimated Glomerular Filt Rate 54.2 mL/min (>60); Glucose 157 mg/dL (80-110); HEMOLYSIS < 15 (0-50); Magnesium 2.2 mg/dL (1.6-2.3); Potassium 3.8 mmol/L (3.4-5.1); Sodium 136 mmol/L (137-145)
[2020-03-02] MEDS: SODIUM CHLORIDE 0.9% FLUSH 10 ML IV ×2 (08:55→20:46)
[2020-03-02] MEDS: PANTOPRAZOLE 40 MG VIAL 20 MG IV ×2 (08:55→20:45)
--- NOTE | 2020-03-02 09:45 | P.PN_ITS ---
Subjective Subjective Date Patient Seen: 03/02/20 Time Patient Seen: 09:45 Interval history: No acute overnight events. No fever, or afib. Exam Vital Signs (past 8 hours): - 03/02/20 02:00 03/02/20 03:00 03/02/20 04:00 Pulse Rate 80 80 81 Respiratory Rate 19 14 16 Blood Pressure 105/60 93/53 L 96/55 L Pulse Oximetry 92 91 91 03/02/20 05:00 03/02/20 05:15 03/02/20 06:00 Pulse Rate 85 83 Respiratory Rate 18 15 Blood Pressure 107/61 106/59 L Pulse Oximetry 91 91 91 03/02/20 07:00 03/02/20 08:00 03/02/20 08:05 Pulse Rate 78 78 78 Respiratory Rate 16 16 18 Blood Pressure 115/65 101/56 L Pulse Oximetry 93 93 92 03/02/20 08:13 03/02/20 09:00 Pulse Rate 84 Respiratory Rate 20 Blood Pressure 131/69 Pulse Oximetry 92 93 Oxygen Delivery Method CPAP Oxygen Flow Rate 4 Narrative Exam Narrative: Gen-Elderly man alert and oriented Abdomen-Viable colostomy, air in bag with scant stool. Ext-Warm Objective Labs Result Diagrams: 03/02/20 04:45 03/02/20 04:45 Labs: Laboratory Results - last 24 hr 03/02/20 03/02/20 04:45 04:45 WBC 7.4 D RBC 3.69 L Hgb 10.1 L Hct 30.6 L MCV 83.0 MCH 27.5 MCHC 33.1 RDW 14.5 Plt Count 136 L Neut % (Auto) 67.8 Lymph % (Auto) 26.2 [place] % (Auto) 5.2 Eos % (Auto) 0.2 L Baso % (Auto) 0.6 Neut # (Auto) 5000 Lymph # (Auto) 1900 [place] # (Auto) 400 Eos # (Auto) 0 Baso # (Auto) 0 Sodium 136 L Potassium 3.8 Chloride 105 Carbon Dioxide 30 BUN 27 H Creatinine 1.27 H Estimated GFR 54.2 L BUN/Creatinine Ratio 21.3 Glucose 157 H Calcium 7.7 L Phosphorus 3.0 Magnesium 2.2 Assessment & Plan Post-op Postoperative Procedures: Procedures Operation Date: 02/24/20 09:15 Actual Procedures Side Surgeon p Appendectomy, partial cholectomy, lysis of adhesions Yao Cleary MD Operation Date: 03/01/20 08:00 Actual Procedures Side Surgeon p Exploratory Laparotomy. PARTIAL COLECTOMY. COLOSTOMY FORMATION. APPLICATION OF WOUND VAC Yao Cleary MD Postoperative plan narrative: 85M POD 1 sp end colostomy for anastomotic leak POD 7 SP open appendectomy and partial colectomy. -Remove NGT start clears -OOB physical therapy -Colostomy teaching -SCDs and pLovenox -DC altamirano catheter tomorrow -TPN-protein calorie malnutrion -Meropenem x 5 days intra abdominal contaimination Quality VTE Deep Vein Thrombosis/Pulmonary Embolism Present on Admission: No
--- NOTE | 2020-03-02 10:38 | PT.IPTN ---
Current Diagnoses Other specified diseases of appendix (02/24/20) Surgery Performed Operation Date: 02/24/20 09:15 Actual Procedures p Appendectomy, partial cholectomy, lysis of adhesions - Yao Cleary MD Operation Date: 03/01/20 08:00 Actual Procedures p Exploratory Laparotomy. PARTIAL COLECTOMY. COLOSTOMY FORMATION. APPLICATION OF WOUND VAC - Yao Cleary MD Physical Therapy Treatment Note M2 PT-IP Current Condition Start: 02/25/20 09:42 Freq: NEEDED Status: Active Protocol: Document 02/25/20 12:29 HH (Rec: 02/25/20 13:09 [email or web address]) Physical Therapy Current Condition Current Condition Evaluation Date 02/25/20 Treatment Diagnosis Appendectomy, partial cholectomy, lysis of adhesions , weakness Onset Date 02/24/20 Precautions Abdominal Surgery Precautions Log Roll,Lifting Restrictions, Gait Belt above Incisional Area Weight Bearing Status Weight Bearing Status Full Weight Bearing M3 PT-IP Subjective Start: 02/25/20 09:42 Freq: NEEDED Status: Active Protocol: Document 03/02/20 10:38 AB (Rec: 03/02/20 12:51 AB [email or web address]) Subjective Physical Therapy Visit Type Type Treatment Note Visit Start Time 10:38 Visit Stop Time 11:17 Total Visit Minutes 39 Number of INSTRUMENT MECHANIC Visits 0 Physical Therapy Visit Comments Patient Comments pt is agreeable to do PT Therapy Pain Assessment Pain When Pain Assessed At Rest Pain Present Pain Present Pain Reported Location Abdomen Intensity 2 Scale Used Numeric (0 - 10) Pain Management Techniques Distraction,Modification of Treatment,Re-positioning, Timing of Activity with Medications M4 PT-IP Mobility and Gait Start: 02/25/20 09:42 Freq: NEEDED Status: Active Protocol: Document 03/02/20 10:38 AB (Rec: 03/02/20 12:51 AB [email or web address]) PT-Bed Mobility Assessment Rolling Type of Rolling Log Rolling,Roll to Left Level of Assist Maximal Assistance,2 Person Assistance Supine to Sit Supine to Sit Maximum Assistance,2 Person Assistance,Bedrails Scooting Scooting to Edge of Bed Dependent PT-Transfer Assessment Sit to and From Stand Sit to and from Stand Maximum Assistance,2 Person Assistance,Use of Upper Extremities Equipment Transfer Assistive Device Gait Belt,Abdifatah Walker Orthotic/Prosthetic Devices or Brace: No Transfers Transfer Destination Chair Transfer Technique Stand Step Pivot Transfer Ability Level of Assist Maximum Assistance,2 Person Assistance,Use of Upper Extremities Comments Mobility Comments completed log roll supine to sit max A x 2 and max cues. pt required max A to maintain sitting balance on EOB. presents with increase posterior trunk lean. provided bed handle for support to be able to sit on EOB. completed sit to stand max A x 2-3 and max cues. completed step pivot transfer using hemiwalker max A x 2-3 and max cues. pt with increase trunk and LLE guarding into extension. requires max A for weight shifting and for LE movement. positioned pt on chair. call light and table placed within reach. PT-Balance Assessment Sitting Balance and Reactions Static Sitting Balance Ability Poor Dynamic Sitting Balance Ability Poor Standing Balance and Reactions Static Standing Balance Ability Poor Dynamic Standing Balance Ability Poor Device Used FWW 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 and poor fine motor control able to abduct shoulder approx 40-50 degrees unable to fully extend his L arm and fingers Lower Extremity ROM Assessment Left Impaired Strength Upper Extremity Strength Assessment Left Impaired Shoulder 2- Elbow 3 Wrist 2- Hand 2- Lower Extremity Strength Assessment Left Impaired Hip 3+ Knee 4- Ankle 3 Coordination Assessment Gross Coordination Gross Coordination Impaired Sensation Assessment Sensation Gross Sensation WNL Muscle Tone Muscle Tone WNL No Muscle Tone Location Left Upper Extremity Type of Tone Hypertonicity,Flexor Severity of Tone Moderate M6 PT-IP Treatment Start: 02/25/20 09:42 Freq: NEEDED Status: Active Protocol: Document 03/02/20 10:38 AB (Rec: 03/02/20 12:51 AB [email or web address]) Physical Therapy Treatment Education Education Provided Safety M7 PT-IP Assessment and Plan Start: 02/25/20 09:42 Freq: NEEDED Status: Active Protocol: Document 03/02/20 10:38 AB (Rec: 03/02/20 12:51 AB [email or web address]) PT Summary Assessment and Plan Potential Rehabilitation Potential Fair Summary Impairments Pain,ROM,Strength,Balance, Coordination,Sensation,Tone, Cognition,Bed Mobility, Transfers,Gait,Activity Tolerance Progress Towards Goals Slow Progress due to Medical Issues,Slow Progress due to Activity Tolerance,Slow Progress - Other Assessment Summary pt underwent another ex-lap surgery yesterday. pt requiring max A x 2-3 for mobility and presents with unsteadiness in sitting and standing. pt has h/o CVA with L sided weakness contributing to difficulty in movement. pt will require SNF rehab to improve strength and functional mobility. Goals Bed Mobility Goal Minimal Assistance Transfer Goal Moderate Assistance Gait Goal Moderate Assistance,Abdifatah Walker Gait Distance 25 Days to Meet Goals 10 Frequency of Treatment Frequency Of Treatment Once a Day Treatment Plan Physical Therapy Treatment Plan Bed Mobility Training,Transfer Training,Gait Training, Therapeutic Exercise,Balance Retraining,Post Op Education, Discharge Planning,Hot or Cold Pack,Neuromuscular Re-ed, Coordination Retraining,Manual Therapy Other Recommendations and Next Treatment transfers Focus Recommendations To Nursing Amount of Assist Needed Mechanical Lift Discharge Recommendations PT Discharge Recommendations SNF Rehab Transportation Needs at Discharge Wheelchair/Cabulance
--- NOTE | 2020-03-02 10:51 | P.PN_ITS ---
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 Yesterday patient became more hemodynamically unstable. Repeat CT scan showed intra-abdominal free air and patient was taken back to the operating room for presumed anastamotic leak. Patient underwent end colostomy and had small portions of the area of bowel resected yesterday morning. He remains NPO but is more hemodynamically stable. He was started on TPN for nutrition and his electrolytes are okay this AM. His TIEN from yesterday has improved today. He remains in sinus rhythm and is on standing IV metoprolol for rate control. He is requiring a bit more supplemental oxygen through his CPAP today, patient was both on TPN and additional LR, given his heart history LR was held. Patient does have small amount of gas in his colostomy bag. He complains of incisional pain that is controlled with medications. He gets slightly confused after pain medication per at bedside. Exam Vital Signs (past 8 hours): - 03/02/20 03:00 03/02/20 04:00 03/02/20 05:00 Pulse Rate 80 81 85 Respiratory Rate 14 16 18 Blood Pressure 93/53 L 96/55 L 107/61 Pulse Oximetry 91 91 91 03/02/20 05:15 03/02/20 06:00 03/02/20 07:00 Pulse Rate 83 78 Respiratory Rate 15 16 Blood Pressure 106/59 L 115/65 Pulse Oximetry 91 91 93 03/02/20 08:00 03/02/20 08:05 03/02/20 08:13 Pulse Rate 78 78 Respiratory Rate 16 18 Blood Pressure 101/56 L Pulse Oximetry 93 92 92 03/02/20 09:00 03/02/20 10:00 Pulse Rate 84 83 Respiratory Rate 20 16 Blood Pressure 131/69 112/66 Pulse Oximetry 93 92 Oxygen Delivery Method CPAP Oxygen Flow Rate 4 Narrative Exam Narrative: General: Elderly male lying in bed and in no acute distress, well-developed, well-nourished, appropriately interactive. HEENT: Normocephalic, atraumatic. External ears without defect. Pupils equal, round, and reactive to light. Anicteric sclerae, moist conjunctivae, and no lid lag. NG tube in place without signficant drainage in the tubing. Neck: Supple with full range of motion. no JVD. No lymphadenopathy or thyromegaly. Cardiovascular: RRR without murmurs, rubs, or gallops appreciated. Pulmonary: Diminished throughout especially in right lower lobe but clear to auscultation bilaterally with fine bibasilar crackles. No wheezes or rhonchi. Normal respiratory effort with no use of accessory muscles. Abdomen: Abdomen soft, appropriately tender. Wound vac in place without surrounding erythema. Colostomy in place with gas, no stool. Extremities: No clubbing or cyanosis. Trace edema to pretibial area bilaterally. Skin: Normal temperature, turgor, and texture; no rash, ulcers, or subcutaneous nodules appreciated. Neurological: Cranial nerves grossly intact. Chronic residual left-sided weakness from CVA. Psychiatric: Normal mood and affect. Alert. Objective Labs Result Diagrams: 03/02/20 04:45 03/02/20 04:45 Labs: Laboratory Results - last 24 hr 03/02/20 03/02/20 04:45 04:45 WBC 7.4 D RBC 3.69 L Hgb 10.1 L Hct 30.6 L MCV 83.0 MCH 27.5 MCHC 33.1 RDW 14.5 Plt Count 136 L Neut % (Auto) 67.8 Lymph % (Auto) 26.2 [place] % (Auto) 5.2 Eos % (Auto) 0.2 L Baso % (Auto) 0.6 Neut # (Auto) 5000 Lymph # (Auto) 1900 [place] # (Auto) 400 Eos # (Auto) 0 Baso # (Auto) 0 Sodium 136 L Potassium 3.8 Chloride 105 Carbon Dioxide 30 BUN 27 H Creatinine 1.27 H Estimated GFR 54.2 L BUN/Creatinine Ratio 21.3 Glucose 157 H Calcium 7.7 L Phosphorus 3.0 Magnesium 2.2 Assessment & Plan Assessment & Plan narrative: Eddie Burk is an 85-year-old male with a past medical history significant for coronary artery disease status post PA, CVA with residual left-sided hemiparesis, hypertension, hyperlipidemia, 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 The patient was found to have dense intra-abdominal adhesions and laparoscopic appendectomy was converted to open laparotomy and required partial sigmoid colectomy. That surgery was complicated by an anastomotic leak and is now POD#1 from end colostomy with additional small bowel resection. 1. Anastamotic leak of partial sigmoid colectomy now s/p end colostomy placement with additional bowel resection - continued management per surgery, agree with meropenem x5 days for intra- abdominal contamination. - monitor bowel function. 2. Paroxysmal atrial fibrillation with acute RVR, chronic, present on admission. RVR and afib resolved. -Patient spouse reports previous history of atrial fibrillation and reports that is why he is on Eliquis. -Repeat TSH normal at 0.72. -Echocardiogram demonstrated mildly-moderately increased left ventricular thickness (concentric) with normal size and hyperdynamic systolic function (EF 70-75%), normal right ventricular size and function, mild aortic stenosis (valve area 1.6cm2, mean gradient 16mmHg), IVC is dilated (diameter is greater than 2.1 cm) and it collapses less than 50% with a sniff. This suggests a high right atrial pressure of 15 mm Hg. -Discontinued IV fluids today. Patient has been previously diuresed. He is requiring a bit more supplemental oxygen via CPAP. Will hold on diuresis as his kidney function is improving and I expect him to auto-diurese. If no signficant improvement consider small amount of IV lasix. -CHADS2 Vasc score 6. Discontinued therapeutic enoxaparin. Restarted home Eliquis 5 mg twice daily but then held. Restart apixaban as soon as feasible per surgery. -Restart home carvedilol increased from 6.25 mg to 12.5 mg twice daily once toe lrating oral intake. Continue metoprolol 5 mg IV q6 hr while NPO for rate control. -Continue to monitor electrolytes and replete as necessary and adjust TPN. Goal K > 4.0 and Mg > 2.0. 3. Hypertension, chronic, present on admission. Stable. -continue to hold until blood pressures improved, opt for rate control agents at this time to avoid afib. 4. ASCVD with history of PA status post stent x1 and CVA with residual left- sided weakness on Eliquis, chronic, present on admission. Presumed stable. -Patient reports he was previously on statin therapy but is no longer on statin due to side effects. Patient reports that he is on a weekly injection called Repatha (Evolocumab) to lower LDL. -The patient is followed by [facility] cardiology Dr. Jones. 5. Prostate cancer status post recent complicated robotic laprascopic prostatectomy requiring conversion to open procedure. -Continue previous outpatient follow-up per PCP or oncology. 6. Obstructive sleep apnea on CPAP, present on admission. Stable. -Continue home CPAP. 7. Sepsis, not pressent on admission, resolved. - secondary to anastamotic leak with corresponding intra-abdominal contamination. - patient with hypotension that responded to fluid resuscitation, TIEN, and thrombocytopenia. - meropenem x 5 days as noted above. 8. Acute kidney injury - Creatinine yesterday jumped to 1.65 from baseline 0.7-0.8. Likely secondary to intra-abdominal leak / contamination and sepsis as noted above. Improved today to 1.27. - continue to monitor creatinine and avoid nephrotoxic agents. Medicine will continue to follow at this time. Code: Full Quality VTE Deep Vein Thrombosis/Pulmonary Embolism Present on Admission: No
--- NOTE | 2020-03-02 13:06 | CM.DPC ---
DCP SNF Planning: Per MD, pt tolerated the emergent exploratory Lap procedure well and today pt with PICC placed, to begin TPN, currently with wound vac and new colostomy and requiring about 4L oxygen and home CPAP with 5 days IV-Abx. SW called [facility] admissions with update on pt status and they continue to follow and confirm pt is still accepted and will still need updated COVID test closer to d/c. SW attempted to meet bedside with pt and spouse x2 today just to check in but pt was getting cleaned up and also working with OT. Plan: SW to follow for plan of d/c to [facility] with updated COVID likely in a few days and to determine if wound vac needed at d/c and any further care needs. Spouse has been supportive and bedside. ARABELLA Franco
--- NOTE | 2020-03-02 13:34 | OT.IP.TRT ---
Current Diagnoses Other specified diseases of appendix (02/24/20) Surgery Performed Operation Date: 02/24/20 09:15 Actual Procedures p Appendectomy, partial cholectomy, lysis of adhesions - Yao Cleary MD Operation Date: 03/01/20 08:00 Actual Procedures p Exploratory Laparotomy. PARTIAL COLECTOMY. COLOSTOMY FORMATION. APPLICATION OF WOUND VAC - Yao Cleary MD Occupational Therapy Treatment Note M2 OT-IP Current Condition Start: 02/25/20 13:57 Freq: Status: Active Protocol: Document 02/25/20 11:13 [facility] (Rec: 02/25/20 14:16 [facility] [id number]) Occupational Therapy Current Condition Current Condition Evaluation Date 02/25/20 Treatment Diagnosis Appendectomy, partial cholectomy, decreased self care Diagnosis Onset Date 02/24/20 Post Operative Precautions Abdominal Surgery Precautions Log Roll,Lifting Restrictions, Gait Belt above Incisional Area M3 OT- IP Subjective and Pain Start: 02/25/20 13:57 Freq: Status: Active Protocol: Document 03/02/20 13:26 [facility] (Rec: 03/02/20 13:34 [facility] [id number]) OT- Subjective Occupational Therapy Visit Type Type Treatment Note Visit Start Time 13:02 Visit Stop Time 13:25 Total Visit Minutes 23 Occupational Therapy Visit Comments Patient Comments Pt wanting to get back to bed. OT Pain Assessment Pain When Pain Assessed During Mobility Pain Present Pain Present Pain Reported M4 OT- IP ADL's Start: 02/25/20 13:57 Freq: Status: Active Protocol: Document 03/02/20 13:26 [facility] (Rec: 03/02/20 13:34 [facility] [id number]) OT ADL-Dressing General Eval Lower Body Dressing Ability Total Assistance OT ADL-Bathing Bathing Type Bathing Type Sponge Bath General Evaluation Bathing Ability Maximal Assistance Areas Needing Assistance Wash/Dry Back,Wash/Dry Perineal Area,Wash/Dry Lower Extremities M5 OT- IP IADL's Start: 02/25/20 13:57 Freq: Status: Active Protocol: Document 02/25/20 11:13 [facility] (Rec: 02/25/20 14:16 [facility] [id number]) OT-Instrumental Activities of Daily Living Manager Material Manager Material Caregiver Provides Assist Manager Material Comments Prior pt likes to assist to take out the trash. M6 OT- IP Functional Cognition Start: 02/25/20 13:57 Freq: Status: Active Protocol: Document 02/25/20 11:13 [facility] (Rec: 02/25/20 14:16 [facility] [id number]) Cognitive Factors Limiting Selfcare Function Cognitive Ability Level of Alertness Alert Patient Orientation Name,Place,Situation Attention Span Ability Capable of Focused Attention, Capable of Sustained Attention Ability to Follow Commands Able to Follow Multi-Step Commands Cognitive Comments Cognitive Assessment Comments Pt appears to be at baseline for cognition and able to follow 1-2 step commands appropriately. OT- Vision and Hearing OT- Hearing Assessment OT- Hearing Assessment WFL OT- Vision Assessment Visual Acuity WFL M7 OT- IP Mobility and Balance Start: 02/25/20 13:57 Freq: Status: Active Protocol: Document 03/02/20 13:26 [facility] (Rec: 03/02/20 13:34 [facility] [id number]) OT- Bed Mobility Assessment Rolling Type of Rolling Bilateral Level of Assistance Moderate Assistance,2 Person Assistance,Bedrails OT-Transfer Assessment Sit to and From Stand Sit to and from Stand Maximum Assistance,1 Person Assistance Transfers Transfer Ability Maximum Assistance,2 Person Assistance Technique Transfer Destination Bed,Chair Devices Transfer Assistive Devices Gait Belt,Abdifatah Walker Comments Mobility Comments MAX X 3 with hemiwalker to transfer to the right from the recliner to bed. Dependent to help get from sitting to supine due to abdominal precautions and pain. OT- Gait Assessment Comments Gait Ability Comments Transfer only with OT/PT , otherwise use of mechanical lift. OT- Balance Assessment Sitting Balance and Reactions Static Sitting Balance Ability Fair Standing Balance and Reactions Static Standing Balance Ability Poor Dynamic Standing Balance Ability Poor M8 OT- IP Objective Assessments Start: 02/25/20 13:57 Freq: Status: Active Protocol: Document 02/25/20 11:13 [facility] (Rec: 02/25/20 14:16 [facility] [id number]) OT Gross Range of Motion Upper Extremity Range of Motion Assessment Left Impaired OT Strength Upper Extremity Strength Assessment Left Impaired Shoulder 2- Elbow 3 Forearm 2- Wrist 2- Hand 2- OT-Muscle Tone Assessment Muscle Tone WNL No Muscle Tone Location Left Upper Extremity Type of Tone Hypotonicity M9 OT- IP Assessment and Plan Start: 02/25/20 13:57 Freq: Status: Active Protocol: Document 03/02/20 13:26 [facility] (Rec: 03/02/20 13:34 [facility] [id number]) OT Summary Assessment and Plan Potential Rehabilitation Potential Fair Analytic Complexity at Evaluation Moderate Summary OT Impairments Pain,Balance,Functional Mobility,Grooming,Dressing, Toileting,Bathing,Toilet Transfers,Shower Transfers, Activity Tolerance Progress Towards Goals Slow Progress due to Medical Issues Assessment Summary Pt on 03/01 had an exploratory laprotomy, partial colectomy, end colostomy fromation and wound vac placement . Pthas history of old CVA with left UE and LE weakness and needing MAX X 3 for transfer or mechanical lift at this time. Pt is far for baseline and would be best to have skilled rehab prior to going home. Goals Self-Feeding Goal Independent Grooming Goal Independent Dressing Goal Minimal Assistance Toileting Goal Moderate Assistance Bathing Goal Moderate Assistance Toilet Transfer Goal Standby Assistance Shower Transfer Goal Minimal Assistance Patient/Caregiver Education Goal Demonstrate Post-Op Precautions,Caregiver Independent Assisting Patient Days to Meet Goals 15 Frequency of Treatment Frequency Of Treatment Once a Day Treatment Plan OT Treatment Plan ADL Training,Functional Mobility,Patient/Family Education,Discharge Planning Other Treatment Recommendations and Next MAX A x2 with hemiwalker to Treatment Focus BSC. Discharge Recommendations OT Discharge Recommendations SNF Rehab Home Equipment Needs Defer to SNF Transportation Needs at Discharge Wheelchair/Cabulance,Stretcher /Ambulance
--- NOTE | 2020-03-02 14:48 | PC.NURSE ---
Day Shift Note Pt up to chair this afternoon with PT/OT assist, required 3 person max assist to transfer. Desatted to 86% on RA with activity, placed on 2L NC with sats increasing to 96%. Audible wheezing present when initially sitting up in bed but this resolved with rest. Reports pain to abdomen 6/10 and abdomen tender to the touch, distended. Dilaudid IV being given prn for pain control, pt reports this is effective. Instructed on use of pillow to splint abdomen when coughing. Flatus noted to colostomy bag as well as liquid brown/rust stool. NG tube d/c'd at 1430 per MD order. GALA drain in place and compressed, wound vac to abdomen intact. Hypoactive BTs noted. Denies nausea. Diaz catheter in place and draining clear dark clem urine. Call light is within reach. Bed alarm is on.
[2020-03-02] MEDS: MULTIVITAMIN IV (17:25)
[2020-03-02] MEDS: TRACE ELEMENTS IV (17:25)
[2020-03-02] MEDS: CALCIUM IV (17:25)
[2020-03-02] MEDS: [UNRECOGNIZED DRUG - OTHER] IV (17:25)
[2020-03-02] MEDS: LYTES IV (17:25)
[2020-03-02] MEDS: DEXT IV (17:25)
[2020-03-02] MEDS: FAT EMULSIONS 50 GM/250 ML EMULSION IV (17:54)
--- NOTE | 2020-03-02 18:51 | PC.NURSE ---
Ostomy Nurse Consult Note Rio in bed yet responds. His Odalys is here. I know both of them from [facility]. I explained some anatomy of a colostomy to Odalys and gave her the [employer] New Patient Guide. Rio is too sleepy to do any teaching at this time. I removed his pouch and his stoma looked dark, although he is producing liquid effluent. I decided to remove the whole appliance. After cleaning some dark slough off his stoma is became moist and red again. I took a picture and showed Lily his nurse his stoma. His stoma is flush with his skin. The sutures are intact. I placed him in a Convatec moldable 57mm wafer two piece and a clear non-filter pouch. His GALA drain is intact and draining straw colored fluid. His wound vac is in place at 125mmHg continuous. I did have to remove some of the drape to change his appliance and replaced the drape I removed. His wound vac continues to hold pressure at 125mmHg. I text Dr. Tolbert and told her about the stoma and that it is now red and moist. She will relay this to Dr. Cleary tomorrow. I will return tomorrow evening to continue with education and stoma assessments. Odalys and I did speak about discharge. She and Rio are living in two residents one on [facility] and down near [place]. We discussed being followed up at a wound care center and that could be in any one of them in [facility] or [facility]. We also discussed SNF placement, but she would rather have him home with home health and learning herself to care for Rio. I told here there will be several discussion regarding discharge and we work as a team to find the best solution for Rio and Odalys.
--- NOTE | 2020-03-02 22:16 | PC.NURSE ---
End of shift report, 2230, Pt alert and orientedx4, turned q 2 hr as patient does not shift his weight on his own. Medicated q 2-3 hrs for pain with good relief. Colostomy bag removed and stoma cleaned and photographed by the ostomy nurse. Stoma is beefy red with few dark areas around the edges. New bag applied per ostomy nurse. Wound vac maintained to midline incision. GALA draining serous drainage. Urine output improving. Using CPAP with 2l O2 when sleeping.
[2020-03-03] VITALS (13 sets, daily range): BP systolic 117–148; BP diastolic 58–78; PULSE 78–84; RESP 14–27; TEMP 36.1–37.2; O2SAT 93–99
[2020-03-03] MEDS: METOPROLOL TARTRATE 5 MG/5 ML INJ IV ×2 (00:24→06:07)
[2020-03-03] MEDS: HYDROMORPHONE 0.5 MG INJ IV ×8 (00:24→19:04)
[2020-03-03 05:16] LABS: Add Manual Diff / Slide Review NO; Basophils Absolute Auto 0 /uL (0-100); Basophils Percent Auto 0.3 % (0-2); Eosinophils Absolute Auto 200 /uL (0-450); Eosinophils Percent Auto 1.6 % (2-4); Hematocrit 29.1 % (41-53); Hemoglobin 9.6 g/dL (13.5-17.5); Lymphocytes Absolute Auto 2400 /uL (1100-4500); Lymphocytes Percent Auto 24.3 % (25-40); Mean Corpuscular Hemoglobin 27.3 PG (26-34); Mean Corpuscular Volume 82.8 fL (80-100); Monocytes Absolute Auto 300 /uL (0-900); Monocytes Percent Auto 3.4 % (3-14); Neutrophils Absolute Auto 6900 /uL (1500-7000); Neutrophils Percent Auto 70.4 % (50-75); Platelet Count 144 X10^3/uL (150-400); Red Blood Cell Count 3.52 X10^6/uL (4.5-5.9); Red Cell Distribution Width 14.9 % (11.6-14.8); White Blood Cell Count 9.7 X10^3/uL (4.5-11.0)
[2020-03-03 05:26] LABS: BUN Creatinine Ratio 25.5 (6-22); Blood Urea Nitrogen 25 mg/dL (9-20); Calcium 7.7 mg/dL (8.4-10.2); Carbon Dioxide 29 mmol/L (22-32); Chloride 103 mmol/L (98-107); Estimated Glomerular Filt Rate > 60.0 mL/min (>60); Glucose 133 mg/dL (80-110); HEMOLYSIS < 15 (0-50); Magnesium 2.3 mg/dL (1.6-2.3); Phosphorous 3.3 mg/dL (2.3-3.7); Potassium 3.6 mmol/L (3.4-5.1); Sodium 137 mmol/L (137-145)
[2020-03-03] MEDS: MEROPENEM 1 GM/50 ML PIGGYBACK IV ×2 (06:14→17:37)
--- NOTE | 2020-03-03 06:27 | PC.NURSE ---
Recreation Activities Coordinator Note-Patient slept most of night, requests pain medication twice when awake for turning and care. Remains in SR, BBB, scheduled IV metoprolol given, NS @ TKO for meds and abx, TPN and lipids infused, tolerating ice chips without nausea, abdomen distended with hypoactive BS, no output in colostomy, wound vac patent, total 100ml serous drainage from GALA, 400ml UOP
[2020-03-03] MEDS: POTASSIUM CHLORIDE 40 MEQ in SODIUM CHLORIDE 0.9% 500 ML 130 ML IV (06:57)
[2020-03-03] MEDS: SODIUM CHLORIDE 0.9% FLUSH 10 ML IV ×2 (07:33→20:34)
--- NOTE | 2020-03-03 09:12 | PM.PNPO.1 ---
Subjective Subjective Date Patient Seen: 03/03/20 Time Patient Seen: 09:12 Interval history: No acute overnight events. Had gas and some small amount of stool within the colostomy bag. Nasogastric tube removed yesterday started clear liquid diet. Exam Vital Signs (past 8 hours): - 03/03/20 04:38 03/03/20 05:00 03/03/20 08:30 Temperature 97.0 F L 98.9 F Pulse Rate 79 84 Respiratory Rate 14 27 H Blood Pressure 117/58 L 148/78 H Pulse Oximetry 94 94 99 Oxygen Delivery Method Nasal Cannula,CPAP Oxygen Flow Rate 1 Narrative Exam Narrative: General elderly man alert following commands Chest nonlabored respirations Abdomen soft appropriately tender to palpation colostomy viable, wound VAC to midline Objective Labs Result Diagrams: 03/03/20 05:00 03/03/20 05:00 Labs: Laboratory Results - last 24 hr 03/03/20 03/03/20 05:00 05:00 WBC 9.7 RBC 3.52 L Hgb 9.6 L Hct 29.1 L MCV 82.8 MCH 27.3 MCHC 33.0 RDW 14.9 H Plt Count 144 L Neut % (Auto) 70.4 Lymph % (Auto) 24.3 L [place] % (Auto) 3.4 Eos % (Auto) 1.6 L Baso % (Auto) 0.3 Neut # (Auto) 6900 Lymph # (Auto) 2400 [place] # (Auto) 300 Eos # (Auto) 200 Baso # (Auto) 0 Sodium 137 Potassium 3.6 Chloride 103 Carbon Dioxide 29 BUN 25 H Creatinine 0.98 Estimated GFR > 60.0 BUN/Creatinine Ratio 25.5 H Glucose 133 H Calcium 7.7 L Phosphorus 3.3 Magnesium 2.3 Assessment & Plan Post-op Postoperative Procedures: Procedures Operation Date: 02/24/20 09:15 Actual Procedures Side Surgeon p Appendectomy, partial cholectomy, lysis of adhesions Yao Cleary MD Operation Date: 03/01/20 08:00 Actual Procedures Side Surgeon p Exploratory Laparotomy. PARTIAL COLECTOMY. COLOSTOMY FORMATION. APPLICATION OF WOUND VAC Yao Cleary MD Postoperative status narrative: 85-year-old man postoperative day 2 after a sigmoid colectomy and end-colostomy for anastomotic leak after a sigmoid resection. Overall he is making gradual recovery. -advance diet to regular -continue TPN until tolerating regular diet and taking adequate oral nutrition -will start home anticoagulation with Eliquis today -continue meropenem for 5 days total for intra-abdominal contamination -will change the who midline wound VAC today at bedside -continue ostomy teaching -remove Diaz catheter this afternoon Quality VTE Deep Vein Thrombosis/Pulmonary Embolism Present on Admission: No
[2020-03-03] MEDS: carvediloL 6.25 MG TABLET PO ×2 (12:11→20:35)
--- NOTE | 2020-03-03 12:13 | P.PN_ITS ---
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 Patient was taken back to the operating room for presumed anastamotic leak. Patient underwent end colostomy and had small portions of the area of bowel resected. He has been passing gas from the colostomy and continues to improve. He was started on a diet but states he has not tolerated much this morning. He denies nausea or vomiting, he endorses appropriate tenderness. His oxygen requirement is less this morning. His kidney function continues to improve. Exam Vital Signs (past 8 hours): - 03/03/20 04:38 03/03/20 05:00 03/03/20 08:30 Temperature 97.0 F L 98.9 F Pulse Rate 79 84 Respiratory Rate 14 27 H Blood Pressure 117/58 L 148/78 H Pulse Oximetry 94 94 99 03/03/20 10:20 Temperature Pulse Rate Respiratory Rate Blood Pressure Pulse Oximetry 93 Oxygen Delivery Method Room Air Oxygen Flow Rate 0 Narrative Exam Narrative: General: Elderly male lying in bed and in no acute distress, well-developed, well-nourished, appropriately interactive. HEENT: Normocephalic, atraumatic. External ears without defect. Pupils equal, round, and reactive to light. Anicteric sclerae, moist conjunctivae, and no lid lag. NG tube in place without signficant drainage in the tubing. Neck: Supple with full range of motion. no JVD. No lymphadenopathy or thyromegaly. Cardiovascular: RRR without murmurs, rubs, or gallops appreciated. Pulmonary: Diminished throughout especially in left lower lobe today but clear to auscultation bilaterally today. No wheezes or rhonchi. Normal respiratory effort with no use of accessory muscles. Abdomen: Abdomen soft, appropriately tender. Wound vac in place without surrounding erythema. Colostomy in place with gas, no stool. Extremities: No clubbing or cyanosis. Trace edema to pretibial area bilaterally. Skin: Normal temperature, turgor, and texture; no rash, ulcers, or subcutaneous nodules appreciated. Neurological: Cranial nerves grossly intact. Chronic residual left-sided weakness from CVA. Psychiatric: Normal mood and affect. Alert. Objective Labs Result Diagrams: 03/03/20 05:00 03/03/20 05:00 Labs: Laboratory Results - last 24 hr 03/03/20 03/03/20 05:00 05:00 WBC 9.7 RBC 3.52 L Hgb 9.6 L Hct 29.1 L MCV 82.8 MCH 27.3 MCHC 33.0 RDW 14.9 H Plt Count 144 L Neut % (Auto) 70.4 Lymph % (Auto) 24.3 L Reynolds % (Auto) 3.4 Eos % (Auto) 1.6 L Baso % (Auto) 0.3 Neut # (Auto) 6900 Lymph # (Auto) 2400 Reynolds # (Auto) 300 Eos # (Auto) 200 Baso # (Auto) 0 Sodium 137 Potassium 3.6 Chloride 103 Carbon Dioxide 29 BUN 25 H Creatinine 0.98 Estimated GFR > 60.0 BUN/Creatinine Ratio 25.5 H Glucose 133 H Calcium 7.7 L Phosphorus 3.3 Magnesium 2.3 Assessment & Plan Assessment & Plan narrative: Eddie Burk is an 85-year-old male with a past medical history significant for coronary artery disease status post ID, CVA with residual left-sided hemiparesis, hypertension, hyperlipidemia, 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 The patient was found to have dense intra-abdominal adhesions and laparoscopic appendectomy was converted to open laparotomy and required partial sigmoid colectomy. That surgery was complicated by an anastomotic leak and is now POD#2 from end colostomy with additional small bowel resection from which he now appears to be recovering well. 1. Anastamotic leak of partial sigmoid colectomy now s/p end colostomy placement with additional bowel resection - continued management per surgery, agree with meropenem x5 days for intra- abdominal contamination. - monitor bowel function. 2. Paroxysmal atrial fibrillation with acute RVR, chronic, present on admission. RVR and afib resolved. -Patient spouse reports previous history of atrial fibrillation and reports that is why he is on Eliquis. -Repeat TSH normal at 0.72. -Echocardiogram demonstrated mildly-moderately increased left ventricular thickness (concentric) with normal size and hyperdynamic systolic function (EF 70-75%), normal right ventricular size and function, mild aortic stenosis (valve area 1.6cm2, mean gradient 16mmHg), IVC is dilated (diameter is greater than 2.1 cm) and it collapses less than 50% with a sniff. This suggests a high right atrial pressure of 15 mm Hg. -Discontinued IV fluids on POD#1 for worsening O2 requirements. Seems to have autodiuresed and he is not requiring as much supplemental oxygen today. No need for diuresis at this time. -CHADS2 Vasc score 6. Discontinued therapeutic enoxaparin. Restarted home Eliquis 5 mg twice daily but then held for surgery. To resume this evening after discussion with surgery. -Will restart home carvedilol 6.25 mg BID starting today as he is tolerating oral agents. May need to titrate up as prior to 2nd surgery he was on 12.5 mg BID. -Continue to monitor electrolytes and replete as necessary and adjust TPN. Goal K > 4.0 and Mg > 2.0. 3. Hypertension, chronic, present on admission. Stable. -continue to hold until blood pressures improved, opt for rate control agents at this time to avoid afib. 4. ASCVD with history of ID status post stent x1 and CVA with residual left- sided weakness on Eliquis, chronic, present on admission. Presumed stable. -Patient reports he was previously on statin therapy but is no longer on statin due to side effects. Patient reports that he is on a weekly injection called Repatha (Evolocumab) to lower LDL. -The patient is followed by [facility] cardiology Dr. Jones. 5. Prostate cancer status post recent complicated robotic laprascopic prostatectomy requiring conversion to open procedure. -Continue previous outpatient follow-up per PCP or oncology. 6. Obstructive sleep apnea on CPAP, present on admission. Stable. -Continue home CPAP. 7. Sepsis, not pressent on admission, resolved. - secondary to anastamotic leak with corresponding intra-abdominal contamination. - patient with hypotension that responded to fluid resuscitation, TIEN, and thrombocytopenia. - meropenem x 5 days as noted above. 8. Acute kidney injury - Creatinine yesterday jumped to 1.65 from baseline 0.7-0.8. Likely secondary to intra-abdominal leak / contamination and sepsis as noted above. Improved today to 0.98. - continue to monitor creatinine and avoid nephrotoxic agents. Medicine will continue to follow at this time. Code: Full Quality VTE Deep Vein Thrombosis/Pulmonary Embolism Present on Admission: No
--- NOTE | 2020-03-03 13:04 | OT.IPNOTE ---
Pt just completed wound care and wanting to rest longer, therefore OT to check on pt tomorrow for OT needs.
--- NOTE | 2020-03-03 15:10 | PT.IPTN ---
Current Diagnoses Other specified diseases of appendix (02/24/20) Surgery Performed Operation Date: 02/24/20 09:15 Actual Procedures p Appendectomy, partial cholectomy, lysis of adhesions - Yao Cleary MD Operation Date: 03/01/20 08:00 Actual Procedures p Exploratory Laparotomy. PARTIAL COLECTOMY. COLOSTOMY FORMATION. APPLICATION OF WOUND VAC - Yao Cleary MD Physical Therapy Treatment Note M2 PT-IP Current Condition Start: 02/25/20 09:42 Freq: NEEDED Status: Active Protocol: Document 02/25/20 12:29 HH (Rec: 02/25/20 13:09 [id number]) Physical Therapy Current Condition Current Condition Evaluation Date 02/25/20 Treatment Diagnosis Appendectomy, partial cholectomy, lysis of adhesions , weakness Onset Date 02/24/20 Precautions Abdominal Surgery Precautions Log Roll,Lifting Restrictions, Gait Belt above Incisional Area Weight Bearing Status Weight Bearing Status Full Weight Bearing M3 PT-IP Subjective Start: 02/25/20 09:42 Freq: NEEDED Status: Active Protocol: Document 03/03/20 14:32 SP (Rec: 03/03/20 15:53 SP [id number]) Subjective Physical Therapy Visit Type Type Treatment Note Visit Start Time 14:32 Visit Stop Time 15:10 Total Visit Minutes 38 Notes in room and provided assist with L sidelying to sitting and forward scoot to EOB. Number of CLINICAL MATERIAL HANDLER Visits 1 Physical Therapy Visit Comments Patient Comments Pt agreeable to do PT. Therapy Pain Assessment Pain When Pain Assessed During Mobility Pain Present Pain Present Pain Reported Location Abdomen Scale Used no pain scale rating reported Pain Behaviors Calling Out,Facial Grimacing, Moaning,Wincing Pain Management Techniques Modification of Treatment,Re- positioning,Timing of Activity with Medications M4 PT-IP Mobility and Gait Start: 02/25/20 09:42 Freq: NEEDED Status: Active Protocol: Document 03/03/20 14:32 SP (Rec: 03/03/20 15:53 SP [id number]) PT-Bed Mobility Assessment Rolling Type of Rolling Log Rolling,Roll to Left Level of Assist Maximal Assistance,2 Person Assistance Supine to Sit Supine to Sit Maximum Assistance,1 Person Assistance,2 Person Assistance ,Bedrails Scooting Scooting to Edge of Bed Maximum Assistance PT-Transfer Assessment Sit to and From Stand Sit to and from Stand Maximum Assistance,1 Person Assistance,2 Person Assistance ,Use of Upper Extremities Equipment Transfer Assistive Device Gait Belt,Abdifatah Walker Orthotic/Prosthetic Devices or Brace: No Transfers Transfer Destination Chair Transfer Technique Stand Step Pivot Transfer Ability Level of Assist Maximum Assistance,1 Person Assistance,2 Person Assistance ,Use of Upper Extremities Comments Mobility Comments Completed log roll to L with use of transfer pad Max x2 and use of bed rail, L SL to sitting Max x3 person with Mod assist for BLE and Max A x2 for trunk righting to sit, scoot to EOB Max A of 2- 3 person and use of RUE to pull from student CLINICAL MATERIAL HANDLER hand then transitioning to bed handle while providing assist from front by CLINICAL MATERIAL HANDLER and back from until B feet supported on floor. Mod A of 1 for sitting support while using RUE on bed handle. Sit to stand required Max A of 3 person ( CLINICAL MATERIAL HANDLER, SPTA, nurse) with cuing to push up from bed handle, upright posture then transitioning to HW, CLINICAL MATERIAL HANDLER Max cuing for sequencing LLE, RLE and HS step pivot to L bed to chair then contact with cuing for reaching back for chair arm and slow descent into chair with Max A of 2 person. Pt was able to scoot back in chair using RLE and RUE. Pt had call light and all needs in reach with feet propped up on room cushion. Therapy and nurse managed tubing throughout session. was in room when left. Gait Assessment Comments Gait Comments See mobility section. 2 ft step pivot transfer bed to chair using HW Max A of 3 persons. PT-Balance Assessment Sitting Balance and Reactions Static Sitting Balance Ability Fair Dynamic Sitting Balance Ability Poor Standing Balance and Reactions Static Standing Balance Ability Poor Dynamic Standing Balance Ability Poor Device Used HW 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 and poor fine motor control able to abduct shoulder approx 40-50 degrees unable to fully extend his L arm and fingers Lower Extremity ROM Assessment Left Impaired Strength Upper Extremity Strength Assessment Left Impaired Shoulder 2- Elbow 3 Wrist 2- Hand 2- Lower Extremity Strength Assessment Left Impaired Hip 3+ Knee 4- Ankle 3 Coordination Assessment Gross Coordination Gross Coordination Impaired Sensation Assessment Sensation Gross Sensation WNL Muscle Tone Muscle Tone WNL No Muscle Tone Location Left Upper Extremity Type of Tone Hypertonicity,Flexor Severity of Tone Moderate M6 PT-IP Treatment Start: 02/25/20 09:42 Freq: NEEDED Status: Active Protocol: Document 03/03/20 14:32 SP (Rec: 03/03/20 15:53 SP [id number]) Physical Therapy Treatment Exercises Exercises Ankle Pumps,Heel Slides Education Education Provided Safety M7 PT-IP Assessment and Plan Start: 02/25/20 09:42 Freq: NEEDED Status: Active Protocol: Document 03/03/20 14:32 SP (Rec: 03/03/20 15:53 SP [id number]) PT Summary Assessment and Plan Potential Rehabilitation Potential Fair Status of Condition at Evaluation Evolving Summary Impairments Pain,ROM,Strength,Balance, Coordination,Sensation,Tone, Cognition,Bed Mobility, Transfers,Gait,Activity Tolerance Progress Towards Goals Slow Progress due to Medical Issues,Slow Progress due to Activity Tolerance,Slow Progress - Other Assessment Summary Pt requiring max A x 2-3 for mobility and presents with unsteadiness in sitting and standing. pt has h/o CVA with L sided weakness contributing to difficulty in movement. pt will require SNF rehab to improve strength and functional mobility. Goals Bed Mobility Goal Minimal Assistance Transfer Goal Moderate Assistance Gait Goal Moderate Assistance,Abdifatah Walker Gait Distance 25 Days to Meet Goals 10 Frequency of Treatment Frequency Of Treatment Once a Day Treatment Plan Physical Therapy Treatment Plan Bed Mobility Training,Transfer Training,Gait Training, Therapeutic Exercise,Balance Retraining,Post Op Education, Discharge Planning,Hot or Cold Pack,Neuromuscular Re-ed, Coordination Retraining,Manual Therapy Other Recommendations and Next Treatment transfers Focus Recommendations To Nursing Amount of Assist Needed Mechanical Lift Discharge Recommendations PT Discharge Recommendations SNF Rehab Transportation Needs at Discharge Wheelchair/Cabulance
--- NOTE | 2020-03-03 15:11 | PC.NURSE ---
Day Shift Note Oriented x3, drowsy but awakens easily to voice and is able to answer questions/participate in care. SpO2 93% on RA. Intermittent wheezing noted with activity that resolves quickly with rest. Wound vac dressing changed at bedside by Dr. Cleary, pt tolerated well. Premedicated with Dilaudid 1 mg IV per MD. Colostomy stoma is pink and flush with skin, serous drainage to pouch and scant amount flatus. Dr. Celary notified of above. Pt tolerating bites of general diet, denies nausea. Up to chair at this time with PT assist (3 person assist). Call light within reach. at bedside.
[2020-03-03] MEDS: CALCIUM IV (17:36)
[2020-03-03] MEDS: [UNRECOGNIZED DRUG - OTHER] IV (17:36)
[2020-03-03] MEDS: TRACE ELEMENTS IV (17:36)
[2020-03-03] MEDS: DEXT IV (17:36)
[2020-03-03] MEDS: MULTIVITAMIN IV (17:36)
[2020-03-03] MEDS: LYTES IV (17:36)
--- NOTE | 2020-03-03 17:55 | PC.NURSE ---
Addendum entered by Radha Jorgensen R.N. 03/03/20 20:42: 1909 Ostomy nurse Lani at bedside, changed ostomy appliance, able to visualize ostomy after cleaning, ostomy is flush with skin, stoma is pink with some white exudate. Pt tolerated well, Lani to come back tomorrow to work with pt and regarding ostomy care. No further needs at this time will continue to monitor. Original Note: Evening shift note: Pt up in chair, A/Ox3 with delayed responses. at bedside, VSS pt states he is having pain 7/10, medicated as ordered. Pt continues to stay in recliner. 1700 Pt notes that he wants to get back into bed, contacted PT for assistance ( dayshift report states that pt is a 3+ person assist), at 1745 PT was able to come assist this nurse, it took 2 PT and this nurse to get pt back into bed, with very limited pt participation. It is this nurses recommendation that a ashtyn lift is used if pt is not able or too tired to participate in ambulation to bed. Upon getting back into bed pt immediately fell to sleep. Bed low and locked, call light within reach, 93% on RA, will continue to monitor.
--- NOTE | 2020-03-03 19:09 | PC.NURSE ---
Ostomy Nurse Consult Note Rio in bed and awake. Odalys his is at his bedside. The wound vac was changed today by Dr. Cleary and the nursing staff. I removed the pouch to visualize the stoma and can see that it is pink with some white slough. I removed the ostomy appliance for a better assessment. The stoma is pink with white slough near the opening and there is darker slough around the edges. The sutures are intact, and the stoma is retracting. He did have some clear straw colored effluent in the pouch. He has not been eating but is taking oral fluids. I did have Radha his nurse come in a visualize the stoma. She knows to notify the surgeon if the stoma becomes dusky or dark. I placed a Convatec 57mm moldable wafer and a clear non-filter pouch without a filter. Jerry GALA drain is intact and there is some clear straw colored drainage and some ambrose creamy drainage. His wound vac in at 125mmHg continuous. He has a altamirano that is draining straw colored urine. I will return tomorrow evening for teaching with Odalys and I will asses Rio and his stoma.
[2020-03-03] MEDS: APIXABAN 5 MG TABLET PO (20:35)
[2020-03-04] VITALS (16 sets, daily range): BP systolic 124–184; BP diastolic 61–86; PULSE 67–83; RESP 18–29; TEMP 36–37.4; O2SAT 93–98
[2020-03-04] MEDS: MEROPENEM 1 GM/50 ML PIGGYBACK IV ×3 (00:25→17:02)
[2020-03-04] MEDS: OXYCODONE IR 5 MG TABLET PO (00:26)
[2020-03-04] MEDS: SODIUM CHLORIDE 0.9% FLUSH 10 ML IV ×5 (00:26→20:33)
[2020-03-04] MEDS: ONDANSETRON 4 MG/2 ML INJ IV ×3 (01:52→14:41)
[2020-03-04] MEDS: PROCHLORPERAZINE 10 MG/2 ML VIAL IV (02:52)
--- NOTE | 2020-03-04 03:04 | PC.NURSE ---
Addendum entered by Matilda Paulino R.N. 03/04/20 06:02: 0530-Patient has continued to be restless, forgetful, c/o heartburn abdominal cramping and wheezing. Repositioned and given 0.5mg IV Dilaudid for the pain, his thinks the oxycodone isn't a good idea may have caused confusion. Discussed wheezing with Marvin LOONEY, 20mg IV Lasix x1 given with immediate results. Original Note: Night Notes-At 0030 during first assessment of patient, 5mg Percolone given for lower abdominal cramping Patient is now on regular diet and taking his PO meds. 0300-Patient woke with c/o nausea and belching, no emesis, IV Zofran given per prn without effect, then IV Compazine now given. Patient repositioned and resting with C-pap off, SpO2 93% on RA with HOB elevated.
[2020-03-04] MEDS: HYDROMORPHONE 0.5 MG INJ IV ×4 (05:10→20:32)
[2020-03-04] MEDS: FUROSEMIDE 20 MG/2 ML VIAL IV (05:26)
[2020-03-04 05:34] LABS: Add Manual Diff / Slide Review NO; Basophils Absolute Auto 0 /uL (0-100); Basophils Percent Auto 0.4 % (0-2); Eosinophils Absolute Auto 100 /uL (0-450); Eosinophils Percent Auto 1.6 % (2-4); Hematocrit 30.3 % (41-53); Lymphocytes Absolute Auto 2300 /uL (1100-4500); Lymphocytes Percent Auto 25.8 % (25-40); Mean Corpuscular HGB Conc 33.1 % (30-36); Mean Corpuscular Hemoglobin 27.4 PG (26-34); Mean Corpuscular Volume 82.7 fL (80-100); Monocytes Absolute Auto 500 /uL (0-900); Monocytes Percent Auto 5.6 % (3-14); Neutrophils Absolute Auto 6100 /uL (1500-7000); Neutrophils Percent Auto 66.6 % (50-75); Platelet Count 168 X10^3/uL (150-400); Red Blood Cell Count 3.67 X10^6/uL (4.5-5.9); Red Cell Distribution Width 14.6 % (11.6-14.8); White Blood Cell Count 9.1 X10^3/uL (4.5-11.0)
[2020-03-04 05:42] LABS: Blood Urea Nitrogen 20 mg/dL (9-20); Calcium 7.9 mg/dL (8.4-10.2); Carbon Dioxide 30 mmol/L (22-32); Chloride 103 mmol/L (98-107); Estimated Glomerular Filt Rate > 60.0 mL/min (>60); Glucose 136 mg/dL (80-110); HEMOLYSIS < 15 (0-50); Magnesium 2.2 mg/dL (1.6-2.3); Phosphorous 3.6 mg/dL (2.3-3.7); Sodium 136 mmol/L (137-145)
[2020-03-04] MEDS: METOCLOPRAMIDE 10 MG/2 ML INJ IV (10:27)
[2020-03-04] MEDS: METOPROLOL TARTRATE 5 MG/5 ML INJ IV ×3 (10:27→20:35)
--- NOTE | 2020-03-04 12:10 | OT.IP.TRT ---
Current Diagnoses Other specified diseases of appendix (02/24/20) Surgery Performed Operation Date: 02/24/20 09:15 Actual Procedures p Appendectomy, partial cholectomy, lysis of adhesions - Yao Cleary MD Operation Date: 03/01/20 08:00 Actual Procedures p Exploratory Laparotomy. PARTIAL COLECTOMY. COLOSTOMY FORMATION. APPLICATION OF WOUND VAC - Yao Cleary MD Occupational Therapy Treatment Note M2 OT-IP Current Condition Start: 02/25/20 13:57 Freq: Status: Active Protocol: Document 02/25/20 11:13 [facility] (Rec: 02/25/20 14:16 [facility] [id number]) Occupational Therapy Current Condition Current Condition Evaluation Date 02/25/20 Treatment Diagnosis Appendectomy, partial cholectomy, decreased self care Diagnosis Onset Date 02/24/20 Post Operative Precautions Abdominal Surgery Precautions Log Roll,Lifting Restrictions, Gait Belt above Incisional Area M3 OT- IP Subjective and Pain Start: 02/25/20 13:57 Freq: Status: Active Protocol: Document 03/04/20 11:45 [facility] (Rec: 03/04/20 16:15 [facility] [id number]) OT- Subjective Occupational Therapy Visit Type Type Treatment Note Visit Start Time 11:45 Visit Stop Time 12:10 Total Visit Minutes 25 Occupational Therapy Visit Comments Patient Comments Pt not wanting to get up but willing up at this time, but to do grooming needs. M4 OT- IP ADL's Start: 02/25/20 13:57 Freq: Status: Active Protocol: Document 03/04/20 11:45 [facility] (Rec: 03/04/20 16:15 [facility] [id number]) OT ADL-Grooming General Evaluation Grooming Ability Standby Assistance Areas Needing Assistance Retrieving/Set-up of Grooming Items Comments OT Grooming Comments Pt able to wash his face after set-up and do swab for his mouth. Noted left hand tightness and internally rotated at shoulder.Able to do gentle stretching to internal rotators and assist to but lotion on pt's left arm . OT ADL-Oral Care General Eval Oral Care Ability Independent M9 OT- IP Assessment and Plan Start: 02/25/20 13:57 Freq: Status: Active Protocol: Document 03/04/20 11:45 [facility] (Rec: 03/04/20 16:15 [facility] [id number]) OT Summary Assessment and Plan Potential Rehabilitation Potential Fair Analytic Complexity at Evaluation Moderate Summary OT Impairments Pain,Balance,Functional Mobility,Grooming,Dressing, Toileting,Bathing,Toilet Transfers,Shower Transfers, Activity Tolerance Progress Towards Goals Slow Progress due to Pain,Slow Progress due to Medical Issues Assessment Summary Pt not wanting to get up for OT, but willing to do grooming needs in bed and gentle stretching of left arm. Pt maryse benefit from skilled rehab when medically stable. Goals Self-Feeding Goal Independent Grooming Goal Independent Dressing Goal Minimal Assistance Toileting Goal Moderate Assistance Bathing Goal Moderate Assistance Toilet Transfer Goal Standby Assistance Shower Transfer Goal Minimal Assistance Patient/Caregiver Education Goal Demonstrate Post-Op Precautions,Caregiver Independent Assisting Patient Days to Meet Goals 20 Frequency of Treatment Frequency Of Treatment Once a Day Treatment Plan OT Treatment Plan ADL Training,Functional Mobility,Patient/Family Education,Discharge Planning Other Treatment Recommendations and Next MAX A x2 with hemiwalker to Treatment Focus BSC. Discharge Recommendations OT Discharge Recommendations SNF Rehab Home Equipment Needs Defer to SNF Transportation Needs at Discharge Wheelchair/Cabulance,Stretcher /Ambulance
--- NOTE | 2020-03-04 13:15 | PM.PN.1 ---
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 Patient was taken back to the operating room for presumed anastamotic leak. Patient underwent end colostomy and had small portions of the area of bowel resected. He had been passing gas from the colostomy. He was advanced to a regular diet but developed distension and nausea. He was given one dose of eliquis but this has been held. The patient is again NPO and his coreg was changed back to IV metoprolol. Patient appeared edematous overnight and was given 20 mg of IV lasix. Exam Vital Signs (past 8 hours): - 03/04/20 08:00 03/04/20 09:00 03/04/20 12:20 Temperature 98.9 F 99.3 F Pulse Rate 78 74 Respiratory Rate 25 H 19 Blood Pressure 151/72 H 124/62 Pulse Oximetry 95 95 93 Oxygen Delivery Method Room Air,CPAP Oxygen Flow Rate 0 Narrative Exam Narrative: General: Elderly male lying in bed and in no acute distress, well-developed, well-nourished, appropriately interactive. HEENT: Normocephalic, atraumatic. External ears without defect. Pupils equal, round, and reactive to light. Anicteric sclerae, moist conjunctivae, and no lid lag. NG tube in place without signficant drainage in the tubing. Neck: Supple with full range of motion. no JVD. No lymphadenopathy or thyromegaly. Cardiovascular: RRR without murmurs, rubs, or gallops appreciated. Pulmonary: Diminished throughout especially in left lower lobe today but clear to auscultation bilaterally today. No wheezes or rhonchi. Normal respiratory effort with no use of accessory muscles. Abdomen: Abdomen soft, appropriately tender. Wound vac in place with mild surrounding erythema likely due to adhesive. Colostomy bag in place without gas or stool. Extremities: No clubbing or cyanosis. Trace edema to pretibial area bilaterally. Skin: Normal temperature, turgor, and texture; no rash, ulcers, or subcutaneous nodules appreciated. Neurological: Cranial nerves grossly intact. Chronic residual left-sided weakness from CVA. Psychiatric: Normal mood and affect. Alert. Objective Labs Result Diagrams: 03/04/20 05:15 03/04/20 05:15 Labs: Laboratory Results - last 24 hr 03/04/20 03/04/20 05:15 05:15 WBC 9.1 RBC 3.67 L Hgb 10.0 L Hct 30.3 L MCV 82.7 MCH 27.4 MCHC 33.1 RDW 14.6 Plt Count 168 Neut % (Auto) 66.6 Lymph % (Auto) 25.8 [place] % (Auto) 5.6 Eos % (Auto) 1.6 L Baso % (Auto) 0.4 Neut # (Auto) 6100 Lymph # (Auto) 2300 [place] # (Auto) 500 Eos # (Auto) 100 Baso # (Auto) 0 Sodium 136 L Potassium 4.0 Chloride 103 Carbon Dioxide 30 BUN 20 Creatinine 0.74 Estimated GFR > 60.0 BUN/Creatinine Ratio 27.0 H Glucose 136 H Calcium 7.9 L Phosphorus 3.6 Magnesium 2.2 Assessment & Plan Assessment & Plan narrative: Eddie Burk is an 85-year-old male with a past medical history significant for coronary artery disease status post ID, CVA with residual left-sided hemiparesis, hypertension, hyperlipidemia, 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 The patient was found to have dense intra-abdominal adhesions and laparoscopic appendectomy was converted to open laparotomy and required partial sigmoid colectomy. That surgery was complicated by an anastomotic leak and is now POD#3 from end colostomy with additional small bowel resection. He was doing well but developed some nausea overnight and mild distension, was changed back to NPO today. 1. Anastamotic leak of partial sigmoid colectomy now s/p end colostomy placement with additional bowel resection - continued management per surgery, agree with meropenem x5 days for intra-abdominal contamination. 2. Paroxysmal atrial fibrillation with acute RVR, chronic, present on admission. RVR and afib resolved. -Patient spouse reports previous history of atrial fibrillation and reports that is why he is on Eliquis. -Repeat TSH normal at 0.72. -Echocardiogram demonstrated mildly-moderately increased left ventricular thickness (concentric) with normal size and hyperdynamic systolic function (EF 70-75%), normal right ventricular size and function, mild aortic stenosis (valve area 1.6cm2, mean gradient 16mmHg), IVC is dilated (diameter is greater than 2.1 cm) and it collapses less than 50% with a sniff. This suggests a high right atrial pressure of 15 mm Hg. -Discontinued IV fluids on POD#1 from end colostomy for worsening O2 requirements. He was improved yesterday but became more edematous overnight and required additional 20 mg of IV lasix. -CHADS2 Vasc score 6. Discontinued therapeutic enoxaparin. Restarted home Eliquis 5 mg twice daily but then held for surgery. He received one dose yesterday of eliquid but is now held again. -Restarted home carvedilol 6.25 mg BID yesterday, but changed back to IV metoprolol 5 mg [id number]. -Continue to monitor electrolytes and replete as necessary and adjust TPN. Goal K > 4.0 and Mg > 2.0. 3. Hypertension, chronic, present on admission. Stable. -continue to hold until blood pressures improved, opt for rate control agents at this time to avoid afib. 4. ASCVD with history of ID status post stent x1 and CVA with residual left-sided weakness on Eliquis, chronic, present on admission. Presumed stable. -Patient reports he was previously on statin therapy but is no longer on statin due to side effects. Patient reports that he is on a weekly injection called Repatha (Evolocumab) to lower LDL. -The patient is followed by [facility] cardiology Dr. Jones. 5. Prostate cancer status post recent complicated robotic laprascopic prostatectomy requiring conversion to open procedure. -Continue previous outpatient follow-up per PCP or oncology. 6. Obstructive sleep apnea on CPAP, present on admission. Stable. -Continue home CPAP. 7. Sepsis, not present on admission, resolved. - secondary to anastamotic leak with corresponding intra-abdominal contamination. - patient with hypotension that responded to fluid resuscitation, TIEN, and thrombocytopenia. - meropenem x 5 days as noted above. 8. Acute kidney injury - Creatinine yesterday jumped to 1.65 from baseline 0.7-0.8. Likely secondary to intra-abdominal leak / contamination and sepsis as noted above. Improved today to 0.74 - continue to monitor creatinine and avoid nephrotoxic agents. Medicine will continue to follow at this time. Code: Full Quality VTE Deep Vein Thrombosis/Pulmonary Embolism Present on Admission: No
[2020-03-04] MEDS: ERYTHROMYCIN IV ×2 (14:21→23:36)
[2020-03-04] MEDS: SODIUM CHLORIDE 0.9% IV ×2 (14:21→23:36)
--- NOTE | 2020-03-04 15:08 | P.PN_ITS ---
Subjective Subjective Date Patient Seen: 03/04/20 Time Patient Seen: 15:10 Interval history: Difficulty evening, felt nauseated no emesis minimal appetite colonoscopy is not been productive for the last 24 hours. Wound VAC changed yesterday at bedside, started of full anticoagulation with Eliquis. Exam Vital Signs (past 8 hours): - 03/04/20 08:00 03/04/20 09:00 03/04/20 12:20 Temperature 98.9 F 99.3 F Pulse Rate 78 74 Respiratory Rate 25 H 19 Blood Pressure 151/72 H 124/62 Pulse Oximetry 95 95 93 Oxygen Delivery Method Room Air,CPAP Oxygen Flow Rate 0 Narrative Exam Narrative: General elderly man alert following commands Chest nonlabored respirations Abdomen mildly distended ostomy viable no air or stool in bag. Extremities warm well perfused Objective Labs Result Diagrams: 03/04/20 05:15 03/04/20 05:15 Labs: Laboratory Results - last 24 hr 03/04/20 03/04/20 05:15 05:15 WBC 9.1 RBC 3.67 L Hgb 10.0 L Hct 30.3 L MCV 82.7 MCH 27.4 MCHC 33.1 RDW 14.6 Plt Count 168 Neut % (Auto) 66.6 Lymph % (Auto) 25.8 [place] % (Auto) 5.6 Eos % (Auto) 1.6 L Baso % (Auto) 0.4 Neut # (Auto) 6100 Lymph # (Auto) 2300 [place] # (Auto) 500 Eos # (Auto) 100 Baso # (Auto) 0 Sodium 136 L Potassium 4.0 Chloride 103 Carbon Dioxide 30 BUN 20 Creatinine 0.74 Estimated GFR > 60.0 BUN/Creatinine Ratio 27.0 H Glucose 136 H Calcium 7.9 L Phosphorus 3.6 Magnesium 2.2 Assessment & Plan Post-op Postoperative Procedures: Procedures Operation Date: 02/24/20 09:15 Actual Procedures Side Surgeon p Appendectomy, partial cholectomy, lysis of adhesions Yao Cleary MD Operation Date: 03/01/20 08:00 Actual Procedures Side Surgeon p Exploratory Laparotomy. PARTIAL COLECTOMY. COLOSTOMY FORMATION. APPLICATION OF WOUND VAC Yao Cleary MD Postoperative plan narrative: 85-year-old man postoperative day 3 after a par tial colectomy and end colostomy formation for a sigmoid anastomotic leak. # postoperative ileus-await return of bowel function. Okay for sips of water and meds. Continue TPN # resolving sepsis secondary postoperative peritonitis secondary to an anastomotic leak. Continue meropenem for a total of 5 days. # atrial fibrillation-continue rate control with beta blockade and Eliquis for anticoagulation # VT prophylaxis SCDs -will perform a wound VAC changed Tuesday 03/06 -Continue PT OOB to chair Quality VTE Deep Vein Thrombosis/Pulmonary Embolism Present on Admission: No
--- NOTE | 2020-03-04 16:11 | PT.IPTN ---
Current Diagnoses Other specified diseases of appendix (02/24/20) Surgery Performed Operation Date: 02/24/20 09:15 Actual Procedures p Appendectomy, partial cholectomy, lysis of adhesions - Yao Cleary MD Operation Date: 03/01/20 08:00 Actual Procedures p Exploratory Laparotomy. PARTIAL COLECTOMY. COLOSTOMY FORMATION. APPLICATION OF WOUND VAC - Yao Cleary MD Physical Therapy Treatment Note M2 PT-IP Current Condition Start: 02/25/20 09:42 Freq: NEEDED Status: Active Protocol: Document 02/25/20 12:29 HH (Rec: 02/25/20 13:09 [id number]) Physical Therapy Current Condition Current Condition Evaluation Date 02/25/20 Treatment Diagnosis Appendectomy, partial cholectomy, lysis of adhesions , weakness Onset Date 02/24/20 Precautions Abdominal Surgery Precautions Log Roll,Lifting Restrictions, Gait Belt above Incisional Area Weight Bearing Status Weight Bearing Status Full Weight Bearing M3 PT-IP Subjective Start: 02/25/20 09:42 Freq: NEEDED Status: Active Protocol: Document 03/04/20 15:33 SP (Rec: 03/04/20 17:19 SP [id number]) Subjective Physical Therapy Visit Type Type Treatment Note Visit Start Time 15:33 Visit Stop Time 16:11 Total Visit Minutes 38 Notes in room during tx. Student BOARDMARKER Susie and INTEGRATIVE MEDICINE PHYSICIAN provided physical assistance during mobilityn required. Number of BOARDMARKER Visits 2 Physical Therapy Visit Comments Patient Comments Pt agreeable to PT tx. Therapy Pain Assessment Pain When Pain Assessed During Mobility Pain Present Pain Present Pain Reported Location Abdomen Scale Used no pain scale rating given Pain Behaviors Calling Out,Facial Grimacing, Guarding,Wincing Pain Management Techniques Modification of Treatment,Re- positioning,Timing of Activity with Medications M4 PT-IP Mobility and Gait Start: 02/25/20 09:42 Freq: NEEDED Status: Active Protocol: Document 03/04/20 15:33 SP (Rec: 03/04/20 17:19 SP [id number]) PT-Bed Mobility Assessment Rolling Type of Rolling Roll to Left Level of Assist Maximal Assistance,2 Person Assistance Supine to Sit Supine to Sit Maximum Assistance,2 Person Assistance,Bedrails Sit to Supine Sit to Supine Minimal Assistance,Maximum Assistance,1 Person Assistance ,2 Person Assistance Scooting Scooting to Edge of Bed Moderate Assistance,Maximum Assistance PT-Transfer Assessment Sit to and From Stand Sit to and from Stand Maximum Assistance,2 Person Assistance,Use of Upper Extremities Equipment Transfer Assistive Device Gait Belt,Abdifatah Walker Orthotic/Prosthetic Devices or Brace: No Transfers Transfer Destination Bed Transfer Technique Sit to stands x3, side step L 3rd attempt Transfer Ability Level of Assist Maximum Assistance,2 Person Assistance,Use of Upper Extremities Comments Mobility Comments Pt was sleeping wt shifted onto L with pillows using CPAP when arrived. reported hasn't been sleepign well past 48 hrs and slept most of the day. Pt woke up with sternal rub and agreeable to work with therapy. Instruction on BLE exercises: ankle pumps, heel slides to increase circulation and pre mobility warm up. Completed log roll to L with use of transfer pad Max A x2 with use of transfer pad, L SL to sitting Max A of 2 person with support of trunk righting while using RUE to push from bed transition to sitting and Min for LE repositioning to EOB. Mod A of 2 person to scoot to EOB with support from upper back for trunk balance and scoot each hip using transfer pad to EOB with B feet on floor. Sitting balance required Min- Mod A while using bed handle with RUE for self support. Sit <> stand x3 Max A x2 plus CGA x1 person cued for RUE to push up to standing then transition to HW with upright posture then wt shift. LLE into extension and scooted forward requiring to sit and reposition,cued for reaching back to sit Max x2. Sit to stand x2 more and on 3rd stand L side stepping using HW and Max cuing with support for LLE repositioning 2 steps before requiring to sit. Pt was unable attempt 4th time. Completed sitting>L SL Max A of 2 with support from behind and front for trunk control and 3rd for BLE repositioning onto bed, then log roll to R. Pt was low in the bed required Max A x3 and bed in trendelenburg to scoot up in bed while using BLE knees bent to complete. Pt was positioned on R side with pillows for position change from when arrived on L. Pt had call light, bed alarmed and all needs in reach with in room when left. Gait Assessment Gait Gait Assistance Required: Maximum Assistance,2 Person Assist Distance (Feet) 1 Able to Maintain Weight Bearing Status Yes During Gait Assistive Devices Assistive Device Gait Belt,Abdifatah Walker Orthotic/Prosthetic Devices or Brace: No Gait Deviations General Gait Pattern Ataxic,Decreased Stride Length ,Decreased Feet Clearance, Flexed Trunk,Lateral Trunk Lean,Step-to Gait Factors Limiting Gait Function Factors Limiting Gait Function Decreased Activity Tolerance, Decreased Strength, Incoordination,Limited Range of Motion,Pain,Poor Balance, Poor Safety Awareness, Respiratory Distress Comments Gait Comments See mobility comments PT-Balance Assessment Sitting Balance and Reactions Static Sitting Balance Ability Poor Dynamic Sitting Balance Ability Poor Standing Balance and Reactions Static Standing Balance Ability Poor Dynamic Standing Balance Ability Poor Device Used HW 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 and poor fine motor control able to abduct shoulder approx 40-50 degrees unable to fully extend his L arm and fingers Lower Extremity ROM Assessment Left Impaired Strength Upper Extremity Strength Assessment Left Impaired Shoulder 2- Elbow 3 Wrist 2- Hand 2- Lower Extremity Strength Assessment Left Impaired Hip 3+ Knee 4- Ankle 3 Coordination Assessment Gross Coordination Gross Coordination Impaired Sensation Assessment Sensation Gross Sensation WNL Muscle Tone Muscle Tone WNL No Muscle Tone Location Left Upper Extremity Type of Tone Hypertonicity,Flexor Severity of Tone Moderate M6 PT-IP Treatment Start: 02/25/20 09:42 Freq: NEEDED Status: Active Protocol: Document 03/04/20 15:33 SP (Rec: 03/04/20 17:19 SP [id number]) Physical Therapy Treatment Exercises Exercises Ankle Pumps,Heel Slides Education Education Provided Safety M7 PT-IP Assessment and Plan Start: 02/25/20 09:42 Freq: NEEDED Status: Active Protocol: Document 03/04/20 15:33 SP (Rec: 03/04/20 17:19 SP [id number]) PT Summary Assessment and Plan Potential Rehabilitation Potential Fair Status of Condition at Evaluation Evolving Summary Impairments Pain,ROM,Strength,Balance, Coordination,Sensation,Tone, Cognition,Bed Mobility, Transfers,Gait,Activity Tolerance Progress Towards Goals Slow Progress due to Medical Issues,Slow Progress due to Activity Tolerance,Slow Progress - Other Assessment Summary Pt requiring max A x 2 for standing mobility using HW and 3 person during bed mobillity . Pt improved with Mod A for sitting at EOB and Max x2 for standing . pt has h/o CVA with L sided weakness contributing to difficulty in movement. pt will require SNF rehab to improve strength and functional mobility. Goals Bed Mobility Goal Minimal Assistance Transfer Goal Moderate Assistance Gait Goal Moderate Assistance,Abdifatah Walker Gait Distance 25 Days to Meet Goals 10 Frequency of Treatment Frequency Of Treatment Once a Day Treatment Plan Physical Therapy Treatment Plan Bed Mobility Training,Transfer Training,Gait Training, Therapeutic Exercise,Balance Retraining,Post Op Education, Discharge Planning,Hot or Cold Pack,Neuromuscular Re-ed, Coordination Retraining,Manual Therapy Other Recommendations and Next Treatment transfers Focus Recommendations To Nursing Amount of Assist Needed Mechanical Lift Discharge Recommendations PT Discharge Recommendations SNF Rehab Transportation Needs at Discharge Wheelchair/Cabulance
[2020-03-04] MEDS: LYTES IV (17:54)
[2020-03-04] MEDS: CALCIUM IV (17:54)
[2020-03-04] MEDS: [UNRECOGNIZED DRUG - OTHER] IV (17:54)
[2020-03-04] MEDS: TRACE ELEMENTS IV (17:54)
[2020-03-04] MEDS: DEXT IV (17:54)
[2020-03-04] MEDS: MULTIVITAMIN IV (17:54)
[2020-03-04] MEDS: FAT EMULSIONS 50 GM/250 ML EMULSION IV (17:55)
[2020-03-05] VITALS (36 sets, daily range): BP systolic 146–178; BP diastolic 66–108; PULSE 66–78; RESP 16–32; TEMP 36.3–37; O2SAT 91–99
[2020-03-05] MEDS: MEROPENEM 1 GM/50 ML PIGGYBACK IV ×3 (01:22→16:56)
[2020-03-05] MEDS: METOPROLOL TARTRATE 5 MG/5 ML INJ IV ×4 (03:20→21:14)
[2020-03-05 06:42] LABS: Add Manual Diff / Slide Review NO; Basophils Absolute Auto 100 /uL (0-100); Basophils Percent Auto 0.8 % (0-2); Eosinophils Absolute Auto 100 /uL (0-450); Eosinophils Percent Auto 1.7 % (2-4); Hemoglobin 10.2 g/dL (13.5-17.5); Lymphocytes Absolute Auto 2700 /uL (1100-4500); Mean Corpuscular Volume 81.8 fL (80-100); Monocytes Absolute Auto 500 /uL (0-900); Monocytes Percent Auto 7.6 % (3-14); Neutrophils Absolute Auto 3800 /uL (1500-7000); Neutrophils Percent Auto 52.9 % (50-75); Platelet Count 180 X10^3/uL (150-400); Red Blood Cell Count 3.79 X10^6/uL (4.5-5.9); Red Cell Distribution Width 14.5 % (11.6-14.8); White Blood Cell Count 7.2 X10^3/uL (4.5-11.0)
[2020-03-05] MEDS: SODIUM CHLORIDE 0.9% IV ×3 (06:50→21:14)
[2020-03-05] MEDS: ERYTHROMYCIN IV ×3 (06:50→21:14)
[2020-03-05 06:52] LABS: BUN Creatinine Ratio 24.3 (6-22); Blood Urea Nitrogen 17 mg/dL (9-20); Calcium 7.9 mg/dL (8.4-10.2); Carbon Dioxide 33 mmol/L (22-32); Chloride 101 mmol/L (98-107); Estimated Glomerular Filt Rate > 60.0 mL/min (>60); Glucose 114 mg/dL (80-110); HEMOLYSIS < 15 (0-50); Magnesium 2.1 mg/dL (1.6-2.3); Potassium 3.9 mmol/L (3.4-5.1); Sodium 137 mmol/L (137-145)
--- NOTE | 2020-03-05 08:53 | DIET.PN ---
Dietary Progress Note Assessment: 85y M c post-operative ileus from partial colectomy c colostomy NPO c TPN running at 42mL/h screened by RD for LOS day 10 and TPN use. HT: 172.7cm WT: 107.7kg (+7kg since admit) BMI: 36.1 Nutrition Diagnosis: inadequate protein energy intake r/t TPN and PO intake not meeting patient needs aeb pt current TPN intake meeting 41% kcal and 50% protein needs while NPO. Interventions: 1. Recc goal of 2L Clinimix 5/20 (83mL/h) via PICC over 24h c 250mL IVFE three days per week providing 82% kcals and 93% pro needs continuing until pt able to meet EERs via PO and ileus resolved. Titrate up and down to goal rate in first and last hour of TPN bag for pt comfort. Consider 1.5L bag @ 1600 this evening and 2L bag starting Sunday. Diet Order: NPO c ice chips EER: 2,140kcal (20kcal/kg to avoid overfeeding), 107g PRO (1g/kg per elder post surgical)
[2020-03-05] MEDS: SODIUM CHLORIDE 0.9% FLUSH 10 ML IV (09:34)
--- NOTE | 2020-03-05 11:02 | PM.PN.1 ---
Subjective Subjective Date Patient Seen: 03/05/20 Time Patient Seen: 11:02 Interval history: No acute events overnight. Pt and nurse report gas in the bag but no stool. Pt c/o pain at incision site, but not severe. C/o nausea, no vomiting. Tried to ambulate yesterday with PT, but very weak. Exam Vital Signs (past 8 hours): - 03/05/20 03:24 03/05/20 06:00 03/05/20 07:30 Temperature 97.6 F 98.6 F Pulse Rate 78 Respiratory Rate 29 H Blood Pressure 178/83 H Pulse Oximetry 94 92 Oxygen Delivery Method CPAP Oxygen Flow Rate 2 Narrative Exam Narrative: General elderly man alert following commands Chest nonlabored respirations Abdomen distended ostomy viable; gas in the bag; digitized ostomy and no obstruction found as stoma traverses through abdominal wall fascia Extremities warm well perfused; 1+ LE edema Objective Labs Result Diagrams: 03/05/20 06:30 03/05/20 06:30 Labs: Laboratory Results - last 24 hr 03/05/20 03/05/20 06:30 06:30 WBC 7.2 RBC 3.79 L Hgb 10.2 L Hct 31.0 L MCV 81.8 MCH 27.0 MCHC 33.0 RDW 14.5 Plt Count 180 Neut % (Auto) 52.9 Lymph % (Auto) 37.0 Frontier % (Auto) 7.6 Eos % (Auto) 1.7 L Baso % (Auto) 0.8 Neut # (Auto) 3800 Lymph # (Auto) 2700 Frontier # (Auto) 500 Eos # (Auto) 100 Baso # (Auto) 100 Sodium 137 Potassium 3.9 Chloride 101 Carbon Dioxide 33 H BUN 17 Creatinine 0.70 Estimated GFR > 60.0 BUN/Creatinine Ratio 24.3 H Glucose 114 H Calcium 7.9 L Magnesium 2.1 Assessment & Plan Assessment and plan (1) Mass of appendix: Status: Acute (2) S/P colon resection: Status: Acute (3) Ileus: Status: Acute (4) Atrial fibrillation: Status: Acute (5) CVA (cerebral vascular accident): Problem details: Hemiplegia, hemiparesis affecting left non-dominant side Status: Acute (6) Difficulty swallowing: Problem details: r/t CVA Status: Acute (7) Edema: Problem details: LLE Status: Acute (8) HTN (hypertension): Status: Acute Assessment & Plan narrative: 85-year-old man postoperative day 4 after a partial colectomy and end colostomy formation for a sigmoid anastomotic leak. # postoperative ileus-awaiting return of bowel function. Okay for sips of water and meds. Continue TPN # resolving sepsis secondary postoperative peritonitis secondary to an anastomotic leak. Continue meropenem for a total of 5 days. # atrial fibrillation-continue rate control with beta blockade and Eliquis for anticoagulation # VT prophylaxis SCDs -wound VAC changed planned for Tuesday 03/06 -Continue PT OOB to chair COVID-19 COVID-19 status: Negative Result date/Date tested (Pos, Neg/Pending): 02/21/20 Time Spent With Patient Time with patient: 15-24 minutes Quality VTE Deep Vein Thrombosis/Pulmonary Embolism Present on Admission: No
[2020-03-05] MEDS: OXYCODONE IR 5 MG TABLET PO (11:24)
--- NOTE | 2020-03-05 11:38 | PM.CHAP ---
Staff referral. Spouse did all the talking, but PT nodded when appropriate. shared that it has been a very difficult last week, made even more difficult by caregiving responsibilities for elderly parent and disabled brother. Pt desires to return home rather than SNF. Encouraged spouse to practice self care -- she really looked tired -- and have serious discussion with staff about home health care options. Abdoul Sanchez, [facility] [phone]
--- NOTE | 2020-03-05 12:21 | OT.IP.TRT ---
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 PARTIAL COLECTOMY. COLOSTOMY FORMATION. APPLICATION OF WOUND VAC - Yao Cleary MD Occupational Therapy Treatment Note M2 OT-IP Current Condition Start: 02/25/20 13:57 Freq: Status: Active Protocol: Document 02/25/20 11:13 [facility] (Rec: 02/25/20 14:16 [facility] [id number]) Occupational Therapy Current Condition Current Condition Evaluation Date 02/25/20 Treatment Diagnosis Appendectomy, partial cholectomy, decreased self care Diagnosis Onset Date 02/24/20 Post Operative Precautions Abdominal Surgery Precautions Log Roll,Lifting Restrictions, Gait Belt above Incisional Area M3 OT- IP Subjective and Pain Start: 02/25/20 13:57 Freq: Status: Active Protocol: Document 03/05/20 12:51 [facility] (Rec: 03/05/20 13:02 [facility] [id number]) OT- Subjective Occupational Therapy Visit Type Type Treatment Note Visit Start Time 11:30 Visit Stop Time 12:21 Total Visit Minutes 51 Occupational Therapy Visit Comments Patient Comments Pt agreeable to try use of sit to stand lift for transfer, nursing present and educated on use of sit to stand lift Patient/Caregiver Goals Pt wants to go home. OT Pain Assessment Pain When Pain Assessed During Mobility Pain Present Pain Present Pain Reported Location Abdomen Intensity 2 Scale Used Numeric (0 - 10) M4 OT- IP ADL's Start: 02/25/20 13:57 Freq: Status: Active Protocol: Document 03/05/20 12:51 [facility] (Rec: 03/05/20 13:02 [facility] [id number]) OT ADL-Grooming General Evaluation Grooming Ability Moderate Assistance Areas Needing Assistance Retrieving/Set-up of Grooming Items Comments OT Grooming Comments Assist for set-up to help comb the back of his hair. Pt able to wash his face and brush his teeth while sitting form the recliner. OT ADL-Oral Care General Eval Oral Care Ability Independent OT ADL-Dressing General Eval Upper Body Dressing Ability Maximum Assistance Lower Body Dressing Ability Total Assistance Comments OT Dressing Comments Pt able to assist to get his right arm into the gown otherwise needing assist to complete. OT ADL-Toileting General Evaluation Areas Needing Assistance Manage Clothing,Perform Perineal Hygiene Devices Toileting Assistive Devices Commode Comments OT Toileting Comments Able to use sit to stand lift to get from the bed to BSC. OT ADL-Bathing Bathing Type Bathing Type Sponge Bath General Evaluation Bathing Ability Maximal Assistance Areas Needing Assistance Wash/Dry Back,Wash/Dry Perineal Area,Wash/Dry Lower Extremities M5 OT- IP IADL's Start: 02/25/20 13:57 Freq: Status: Active Protocol: Document 02/25/20 11:13 [facility] (Rec: 02/25/20 14:16 [facility] [id number]) OT-Instrumental Activities of Daily Living Weigh And Charge Worker Weigh And Charge Worker Caregiver Provides Assist Weigh And Charge Worker Comments Prior pt likes to assist to take out the trash. M6 OT- IP Functional Cognition Start: 02/25/20 13:57 Freq: Status: Active Protocol: Document 03/05/20 12:51 [facility] (Rec: 03/05/20 13:02 [facility] [id number]) Cognitive Factors Limiting Selfcare Function Cognitive Comments Cognitive Assessment Comments At baseline. M7 OT- IP Mobility and Balance Start: 02/25/20 13:57 Freq: Status: Active Protocol: Document 03/05/20 12:51 [facility] (Rec: 03/05/20 13:02 [facility] [id number]) OT- Bed Mobility Assessment Rolling Type of Rolling Roll to Left Level of Assistance Maximum Assistance,2 Person Assistance Supine to Sit Supine to Sit Assist Maximum Assistance,2 Person Assistance OT-Transfer Assessment Transfers Transfer Ability Maximum Assistance,2 Person Assistance Technique Transfer Destination Bed,Bedside Commode,Chair Devices Transfer Assistive Devices Mechanical Lift Comments Mobility Comments Use of sit to stand lift to transfer pt. Educated nursing to make sure his feet/knees are positioned and that the straps are in the correct position. Pt's nurse able to states good understanding and safety to be able to use ssit to stand lift for pt. MAX X 3 for bed mobility , 2 person to roll and pt able to assist with right hand to bed rail and then MAX A X3 to sit upright form side lying. OT- Balance Assessment Sitting Balance and Reactions Static Sitting Balance Ability Fair Standing Balance and Reactions Static Standing Balance Ability Poor M8 OT- IP Objective Assessments Start: 02/25/20 13:57 Freq: Status: Active Protocol: Document 02/25/20 11:13 [facility] (Rec: 02/25/20 14:16 [facility] [id number]) OT Gross Range of Motion Upper Extremity Range of Motion Assessment Left Impaired OT Strength Upper Extremity Strength Assessment Left Impaired Shoulder 2- Elbow 3 Forearm 2- Wrist 2- Hand 2- OT-Muscle Tone Assessment Muscle Tone WNL No Muscle Tone Location Left Upper Extremity Type of Tone Hypotonicity M9 OT- IP Assessment and Plan Start: 02/25/20 13:57 Freq: Status: Active Protocol: Document 03/05/20 12:51 [facility] (Rec: 03/05/20 13:02 [facility] [id number]) OT Summary Assessment and Plan Potential Rehabilitation Potential Fair Analytic Complexity at Evaluation Moderate Summary OT Impairments Pain,Balance,Functional Mobility,Grooming,Dressing, Toileting,Bathing,Toilet Transfers,Shower Transfers, Activity Tolerance Progress Towards Goals Progressing Toward Goals Assessment Summary Pt able to tolerated transfer with sit to stand lift to [facility] and then to recliner. Pt has decreased midline awareness and needing cues while in the sling. Pt able to assist to sponge off and participated in grooming needs. Pt still will benefit from skilled rehab prior to going home. Goals Self-Feeding Goal Independent Grooming Goal Independent Dressing Goal Minimal Assistance Toileting Goal Moderate Assistance Bathing Goal Moderate Assistance Toilet Transfer Goal Standby Assistance Shower Transfer Goal Minimal Assistance Patient/Caregiver Education Goal Demonstrate Post-Op Precautions,Caregiver Independent Assisting Patient Days to Meet Goals 19 Frequency of Treatment Frequency Of Treatment Once a Day Treatment Plan OT Treatment Plan ADL Training,Functional Mobility,Patient/Family Education,Discharge Planning Other Treatment Recommendations and Next Pt to sit at edge of bed for Treatment Focus grooming needs to work on midline/sitting balance. Discharge Recommendations OT Discharge Recommendations SNF Rehab Home Equipment Needs Defer to SNF Transportation Needs at Discharge Wheelchair/Cabulance,Stretcher /Ambulance
--- NOTE | 2020-03-05 13:20 | PT.IPTN ---
Current Diagnoses Essential (primary) hypertension (02/24/20) Unspecified atrial fibrillation (02/24/20) Cerebral infarction, unspecified (02/24/20) Other specified diseases of appendix (02/24/20) Ileus, unspecified (02/24/20) Dysphagia, unspecified (02/24/20) Edema, unspecified (02/24/20) Acquired absence of other specified parts of digestive tract (02/24/20) Surgery Performed Operation Date: 02/24/20 09:15 Actual Procedures p Appendectomy, partial cholectomy, lysis of adhesions - Yoa Cleary MD Operation Date: 03/01/20 08:00 Actual Procedures p Exploratory Laparotomy. PARTIAL COLECTOMY. COLOSTOMY FORMATION. APPLICATION OF WOUND VAC - Yao Cleary MD Physical Therapy Treatment Note M2 PT-IP Current Condition Start: 02/25/20 09:42 Freq: NEEDED Status: Active Protocol: Document 02/25/20 12:29 HH (Rec: 02/25/20 13:09 [id number]) Physical Therapy Current Condition Current Condition Evaluation Date 02/25/20 Treatment Diagnosis Appendectomy, partial cholectomy, lysis of adhesions , weakness Onset Date 02/24/20 Precautions Abdominal Surgery Precautions Log Roll,Lifting Restrictions, Gait Belt above Incisional Area Weight Bearing Status Weight Bearing Status Full Weight Bearing M3 PT-IP Subjective Start: 02/25/20 09:42 Freq: NEEDED Status: Active Protocol: Document 03/05/20 11:30 HH (Rec: 03/05/20 13:20 [id number]) Subjective Physical Therapy Visit Type Type Treatment Note Visit Start Time 11:30 Visit Stop Time 12:21 Total Visit Minutes 51 Notes in room during tx. Co-tx with [facility]y medical complexity of the pt. PAULA Malloy assisted tx session Number of SUPERVISOR [employer]ICE Visits 0 Physical Therapy Visit Comments Patient Comments Pt agreeable to PT tx. Therapy Pain Assessment Pain When Pain Assessed During Mobility Pain Present Pain Present Pain Reported Location Abdomen Scale Used no pain scale rating given Pain Behaviors Calling Out,Facial Grimacing, Guarding,Wincing Pain Management Techniques Modification of Treatment,Re- positioning,Timing of Activity with Medications M4 PT-IP Mobility and Gait Start: 02/25/20 09:42 Freq: NEEDED Status: Active Protocol: Document 03/05/20 11:30 HH (Rec: 03/05/20 13:20 HH [id number]) PT-Bed Mobility Assessment Rolling Type of Rolling Roll to Left Level of Assist Maximal Assistance,2 Person Assistance Supine to Sit Supine to Sit Maximum Assistance,2 Person Assistance,Bedrails Scooting Scooting to Edge of Bed Moderate Assistance,Maximum Assistance PT-Transfer Assessment Sit to and From Stand Sit to and from Stand Maximum Assistance,2 Person Assistance,Use of Upper Extremities Equipment Transfer Assistive Device Mechanical Lift Orthotic/Prosthetic Devices or Brace: No Transfers Transfer Destination Bed,Chair,Bedside Commode Transfer Technique Mechanical Lift Transfer Ability Level of Assist Maximum Assistance,2 Person Assistance,Use of Upper Extremities Comments Mobility Comments Pt was in bed upon PT and OT arrival. Brought in sit <> stand lift for transfer training. Pt agreed to mobilize with PT. Adjusted HOB to horizontal. BP at 161/77 2L O2 via NC SpO2 at 94%. Pt completed bed rolling to left with max A x2 followed by SL to sit by using blue bed pad while pt was calling out for pain. Max A x2 needed to scoot towards EOB. RN removed NC and SpO2 maintained at 96%. Pt then able to sit one person support at back and RUE on bed rail. Sit <>stand lift was used and educated PAULA Juarez on how to put belt brander on for pt. OT assisted in controlling missile inspector preflight and PT assisted stabilizing pt's BLEs and RN for equipment management. Pt was able to stand fully upright and was being transferred to his R side and descend to [facility]. Pt had a BM and OT and RN assisted in pericare. BP at 148/108 SpO2 at 96%. Pain at 2 /10. Pt was then being transferred to bedside chair on his R side with sit to stand missile inspector preflight x 3 A. Pt then rested comfortably in chair and SpO2 remained at 96% no SOB noted. Repositioned pt to sitting uprigth with pillows under his L arm. Noticed pt's swelling on L arm has been improved. Left pt with RN for aftercare and portable tele replacement. PT-Balance Assessment Sitting Balance and Reactions Static Sitting Balance Ability Poor Dynamic Sitting Balance Ability Poor Standing Balance and Reactions Static Standing Balance Ability Poor Dynamic Standing Balance Ability Poor Device Used sit stand missile inspector preflight 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 and poor fine motor control able to abduct shoulder approx 40-50 degrees unable to fully extend his L arm and fingers Lower Extremity ROM Assessment Left Impaired Strength Upper Extremity Strength Assessment Left Impaired Shoulder 2- Elbow 3 Wrist 2- Hand 2- Lower Extremity Strength Assessment Left Impaired Hip 3+ Knee 4- Ankle 3 Coordination Assessment Gross Coordination Gross Coordination Impaired Sensation Assessment Sensation Gross Sensation WNL Muscle Tone Muscle Tone WNL No Muscle Tone Location Left Upper Extremity Type of Tone Hypertonicity,Flexor Severity of Tone Moderate M6 PT-IP Treatment Start: 02/25/20 09:42 Freq: NEEDED Status: Active Protocol: Document 03/04/20 15:33 SP (Rec: 03/04/20 17:19 SP [id number]) Physical Therapy Treatment Exercises Exercises Ankle Pumps,Heel Slides Education Education Provided Safety M7 PT-IP Assessment and Plan Start: 02/25/20 09:42 Freq: NEEDED Status: Active Protocol: Document 03/05/20 11:30 HH (Rec: 03/05/20 13:20 [id number]) PT Summary Assessment and Plan Potential Rehabilitation Potential Fair Status of Condition at Evaluation Evolving Summary Impairments Pain,ROM,Strength,Balance, Coordination,Sensation,Tone, Cognition,Bed Mobility, Transfers,Gait,Activity Tolerance Progress Towards Goals Slow Progress due to Medical Issues,Slow Progress due to Activity Tolerance,Slow Progress - Other Assessment Summary OT and RN assisted for this session. Pt was able to momo session with using sit <>stand missile inspector preflight to transfer from bed to BSC (pt had BM) then to bedside chair. His BP and SpO2 were stable with pain 2/10. Pt overall did well with minimal complaint. Educated PAULA Malloy on how to use sit <> stand missile inspector preflight for trasnfer at this point. However, skilled rehab is still an ideal option for him d/t his complicated medical condition and very limited mobility. Goals Bed Mobility Goal Minimal Assistance Transfer Goal Moderate Assistance Gait Goal Moderate Assistance,Abdifatah Walker Gait Distance 25 Days to Meet Goals 10 Frequency of Treatment Frequency Of Treatment Once a Day Treatment Plan Physical Therapy Treatment Plan Bed Mobility Training,Transfer Training,Gait Training, Therapeutic Exercise,Balance Retraining,Post Op Education, Discharge Planning,Hot or Cold Pack,Neuromuscular Re-ed, Coordination Retraining,Manual Therapy Other Recommendations and Next Treatment check on vitals Focus sit to stand lift transfer? mobility as momo Recommendations To Nursing Amount of Assist Needed Power Sit-Stand Discharge Recommendations PT Discharge Recommendations SNF Rehab Transportation Needs at Discharge Wheelchair/Cabulance
[2020-03-05] MEDS: FAMOTIDINE 20 MG/50 ML PIGGYBACK 200 MG IV (14:32)
--- NOTE | 2020-03-05 14:36 | PC.NURSE ---
AM shift Pt is in bed with c/o nausea. Medicated for pain and nausea. Effective, Diaphoretic. Ostomy is producing flatus ++ burped multiple times this shift. Serosang output. Pt used Sit to stand to get up to BSC. x1 soft BM. Education provided about stooling with ostomy post op, as little is out on ostomy appliance as of yet. Bath given, shaved, hair wash cap and teeth brushed, Pt pleased with progress this shift. Significant scrotal and penile edema. Diaz remains patent. PICC to RUE with TPN infusing. IV ABX. Ice chips and sips of h20 with no further c/o nausea. BT hypoactive, but improving though shift.
--- NOTE | 2020-03-05 17:42 | P.PN_ITS ---
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 The patient was found to have dense intra-abdominal adhesions and laparoscopic appendectomy was converted to open laparotomy and required partial sigmoid colectomy. That surgery was complicated by an anastom otic leak and is now status post end colostomy with additional small bowel resection. The patient is resting in bedside chair and appears mildly uncomfortable but in no acute distress. He reports he has a mild backache due to his position. He continues to endorse mild shortness of breath and acid reflux. He has moderate penis and scrotal edema and mild lower extremity edema and will plan to gently diurese and place scrotum in sling. He has no other complaints and denies headache, chest pain, abdominal pain, nausea, vomiting, fever, chills or extremity pain. He is voiding via Diaz catheter. He has flatus and serous drainage into colostomy but no BM. He is up ambulating with assistance. Exam Vital Signs (past 8 hours): - 03/05/20 10:00 03/05/20 11:20 03/05/20 11:59 Temperature 98.3 F Pulse Rate 78 Respiratory Rate 24 Blood Pressure 161/77 H Pulse Oximetry 96 91 91 03/05/20 14:00 03/05/20 15:23 Temperature 97.3 F L Pulse Rate 76 Respiratory Rate 19 Blood Pressure 165/72 H Pulse Oximetry 96 Oxygen Delivery Method Nasal Cannula Oxygen Flow Rate 2 Narrative Exam Narrative: General: Older gentleman sitting in bedside chair and in no acute distress, appears acutely ill and lethargic, otherwise appropriately interactive. HEENT: Normocephalic, atraumatic. External ears without defect. Pupils equal, round, and reactive to light. Anicteric sclerae, moist conjunctivae, and no lid lag. Oropharynx free of erythema and cobble stoning with moist mucosa. Neck: Supple with full range of motion. No lymphadenopathy or thyromegaly. Cardiovascular: Regular rate and rhythm without murmurs, rubs, or gallops appreciated. Pulmonary: Diminished througout but clear to auscultation bilaterally without crackles, wheezes, or rhonchi. Normal respiratory effort with no use of accessory muscles. Abdomen: Abdomen firm with mild distension, vertical surgical wound with wound vac in place, ostomy light pink/lagunas with serous output in bag and gas, bowel sounds present, mild tenderness around surgical scar. Genitourinary: Moderate scrotal and penis edema placed in sling. Extremities: No clubbing or cyanosis. Mild pitting edema to pretibial area bi laterally. Skin: Normal temperature, turgor, and texture; no rash, ulcers, or subcutaneous nodules appreciated. Neurological: Cranial nerves grossly intact. Psychiatric:Depressed mood and flat affect. Alert and oriented to person, place, and time. Objective Labs Result Diagrams: 03/06/20 04:53 03/06/20 04:53 Labs: Laboratory Results - last 24 hr 03/05/20 03/05/20 06:30 06:30 WBC 7.2 RBC 3.79 L Hgb 10.2 L Hct 31.0 L MCV 81.8 MCH 27.0 MCHC 33.0 RDW 14.5 Plt Count 180 Neut % (Auto) 52.9 Lymph % (Auto) 37.0 [place] % (Auto) 7.6 Eos % (Auto) 1.7 L Baso % (Auto) 0.8 Neut # (Auto) 3800 Lymph # (Auto) 2700 [place] # (Auto) 500 Eos # (Auto) 100 Baso # (Auto) 100 Sodium 137 Potassium 3.9 Chloride 101 Carbon Dioxide 33 H BUN 17 Creatinine 0.70 Estimated GFR > 60.0 BUN/Creatinine Ratio 24.3 H Glucose 114 H Calcium 7.9 L Magnesium 2.1 Assessment & Plan Assessment & Plan narrative: Rio Burk is an 85-year-old male with a past medical history significant for coronary artery disease status post AR, CVA with residual left-sided hemiparesis, hypertension, hyperlipidemia, 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 The patient was found to have dense intra-abdominal adhesions and laparoscopic appendectomy was converted to open laparotomy and required partial sigmoid colectomy. That surgery was complicated by an anastomotic leak and is now status post end colostomy with additional small bowel resection. 1. Appendiceal mass status post elective appendectomy with complication of dense adhesions leading to open procedure with lysis of adhesions, sigmoid resection, ileus, and anastomotic leak now status post partial colectomy and end colostomy, present on admission. Active. -Patient had appendiceal mass and elective appendectomy with complication of dense intra-abdominal adhesions requiring conversion of laparoscopic appe ndectomy to open procedure with complication sigmoid resection, ileus, and subsequent anastomotic leak status post partial colectomy with end colostomy. -Continue management per primary general surgery team. 2. Acute sepsis, not present on admission. Resolved. -Secondary to anastamotic leak with corresponding intra-abdominal contamination. -Patient with end-organ dysfunction of hypotension that responded to IV fluid resuscitation, TIEN, and thrombocytopenia. -Received broad-spectrum IV antibiotic with meropenem x5 days. 3. Acute peritonitis, secondary to anastomotic leak, not present on admission. Resolved. -WBC trended low to 3.1 then normalized. Procalcitonin peaked at 50.89 and trending down now 4.93. Continue to monitor WBC and procalcitonin daily. -Received meropenem 1g every 8 hours x 5 days. 4. Paroxysmal atrial fibrillation with acute RVR, chronic, present on admission. Resolved. -Patient spouse reports previous history of atrial fibrillation and the reason for Eliquis. -Repeat TSH normal at 0.72. -Echocardiogram demonstrated mildly-moderately increased left ventricular thickness (concentric) with normal size and hyperdynamic systolic function (EF 70-75%), normal right ventricular size and function, mild aortic stenosis (valve area 1.6cm2, mean gradient 16mmHg), IVC is dilated (diameter is greater than 2.1 cm) and it collapses less than 50% with a sniff. This suggests a high right atrial pressure of 15 mm Hg. -CHADS2 Vasc score 6. Restarted home Eliquis 5 mg twice daily 03/05 2020 cleared by general surgery. -Continue metoprolol 5 mg IV every 6 hours. Previously on diltiazem gtt which has been discontinued. -Continue to monitor electrolytes and replete as necessary and adjust TPN. Goal K > 4.0 and Mg > 2.0. 5. Acute kidney injury, not present on admission. Resolved. -Likely secondary to intra-abdominal leak/contamination and sepsis as noted above. -Baseline creatinine 0.7-0.8. Creatinine trended up and peaked at 1.65 then trended down to normal now 0.70. -Continue to avoid nephrotoxic agents. -Continue to monitor creatinine daily. 6. Hypertension, chronic, present on admission. Stable. -Continue to hold home losartan until blood pressures improved and will opt for rate control agents at this time to avoid atrial fibrillation with RVR. 7. ASCVD with history of AR status post stent x1 and CVA with residual left- sided weakness on Eliquis, chronic, present on admission. Presumed stable. -Patient reports he was previously on statin therapy but is no longer on statin due to side effects. Patient reports that he is on a weekly injection called Repatha (Evolocumab) to lower LDL. -The patient is followed by [facility] cardiology Dr. Jones. 8. Prostate cancer status post recent complicated robotic laprascopic prostatectomy requiring conversion to open procedure. -Continue previous outpatient follow-up per PCP or oncology. 9. Obstructive sleep apnea on CPAP, present on admission. Stable. -Continue home CPAP. Code status: Full code, designated surrogate decision maker is his spouse GI prophylaxis: Started famotidine in TPN today VTE prophylaxis: Restarted Eliquis today Thank you for this most interesting consult. Medicine will continue to follow at this time. Quality VTE Deep Vein Thrombosis/Pulmonary Embolism Present on Admission: No
[2020-03-05] MEDS: [UNRECOGNIZED DRUG - OTHER] IV (17:55)
[2020-03-05] MEDS: MULTIVITAMIN IV (17:55)
[2020-03-05] MEDS: CALCIUM IV (17:55)
[2020-03-05] MEDS: DEXT IV (17:55)
[2020-03-05] MEDS: LYTES IV (17:55)
[2020-03-05] MEDS: TRACE ELEMENTS IV (17:55)
--- NOTE | 2020-03-05 18:24 | PC.NURSE ---
Ostomy Nurse Consult Note Rio asleep in bed with his C-PAP on. He arouses easily when I speak with him. His stoma was digital examined by Dr. Tolbert this morning. I removed the appliance. The stoma is at the skin level and has yellow and ambrose slough around the edges and a few spots near the os. There is some beefy red mucosa. The peristomal sutures are intact. He does have 1cm of induration around the stoma and has a ring of blanchable redness .5mm around the stoma and the peristomal skin is intact. This redness does not feel hot to touch. I tried to remove some of the slough but it is well attached to the stoma and will most likely slough off. The stoma measures 40mm oval. I took a picture and replaced the appliance. I placed him back in a [facility] [employer] two piece appliance with a non-filter pouch. He did have 10cc of clear straw colored fluid in the pouch. His GALA drain in attached and draining straw colored, clear fluid. I did not see his Odalys and will return next week to continue ostomy teaching. I will be available this weekend if anyone needs to get in touch with me. I plan on returning Sunday late afternoon. Rio did asks for ice chips and I spoon fed him a few chips.
[2020-03-05 18:39] LABS: Procalcitonin 4.93 ng/mL (<0.5)
[2020-03-05] MEDS: FUROSEMIDE 20 MG/2 ML VIAL IV (20:14)
[2020-03-05] MEDS: APIXABAN 5 MG TABLET PO (20:15)
[2020-03-06] VITALS (19 sets, daily range): BP systolic 131–179; BP diastolic 62–82; PULSE 65–91; RESP 18–20; TEMP 36–36.8; O2SAT 92–99
[2020-03-06] MEDS: ONDANSETRON 4 MG/2 ML INJ IV ×2 (01:36→22:55)
[2020-03-06] MEDS: METOPROLOL TARTRATE 5 MG/5 ML INJ IV ×4 (03:30→21:31)
--- NOTE | 2020-03-06 05:03 | DI.RAD.S_ITS ---
PROCEDURE: XR CHEST 1V INDICATIONS: SOB, Chest pain TECHNIQUE: One view of the chest was acquired. COMPARISON: [facility], , XR CHEST FOR PICC 1V, 03/01/2020, 14:06. FINDINGS: Surgical changes and devices: Overlying monitoring wires. Lungs and pleura: Low lung volumes. The visible lung donnelly are are clear. No pleural effusions or pneumothorax. Mediastinum: Mediastinal contours appear normal. Heart size is enlarged. Bones and chest wall: No suspicious bony lesions. Overlying soft tissues appear unremarkable. IMPRESSION: 1. The visible lung donnelly are clear. 2. Mild cardiomegaly, likely accentuated by low lung volumes. No radiographic findings of vascular congestion. Dictated by: Linda Flanagan M.D. on 03/06/2020 at 7:00 Approved by: Linda Flanagan M.D. on 03/06/2020 at 7:01
--- NOTE | 2020-03-06 05:13 | PM.EVENT ---
Event Note Date Patient Seen: 03/06/20 Time Patient Seen: 04:50 Event Note: Called by the nurse to re-evaluate the patient for new complaints of increasing shortness of breath and chest tightness. 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 Patient is now postop day 5 after returning to the operating for an breakdown of the colonic anastomosis and peritonitis. This morning the patient is reporting shortness of breath and states he has phlegm is having a difficult time clearing. Patient has shallow respirations with diminished breath sounds bilateral bases without central coarseness or pre she should basilar crackles. Oxygen saturation remains stable at 94 to 95 presented He also complains precordial chest pressure that is nonradiating and nonpleuritic. Patient's blood pressure is 179/82. He has associated symptoms of nausea and which has been intermittently present and no complaints of heartburn but no diaphoresis. His abdomen is diffusely tender with bowel tones present in colostomy producing gas but no drainage. His I&O balance for the last 24 hours is reported as positive 232 cc he has 1+ peripheral edema. New complaint of precordial chest pressure that is nonradiating nonpleuritic. -will obtain 12 lead EKG, tracing reveals sinus rhythm with a ventricular rate of 72 with a right bundle branch block with a NV interval 142 ms, QRS of 137 ms, and QTC of 446 ms, tracing is unchanged from prior EKG finding no new ischemia or infarct. -obtain chest x-ray, on review haziness appearance the bases, enlarged heart, ordered Lasix 20 mg x 1 now. -will obtain morning labs with addition of a cardiac panel.
[2020-03-06] MEDS: FUROSEMIDE 20 MG/2 ML VIAL IV (05:14)
[2020-03-06 05:16] LABS: Add Manual Diff / Slide Review NO; Basophils Absolute Auto 0 /uL (0-100); Basophils Percent Auto 0.2 % (0-2); Eosinophils Absolute Auto 100 /uL (0-450); Eosinophils Percent Auto 1.8 % (2-4); Hematocrit 30.8 % (41-53); Hemoglobin 10.1 g/dL (13.5-17.5); Lymphocytes Absolute Auto 2500 /uL (1100-4500); Lymphocytes Percent Auto 38.7 % (25-40); Mean Corpuscular HGB Conc 32.8 % (30-36); Mean Corpuscular Hemoglobin 26.8 PG (26-34); Mean Corpuscular Volume 81.7 fL (80-100); Monocytes Absolute Auto 600 /uL (0-900); Monocytes Percent Auto 9.8 % (3-14); Neutrophils Absolute Auto 3200 /uL (1500-7000); Neutrophils Percent Auto 49.5 % (50-75); Platelet Count 198 X10^3/uL (150-400); Red Blood Cell Count 3.77 X10^6/uL (4.5-5.9); Red Cell Distribution Width 14.5 % (11.6-14.8); White Blood Cell Count 6.4 X10^3/uL (4.5-11.0)
[2020-03-06 05:19] LABS: Creatine Kinase 39 U/L (55-170)
[2020-03-06 05:20] LABS: BUN Creatinine Ratio 23.2 (6-22); Blood Urea Nitrogen 16 mg/dL (9-20); Calcium 7.8 mg/dL (8.4-10.2); Carbon Dioxide 35 mmol/L (22-32); Chloride 98 mmol/L (98-107); Estimated Glomerular Filt Rate > 60.0 mL/min (>60); Glucose 120 mg/dL (80-110); HEMOLYSIS < 15 (0-50); Phosphorous 3.6 mg/dL (2.3-3.7); Potassium 3.9 mmol/L (3.4-5.1); Sodium 136 mmol/L (137-145)
--- NOTE | 2020-03-06 05:27 | PC.NURSE ---
Addendum entered by Marla Flowers R.N. 03/06/20 05:49: Pt now resting in bed without complaints. O2 sats at 96% on 2L o2. BP 153/72. WCTM Addendum entered by Marla Flowers R.N. 03/06/20 05:32: Pt also reports slight chest pressure. Srikanth LOONEY aware. Iv lasix given. Original Note: Pt complaints of shortness of breath at rest. Shallow respirations. Diminished lung sounds in bases. O2 sats at 92% on 2L O2 via cpap. BP 179/82. HR running in the 70s, NSR with occasional PACs. Pt reports mild pain in abdomen that is tolerable. Notified Srikanth LOONEY and provider at bedside to assess patient. Orders received.
[2020-03-06 05:32] LABS: Troponin I < 0.012 ng/mL (0.01-0.034)
[2020-03-06] MEDS: SODIUM CHLORIDE 0.9% IV ×3 (05:44→21:31)
[2020-03-06] MEDS: ERYTHROMYCIN IV ×3 (05:44→21:31)
[2020-03-06 06:24] LABS: Procalcitonin 2.78 ng/mL (<0.5)
[2020-03-06] MEDS: SODIUM CHLORIDE 0.9% FLUSH 10 ML IV (09:04)
[2020-03-06] MEDS: APIXABAN 5 MG TABLET PO ×2 (09:04→21:31)
[2020-03-06] MEDS: OXYCODONE IR 5 MG TABLET PO (09:42)
[2020-03-06] MEDS: LIDOCAINE JELLY 2% 5 ML 5 APPLIC TOP (10:30)
[2020-03-06] MEDS: HYDROMORPHONE 0.5 MG INJ IV ×2 (10:30→23:57)
--- NOTE | 2020-03-06 11:00 | P.PN_ITS ---
Subjective Subjective Date Patient Seen: 03/06/20 Interval history: Ostomy productive of gas and stool. Had shortness of breath and chest pain overnight EKG demonstrated normal sinus rhythm and chest x-ray was grossly normal in cardiac enzymes were negative. He has minimal pain currently no nausea is hungry. Exam Vital Signs (past 8 hours): - 03/06/20 03:30 03/06/20 04:00 03/06/20 04:36 Temperature Pulse Rate 79 69 77 Respiratory Rate Blood Pressure 160/74 H 179/82 H Pulse Oximetry 95 94 95 03/06/20 05:15 03/06/20 07:00 03/06/20 09:00 Temperature 98.3 F 97.2 F L Pulse Rate 73 72 Respiratory Rate 20 20 Blood Pressure 153/72 H 140/67 Pulse Oximetry 95 94 96 Oxygen Delivery Method Nasal Cannula Oxygen Flow Rate 0 Narrative Exam Narrative: General elderly male alert oriented no acute distress Chest nonlabored respirations Abdomen midline incision wound VAC removed incision is very well granulated depth is decreasing, ostomy viable and productive air Objective Labs Result Diagrams: 03/06/20 04:53 03/06/20 04:53 Labs: Laboratory Results - last 24 hr 03/05/20 03/06/20 03/06/20 06:30 04:53 04:53 WBC 6.4 RBC 3.77 L Hgb 10.1 L Hct 30.8 L MCV 81.7 MCH 26.8 MCHC 32.8 RDW 14.5 Plt Count 198 Neut % (Auto) 49.5 L Lymph % (Auto) 38.7 [place] % (Auto) 9.8 Eos % (Auto) 1.8 L Baso % (Auto) 0.2 Neut # (Auto) 3200 Lymph # (Auto) 2500 [place] # (Auto) 600 Eos # (Auto) 100 Baso # (Auto) 0 Sodium 136 L Potassium 3.9 Chloride 98 Carbon Dioxide 35 H BUN 16 Creatinine 0.69 Estimated GFR > 60.0 BUN/Creatinine Ratio 23.2 H Glucose 120 H Calcium 7.8 L Phosphorus 3.6 Magnesium 2.0 Total Creatine Kinase CK-MB (CK-2) CK-MB (CK-2) Rel Index Troponin I Procalcitonin 4.93 H 03/06/20 03/06/20 04:53 04:53 WBC RBC Hgb Hct MCV MCH MCHC RDW Plt Count Neut % (Auto) Lymph % (Auto) [place] % (Auto) Eos % (Auto) Baso % (Auto) Neut # (Auto) Lymph # (Auto) [place] # (Auto) Eos # (Auto) Baso # (Auto) Sodium Potassium Chloride Carbon Dioxide BUN Creatinine Estimated GFR BUN/Creatinine Ratio Glucose Calcium Phosphorus Magnesium Total Creatine Kinase 39 L CK-MB (CK-2) TNP CK-MB (CK-2) Rel Index TNP Troponin I < 0.012 Procalcitonin 2.78 H Assessment & Plan Post-op Postoperative Procedures: Procedures Operation Date: 02/24/20 09:15 Actual Procedures Side Surgeon p Appendectomy, partial cholectomy, lysis of adhesions Yao Cleary MD Operation Date: 03/01/20 08:00 Actual Procedures Side Surgeon p Exploratory Laparotomy. PARTIAL COLECTOMY. COLOSTOMY FORMATION. APPLICATION OF WOUND VAC Yao Cleary MD Postoperative plan narrative: 85-year-old male postoperative day 5 after a exp loratory laparotomy partial colectomy and end colostomy formation for a leaked sigmoid anastomosis. He is making a gradual recovery. His postoperative ileus appears to have resolved. -regular diet will continue TPN until demonstrating that he is taking adequate amount of orally nutrition -out of bed to chair, physical therapy -atrial fibrillation continue rate control with beta blockade and full anticoagulation with Eliquis. I anticipate that he will be stable for discharge to rehab mid next week once he is consistently tolerating a regular diet and his TPN has been weaned off. Based than the progression and good healing of his midline wound, will perform the next VAC change March 09 and he may be done with the wound VAC at that time. Quality VTE Deep Vein Thrombosis/Pulmonary Embolism Present on Admission: No
--- NOTE | 2020-03-06 12:14 | P.PN_ITS ---
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 The patient was found to have dense intra-abdominal adhesions and laparoscopic appendectomy was converted to open laparotomy and required partial sigmoid colectomy. That surgery was complicated by an anastomot ic leak and is now status post end colostomy with additional small bowel resection. The patient is resting in bed with CPAP in place and appears comfortable. General surgery is in the room and wound VAC has been changed. General surgery plans to advance patient's diet today as he continues to have significant amount of flatus with serous drainage out of colostomy. Overnight the patient reported shortness of breath and chest pain/pressure with a full evaluation including chest x-ray, EKG, troponin and full laboratory assessment which was unrevealing. The patient was also likely slightly fluid overloaded and received further diuresis with a total of 40 mg IV furosemide yesterday with good diuresis. The patient also has had mild intermittent nausea with acid reflux and was not on GI prophylaxis until yesterday which could be contributing to chest pain/pressure. The patient continues to endorse mild shortness of breath but is not hypoxemic and is maintaining good oxygen saturations in the mid 90s. There is likely an anxiety component to the patient's shortness of breath. He has no other complaints and denies headache, chest pain, abdominal pain, nausea, vomiting, fever, chills or extremity pain. He is voiding via Diaz catheter. He is up ambulating with assistance. Exam Vital Signs (past 8 hours): - 03/06/20 04:36 03/06/20 05:15 03/06/20 07:00 Temperature 98.3 F Pulse Rate 77 73 Respiratory Rate 20 Blood Pressure 179/82 H 153/72 H Pulse Oximetry 95 95 94 03/06/20 09:00 Temperature 97.2 F L Pulse Rate 72 Respiratory Rate 20 Blood Pressure 140/67 Pulse Oximetry 96 Oxygen Delivery Method Nasal Cannula Oxygen Flow Rate 0 Narrative Exam Narrative: General: Older gentleman sitting in bed in no acute distress, appears acutely ill and lethargic, otherwise appropriately interactive. HEENT: Normocephalic, atraumatic. External ears without defect. Pupils equal, round, and reactive to light. Anicteric sclerae, moist conjunctivae, and no lid lag. Oropharynx free of erythema and cobble stoning with moist mucosa. Neck: Supple with full range of motion. No lymphadenopathy or thyromegaly. Cardiovascular: Heart sounds distant but appears regular rate and rhythm without murmurs, rubs, or gallops appreciated. Pulmonary: Diminished throughout but clear to auscultation bilaterally without crackles, wheezes, or rhonchi. Normal respiratory effort with no use of accessory muscles. Abdomen: Abdomen firm with mild distension, vertical surgical wound with wound vac in place, ostomy with light pink/lagunas stoma and serous output in bag with now significant amount of gas but no BM, bowel sounds present, mild tenderness around surgical scar. Genitourinary: Scrotal and penis edema improved and nearly resolved with sling in place. Extremities: No clubbing or cyanosis. Trace bipedal pitting edema. Skin: Normal temperature, turgor, and texture; no rash, ulcers, or subcutaneous nodules appreciated. Neurological: Cranial nerves grossly intact. Psychiatric: Depressed mood and flat affect. Alert and oriented to person, place, and time. Objective Labs Result Diagrams: 03/06/20 04:53 03/06/20 04:53 Labs: Laboratory Results - last 24 hr 03/05/20 03/06/20 03/06/20 06:30 04:53 04:53 WBC 6.4 RBC 3.77 L Hgb 10.1 L Hct 30.8 L MCV 81.7 MCH 26.8 MCHC 32.8 RDW 14.5 Plt Count 198 Neut % (Auto) 49.5 L Lymph % (Auto) 38.7 Coleman % (Auto) 9.8 Eos % (Auto) 1.8 L Baso % (Auto) 0.2 Neut # (Auto) 3200 Lymph # (Auto) 2500 Coleman # (Auto) 600 Eos # (Auto) 100 Baso # (Auto) 0 Sodium 136 L Potassium 3.9 Chloride 98 Carbon Dioxide 35 H BUN 16 Creatinine 0.69 Estimated GFR > 60.0 BUN/Creatinine Ratio 23.2 H Glucose 120 H Calcium 7.8 L Phosphorus 3.6 Magnesium 2.0 Total Creatine Kinase CK-MB (CK-2) CK-MB (CK-2) Rel Index Troponin I Procalcitonin 4.93 H 03/06/20 03/06/20 04:53 04:53 WBC RBC Hgb Hct MCV MCH MCHC RDW Plt Count Neut % (Auto) Lymph % (Auto) Coleman % (Auto) Eos % (Auto) Baso % (Auto) Neut # (Auto) Lymph # (Auto) Coleman # (Auto) Eos # (Auto) Baso # (Auto) Sodium Potassium Chloride Carbon Dioxide BUN Creatinine Estimated GFR BUN/Creatinine Ratio Glucose Calcium Phosphorus Magnesium Total Creatine Kinase 39 L CK-MB (CK-2) TNP CK-MB (CK-2) Rel Index TNP Troponin I < 0.012 Procalcitonin 2.78 H Assessment & Plan Assessment & Plan narrative: Rio Burk is an 85-year-old male with a past medical history significant for coronary artery disease status post NJ, CVA with residual left-sided hemiparesis, hypertension, hyperlipidemia, 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 The patient was found to have dense intra-abdominal adhesions and laparoscopic appendectomy was converted to open laparotomy and required partial sigmoid colectomy. That surgery was complicated by an anastomotic leak and is now status post end colostomy with additional small bowel resection. 1. Appendiceal mass status post elective appendectomy with complication of dense adhesions leading to open procedure with lysis of adhesions, sigmoid resection, ileus, and anastomotic leak now status post partial colectomy and end colostomy, present on admission. Active. -Patient had appendiceal mass and elective appendectomy with complication of dense intra-abdominal adhesions requiring conversion of laparoscopic appendectomy to open procedure with complication sigmoid resection, ileus, and subsequent anastomotic leak status post partial colectomy with end colostomy. -Continue physical and occupational therapy evaluation and treatment. -Continue management per primary general surgery team. 2. Acute sepsis, not present on admission. Resolved. -Secondary to anastamotic leak with corresponding intra-abdominal contamination. -Patient with end-organ dysfunction of hypotension that responded to IV fluid resuscitation, TIEN, and thrombocytopenia. -Received broad-spectrum IV antibiotic with meropenem x5 days. 3. Acute peritonitis, secondary to anastomotic leak, not present on admission. Resolved. -WBC trended low to 3.1 then normalized. Procalcitonin peaked at 50.89 and trending down now 2.78 without further antibiotics. Continue to monitor WBC and procalcitonin daily. -Received meropenem 1g every 8 hours x 5 days. 4. Paroxysmal atrial fibrillation with acute RVR, chronic, present on admission. Resolved. -Patient spouse reports previous history of atrial fibrillation and the reason for Eliquis. -Repeat TSH normal at 0.72. -Echocardiogram demonstrated mildly-moderately increased left ventricular thickness (concentric) with normal size and hyperdynamic systolic function (EF 70-75%), normal right ventricular size and function, mild aortic stenosis (valve area 1.6cm2, mean gradient 16mmHg), IVC is dilated (diameter is greater than 2.1 cm) and it collapses less than 50% with a sniff. This suggests a high right atrial pressure of 15 mm Hg. -CHADS2 Vasc score 6. Continue home Eliquis 5 mg twice daily (restarted 03/05/2020). -Continue metoprolol 5 mg IV every 6 hours and will likely restart home meds per surgery. Previously on diltiazem gtt which has been discontinued. -Continue to monitor electrolytes and replete as necessaryespecially in setting of intermittent diuresis due to mild volume overload with IV fluid resuscitation. Patient appears nearly euvolemic and will off on further oral diuresis. Goal K > 4.0 and Mg > 2.0. 5. Acute kidney injury, not present on admission. Resolved. -Likely secondary to intra-abdominal leak/contamination and sepsis as noted above. -Baseline creatinine 0.7-0.8. Creatinine trended up and peaked at 1.65 then jcarlos nded down to normal. -Continue to avoid nephrotoxic agents. -Continue to monitor creatinine daily. 6. Hypertension, chronic, present on admission. Stable. -Continue to hold home losartan until blood pressures improved and will opt for rate control agents at this time to avoid atrial fibrillation with RVR. 7. ASCVD with history of NJ status post stent x1 and CVA with residual left- sided weakness on Eliquis, chronic, present on admission. Presumed stable. -Patient reports he was previously on statin therapy but is no longer on statin due to side effects. Patient reports that he is on a weekly injection called Repatha (Evolocumab) to lower LDL. -The patient is followed by [facility] cardiology Dr. Jones. 8. Prostate cancer status post recent complicated robotic laprascopic prostatectomy requiring conversion to open procedure. -Continue previous outpatient follow-up per PCP or oncology. 9. Obstructive sleep apnea on CPAP, present on admission. Stable. -Continue home CPAP. Code status: Full code, designated surrogate decision maker is his spouse GI prophylaxis: Famotidine in TPN today VTE prophylaxis: Johanna Thank you for this most interesting consult. Medicine will continue to follow at this time. Quality VTE Deep Vein Thrombosis/Pulmonary Embolism Present on Admission: No
--- NOTE | 2020-03-06 14:16 | OT.IP.TRT ---
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 PARTIAL COLECTOMY. COLOSTOMY FORMATION. APPLICATION OF WOUND VAC - Yao Cleary MD Occupational Therapy Treatment Note M2 OT-IP Current Condition Start: 02/25/20 13:57 Freq: Status: Active Protocol: Document 02/25/20 11:13 [facility] (Rec: 02/25/20 14:16 [facility] [id number]) Occupational Therapy Current Condition Current Condition Evaluation Date 02/25/20 Treatment Diagnosis Appendectomy, partial cholectomy, decreased self care Diagnosis Onset Date 02/24/20 Post Operative Precautions Abdominal Surgery Precautions Log Roll,Lifting Restrictions, Gait Belt above Incisional Area M3 OT- IP Subjective and Pain Start: 02/25/20 13:57 Freq: Status: Active Protocol: Document 03/06/20 14:26 [facility] (Rec: 03/06/20 14:43 [facility] [email or web address]) OT- Subjective Occupational Therapy Visit Type Type Progress Note Visit Start Time 13:41 Visit Stop Time 14:16 Total Visit Minutes 35 OT Pain Assessment Pain When Pain Assessed During Mobility Pain Present Pain Present Pain Reported Location Abdomen Scale Used did not rate Management Techniques Modification of Treatment, Timing of Activity with Medications M4 OT- IP ADL's Start: 02/25/20 13:57 Freq: Status: Active Protocol: Document 03/06/20 14:26 [facility] (Rec: 03/06/20 14:43 [facility] [email or web address]) OT KAH-Fivu-Fccksch Comments OT Self-Feeding Comments not meal time OT ADL-Grooming General Evaluation Grooming Ability Maximum Assistance Areas Needing Assistance Combing/Brushing Hair Comments OT Grooming Comments seated EOB OT ADL-Oral Care Comments Oral Care Comments not performed OT ADL-Dressing Comments OT Dressing Comments not performed OT ADL-Toileting Comments OT Toileting Comments pt declined to get to [facility] OT ADL-Bathing Comments OT Bathing Comments not performed M5 OT- IP IADL's Start: 02/25/20 13:57 Freq: Status: Active Protocol: Document 02/25/20 11:13 [facility] (Rec: 02/25/20 14:16 [facility] [id number]) OT-Instrumental Activities of Daily Living Commercial Cleaner Commercial Cleaner Caregiver Provides Assist Commercial Cleaner Comments Prior pt likes to assist to take out the trash. M6 OT- IP Functional Cognition Start: 02/25/20 13:57 Freq: Status: Active Protocol: Document 03/06/20 14:26 [facility] (Rec: 03/06/20 14:43 [facility] [email or web address]) Cognitive Factors Limiting Selfcare Function Cognitive Ability Level of Alertness Alert Attention Span Ability Capable of Focused Attention, Capable of Sustained Attention Ability to Follow Commands Able to Follow One Step Commands with Increased Time, Able to Follow One Step Commands with Repetition Cognitive Comments Cognitive Assessment Comments Pt appears very flat and inconsistant with conversation . Pt may benefit from a formal cog assessment. OT- Vision and Hearing OT- Hearing Assessment OT- Hearing Assessment WFL OT- Vision Assessment Visual Acuity WFL M7 OT- IP Mobility and Balance Start: 02/25/20 13:57 Freq: Status: Active Protocol: Document 03/06/20 14:26 [facility] (Rec: 03/06/20 14:43 [facility] [email or web address]) OT- Bed Mobility Assessment Rolling Type of Rolling Log Rolling,Roll to Left Level of Assistance Maximum Assistance,2 Person Assistance,Head of Bed Elevated,Bedrails Supine to Sit Supine to Sit Assist Maximum Assistance,2 Person Assistance,Head of Bed Elevated,Bedrails Sit to Supine Sit to Supine Assist Maximum Assistance,2 Person Assistance,Head of Bed Elevated,Bedrails Scooting Scooting to Edge of Bed Maximum Assistance,2 Person Assistance,Head of Bed Elevated,Bedrails OT-Transfer Assessment Comments Mobility Comments transfer not performed on this date. OT- Balance Assessment Sitting Balance and Reactions Static Sitting Balance Ability Poor Dynamic Sitting Balance Ability Poor M8 OT- IP Objective Assessments Start: 02/25/20 13:57 Freq: Status: Active Protocol: Document 02/25/20 11:13 [facility] (Rec: 02/25/20 14:16 [facility] [id number]) OT Gross Range of Motion Upper Extremity Range of Motion Assessment Left Impaired OT Strength Upper Extremity Strength Assessment Left Impaired Shoulder 2- Elbow 3 Forearm 2- Wrist 2- Hand 2- OT-Muscle Tone Assessment Muscle Tone WNL No Muscle Tone Location Left Upper Extremity Type of Tone Hypotonicity M9 OT- IP Assessment and Plan Start: 02/25/20 13:57 Freq: Status: Active Protocol: Document 03/06/20 14:26 [facility] (Rec: 03/06/20 14:43 [facility] [email or web address]) OT Summary Assessment and Plan Potential Rehabilitation Potential Fair Analytic Complexity at Evaluation Moderate Summary OT Impairments Pain,Balance,Functional Mobility,Grooming,Dressing, Toileting,Bathing,Toilet Transfers,Shower Transfers, Activity Tolerance Progress Towards Goals Progressing Toward Goals Assessment Summary Pt tolerated minimal activity on this date. Pt agreeable to sitting EOB only and fatigued quickly requiring more assist for sitting balance as session progressed. Pt leans heavy to his right and states that straightening up hurts his incision site. Pt will continue to benefit from OT services. At this time co- treats may be beneficial till pt has more endurance to participate in multiple sessions. Pt is likely to have increased endurance in the next few days as pt has just started back on a diet. Goals Self-Feeding Goal Independent Grooming Goal Independent Dressing Goal Minimal Assistance Toileting Goal Moderate Assistance Bathing Goal Moderate Assistance Toilet Transfer Goal Standby Assistance Shower Transfer Goal Minimal Assistance Patient/Caregiver Education Goal Demonstrate Post-Op Precautions,Caregiver Independent Assisting Patient Days to Meet Goals 19 Frequency of Treatment Frequency Of Treatment Once a Day Treatment Plan OT Treatment Plan ADL Training,Functional Mobility,Patient/Family Education,Discharge Planning Other Treatment Recommendations and Next Pt to sit at edge of bed for Treatment Focus grooming needs to work on midline/sitting balance. Discharge Recommendations OT Discharge Recommendations SNF Rehab Home Equipment Needs Defer to SNF Transportation Needs at Discharge Wheelchair/Cabulance,Stretcher /Ambulance
--- NOTE | 2020-03-06 14:56 | PT.IPTN ---
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 PARTIAL COLECTOMY. COLOSTOMY FORMATION. APPLICATION OF WOUND VAC - Yao Cleary MD Physical Therapy Treatment Note M2 PT-IP Current Condition Start: 02/25/20 09:42 Freq: NEEDED Status: Active Protocol: Document 02/25/20 12:29 (Rec: 02/25/20 13:09 [id number]) Physical Therapy Current Condition Current Condition Evaluation Date 02/25/20 Treatment Diagnosis Appendectomy, partial cholectomy, lysis of adhesions , weakness Onset Date 02/24/20 Precautions Abdominal Surgery Precautions Log Roll,Lifting Restrictions, Gait Belt above Incisional Area Weight Bearing Status Weight Bearing Status Full Weight Bearing M3 PT-IP Subjective Start: 02/25/20 09:42 Freq: NEEDED Status: Active Protocol: Document 03/06/20 13:41 [facility] (Rec: 03/06/20 14:56 [id number]) Subjective Physical Therapy Visit Type Type Treatment Note Visit Start Time 13:41 Visit Stop Time 14:16 Total Visit Minutes 35 Notes in room. Co tx with OT due to pts level of fatigue and assistance required Physical Therapy Visit Comments Patient Comments Pt reluctantly agreeable to PT Therapy Pain Assessment Pain When Pain Assessed During Mobility Pain Present Pain Present Pain Reported M4 PT-IP Mobility and Gait Start: 02/25/20 09:42 Freq: NEEDED Status: Active Protocol: Document 03/06/20 13:41 [facility] (Rec: 03/06/20 14:56 LJ [id number]) PT-Bed Mobility Assessment Rolling Type of Rolling Roll to Left Level of Assist Maximal Assistance,2 Person Assistance Supine to Sit Supine to Sit Maximum Assistance,2 Person Assistance,Bedrails Sit to Supine Sit to Supine Maximum Assistance,2 Person Assistance,Head of Bed Elevated,Bedrails Scooting Scooting to Edge of Bed Moderate Assistance,Maximum Assistance Scooting Up and Down in Bed Maximum Assistance PT-Transfer Assessment Comments Mobility Comments Pt in bed upon arrival. Not wanting to work with PT at all but agreed to combine PT and OT treatment. Pt needed MaxA x2 for logroll to left with head of bed elevated. Pt used bedrail with right UE to assist with roll. MaxA x2 for sidelying<>sit. Once seated on edge of bed pt was able to maintain balance with SBA-CGA hanging onto bed cane. Pt sat on side of bed and performed seated exercises with OT assisting behind pt and GERIATRIC PHYSICAL THERAPIST in fromt directing exercises. Nursing assisted with scooting pt to head of bed. 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 and poor fine motor control able to abduct shoulder approx 40-50 degrees unable to fully extend his L arm and fingers Lower Extremity ROM Assessment Left Impaired Strength Upper Extremity Strength Assessment Left Impaired Shoulder 2- Elbow 3 Wrist 2- Hand 2- Lower Extremity Strength Assessment Left Impaired Hip 3+ Knee 4- Ankle 3 Coordination Assessment Gross Coordination Gross Coordination Impaired Sensation Assessment Sensation Gross Sensation WNL Muscle Tone Muscle Tone WNL No Muscle Tone Location Left Upper Extremity Type of Tone Hypertonicity,Flexor Severity of Tone Moderate M6 PT-IP Treatment Start: 02/25/20 09:42 Freq: NEEDED Status: Active Protocol: Document 03/06/20 13:41 [facility] (Rec: 03/06/20 14:56 LJ [id number]) Physical Therapy Treatment Exercises Exercises Ankle Pumps,Quad Sets,Supine Hip Abduction Other Treatments Other Treatment Performed Pt sat on side of bed for ~10 minutes doing seated marching, knee extension, ankle pumps and hip AB/AD against GERIATRIC PHYSICAL THERAPIST's hands. Pt also performed seated weight shifting anterior/posterior, lateral with CGA-Petey with balance and tactile cues M7 PT-IP Assessment and Plan Start: 02/25/20 09:42 Freq: NEEDED Status: Active Protocol: Document 03/06/20 13:41 [facility] (Rec: 03/06/20 14:56 LJ [id number]) PT Summary Assessment and Plan Potential Rehabilitation Potential Fair Status of Condition at Evaluation Evolving Summary Impairments Pain,ROM,Strength,Balance, Coordination,Sensation,Tone, Cognition,Bed Mobility, Transfers,Gait,Activity Tolerance Progress Towards Goals Slow Progress due to Medical Issues,Slow Progress due to Activity Tolerance,Slow Progress - Other Assessment Summary OT and RN assisted with session. Pt was able to sit on side of bed and perform light exercises with several breaks in between exercises. He requested to end the session after roughly 10 minutes. His sitting balance improved but he tired very easily. He was unwilling to attempt standing with the sit>stand. Goals Bed Mobility Goal Minimal Assistance Transfer Goal Moderate Assistance Gait Goal Moderate Assistance,Abdifatah Walker Gait Distance 25 Days to Meet Goals 10 Frequency of Treatment Frequency Of Treatment Once a Day Treatment Plan Physical Therapy Treatment Plan Bed Mobility Training,Transfer Training,Gait Training, Therapeutic Exercise,Balance Retraining,Post Op Education, Discharge Planning,Hot or Cold Pack,Neuromuscular Re-ed, Coordination Retraining,Manual Therapy Other Recommendations and Next Treatment seated balance Focus transfers standing Recommendations To Nursing Amount of Assist Needed Power Sit-Stand Discharge Recommendations PT Discharge Recommendations SNF Rehab Transportation Needs at Discharge Wheelchair/Cabulance
--- NOTE | 2020-03-06 15:43 | PC.NURSE ---
Pt a/o x4, assist to sit at edge of bed. wound vac @ 125 mmHG. GALA no output. Lungs dim and clear, weak cough effort. Dr Cleary into change wound vac at bedside. Premedicated with IV Dilaudid. Pleased with reduction in depth to midline, and excellent granulation bed. Pt able to do PT exercises at edge of bed. Started on clear PO diet. Instructed to advance as tolerated SLOWLY. Pt had broth and milk for lunch with no s/sx of nausea. BT hyperactive. Ostomy output copious flatus. No stooling this shift. Serosang liquid to ostomy. Afebrile. Pt reports really feeling better some SOB with activity, though improved with x1 lasix dosing. Joe remains patent.
[2020-03-06] MEDS: guaiFENesin ER 600 MG TAB 1200 MG PO ×2 (16:07→21:31)
[2020-03-06] MEDS: CALCIUM IV (18:00)
[2020-03-06] MEDS: [UNRECOGNIZED DRUG - OTHER] IV (18:00)
[2020-03-06] MEDS: FAT EMULSIONS 50 GM/250 ML EMULSION IV (18:00)
[2020-03-06] MEDS: MULTIVITAMIN IV (18:00)
[2020-03-06] MEDS: DEXT IV (18:00)
[2020-03-06] MEDS: TRACE ELEMENTS IV (18:00)
[2020-03-06] MEDS: LYTES IV (18:00)
--- NOTE | 2020-03-06 21:54 | PC.NURSE ---
2129- Patient states that he is feeling depressed. He has a flat affect. Patients states she feels he is depressed as well. He did have some depression after his stroke. Will let his provider know. Will monitor.
[2020-03-07] VITALS (11 sets, daily range): BP systolic 92–149; BP diastolic 46–81; PULSE 71–85; RESP 24–29; TEMP 36.1–37.1; O2SAT 94–98
[2020-03-07] MEDS: METOPROLOL TARTRATE 5 MG/5 ML INJ IV ×2 (03:18→09:22)
[2020-03-07 05:22] LABS: Add Manual Diff / Slide Review NO; Basophils Absolute Auto 0 /uL (0-100); Basophils Percent Auto 0.2 % (0-2); Eosinophils Absolute Auto 100 /uL (0-450); Eosinophils Percent Auto 1.8 % (2-4); Hematocrit 29.2 % (41-53); Hemoglobin 9.7 g/dL (13.5-17.5); Lymphocytes Absolute Auto 2700 /uL (1100-4500); Lymphocytes Percent Auto 33.6 % (25-40); Mean Corpuscular HGB Conc 33.2 % (30-36); Mean Corpuscular Hemoglobin 27.1 PG (26-34); Mean Corpuscular Volume 81.8 fL (80-100); Monocytes Absolute Auto 700 /uL (0-900); Monocytes Percent Auto 8.9 % (3-14); Neutrophils Absolute Auto 4500 /uL (1500-7000); Neutrophils Percent Auto 55.5 % (50-75); Platelet Count 209 X10^3/uL (150-400); Red Blood Cell Count 3.57 X10^6/uL (4.5-5.9); Red Cell Distribution Width 14.2 % (11.6-14.8); White Blood Cell Count 8.1 X10^3/uL (4.5-11.0)
[2020-03-07 05:35] LABS: BUN Creatinine Ratio 21.6 (6-22); Blood Urea Nitrogen 16 mg/dL (9-20); Calcium 7.6 mg/dL (8.4-10.2); Carbon Dioxide 37 mmol/L (22-32); Chloride 96 mmol/L (98-107); Estimated Glomerular Filt Rate > 60.0 mL/min (>60); Glucose 120 mg/dL (80-110); HEMOLYSIS < 15 (0-50); Phosphorous 3.9 mg/dL (2.3-3.7); Potassium 3.9 mmol/L (3.4-5.1); Sodium 134 mmol/L (137-145)
[2020-03-07] MEDS: ERYTHROMYCIN IV (05:57)
[2020-03-07] MEDS: SODIUM CHLORIDE 0.9% IV (05:57)
[2020-03-07] MEDS: HYDROMORPHONE 0.5 MG INJ IV ×3 (06:55→17:30)
[2020-03-07] MEDS: ONDANSETRON 4 MG/2 ML INJ IV ×2 (06:56→13:22)
[2020-03-07] MEDS: FAMOTIDINE 20 MG TABLET PO ×2 (08:59→21:14)
[2020-03-07] MEDS: guaiFENesin ER 600 MG TAB 1200 MG PO ×2 (08:59→21:14)
[2020-03-07] MEDS: APIXABAN 5 MG TABLET PO ×2 (08:59→21:14)
--- NOTE | 2020-03-07 11:13 | PM.PNPO.1 ---
Subjective Subjective Date Patient Seen: 03/07/20 Time Patient Seen: 11:13 Interval history: No acute overnight events. Ostomy productive of large amounts of gas not much stool. Continues to feel mildly nauseous but no vomiting. Feels constipated Exam Vital Signs (past 8 hours): - 03/07/20 04:00 03/07/20 05:02 Temperature 98.3 F Pulse Rate 71 77 Respiratory Rate 29 H 29 H Blood Pressure 137/68 Pulse Oximetry 94 98 Oxygen Delivery Method CPAP Oxygen Flow Rate 2 Narrative Exam Narrative: General elderly man alert oriented no acute distress Abdomen mildly distended ostomy viable air in appliance no stool midline wound VAC Objective Labs Result Diagrams: 03/07/20 04:54 03/07/20 04:54 Labs: Laboratory Results - last 24 hr 03/07/20 03/07/20 03/07/20 04:54 04:54 04:54 WBC 8.1 RBC 3.57 L Hgb 9.7 L Hct 29.2 L MCV 81.8 MCH 27.1 MCHC 33.2 RDW 14.2 Plt Count 209 Neut % (Auto) 55.5 Lymph % (Auto) 33.6 [place] % (Auto) 8.9 Eos % (Auto) 1.8 L Baso % (Auto) 0.2 Neut # (Auto) 4500 Lymph # (Auto) 2700 [place] # (Auto) 700 Eos # (Auto) 100 Baso # (Auto) 0 Sodium 134 L Potassium 3.9 Chloride 96 L Carbon Dioxide 37 H BUN 16 Creatinine 0.74 Estimated GFR > 60.0 BUN/Creatinine Ratio 21.6 Glucose 120 H Calcium 7.6 L Phosphorus 3.9 H Magnesium 2.0 Procalcitonin 1.40 H Assessment & Plan Post-op Postoperative Procedures: Procedures Operation Date: 02/24/20 09:15 Actual Procedures Side Surgeon p Appendectomy, partial cholectomy, lysis of adhesions Yao Cleary MD Operation Date: 03/01/20 08:00 Actual Procedures Side Surgeon p Exploratory Laparotomy. PARTIAL COLECTOMY. COLOSTOMY FORMATION. APPLICATION OF WOUND VAC Yao Cleary MD Postoperative plan narrative: 85-year-old man postoperative day 6 after a a exploratory laparotomy and colostomy ends partial colectomy for leaked sigmoid anastomosis. He is making slow but gradual recovery. Ostomy is productive of gas not much stool I think that his significant amount of constipation. -regular diet and TPN until eats taking adequate oral nutrition -MiraLax -atrial fibrillation and hypertension- DC metoprolol switched to home carvedilol and losartan -SCDs and Eliquis. Anticipate discharge to rehab mid next week uncertain as to whether he will require wound VAC and discharge appearance Quality VTE Deep Vein Thrombosis/Pulmonary Embolism Present on Admission: No
--- NOTE | 2020-03-07 11:39 | PM.PN.1 ---
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 The patient was found to have dense intra-abdominal adhesions and laparoscopic appendectomy was converted to open laparotomy and required partial sigmoid colectomy. That surgery was complicated by an anastomotic leak and is now status post end colostomy with additional small bowel resection. The patient is resting in bed with CPAP in place and appears comfortable. General surgery is in the room and discussing overall goals of care. General surgery plans to continue to advance diet as tolerated, restart home medications, and give patient MiraLax today to treat constipation. Patient continues to have significant amount of flatus with serous drainage out of colostomy. The patient continues to endorse intermittent nausea without emesis. He also endorses abdominal pain especially over incision and mild shortness of breath but feels these are improving. He has generalized weakness and continues to work with physical and occupational therapy. He has no other complaints and denies headache, chest pain, abdominal pain, nausea, vomiting, fever, chills or extremity pain. He is voiding via Diaz catheter. He is up ambulating with assistance. Exam Vital Signs (past 8 hours): - 03/07/20 04:00 03/07/20 05:02 Temperature 98.3 F Pulse Rate 71 77 Respiratory Rate 29 H 29 H Blood Pressure 137/68 Pulse Oximetry 94 98 Oxygen Delivery Method CPAP Oxygen Flow Rate 2 Narrative Exam Narrative: General: Older gentleman sitting in bed in no acute distress, appears acutely ill and lethargic, otherwise appropriately interactive. HEENT: Normocephalic, atraumatic. External ears without defect. Pupils equal, round, and reactive to light. Anicteric sclerae, moist conjunctivae, and no lid lag. Oropharynx free of erythema and cobble stoning with moist mucosa. Neck: Supple with full range of motion. No lymphadenopathy or thyromegaly. Cardiovascular: Heart sounds distant but appears regular rate and rhythm without murmurs, rubs, or gallops appreciated. Pulmonary: Diminished throughout but clear to auscultation bilaterally without crackles, wheezes, or rhonchi. Normal respiratory effort with no use of accessory muscles. Abdomen: Abdomen firm, lomz-by-xgmrrext distension, vertical surgical wound with wound vac in place, ostomy with light pink stoma and serous/mucoid output in bag with significant amount of gas but no BM, bowel sounds present, mild diffuse tenderness especially around surgical scar. Genitourinary: Scrotal and penis edema improved and nearly resolved with sling in place. Extremities: No clubbing or cyanosis. Trace bipedal pitting edema. Skin: Normal temperature, turgor, and texture; no rash, ulcers, or subcutaneous nodules appreciated. Neurological: Cranial nerves grossly intact. Psychiatric: Depressed mood and flat affect. Alert and oriented to person, place, and time. Objective Labs Result Diagrams: 03/07/20 04:54 03/07/20 04:54 Labs: Laboratory Results - last 24 hr 03/07/20 03/07/20 03/07/20 04:54 04:54 04:54 WBC 8.1 RBC 3.57 L Hgb 9.7 L Hct 29.2 L MCV 81.8 MCH 27.1 MCHC 33.2 RDW 14.2 Plt Count 209 Neut % (Auto) 55.5 Lymph % (Auto) 33.6 [place] % (Auto) 8.9 Eos % (Auto) 1.8 L Baso % (Auto) 0.2 Neut # (Auto) 4500 Lymph # (Auto) 2700 [place] # (Auto) 700 Eos # (Auto) 100 Baso # (Auto) 0 Sodium 134 L Potassium 3.9 Chloride 96 L Carbon Dioxide 37 H BUN 16 Creatinine 0.74 Estimated GFR > 60.0 BUN/Creatinine Ratio 21.6 Glucose 120 H Calcium 7.6 L Phosphorus 3.9 H Magnesium 2.0 Procalcitonin 1.40 H Assessment & Plan Assessment & Plan narrative: Rio Burk is an 85-year-old male with a past medical history significant for coronary artery disease status post UT, CVA with residual left-sided hemiparesis, hypertension, hyperlipidemia, 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 The patient was found to have dense intra-abdominal adhesions and laparoscopic appendectomy was converted to open laparotomy and required partial sigmoid colectomy. That surgery was complicated by an anastomotic leak and is now status post end colostomy with additional small bowel resection. 1. Appendiceal mass status post elective appendectomy with complication of dense adhesions leading to open procedure with lysis of adhesions, sigmoid resection, ileus, and anastomotic leak now status post partial colectomy and end colostomy, present on admission. Active. -Patient had appendiceal mass and elective appendectomy with complication of dense intra-abdominal adhesions requiring conversion of laparoscopic appendectomy to open procedure with complication sigmoid resection, ileus, and subsequent anastomotic leak status post partial colectomy with end colostomy. -Continue physical and occupational therapy evaluation and treatment. -Continue management per primary general surgery team. 2. Acute sepsis, not present on admission. Resolved. -Secondary to anastamotic leak with corresponding intra-abdominal contamination. -Patient with end-organ dysfunction of hypotension that responded to IV fluid resuscitation, TIEN, and thrombocytopenia. -Received broad-spectrum IV antibiotic with meropenem x5 days. 3. Acute peritonitis, secondary to anastomotic leak, not present on admission. Resolved. -WBC trended low to 3.1 then normalized. Procalcitonin peaked at 50.89 and trending down now 1.4 without further antibiotics. Continue to monitor WBC and procalcitonin daily. -Received meropenem 1g every 8 hours x 5 days. 4. Paroxysmal atrial fibrillation with acute RVR, chronic, present on admission. Resolved. -Patient spouse reports previous history of atrial fibrillation and the reason for Eliquis. -Repeat TSH normal at 0.72. -Echocardiogram demonstrated mildly-moderately increased left ventricular thickness (concentric) with normal size and hyperdynamic systolic function (EF 70-75%), normal right ventricular size and function, mild aortic stenosis (valve area 1.6cm2, mean gradient 16mmHg), IVC is dilated (diameter is greater than 2.1 cm) and it collapses less than 50% with a sniff. This suggests a high right atrial pressure of 15 mm Hg. -CHADS2 Vasc score 6. Continue home Eliquis 5 mg twice daily (restarted 03/05/2020). -Discontinue metoprolol 5 mg IV every 6 hours and restart home carvedilol 6.25 twice daily per general surgery. Previously on diltiazem gtt which has been discontinued. -Continue to monitor electrolytes and replete as necessary. Goal K > 4.0 and Mg > 2.0. 5. Acute kidney injury, not present on admission. Resolved. -Likely secondary to intra-abdominal leak/contamination and sepsis as noted above. -Baseline creatinine 0.7-0.8. Creatinine trended up and peaked at 1.65 then trended down to normal. -Continue to avoid nephrotoxic agents. -Continue to monitor creatinine daily. 6. Hypertension, chronic, present on admission. Stable. -Continue to hold home losartan until blood pressures improved and will opt for rate control agents at this time to avoid atrial fibrillation with RVR. 7. ASCVD with history of UT status post stent x1 and CVA with residual left-sided weakness on Eliquis, chronic, present on admission. Presumed stable. -Patient reports he was previously on statin therapy but is no longer on statin due to side effects. Patient reports that he is on a weekly injection called Repatha (Evolocumab) to lower LDL. -The patient is followed by [facility] cardiology Dr. Jones. 8. Prostate cancer status post recent complicated robotic laprascopic prostatectomy requiring conversion to open procedure. -Continue previous outpatient follow-up per PCP or oncology. 9. Obstructive sleep apnea on CPAP, present on admission. Stable. -Continue home CPAP. Code status: Full code, designated surrogate decision maker is his spouse GI prophylaxis: Famotidine VTE prophylaxis: Johanna Thank you for this most interesting consult. Medicine team will sign off at this time but do not hesitate to contact us for further assistance. Quality VTE Deep Vein Thrombosis/Pulmonary Embolism Present on Admission: No
--- NOTE | 2020-03-07 12:05 | PT-IP ANOTE ---
Pt unavailable at this time, RN stated wound vac failed and pt will have new wound vac. Will check back with pt later today.
--- NOTE | 2020-03-07 14:30 | PT.IPTN ---
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 PARTIAL COLECTOMY. COLOSTOMY FORMATION. APPLICATION OF WOUND VAC - Yao Cleary MD Physical Therapy Treatment Note M2 PT-IP Current Condition Start: 02/25/20 09:42 Freq: NEEDED Status: Active Protocol: Document 02/25/20 12:29 HH (Rec: 02/25/20 13:09 [id number]) Physical Therapy Current Condition Current Condition Evaluation Date 02/25/20 Treatment Diagnosis Appendectomy, partial cholectomy, lysis of adhesions , weakness Onset Date 02/24/20 Precautions Abdominal Surgery Precautions Log Roll,Lifting Restrictions, Gait Belt above Incisional Area Weight Bearing Status Weight Bearing Status Full Weight Bearing M3 PT-IP Subjective Start: 02/25/20 09:42 Freq: NEEDED Status: Active Protocol: Document 03/07/20 13:59 CLB (Rec: 03/07/20 15:10 CLB [id number]) Subjective Physical Therapy Visit Type Type Treatment Note Visit Start Time 13:59 Visit Stop Time 14:30 Total Visit Minutes 31 Notes in room, AUDIO VISUAL AIDS DIRECTOR and RN assisted with transfer due to complexity and assist with lines. Number of FRAME ASSEMBLER Visits 2 Physical Therapy Visit Comments Patient Comments Pt agreeable to transfer to chair. Therapy Pain Assessment Pain When Pain Assessed During Mobility Pain Present Pain Present Pain Reported Location Abdomen Pain Behaviors Calling Out,Facial Grimacing, Moaning Pain Management Techniques Modification of Treatment,Re- positioning,Timing of Activity with Medications M4 PT-IP Mobility and Gait Start: 02/25/20 09:42 Freq: NEEDED Status: Active Protocol: Document 03/07/20 13:59 CLB (Rec: 03/07/20 15:10 CLB [id number]) PT-Bed Mobility Assessment Rolling Type of Rolling Roll to Left Level of Assist Maximal Assistance,2 Person Assistance Supine to Sit Supine to Sit Maximum Assistance,2 Person Assistance,Bedrails Scooting Scooting to Edge of Bed Moderate Assistance,Maximum Assistance PT-Transfer Assessment Sit to and From Stand Sit to and from Stand Total Assistance Equipment Transfer Assistive Device Mechanical Lift Orthotic/Prosthetic Devices or Brace: No Transfers Transfer Destination Chair Transfer Technique Mechanical Lift Transfer Ability Level of Assist Maximum Assistance,1 Person Assistance,2 Person Assistance Comments Mobility Comments Pt in bed with CPAP on. NOE García assisted pt with CPAP removal. Pt required Max A for LR and Max A to sitting from sidelying. Pt then required Mod -Max A for scooting to EOB . Pt sat on EOB ~5 minutes with Mod A for sitting balance while pt was positioned in sit to stand lift. Pt required cues for hand placement and assist with left UE and LE due to hemiplegia during transfer . During transfer pt required three person assist, one to guard LE's, one for line assist and one for sit-stand digital content marketing manager controls. Once pt was positioned in chair pt performed quad sets and ankle pumps, pt then became nauseous . Pt LUE positioned with pillow under, legs were elevated, RN, AUDIO VISUAL AIDS DIRECTOR and present in room. Gait Assessment Comments Gait Comments unable at this time PT-Balance Assessment Sitting Balance and Reactions Static Sitting Balance Ability Poor Dynamic Sitting Balance Ability Poor Standing Balance and Reactions Static Standing Balance Ability Poor Dynamic Standing Balance Ability Poor Device Used sit stand digital content marketing manager 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 and poor fine motor control able to abduct shoulder approx 40-50 degrees unable to fully extend his L arm and fingers Lower Extremity ROM Assessment Left Impaired Strength Upper Extremity Strength Assessment Left Impaired Shoulder 2- Elbow 3 Wrist 2- Hand 2- Lower Extremity Strength Assessment Left Impaired Hip 3+ Knee 4- Ankle 3 Coordination Assessment Gross Coordination Gross Coordination Impaired Sensation Assessment Sensation Gross Sensation WNL Muscle Tone Muscle Tone WNL No Muscle Tone Location Left Upper Extremity Type of Tone Hypertonicity,Flexor Severity of Tone Moderate M6 PT-IP Treatment Start: 02/25/20 09:42 Freq: NEEDED Status: Active Protocol: Document 03/07/20 13:59 CLB (Rec: 03/07/20 15:10 CLB [id number]) Physical Therapy Treatment Exercises Exercises Ankle Pumps,Quad Sets M7 PT-IP Assessment and Plan Start: 02/25/20 09:42 Freq: NEEDED Status: Active Protocol: Document 03/07/20 13:59 CLB (Rec: 03/07/20 15:10 CLB [id number]) PT Summary Assessment and Plan Potential Rehabilitation Potential Fair Status of Condition at Evaluation Evolving Summary Impairments Pain,ROM,Strength,Balance, Coordination,Sensation,Tone, Cognition,Bed Mobility, Transfers,Gait,Activity Tolerance Progress Towards Goals Slow Progress due to Medical Issues,Slow Progress due to Activity Tolerance,Slow Progress - Other Assessment Summary Pt transferred to chair with sit-stand digital content marketing manager requiring Mod -Max A for bed mobility, Mod A for sitting balance and Total assist during transfer with sit-stand lift. After sitting in chair pt able to perform minimal ther ex due to fatigue and nausea. Goals Bed Mobility Goal Minimal Assistance Transfer Goal Moderate Assistance Gait Goal Moderate Assistance,Abdifatah Walker Gait Distance 25 Days to Meet Goals 10 Frequency of Treatment Frequency Of Treatment Once a Day Treatment Plan Physical Therapy Treatment Plan Bed Mobility Training,Transfer Training,Gait Training, Therapeutic Exercise,Balance Retraining,Post Op Education, Discharge Planning,Hot or Cold Pack,Neuromuscular Re-ed, Coordination Retraining,Manual Therapy Other Recommendations and Next Treatment seated balance, sit-stand, Focus transfer to chair with sit- stand lift, ther ex. Recommendations To Nursing Amount of Assist Needed Power Sit-Stand Discharge Recommendations PT Discharge Recommendations SNF Rehab Transportation Needs at Discharge Wheelchair/Cabulance
[2020-03-07] MEDS: polyethylene glycoL 3350 17 GM POWD.PACK 34 GM PO (14:47)
[2020-03-07] MEDS: carvediloL 6.25 MG TABLET PO ×2 (14:47→21:14)
--- NOTE | 2020-03-07 15:24 | PC.NURSE ---
AM shift Pt is A/0 x4, reports activity intolerance , expresses frustration with slow progress. Education given re: POC and increased time for recovery with revision of anastamosis. Lungs are dim and clear, using 02 NC and CPAP while awake, this is very helpful in anxiety, per Pt and spouse. Wound vac with failure at 12pm, blockage failure, removed woudn vac and replaced everything but the black foam to midline abd. Working well @ 125mmHG suction. Ostomy with liquid clear fluid colecting and copious gas noted. Multiple burping to bag. Dr Cleary is planning to change wound vac again Sunday, and hopefully will not be needed after that. Healthy granulation bed. [facility] infusing. TPN going @ 42 and TKO to other lumen. Pt is cracking jokes today and appears in much bettter spirits PO intake remains smal, but tolerating without emesis.
--- NOTE | 2020-03-07 15:42 | PT-IP ANOTE ---
Nursing consulted PT for transfer recommendation on this pt. Last PT note states recommendation is for sit-stand machine. However, no contraindication for overhead lift was found. It was felt that sit-stand was recommended for therapeutic purposes. Mechanical lift was recommended in previous notes. Nursing to proceed with mechanical lift.
[2020-03-07 15:54] LABS: HCO3 ABG 33 mmol/L (22-26); PCO2 ABG 42.7 mmHg (35-45); PO2 ABG 73 mmHg (80-100)
[2020-03-07 15:55] LABS: Fractionated Inspired Oxygen 28; Oxygen Saturation ABG 96 % (95-100); TCO2 ABG 35 mmol/L (21-31)
[2020-03-07] MEDS: BISACODYL 5 MG TABLET 10 MG PO (16:09)
[2020-03-07] MEDS: MULTIVITAMIN IV (18:14)
[2020-03-07] MEDS: DEXT IV (18:14)
[2020-03-07] MEDS: TRACE ELEMENTS IV (18:14)
[2020-03-07] MEDS: CALCIUM IV (18:14)
[2020-03-07] MEDS: [UNRECOGNIZED DRUG - OTHER] IV (18:14)
[2020-03-07] MEDS: LYTES IV (18:14)
[2020-03-08] VITALS (12 sets, daily range): BP systolic 103–128; BP diastolic 51–65; PULSE 73–77; RESP 16–25; TEMP 36.3–37.3; O2SAT 93–98
[2020-03-08] MEDS: ONDANSETRON 4 MG/2 ML INJ IV (02:40)
[2020-03-08 06:05] LABS: BUN Creatinine Ratio 20.3 (6-22); Blood Urea Nitrogen 15 mg/dL (9-20); Calcium 7.6 mg/dL (8.4-10.2); Carbon Dioxide 36 mmol/L (22-32); Chloride 97 mmol/L (98-107); Estimated Glomerular Filt Rate > 60.0 mL/min (>60); Glucose 133 mg/dL (80-110); HEMOLYSIS < 15 (0-50); Magnesium 2.1 mg/dL (1.6-2.3); Phosphorous 3.7 mg/dL (2.3-3.7); Potassium 3.9 mmol/L (3.4-5.1); Sodium 133 mmol/L (137-145)
[2020-03-08 06:27] LABS: Add Manual Diff / Slide Review NO; Basophils Absolute Auto 0 /uL (0-100); Basophils Percent Auto 0.2 % (0-2); Eosinophils Absolute Auto 100 /uL (0-450); Eosinophils Percent Auto 0.8 % (2-4); Hematocrit 28.6 % (41-53); Hemoglobin 9.4 g/dL (13.5-17.5); Lymphocytes Absolute Auto 2200 /uL (1100-4500); Lymphocytes Percent Auto 20.2 % (25-40); Mean Corpuscular HGB Conc 32.9 % (30-36); Mean Corpuscular Hemoglobin 26.9 PG (26-34); Mean Corpuscular Volume 81.8 fL (80-100); Monocytes Absolute Auto 500 /uL (0-900); Monocytes Percent Auto 4.5 % (3-14); Neutrophils Absolute Auto 8300 /uL (1500-7000); Neutrophils Percent Auto 74.3 % (50-75); Platelet Count 266 X10^3/uL (150-400); Red Cell Distribution Width 14.7 % (11.6-14.8); White Blood Cell Count 11.1 X10^3/uL (4.5-11.0)
[2020-03-08] MEDS: FAMOTIDINE 20 MG TABLET PO ×2 (08:17→20:51)
[2020-03-08] MEDS: guaiFENesin ER 600 MG TAB 1200 MG PO ×2 (08:17→20:52)
[2020-03-08] MEDS: LOSARTAN 50 MG TABLET PO (08:23)
[2020-03-08] MEDS: APIXABAN 5 MG TABLET PO ×2 (08:23→20:51)
[2020-03-08] MEDS: carvediloL 6.25 MG TABLET PO ×2 (08:23→20:51)
[2020-03-08] MEDS: polyethylene glycoL 3350 17 GM POWD.PACK 34 GM PO ×2 (08:23→20:52)
[2020-03-08] MEDS: SODIUM CHLORIDE 0.9% FLUSH 10 ML IV ×2 (08:24→20:53)
[2020-03-08] MEDS: HYDROMORPHONE 0.5 MG INJ IV ×2 (08:36→20:54)
--- NOTE | 2020-03-08 10:31 | DI.RAD.S_ITS ---
PROCEDURE: XR ABDOMEN 1V INDICATIONS: This likely represents a surgical drainage catheter placed within the pelvis subsequent to the CT scanning that was performed 03/01/20. TECHNIQUE: One view of the abdomen acquired. COMPARISON: [facility], CR, XR ACUTE ABDOMEN SERIES, 02/28/2020, 13:26. [facility], CT, CT ABDOMEN PELVIS W CON, 03/01/2020, 4:24. FINDINGS: Surgical changes and devices: Surgical clips along the pelvic sidewalls bilaterally, previously present on CT scanning from 03/01/20. New apparent surgical drain placed across the lower midline pelvis.. Bowel: Bowel gas pattern is abnormal involving the small bowel, across the abdomen and extending towards the pelvis. The colon itself does not appear distended.. Soft tissues: No suspicious abdominal calcifications. Visualized solid organ contours appear normal in size. Bones: No suspicious bony lesions. IMPRESSION: Abnormal small bowel gas distension without evidence of free air found. Partial small bowel obstruction or early complete small bowel obstruction both could produce this appearance. Note is made of a catheter like device overlying the lower pelvis with multiple adjacent surgical clips. Dictated by: Srikanth Marinelli M.D. on 03/08/2020 at 13:25 Approved by: Srikanth Marinelli M.D. on 03/08/2020 at 13:29
--- NOTE | 2020-03-08 11:41 | PT.IPTN ---
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 PARTIAL COLECTOMY. COLOSTOMY FORMATION. APPLICATION OF WOUND VAC - Yao Cleary MD Physical Therapy Treatment Note M2 PT-IP Current Condition Start: 02/25/20 09:42 Freq: NEEDED Status: Active Protocol: Document 02/25/20 12:29 HH (Rec: 02/25/20 13:09 [id number]) Physical Therapy Current Condition Current Condition Evaluation Date 02/25/20 Treatment Diagnosis Appendectomy, partial cholectomy, lysis of adhesions , weakness Onset Date 02/24/20 Precautions Abdominal Surgery Precautions Log Roll,Lifting Restrictions, Gait Belt above Incisional Area Weight Bearing Status Weight Bearing Status Full Weight Bearing M3 PT-IP Subjective Start: 02/25/20 09:42 Freq: NEEDED Status: Active Protocol: Document 03/07/20 13:59 CLB (Rec: 03/07/20 15:10 CLB [id number]) Subjective Physical Therapy Visit Type Type Treatment Note Visit Start Time 13:59 Visit Stop Time 14:30 Total Visit Minutes 31 Notes in room, HISTORICAL ARCHEOLOGIST and RN assisted with transfer due to complexity and assist with lines. Number of MANAGER INSPECTION Visits 2 Physical Therapy Visit Comments Patient Comments Pt agreeable to transfer to chair. Therapy Pain Assessment Pain When Pain Assessed During Mobility Pain Present Pain Present Pain Reported Location Abdomen Pain Behaviors Calling Out,Facial Grimacing, Moaning Pain Management Techniques Modification of Treatment,Re- positioning,Timing of Activity with Medications M4 PT-IP Mobility and Gait Start: 02/25/20 09:42 Freq: NEEDED Status: Active Protocol: Document 03/07/20 13:59 CLB (Rec: 03/07/20 15:10 CLB [id number]) PT-Bed Mobility Assessment Rolling Type of Rolling Roll to Left Level of Assist Maximal Assistance,2 Person Assistance Supine to Sit Supine to Sit Maximum Assistance,2 Person Assistance,Bedrails Scooting Scooting to Edge of Bed Moderate Assistance,Maximum Assistance PT-Transfer Assessment Sit to and From Stand Sit to and from Stand Total Assistance Equipment Transfer Assistive Device Mechanical Lift Orthotic/Prosthetic Devices or Brace: No Transfers Transfer Destination Chair Transfer Technique Mechanical Lift Transfer Ability Level of Assist Maximum Assistance,1 Person Assistance,2 Person Assistance Comments Mobility Comments Pt in bed with CPAP on. NOE García assisted pt with CPAP removal. Pt required Max A for LR and Max A to sitting from sidelying. Pt then required Mod -Max A for scooting to EOB . Pt sat on EOB ~5 minutes with Mod A for sitting balance while pt was positioned in sit to stand lift. Pt required cues for hand placement and assist with left UE and LE due to hemiplegia during transfer . During transfer pt required three person assist, one to guard LE's, one for line assist and one for sit-stand experience designer controls. Once pt was positioned in chair pt performed quad sets and ankle pumps, pt then became nauseous . Pt LUE positioned with pillow under, legs were elevated, RN, HISTORICAL ARCHEOLOGIST and present in room. Gait Assessment Comments Gait Comments unable at this time PT-Balance Assessment Sitting Balance and Reactions Static Sitting Balance Ability Poor Dynamic Sitting Balance Ability Poor Standing Balance and Reactions Static Standing Balance Ability Poor Dynamic Standing Balance Ability Poor Device Used sit stand experience designer 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 and poor fine motor control able to abduct shoulder approx 40-50 degrees unable to fully extend his L arm and fingers Lower Extremity ROM Assessment Left Impaired Strength Upper Extremity Strength Assessment Left Impaired Shoulder 2- Elbow 3 Wrist 2- Hand 2- Lower Extremity Strength Assessment Left Impaired Hip 3+ Knee 4- Ankle 3 Coordination Assessment Gross Coordination Gross Coordination Impaired Sensation Assessment Sensation Gross Sensation WNL Muscle Tone Muscle Tone WNL No Muscle Tone Location Left Upper Extremity Type of Tone Hypertonicity,Flexor Severity of Tone Moderate M6 PT-IP Treatment Start: 02/25/20 09:42 Freq: NEEDED Status: Active Protocol: Document 03/07/20 13:59 CLB (Rec: 03/07/20 15:10 CLB [id number]) Physical Therapy Treatment Exercises Exercises Ankle Pumps,Quad Sets M7 PT-IP Assessment and Plan Start: 02/25/20 09:42 Freq: NEEDED Status: Active Protocol: Document 03/07/20 13:59 CLB (Rec: 03/07/20 15:10 CLB [id number]) PT Summary Assessment and Plan Potential Rehabilitation Potential Fair Status of Condition at Evaluation Evolving Summary Impairments Pain,ROM,Strength,Balance, Coordination,Sensation,Tone, Cognition,Bed Mobility, Transfers,Gait,Activity Tolerance Progress Towards Goals Slow Progress due to Medical Issues,Slow Progress due to Activity Tolerance,Slow Progress - Other Assessment Summary Pt transferred to chair with sit-stand experience designer requiring Mod -Max A for bed mobility, Mod A for sitting balance and Total assist during transfer with sit-stand lift. After sitting in chair pt able to perform minimal ther ex due to fatigue and nausea. Goals Bed Mobility Goal Minimal Assistance Transfer Goal Moderate Assistance Gait Goal Moderate Assistance,Abdifatah Walker Gait Distance 25 Days to Meet Goals 10 Frequency of Treatment Frequency Of Treatment Once a Day Treatment Plan Physical Therapy Treatment Plan Bed Mobility Training,Transfer Training,Gait Training, Therapeutic Exercise,Balance Retraining,Post Op Education, Discharge Planning,Hot or Cold Pack,Neuromuscular Re-ed, Coordination Retraining,Manual Therapy Other Recommendations and Next Treatment seated balance, sit-stand, Focus transfer to chair with sit- stand lift, ther ex. Recommendations To Nursing Amount of Assist Needed Power Sit-Stand Discharge Recommendations PT Discharge Recommendations SNF Rehab Transportation Needs at Discharge Wheelchair/Cabulance
--- NOTE | 2020-03-08 11:42 | PC.NURSE ---
Addendum entered by Juan Layton R.N. 03/08/20 15:26: Called Dr. Cleary to report abd XR findings, clarify orders. Pt not drinking miralax as ordered. Has only drank ~ half ordered dose. Left message to return phone call. Reported to oncoming RN. Original Note: Pt agreeable to get up to chair for breakfast. Requested PRN pain med prior to getting up. Dr. Cleary rounded. Assessed abd incision, drain site, and ostomy/stomy. Reviewed I/O. Requested clarification for maintaining altamirano catheter. Instructed to continue indwelling catheter and reassess tomorrow. Pt was able to get to the edge of the bed with 2PA and pivot up to the chair with max 3PA, gait belt, cane. Pt was able to swallow his pills whole with water. Declined mucinex. After meds, pt was noted to be sitting up in chair sleeping with CPAP/O2 on. Call light in easy reach. at bedside.
--- NOTE | 2020-03-08 11:45 | OT.IP.TRT ---
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 PARTIAL COLECTOMY. COLOSTOMY FORMATION. APPLICATION OF WOUND VAC - Yoa Cleary MD Occupational Therapy Treatment Note M2 OT-IP Current Condition Start: 02/25/20 13:57 Freq: Status: Active Protocol: Document 02/25/20 11:13 [facility] (Rec: 02/25/20 14:16 [facility] [id number]) Occupational Therapy Current Condition Current Condition Evaluation Date 02/25/20 Treatment Diagnosis Appendectomy, partial cholectomy, decreased self care Diagnosis Onset Date 02/24/20 Post Operative Precautions Abdominal Surgery Precautions Log Roll,Lifting Restrictions, Gait Belt above Incisional Area M3 OT- IP Subjective and Pain Start: 02/25/20 13:57 Freq: Status: Active Protocol: Document 03/08/20 13:41 CGR (Rec: 03/08/20 14:00 CGR [email or web address]) OT- Subjective Occupational Therapy Visit Type Type Progress Note Visit Start Time 11:22 Visit Stop Time 11:45 Total Visit Minutes 23 Notes Partial co-treat with P.T. Occupational Therapy Visit Comments Patient Comments I think I should just get back to bed. OT Pain Assessment Pain Present Pain Present Pain Reported Location Abdomen Scale Used did not rate Management Techniques Modification of Treatment,Re- positioning M4 OT- IP ADL's Start: 02/25/20 13:57 Freq: Status: Active Protocol: Document 03/08/20 13:41 CGR (Rec: 03/08/20 14:00 CGR [id number]) OT [id number] Comments OT Self-Feeding Comments Not performed during session. Discussed the importance of caloric input in energy and rehab. OT ADL-Grooming Comments OT Grooming Comments Pt declined dispite encouragement. Pt did state that his had just shaved him. OT ADL-Oral Care Comments Oral Care Comments Not performed OT ADL-Dressing General Eval Lower Body Dressing Ability Total Assistance Areas Needing Assistance Socks OT ADL-Toileting Comments OT Toileting Comments Pt with altamirano. Pt states possible need for BM but declined transfer [place] [facility] [place]. OT ADL-Bathing Comments OT Bathing Comments Not performed, pt with wound vac at this time. M5 OT- IP IADL's Start: 02/25/20 13:57 Freq: Status: Active Protocol: Document 02/25/20 11:13 CCC (Rec: 02/25/20 14:16 [facility] [id number]) OT-Instrumental Activities of Daily Living Formula Room Worker Formula Room Worker Caregiver Provides Assist Formula Room Worker Comments Prior pt likes to assist to take out the trash. M6 OT- IP Functional Cognition Start: 02/25/20 13:57 Freq: Status: Active Protocol: Document 03/06/20 14:26 CGR (Rec: 03/06/20 14:43 CGR [id number]) Cognitive Factors Limiting Selfcare Function Cognitive Ability Level of Alertness Alert Attention Span Ability Capable of Focused Attention, Capable of Sustained Attention Ability to Follow Commands Able to Follow One Step Commands with Increased Time, Able to Follow One Step Commands with Repetition Cognitive Comments Cognitive Assessment Comments Pt appears very flat and inconsistant with conversation . Pt may benefit from a formal cog assessment. OT- Vision and Hearing OT- Hearing Assessment OT- Hearing Assessment WFL OT- Vision Assessment Visual Acuity WFL M7 OT- IP Mobility and Balance Start: 02/25/20 13:57 Freq: Status: Active Protocol: Document 03/08/20 13:41 CGR (Rec: 03/08/20 14:00 CGR [email or web address]) OT- Bed Mobility Assessment Rolling Type of Rolling Roll to Left Level of Assistance 2 Person Assistance Sit to Supine Sit to Supine Assist Maximum Assistance,2 Person Assistance,Head of Bed Elevated Scooting Scooting Up and Down in Bed Maximum Assistance,2 Person Assistance OT-Transfer Assessment Sit to and From Stand Sit to and from Stand Maximum Assistance Transfers Transfer Ability Maximum Assistance Technique Transfer Destination Bed,Chair Transfer Technique Stand Step Pivot Devices Transfer Assistive Devices Gait Belt,Large Based Quad Cane Comments Mobility Comments Pt stood from chair with 3 person assist and was able to take small steps to position for sitting on bed using a high placed gait belt ( abdominal incision) and quad cane. OT- Gait Assessment Comments Gait Ability Comments Pt is able to stand and transfer only at this time. OT- Balance Assessment Sitting Balance and Reactions Static Sitting Balance Ability Fair Dynamic Sitting Balance Ability Poor M8 OT- IP Objective Assessments Start: 02/25/20 13:57 Freq: Status: Active Protocol: Document 02/25/20 11:13 CCC (Rec: 02/25/20 14:16 CCC [id number]) OT Gross Range of Motion Upper Extremity Range of Motion Assessment Left Impaired OT Strength Upper Extremity Strength Assessment Left Impaired Shoulder 2- Elbow 3 Forearm 2- Wrist 2- Hand 2- OT-Muscle Tone Assessment Muscle Tone WNL No Muscle Tone Location Left Upper Extremity Type of Tone Hypotonicity M9 OT- IP Assessment and Plan Start: 02/25/20 13:57 Freq: Status: Active Protocol: Document 03/08/20 13:41 CGR (Rec: 03/08/20 14:00 CGR [id number]) OT Summary Assessment and Plan Potential Rehabilitation Potential Fair Analytic Complexity at Evaluation Moderate Summary OT Impairments Pain,Balance,Functional Mobility,Grooming,Dressing, Toileting,Bathing,Toilet Transfers,Shower Transfers, Activity Tolerance Progress Towards Goals Progressing Toward Goals Assessment Summary Pt sitting up in chair when OT entered. Pt declined other activity, requesting to return to bed only. Pt states he has been up in the chair for a while and is fatigued. Max x 3 for sit to stand from chair with quad cane and step pivots to bed with 3 person assist. Pt then needed max x 2 for sit to supine. Pt may now be able to tolerate increased activity and recommend increased therapy. Goals Self-Feeding Goal Independent Grooming Goal Independent Dressing Goal Minimal Assistance Toileting Goal Moderate Assistance Bathing Goal Moderate Assistance Toilet Transfer Goal Standby Assistance Shower Transfer Goal Minimal Assistance Patient/Caregiver Education Goal Demonstrate Post-Op Precautions,Caregiver Independent Assisting Patient Days to Meet Goals 18 Frequency of Treatment Frequency Of Treatment Once a Day Treatment Plan OT Treatment Plan ADL Training,Functional Mobility,Patient/Family Education,Discharge Planning Other Treatment Recommendations and Next Pt to sit at edge of bed for Treatment Focus grooming needs to work on midline/sitting balance. Discharge Recommendations OT Discharge Recommendations SNF Rehab Home Equipment Needs Defer to SNF Transportation Needs at Discharge Wheelchair/Cabulance,Stretcher /Ambulance
--- NOTE | 2020-03-08 14:26 | P.PN_ITS ---
Subjective Subjective Date Patient Seen: 03/08/20 Time Patient Seen: 14:26 Interval history: No acute overnight events. Continues to feel mildly nauseous but is tolerating small amounts of regular food. Ostomy continues to be quite productive of gas but no stool as of yet. Exam Vital Signs (past 8 hours): - 03/08/20 08:29 03/08/20 08:30 03/08/20 12:00 Temperature 99.0 F 98.0 F Pulse Rate 74 74 Respiratory Rate 19 18 Blood Pressure 124/57 L 120/65 Pulse Oximetry 95 93 94 Oxygen Delivery Method CPAP Oxygen Flow Rate 2 Narrative Exam Narrative: General elderly man alert oriented no acute distress Abdomen midline wound VAC in place mildly distended ostomy viable there is air in the bag some slough on the ostomy no stool in the bag Objective Labs Result Diagrams: 03/08/20 05:40 03/08/20 05:40 Labs: Laboratory Results - last 24 hr 03/07/20 03/08/20 03/08/20 15:39 05:40 05:40 WBC 11.1 H RBC 3.50 L Hgb 9.4 L Hct 28.6 L MCV 81.8 MCH 26.9 MCHC 32.9 RDW 14.7 Plt Count 266 Neut % (Auto) 74.3 Lymph % (Auto) 20.2 L Rolette % (Auto) 4.5 Eos % (Auto) 0.8 L Baso % (Auto) 0.2 Neut # (Auto) 8300 H Lymph # (Auto) 2200 [place]lette # (Auto) 500 Eos # (Auto) 100 Baso # (Auto) 0 ABG pH 7.50 H ABG pCO2 42.7 ABG pO2 73 L ABG HCO3 33 H ABG Total CO2 35 H ABG O2 Saturation 96 ABG Base Excess 10.0 H FiO2 28 Sodium 133 L Potassium 3.9 Chloride 97 L Carbon Dioxide 36 H BUN 15 Creatinine 0.74 Estimated GFR > 60.0 BUN/Creatinine Ratio 20.3 Glucose 133 H Calcium 7.6 L Phosphorus 3.7 Magnesium 2.1 Assessment & Plan Post-op Postoperative Procedures: Procedures Operation Date: 02/24/20 09:15 Actual Procedures Side Surgeon p Appendectomy, partial cholectomy, lysis of adhesions Yao Cleary MD Operation Date: 03/01/20 08:00 Actual Procedures Side Surgeon p Exploratory Laparotomy. PARTIAL COLECTOMY. COLOSTOMY FORMATION. APPLICATION OF WOUND VAC Yao Cleary MD Postoperative plan narrative: 85-year-old man postoperative day 7 after an exploratory laparotomy end colostomy formation for a leaked sigmoid anastomosis. He continues have a postoperative ileus, the ostomy is productive of gas but there is no stool output in several days now. -okay for diet as tolerated, will continue TPN until tolerating adequate oral nutrition, abdominal x-ray pending -atrial fibrillation rate control and a Eliquis for anticoagulation -will continue Diaz catheter until able to adequately mobilize. -SCDs for DVT prophylaxis Quality VTE Deep Vein Thrombosis/Pulmonary Embolism Present on Admission: No
--- NOTE | 2020-03-08 15:42 | CM.DPC ---
DCP SNF Planning: Per Surgeon, pt's wound is making good progress and plan to check pt's wound vac tomorrow Sunday with good potential that pt will not need wound vac at d/c. Pt still receiving TPN as pt's appetite has been poor and still a barrier to pt's discharge. Per Chaplain Schreiber, lengthy conversations bedside with pt and spouse and encouragement with spouse getting self care due to the stress and care she is giving to many family members. Pt and spouse now more agreeable with SNF at d/c. SW met bedside with pt, spouse had left to go home for a while, and discussed plan of SNF at d/c at [facility] and their acceptance. Pt confirms that his preference has been home with spouse but that they now realize how much assist pt is requiring and how weak he is and slow progress and need for SNF prior to d/c and still agreeable with [facility]. SW called [facility] admissions and updated on above and confirmed they cannot accept pt if still on TPN and pt will need to be able to tolerate a good portion of his food intake prior to accepting. Aware that decision about wound vac likely will be made by tomorrow. COVID still needed closer to d/c. Plan: SW to follow tomorrow after surgeon rounds and checks wound vac to determine if needed at d/c and follow for pt to transition off TPN prior to acceptance at [facility]. COVID needed closer to d/c. ARABELLA Franco
[2020-03-08] MEDS: EVOLOCUMAB 1 EACH SUBCUT (17:19)
[2020-03-08] MEDS: FAT EMULSIONS 50 GM/250 ML EMULSION IV (18:03)
[2020-03-08] MEDS: [UNRECOGNIZED DRUG - OTHER] IV (18:03)
[2020-03-08] MEDS: DEXT IV (18:03)
[2020-03-08] MEDS: MULTIVITAMIN IV (18:03)
[2020-03-08] MEDS: CALCIUM IV (18:03)
[2020-03-08] MEDS: LYTES IV (18:03)
[2020-03-08] MEDS: TRACE ELEMENTS IV (18:03)
[2020-03-08] MEDS: LACTATED RINGERS 1,000 ML 1000 ML IV (23:03)
[2020-03-09] VITALS (8 sets, daily range): BP systolic 108–127; BP diastolic 51–62; PULSE 67–76; RESP 17–28; TEMP 36.2–36.9; O2SAT 94–97
--- NOTE | 2020-03-09 01:44 | PC.NURSE ---
Patient had urine output of 300ml from 7am to 11pm. Called Dr. Cheng to report low output and dark color of urine in altamirano. Received order for LR 1L bolus. 1L LR bolus was given and patient has since voided ~100ml since bolus finished approx. 1hr ago. Urine still appears dark in color. BP 120/59, HR 71, 92% on CPAP with 2L O2. No complaints of discomfort from patient. Patient did have two large unmeasured loose incontinent stools during daytime and a small amount of stool in stoma bag. Will continue to monitor output.
[2020-03-09] MEDS: carvediloL 6.25 MG TABLET PO ×2 (11:51→21:09)
[2020-03-09] MEDS: FAMOTIDINE 20 MG TABLET PO ×2 (11:51→21:09)
[2020-03-09] MEDS: APIXABAN 5 MG TABLET PO ×2 (11:55→21:09)
[2020-03-09] MEDS: LOSARTAN 50 MG TABLET PO (11:55)
[2020-03-09] MEDS: polyethylene glycoL 3350 17 GM POWD.PACK 34 GM PO (11:55)
[2020-03-09] MEDS: SODIUM CHLORIDE 0.9% FLUSH 10 ML IV ×2 (11:56→22:22)
[2020-03-09] MEDS: guaiFENesin ER 600 MG TAB 1200 MG PO ×2 (11:56→21:09)
--- NOTE | 2020-03-09 13:30 | OT.IP.TRT ---
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 PARTIAL COLECTOMY. COLOSTOMY FORMATION. APPLICATION OF WOUND VAC - Yao Cleary MD Occupational Therapy Treatment Note M2 OT-IP Current Condition Start: 02/25/20 13:57 Freq: Status: Active Protocol: Document 02/25/20 11:13 [facility] (Rec: 02/25/20 14:16 [facility] [id number]) Occupational Therapy Current Condition Current Condition Evaluation Date 02/25/20 Treatment Diagnosis Appendectomy, partial cholectomy, decreased self care Diagnosis Onset Date 02/24/20 Post Operative Precautions Abdominal Surgery Precautions Log Roll,Lifting Restrictions, Gait Belt above Incisional Area M3 OT- IP Subjective and Pain Start: 02/25/20 13:57 Freq: Status: Active Protocol: Document 03/09/20 13:33 [facility] (Rec: 03/09/20 13:43 [facility] [id number]) OT- Subjective Occupational Therapy Visit Type Type Treatment Note Visit Start Time 13:00 Visit Stop Time 13:30 Total Visit Minutes 30 Occupational Therapy Visit Comments Patient Comments Pt agreed to do grooming needs and work on the spirometer. Pt's in the room and concerned about pt going to skilled rehab and would rather pt stay in the hospital until he is able to mobilize better . Patient/Caregiver Goals To go home. OT Pain Assessment Pain When Pain Assessed During Mobility Pain Present Pain Present Pain Reported Location Abdomen Scale Used did not rate Management Techniques Modification of Treatment,Re- positioning M4 OT- IP ADL's Start: 02/25/20 13:57 Freq: Status: Active Protocol: Document 03/09/20 13:33 [facility] (Rec: 03/09/20 13:43 [facility] [id number]) OT ADL-Grooming General Evaluation Grooming Ability Minimal Assistance Areas Needing Assistance Combing/Brushing Hair Comments OT Grooming Comments After set-up pt able to brush his teeth , wash his face, and just needing assist to brush the back of his hair while sitting up in the recliner. OT ADL-Oral Care General Eval Oral Care Ability Standby Assistance OT ADL-Toileting Comments OT Toileting Comments Pt states not having to use the toilet. M5 OT- IP IADL's Start: 02/25/20 13:57 Freq: Status: Active Protocol: Document 02/25/20 11:13 [facility] (Rec: 02/25/20 14:16 [facility] [id number]) OT-Instrumental Activities of Daily Living [employer] Member [employer] Member Caregiver Provides Assist [employer] Member Comments Prior pt likes to assist to take out the trash. M6 OT- IP Functional Cognition Start: 02/25/20 13:57 Freq: Status: Active Protocol: Document 03/09/20 13:33 [facility] (Rec: 03/09/20 13:43 [facility] [id number]) Cognitive Factors Limiting Selfcare Function Cognitive Comments Cognitive Assessment Comments Pt needing step by step instructions for spirometer and did not recall how to use it and educated to take blow out his air first and then put mouth around the mouthpiece and then breathe in as deeply. OT- Balance Assessment Sitting Balance and Reactions Static Sitting Balance Ability Fair Dynamic Sitting Balance Ability Poor M8 OT- IP Objective Assessments Start: 02/25/20 13:57 Freq: Status: Active Protocol: Document 02/25/20 11:13 [facility] (Rec: 02/25/20 14:16 [facility] [id number]) OT Gross Range of Motion Upper Extremity Range of Motion Assessment Left Impaired OT Strength Upper Extremity Strength Assessment Left Impaired Shoulder 2- Elbow 3 Forearm 2- Wrist 2- Hand 2- OT-Muscle Tone Assessment Muscle Tone WNL No Muscle Tone Location Left Upper Extremity Type of Tone Hypotonicity M9 OT- IP Assessment and Plan Start: 02/25/20 13:57 Freq: Status: Active Protocol: Document 03/09/20 13:33 [facility] (Rec: 03/09/20 13:43 [facility] [id number]) OT Summary Assessment and Plan Potential Rehabilitation Potential Fair Analytic Complexity at Evaluation Moderate Summary OT Impairments Pain,Balance,Functional Mobility,Grooming,Dressing, Toileting,Bathing,Toilet Transfers,Shower Transfers, Activity Tolerance Progress Towards Goals Slow Progress due to Pain,Slow Progress due to Medical Issues,Slow Progress due to Activity Tolerance Assessment Summary Pt very fatigued today but able to do grooming needs. Pt still far from baseline and would benefit from skilled rehab prior to going home. Goals Self-Feeding Goal Independent Grooming Goal Independent Dressing Goal Minimal Assistance Toileting Goal Moderate Assistance Bathing Goal Moderate Assistance Toilet Transfer Goal Standby Assistance Shower Transfer Goal Minimal Assistance Patient/Caregiver Education Goal Demonstrate Post-Op Precautions,Caregiver Independent Assisting Patient Days to Meet Goals 17 Frequency of Treatment Frequency Of Treatment Once a Day Treatment Plan OT Treatment Plan ADL Training,Functional Mobility,Patient/Family Education,Discharge Planning Other Treatment Recommendations and Next Pt to sit at edge of bed for Treatment Focus grooming needs to work on midline/sitting balance. Discharge Recommendations OT Discharge Recommendations SNF Rehab Home Equipment Needs Defer to SNF
--- NOTE | 2020-03-09 13:45 | CM.DPC ---
DCP Continued: EMR reviewed: CM/RN met with patient and patients at the bedside and explained role. CM/RN spoke with patient and patients about D/C plan to [facility] here in [place] at D/C. patient and patients expressed a desire for patient to be in [place] at D/C that way he is closer to his who has there main house in [place]. patients requested that CM call [facility] facility in [place] to get possible placement. CM/RN called SNF [phone] and they do have bed availability and will review patients clinicals. CM/Rn faxed Clinicals to [phone] for there review. CM/Rn will follow up later today to verify Fax was received. Daniella Tavarez RN.
--- NOTE | 2020-03-09 14:15 | PC.NURSE ---
PT REMAINS LETHARGIC AND UNMOTIVATED DURING THIS SHIFT- SPOON FEEDING HIM SMALL AMOUNTS AND DECLINED FOR DIETARY TO BRING LUNCH TRAY- NEW ORDER FOR [employer] TO ENCOURAGE APPETITE - MECHANICAL LIFT TO CHAIR WHERE HE LASTED FOR 2 HOURS APPROXIMATELY. WOUND VAC DISCONTINUED BY DR SMITH AND DRY GAUZE DRESSING PLACE COVERED BY ABD DRESSING AND MEDIPORE TAPE- OSTOMY TAKEN DOWN TWICE THIS SHIFT AND NEW WAFER/POUCH APPLIED - LARGE OUTPUT FROM OSTOMY, ZARAGOZA PATENT AND ORDERED TO COME OUT - WILL DO WHEN LIFTED BACK TO BED- DISCUSSING D/C PLANS WITH CARE MANAGEMENT- REQUIRING MUCH REHAB- ROOM AIR WITH INTERMITTENT USE OF CPAP- TELE DISCONTINUED AT THIS TIME WELL
--- NOTE | 2020-03-09 14:21 | PT.IPTN ---
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 PARTIAL COLECTOMY. COLOSTOMY FORMATION. APPLICATION OF WOUND VAC - Yao Cleary MD Physical Therapy Treatment Note M2 PT-IP Current Condition Start: 02/25/20 09:42 Freq: NEEDED Status: Active Protocol: Document 02/25/20 12:29 [facility] (Rec: 02/25/20 13:09 [id number]) Physical Therapy Current Condition Current Condition Evaluation Date 02/25/20 Treatment Diagnosis Appendectomy, partial cholectomy, lysis of adhesions , weakness Onset Date 02/24/20 Precautions Abdominal Surgery Precautions Log Roll,Lifting Restrictions, Gait Belt above Incisional Area Weight Bearing Status Weight Bearing Status Full Weight Bearing M3 PT-IP Subjective Start: 02/25/20 09:42 Freq: NEEDED Status: Active Protocol: Document 03/09/20 14:02 [facility] (Rec: 03/09/20 14:36 [facility] [id number]) Subjective Physical Therapy Visit Type Type Treatment Note Visit Start Time 14:02 Visit Stop Time 14:21 Total Visit Minutes 19 Notes present during tx. Physical Therapy Visit Comments Patient Comments Pt states he is too fatigued to try and stand or take steps but was agreeable to do seated therapeutic exercises. Therapy Pain Assessment Pain When Pain Assessed At Rest Pain Present Pain Present Pain Reported Location Abdomen Pain Behaviors Moaning Pain Management Techniques Modification of Treatment,Re- positioning,Timing of Activity with Medications M4 PT-IP Mobility and Gait Start: 02/25/20 09:42 Freq: NEEDED Status: Active Protocol: Document 03/09/20 14:02 [facility] (Rec: 03/09/20 14:36 [facility] [id number]) PT-Transfer Assessment Comments Mobility Comments Pt in chair, pt had just worked with OT and then doctor in room to remove wound vac. Pt refused sit<>stand training or step training but was agreeable to perform seated therapeutic exercises. Pt performed seated knee flx/ext, AP with AAROM of left ankle, quad sets with tactile cues, glute sets and ab/add with resistance. Pt was left in chair with all needs within reach and present. Gait Assessment Comments Gait Comments unable at this time Stair Climbing Assessment Comments Stair Climbing Comments Not assessed. PT-Balance Assessment Sitting Balance and Reactions Static Sitting Balance Ability Poor Dynamic Sitting Balance Ability Poor Standing Balance and Reactions Static Standing Balance Ability Poor Dynamic Standing Balance Ability Poor Device Used SBQC 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 and poor fine motor control able to abduct shoulder approx 40-50 degrees unable to fully extend his L arm and fingers Lower Extremity ROM Assessment Left Impaired Strength Upper Extremity Strength Assessment Left Impaired Shoulder 2- Elbow 3 Wrist 2- Hand 2- Lower Extremity Strength Assessment Left Impaired Hip 3+ Knee 4- Ankle 3 Coordination Assessment Gross Coordination Gross Coordination Impaired Sensation Assessment Sensation Gross Sensation WNL Muscle Tone Muscle Tone WNL No Muscle Tone Location Left Upper Extremity Type of Tone Hypertonicity,Flexor Severity of Tone Moderate M6 PT-IP Treatment Start: 02/25/20 09:42 Freq: NEEDED Status: Active Protocol: Document 03/09/20 14:02 [facility] (Rec: 03/09/20 14:36 [facility] [id number]) Physical Therapy Treatment Exercises Exercises Ankle Pumps,Gluteal Sets,Quad Sets,Seated Knee Flexion/ Extension M7 PT-IP Assessment and Plan Start: 02/25/20 09:42 Freq: NEEDED Status: Active Protocol: Document 03/09/20 14:02 [facility] (Rec: 03/09/20 14:36 [facility] [id number]) PT Summary Assessment and Plan Potential Rehabilitation Potential Fair Status of Condition at Evaluation Evolving Summary Impairments Pain,ROM,Strength,Balance, Coordination,Sensation,Tone, Cognition,Bed Mobility, Transfers,Gait,Activity Tolerance Progress Towards Goals Slow Progress due to Pain,Slow Progress due to Medical Issues,Slow Progress due to Activity Tolerance Assessment Summary Pt continues to have low activity tolerance and did not feel he could get up with therapy. Pt performed seated therapeutic exercises. Pt's state he is feeling overwhelmed with the news of discharging to another facility. Goals Bed Mobility Goal Minimal Assistance Transfer Goal Moderate Assistance Gait Goal Moderate Assistance,Abdifatah Walker Gait Distance 25 Days to Meet Goals 10 Frequency of Treatment Frequency Of Treatment Once a Day Treatment Plan Physical Therapy Treatment Plan Bed Mobility Training,Transfer Training,Gait Training, Therapeutic Exercise,Balance Retraining,Post Op Education, Discharge Planning,Hot or Cold Pack,Neuromuscular Re-ed, Coordination Retraining,Manual Therapy Other Recommendations and Next Treatment seated balance, sit-stand, Focus transfer to chair with sit- stand lift, ther ex. Recommendations To Nursing Amount of Assist Needed Mechanical Lift,Power Sit- Stand Discharge Recommendations PT Discharge Recommendations SNF Rehab Transportation Needs at Discharge Stretcher/Ambulance
--- NOTE | 2020-03-09 15:04 | DIET.PN ---
Dietary Progress Note Assessment: 85y M d+14 this hospital stay referred to nutrition for weakness, poor POs while weaning off TPN. HT: 172.7cm WT: 110kg (pt +2kg in 2d c poor urine output) BMI: 36.9 Pt having good ostomy output, some nausea c intake. Interventions: 1. Discussed possible strategies to increase protein intake to improve immune fxn, increase strength, and aid healing. Pt open to yogurt smoothies and ONS chocolate Enlive, will send each once daily in addition to meal trays. 2. Acclimated pt to hospital menu and ordering, dietary alerted that pt able to choose items. Pt will focus on PRO intake first. Diet Order: General + TPN EER: 2100kcal (20kcal/kg), 110g PRO (1g/kg per post surgical) Monitoring/Evaluations: POs, ONS tolerance
--- NOTE | 2020-03-09 15:41 | PM.PNPO.1 ---
Subjective Subjective Date Patient Seen: 03/09/20 Time Patient Seen: 15:41 Interval history: Large amount of ostomy output. Continues to feel mildly nauseated and decreased appetite. Exam Vital Signs (past 8 hours): - 03/09/20 08:00 03/09/20 11:00 Temperature 98.3 F Pulse Rate 67 Respiratory Rate 17 Blood Pressure 108/53 L Pulse Oximetry 96 94 Oxygen Delivery Method Room Air,CPAP Oxygen Flow Rate 0 Narrative Exam Narrative: Gen-Adult male altert no acute distress Chest-Non labored resp Abdomen-Wound vac removed midline incision CDI very well granulated. Ostomy viable and productive of gas and stol Objective Labs Result Diagrams: 03/08/20 05:40 03/08/20 05:40 Labs: Laboratory Results - last 24 hr 03/01/20 00:45 Crossmatch See Detail Assessment & Plan Post-op Postoperative Procedures: Procedures Operation Date: 02/24/20 09:15 Actual Procedures Side Surgeon p Appendectomy, partial cholectomy, lysis of adhesions Yao Cleary MD Operation Date: 03/01/20 08:00 Actual Procedures Side Surgeon p Exploratory Laparotomy. PARTIAL COLECTOMY. COLOSTOMY FORMATION. 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 making a slow but gradual recovery #Regular diet continue TPN until taking adequate PO -Wound vac has been discontinued wet to dry to midline incision -Cont PT/OT -Remove altamirano cath - Afib-Rate control and Eliquis Time Spent With Patient Time with patient: Greater than 35 minutes Quality VTE Deep Vein Thrombosis/Pulmonary Embolism Present on Admission: No
[2020-03-09] MEDS: MEGESTROL 20 MG TABLET 40 MG PO ×2 (17:10→21:10)
[2020-03-09] MEDS: [UNRECOGNIZED DRUG - OTHER] IV (18:27)
[2020-03-09] MEDS: CALCIUM IV (18:27)
[2020-03-09] MEDS: MULTIVITAMIN IV (18:27)
[2020-03-09] MEDS: DEXT IV (18:27)
[2020-03-09] MEDS: LYTES IV (18:27)
[2020-03-09] MEDS: TRACE ELEMENTS IV (18:27)
[2020-03-10] VITALS (12 sets, daily range): BP systolic 124–138; BP diastolic 58–74; PULSE 68–76; RESP 18–22; TEMP 36.8–37; O2SAT 91–98
[2020-03-10 05:30] LABS: Add Manual Diff / Slide Review NO; Basophils Absolute Auto 0 /uL (0-100); Basophils Percent Auto 0.1 % (0-2); Eosinophils Absolute Auto 100 /uL (0-450); Eosinophils Percent Auto 0.6 % (2-4); Hematocrit 26.3 % (41-53); Hemoglobin 8.8 g/dL (13.5-17.5); Lymphocytes Absolute Auto 3000 /uL (1100-4500); Lymphocytes Percent Auto 22.1 % (25-40); Mean Corpuscular HGB Conc 33.4 % (30-36); Mean Corpuscular Volume 80.9 fL (80-100); Monocytes Absolute Auto 500 /uL (0-900); Neutrophils Absolute Auto 10000 /uL (1500-7000); Neutrophils Percent Auto 73.2 % (50-75); Platelet Count 311 X10^3/uL (150-400); Red Blood Cell Count 3.25 X10^6/uL (4.5-5.9); Red Cell Distribution Width 14.3 % (11.6-14.8); White Blood Cell Count 13.6 X10^3/uL (4.5-11.0)
[2020-03-10 05:35] LABS: BUN Creatinine Ratio 22.5 (6-22); Blood Urea Nitrogen 16 mg/dL (9-20); Calcium 7.6 mg/dL (8.4-10.2); Carbon Dioxide 31 mmol/L (22-32); Chloride 97 mmol/L (98-107); Estimated Glomerular Filt Rate > 60.0 mL/min (>60); Glucose 114 mg/dL (80-110); HEMOLYSIS < 15 (0-50); Magnesium 2.1 mg/dL (1.6-2.3); Phosphorous 3.8 mg/dL (2.3-3.7); Potassium 3.7 mmol/L (3.4-5.1); Sodium 132 mmol/L (137-145)
--- NOTE | 2020-03-10 08:56 | DI.RAD.S_ITS ---
PROCEDURE: XR CHEST 1V INDICATIONS: leukocytosis TECHNIQUE: One view of the chest was acquired. COMPARISON: [facility], CR, XR ABDOMEN 1V, 03/08/2020, 10:40. [facility], CR, XR CHEST 1V, 02/29/2020, 22:23. [facility], CR, XR CHEST 1V, 03/06/2020, 5:08. FINDINGS: Surgical changes and devices: A right-sided PICC line is seen, with the tip overlying the inferior aspect of the superior vena cava, 2-3 cm above the cavoatrial junction. Lungs and pleura: There is a small left-sided pleural effusion. No large pneumothorax can be seen on this semiupright study. Low lung volumes are noted. This causes a crowded appearance to the lung markings and limits evaluation. Mediastinum: The cardiac contours are moderately enlarged. The aorta demonstrates calcification and tortuosity. Bones and chest wall: No suspicious bony lesions. Age-appropriate bony degenerative changes are seen. Overlying soft tissues appear unremarkable. IMPRESSION: The tip of the right-sided PICC line is seen overlying the inferior aspect of the superior vena cava. Small left-sided pleural effusion and cardiomegaly. Please consider CHF. Low lung volumes. Dictated by: Karri Ron M.D. on 03/10/2020 at 8:41 Approved by: Karri Ron M.D. on 03/10/2020 at 8:42
[2020-03-10] MEDS: MEGESTROL 20 MG TABLET 40 MG PO ×2 (08:59→21:12)
[2020-03-10] MEDS: carvediloL 6.25 MG TABLET PO ×2 (09:00→21:12)
[2020-03-10] MEDS: FAMOTIDINE 20 MG TABLET PO ×2 (09:00→21:12)
[2020-03-10] MEDS: APIXABAN 5 MG TABLET PO ×2 (09:11→21:13)
[2020-03-10] MEDS: polyethylene glycoL 3350 17 GM POWD.PACK 34 GM PO (09:11)
[2020-03-10] MEDS: SODIUM CHLORIDE 0.9% FLUSH 10 ML IV (09:12)
[2020-03-10] MEDS: LOSARTAN 50 MG TABLET PO (09:12)
--- NOTE | 2020-03-10 09:25 | P.PN_ITS ---
Subjective Subjective Date Patient Seen: 03/10/20 Time Patient Seen: 09:25 Interval history: No acute overnight events. Slept well. ostomy continues to be productive of stool and gas. He feels less nauseous and is developing an appetite may case was started yesterday as an appetite stimulant. He tells me that he has some persistent shortness of breath and feels more comfortable with his CPAP on most of the time. Exam Vital Signs (past 8 hours): - 03/10/20 06:05 03/10/20 08:15 03/10/20 09:00 Temperature 98.6 F Pulse Rate 76 Respiratory Rate 20 Blood Pressure 129/59 L 129/59 L Pulse Oximetry 98 96 Oxygen Delivery Method Room Air Oxygen Flow Rate 0 Narrative Exam Narrative: General elderly man alert oriented following commands Chest nonlabored respirations wearing CPAP Abdomen soft nondistended ostomy productive of stool and gas midline incision clean dry intact with wet-to-dry dressings. Objective Labs Result Diagrams: 03/10/20 04:47 03/10/20 04:47 Labs: Laboratory Results - last 24 hr 03/10/20 03/10/20 04:47 04:47 WBC 13.6 H RBC 3.25 L Hgb 8.8 L Hct 26.3 L MCV 80.9 MCH 27.0 MCHC 33.4 RDW 14.3 Plt Count 311 Neut % (Auto) 73.2 Lymph % (Auto) 22.1 L [place] % (Auto) 4.0 Eos % (Auto) 0.6 L Baso % (Auto) 0.1 Neut # (Auto) 48037 H Lymph # (Auto) 3000 [place] # (Auto) 500 Eos # (Auto) 100 Baso # (Auto) 0 Sodium 132 L Potassium 3.7 Chloride 97 L Carbon Dioxide 31 BUN 16 Creatinine 0.71 Estimated GFR > 60.0 BUN/Creatinine Ratio 22.5 H Glucose 114 H Calcium 7.6 L Phosphorus 3.8 H Magnesium 2.1 Assessment & Plan Post-op Postoperative Procedures: Procedures Operation Date: 02/24/20 09:15 Actual Procedures Side Surgeon p Appendectomy, partial cholectomy, lysis of adhesions Yao Cleary MD Operation Date: 03/01/20 08:00 Actual Procedures Side Surgeon p Exploratory Laparotomy. PARTIAL COLECTOMY. COLOSTOMY FORMATION. APPLICATION OF WOUND VAC Yao Cleary MD Postoperative status narrative: 85-year-old man postoperative day 9 after an end colostomy following a sigmoid anastomotic leak. # postoperative ileus-resolving. His nausea is improved may gaze appetite stimulant ordered will encourage p.o. intake and would like to wean TPN to off today. # leukocytosis-white blood cell count 14 today afebrile. Obtain UA, chest x- ray, blood cultures. R/o UTI, pneumonia, and bacteremia. #midline wound-wet to dry once daily #Afib-Rate control and Eliquis Quality VTE Deep Vein Thrombosis/Pulmonary Embolism Present on Admission: No
[2020-03-10] MEDS: POTASSIUM CHLORIDE 40 MEQ in SODIUM CHLORIDE 0.9% 500 ML 130 ML IV (10:24)
--- NOTE | 2020-03-10 11:34 | PT.IPTN ---
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 PARTIAL COLECTOMY. COLOSTOMY FORMATION. APPLICATION OF WOUND VAC - Yao Cleary MD Physical Therapy Treatment Note M2 PT-IP Current Condition Start: 02/25/20 09:42 Freq: NEEDED Status: Active Protocol: Document 02/25/20 12:29 HH (Rec: 02/25/20 13:09 [email or web address]) Physical Therapy Current Condition Current Condition Evaluation Date 02/25/20 Treatment Diagnosis Appendectomy, partial cholectomy, lysis of adhesions , weakness Onset Date 02/24/20 Precautions Abdominal Surgery Precautions Log Roll,Lifting Restrictions, Gait Belt above Incisional Area Weight Bearing Status Weight Bearing Status Full Weight Bearing M3 PT-IP Subjective Start: 02/25/20 09:42 Freq: NEEDED Status: Active Protocol: Document 03/10/20 11:34 AB (Rec: 03/10/20 13:32 AB [email or web address]) Subjective Physical Therapy Visit Type Type Treatment Note Visit Start Time 11:34 Visit Stop Time 13:05 Total Visit Minutes 73 Notes pt seen for split visits: 1134 to 1234 and 1249 to 1302 Number of SLICING MACHINE TENDER Visits 0 Physical Therapy Visit Comments Patient Comments pt is agreeable to do PT Therapy Pain Assessment Pain Present Pain Present Denied Pain M4 PT-IP Mobility and Gait Start: 02/25/20 09:42 Freq: NEEDED Status: Active Protocol: Document 03/10/20 11:34 AB (Rec: 03/10/20 13:32 AB [email or web address]) PT-Bed Mobility Assessment Rolling Level of Assist Maximal Assistance,1 Person Assistance Supine to Sit Supine to Sit Maximum Assistance,2 Person Assistance,Head of Bed Elevated,Bedrails Scooting Scooting to Edge of Bed Dependent PT-Transfer Assessment Sit to and From Stand Sit to and from Stand Maximum Assistance,2 Person Assistance,Use of Upper Extremities Equipment Transfer Assistive Device Gait Belt,Front Wheeled Walker Orthotic/Prosthetic Devices or Brace: No Transfers Transfer Destination Chair,Bedside Commode Transfer Technique Stand Step Pivot Transfer Ability Level of Assist Maximum Assistance,2 Person Assistance,Use of Upper Extremities Comments Mobility Comments completed supine to sit with HOB elevated and pt used bed rail to assist max A and max cues. pt required initial min A x 2 for sitting balance but after scooting and repositioning, was able to sit with CGA. required total A with scooting. pt educated on body position and midline orientation, completed sitting balance activities requiring CGA for sitting balance. completed sit to stand max A x 2- 3 from EOB. pt required max A x 2 for body positioning and max cues for upright posture. educated again on midline body position. pt tolerated ~ 2min of standing. pt sat back on EOB. pt requesting to use the toilet. attempted sit<>stand equipement to assist pt with transfer but pt tends to push back into sitting position and is not appropriate with sit to stand machine for transfer at this time. pt stated that he still wants to get up and use the commode. completed sit to stand max A x2-3 and max cues. completed step transfer using FWW max A x 2 and max cues. pt wants to use the commode for a few minutes . Left pt with nurse. nurse called for assist after pt used the commode. pt completed sit to stand from bedside commode x 2 attempts, max A x 2-3 and max cues. pt required max A to maintain standing balance and nurse assisted with hygiene care. pt completed step transfer to chair max A x 2-3. pt stated that he is tired and pt getting unsteady and chair positioned behind pt. assisted pt for chair positioning. call light and table placed within reach. PT-Balance Assessment Sitting Balance and Reactions Static Sitting Balance Ability Fair Dynamic Sitting Balance Ability Poor Standing Balance and Reactions Static Standing Balance Ability Poor Dynamic Standing Balance Ability Poor 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 and poor fine motor control able to abduct shoulder approx 40-50 degrees unable to fully extend his L arm and fingers Lower Extremity ROM Assessment Left Impaired Strength Upper Extremity Strength Assessment Left Impaired Shoulder 2- Elbow 3 Wrist 2- Hand 2- Lower Extremity Strength Assessment Left Impaired Hip 3+ Knee 4- Ankle 3 Coordination Assessment Gross Coordination Gross Coordination Impaired Sensation Assessment Sensation Gross Sensation WNL Muscle Tone Muscle Tone WNL No Muscle Tone Location Left Upper Extremity Type of Tone Hypertonicity,Flexor Severity of Tone Moderate M6 PT-IP Treatment Start: 02/25/20 09:42 Freq: NEEDED Status: Active Protocol: Document 03/10/20 11:34 AB (Rec: 03/10/20 13:32 AB [email or web address]) Physical Therapy Treatment Education Education Provided Safety Other Treatments Other Treatment Performed sitting and standing balance/ tolerance activities with cues for midline orientation and even weight on BLE and for trunk control. M7 PT-IP Assessment and Plan Start: 02/25/20 09:42 Freq: NEEDED Status: Active Protocol: Document 03/10/20 11:34 AB (Rec: 03/10/20 13:32 AB [email or web address]) PT Summary Assessment and Plan Potential Rehabilitation Potential Good Summary Impairments Pain,ROM,Strength,Balance, Coordination,Sensation,Tone, Cognition,Bed Mobility, Transfers,Gait,Activity Tolerance Progress Towards Goals Slow Progress due to Medical Issues,Slow Progress due to Activity Tolerance Assessment Summary pt continues to require max A x 2-3 and max cues but slolwy improving with sitting balance . pt will require SNF rehab to improve strength and mobility. Goals Bed Mobility Goal Moderate Assistance Transfer Goal Moderate Assistance,Front Wheeled Walker Gait Goal Moderate Assistance,Front Wheel Walker Gait Distance 25 Days to Meet Goals 10 Frequency of Treatment Frequency Of Treatment Once a Day Treatment Plan Physical Therapy Treatment Plan Bed Mobility Training,Transfer Training,Gait Training, Therapeutic Exercise,Balance Retraining,Post Op Education, Discharge Planning,Hot or Cold Pack,Neuromuscular Re-ed, Coordination Retraining,Manual Therapy Other Recommendations and Next Treatment sitting/standing balance/ Focus tolerance, transfers Recommendations To Nursing Amount of Assist Needed Mechanical Lift Discharge Recommendations PT Discharge Recommendations SNF Rehab Transportation Needs at Discharge Wheelchair/Cabulance,Stretcher /Ambulance
[2020-03-10] MEDS: ONDANSETRON 4 MG/2 ML INJ IV (11:55)
--- NOTE | 2020-03-10 13:03 | OT.IP.TRT ---
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 PARTIAL COLECTOMY. COLOSTOMY FORMATION. APPLICATION OF WOUND VAC - Yao Cleary MD Occupational Therapy Treatment Note M2 OT-IP Current Condition Start: 02/25/20 13:57 Freq: Status: Active Protocol: Document 02/25/20 11:13 [facility] (Rec: 02/25/20 14:16 [facility] [id number]) Occupational Therapy Current Condition Current Condition Evaluation Date 02/25/20 Treatment Diagnosis Appendectomy, partial cholectomy, decreased self care Diagnosis Onset Date 02/24/20 Post Operative Precautions Abdominal Surgery Precautions Log Roll,Lifting Restrictions, Gait Belt above Incisional Area M3 OT- IP Subjective and Pain Start: 02/25/20 13:57 Freq: Status: Active Protocol: Document 03/10/20 11:50 [facility] (Rec: 03/10/20 13:25 [facility] [id number]) OT- Subjective Occupational Therapy Visit Type Type Treatment Note Visit Start Time 11:50 Visit Stop Time 13:03 Total Visit Minutes 56 Notes Pt seen for split session 1150 -1230 and [id number]. Occupational Therapy Visit Comments Patient Comments Pt wanting to use the BSC. Patient/Caregiver Goals Pt wanting to go home. OT Pain Assessment Pain When Pain Assessed During Mobility Pain Present Pain Present Pain Reported M4 OT- IP ADL's Start: 02/25/20 13:57 Freq: Status: Active Protocol: Document 03/10/20 11:50 [facility] (Rec: 03/10/20 13:25 [facility] [id number]) OT ADL-Grooming Comments OT Grooming Comments Pt already completed prior to OT session. OT ADL-Dressing General Eval Lower Body Dressing Ability Total Assistance Areas Needing Assistance Socks OT ADL-Toileting General Evaluation Toileting Ability Total Assistance Comments OT Toileting Comments Able to stand with pt with MAX A X 2 to FWW assist for left hand management on the FWW, balance, weight shifting and able to stand so nursing able to do hygiene needs for pt. M5 OT- IP IADL's Start: 02/25/20 13:57 Freq: Status: Active Protocol: Document 02/25/20 11:13 [facility] (Rec: 02/25/20 14:16 [facility] [id number]) OT-Instrumental Activities of Daily Living Burner Tender Burner Tender Caregiver Provides Assist Burner Tender Comments Prior pt likes to assist to take out the trash. M6 OT- IP Functional Cognition Start: 02/25/20 13:57 Freq: Status: Active Protocol: Document 03/10/20 11:50 [facility] (Rec: 03/10/20 13:25 [facility] [id number]) Cognitive Factors Limiting Selfcare Function Cognitive Comments Cognitive Assessment Comments Pt still having difficulty to recall how to use the spirometer. Pt poor awareness of midline and body awareness and tends to push and lean to the right . M7 OT- IP Mobility and Balance Start: 02/25/20 13:57 Freq: Status: Active Protocol: Document 03/10/20 11:50 [facility] (Rec: 03/10/20 13:25 [facility] [id number]) OT-Transfer Assessment Sit to and From Stand Sit to and from Stand Maximum Assistance,2 Person Assistance Transfers Transfer Ability Maximum Assistance,2 Person Assistance Technique Transfer Destination Bed,Bedside Commode,Chair Transfer Technique Stand Step Pivot Devices Transfer Assistive Devices Gait Belt,Front Wheeled Walker Comments Mobility Comments MAX X 3 with FWW to help transfer to [facility] and then to recliner. OT- Balance Assessment Sitting Balance and Reactions Static Sitting Balance Ability Fair Dynamic Sitting Balance Ability Poor Comments Other Balance Tests/Deviations/Treatment Worked on trunk control and : sitting to midline. Pt tends to laterally lean to the right and posteriorly. Pt at the end of the session having a better idea of midline . In addition work on weight bearing to left hand to help decrease tone in left hand. M9 OT- IP Assessment and Plan Start: 02/25/20 13:57 Freq: Status: Active Protocol: Document 03/10/20 11:50 [facility] (Rec: 03/10/20 13:25 [facility] [id number]) OT Summary Assessment and Plan Potential Rehabilitation Potential Fair Analytic Complexity at Evaluation Moderate Summary OT Impairments Pain,Balance,Functional Mobility,Grooming,Dressing, Toileting,Bathing,Toilet Transfers,Shower Transfers, Activity Tolerance Progress Towards Goals Progressing Toward Goals Assessment Summary Pt able to tolerate session of sitting balance, transfer with FWW MAX A X3 to [facility] amd then to recliner after use of commode today. Pt will benefit from skilled rehab prior to going home. Goals Self-Feeding Goal Independent Grooming Goal Independent Dressing Goal Minimal Assistance Toileting Goal Moderate Assistance Bathing Goal Moderate Assistance Toilet Transfer Goal Standby Assistance Shower Transfer Goal Minimal Assistance Patient/Caregiver Education Goal Demonstrate Post-Op Precautions,Caregiver Independent Assisting Patient Days to Meet Goals 16 Frequency of Treatment Frequency Of Treatment Once a Day Treatment Plan OT Treatment Plan ADL Training,Functional Mobility,Patient/Family Education,Discharge Planning Discharge Recommendations OT Discharge Recommendations SNF Rehab Home Equipment Needs Defer to SNF Transportation Needs at Discharge Wheelchair/Cabulance,Stretcher /Ambulance
[2020-03-10 13:05] LABS: Appearance Urine UA CLEAR; Bilirubin Urine UA NEGATIVE (NEGATIVE); Glucose Urine UA NEGATIVE (Negative); Ketones Urine UA NEGATIVE (NEGATIVE); Leukocyte Esterase Urine UA NEGATIVE (NEGATIVE); Nitrite Urine UA POSITIVE (Negative); Occult Blood Urine UA TRACE-LYSED (Negative); Protein Urine UA 1+ (Negative)
[2020-03-10 13:07] LABS: Color Urine UA Amber
[2020-03-10 13:23] LABS: Bacteria Urine Many (>30); Culture Indicated Urine Specimen Cultured; RBC Urine 0-1/HPF (0-5/HPF); Squamous Epithelial Cell Urine 0-1 /HPF (0-5/HPF); WBC Urine 1-5/HPF (0-5/HPF)
[2020-03-10] MEDS: guaiFENesin Solution 100 MG/5 ML UDC 200 MG PO ×2 (13:29→21:13)
[2020-03-10] MEDS: levoFLOXacin 250 MG TABLET 750 MG PO (16:03)
--- NOTE | 2020-03-10 18:35 | PC.NURSE ---
Ostomy Nurse Consult Note Rio asleep with his CPAP on. His breathing looks labored. Odalys his is here at his bedside. I told her I read Jerry recent note and that I see the program services planner is working on having him transfer to [facility] in [place]. Odalys said she isn't sure she wants this as she will not be able to visit Rio and since he is depressed feels that no visitation will only make him more depressed and not do well. She stated that the program services planner spoke about Hospice and then that way she could visit him and he would be getting prison care and rehab. I was a bit confused as I told her Hospice care is end of life care. She said she knew this but that he could also get better with the nursing and rehab care and get home. She also stated that she is thinking of having Rio moved to a hospital down in [place], maybe [facility]. I told her she needs to ask for a Care Conference with the surgeon, hospitalist and care management tomorrow and ask questions to the team and find out what his prognosis is. Odalys told me she felt that Rio had another stroke and she did speak to Dr. Cleary about this. She feels that he is breathing fast and that he needs to have his CPAP because when he doesn't use it he can not get his breath. I listened to her and I greatly encouraged her to have a Care Conference tomorrow. Rio woke up and I changed his ostomy appliance. I took a picture of his stoma. His stoma smells. It has 95% slough. It is not beefy red. The peristomal skin is indurated, red and inflamed. 0.5 cm from stoma all around the stoma. The sutures are present but they are not all attached. The stoma is at the skin level. There is a slight mucocutaneous seperation at the 5 o'clock position. He did have some gas but there was not efflluent in the pouch when I changed the appliance. I placed him in a 70 mm flat moldable appliance with a suzanne ring. ( We did not have any 57m appliances on the floor). The Wound Vac has been discontinued 03/09 and his midline dressing is dry and intact. The GALA drain has also been removed. I have notified Dr. Tolbert and she will notify Dr. Cleary. Ameena, RN has also seen the picture of the stoma and will also pass on to the next shift that Odalys would like a Care Conference tomorrow.
[2020-03-11] VITALS (9 sets, daily range): BP systolic 112–127; BP diastolic 60–63; PULSE 69–78; RESP 18–22; TEMP 36.3–36.5; O2SAT 92–100
[2020-03-11 05:21] LABS: BUN Creatinine Ratio 19.7 (6-22); Blood Urea Nitrogen 14 mg/dL (9-20); Calcium 7.6 mg/dL (8.4-10.2); Carbon Dioxide 28 mmol/L (22-32); Chloride 98 mmol/L (98-107); Estimated Glomerular Filt Rate > 60.0 mL/min (>60); Glucose 89 mg/dL (80-110); HEMOLYSIS < 15 (0-50); Magnesium 2.1 mg/dL (1.6-2.3); Potassium 3.9 mmol/L (3.4-5.1); Sodium 131 mmol/L (137-145)
[2020-03-11 05:23] LABS: Basophils Absolute Auto 0 /uL (0-100); Eosinophils Absolute Auto 100 /uL (0-450); Eosinophils Percent Auto 0.8 % (2-4); Hemoglobin 8.3 g/dL (13.5-17.5); Lymphocytes Absolute Auto 2500 /uL (1100-4500); Platelet Count 328 X10^3/uL (150-400)
[2020-03-11 05:36] LABS: Procalcitonin 0.29 ng/mL (<0.5)
[2020-03-11 05:39] LABS: Add Manual Diff / Slide Review NO; Basophils Percent Auto 0.3 % (0-2); Lymphocytes Percent Auto 23.5 % (25-40); Mean Corpuscular HGB Conc 33.4 % (30-36); Mean Corpuscular Hemoglobin 27.1 PG (26-34); Mean Corpuscular Volume 81.2 fL (80-100); Monocytes Absolute Auto 400 /uL (0-900); Monocytes Percent Auto 4.1 % (3-14); Neutrophils Absolute Auto 7500 /uL (1500-7000); Neutrophils Percent Auto 71.3 % (50-75); Red Blood Cell Count 3.05 X10^6/uL (4.5-5.9); Red Cell Distribution Width 14.3 % (11.6-14.8); White Blood Cell Count 10.5 X10^3/uL (4.5-11.0)
[2020-03-11 05:40] LABS: Hematocrit 24.7 % (41-53)
--- NOTE | 2020-03-11 09:13 | PC.NURSE ---
Addendum entered by Mellissa Donald R.N. 03/11/20 14:39: Care conference went well per . CT scan done of head, no acute changes. Lasix given with good output. Incont of urine x2, very incont brief. Lift up to chair, sitting up with c/o pain at present. Order for APAP rec'd. Lasix ordered for 1500. Spo2 94% Ra sitting up in chair. PO intake good this shift, >50% of both meals plus protein supplements. Original Note: Am shift Pt is resting on CPAP, at bedside and reports SOB with any removal of CPAP, Lani had seen Pt last night and had concerns about ostomy, relayed to Dr Cleary. Plan for care conference this AM with surgical and care management input for updated POC. concerned about poor PO intake and fluid management and starting Lasix again, as edema is worsened. 2-3+ pitting x4 ext. Dr Cleary and Debbie MARTIN at bedside @ 4082
[2020-03-11] MEDS: FUROSEMIDE 40 MG/4 ML VIAL IV ×2 (11:17→14:51)
[2020-03-11] MEDS: guaiFENesin Solution 100 MG/5 ML UDC 200 MG PO ×2 (11:18→21:54)
[2020-03-11] MEDS: carvediloL 6.25 MG TABLET PO ×2 (11:18→21:52)
[2020-03-11] MEDS: polyethylene glycoL 3350 17 GM POWD.PACK 34 GM PO ×2 (11:18→21:55)
[2020-03-11] MEDS: LOSARTAN 50 MG TABLET PO (11:18)
[2020-03-11] MEDS: FAMOTIDINE 20 MG TABLET PO (11:19)
[2020-03-11] MEDS: levoFLOXacin 250 MG TABLET 750 MG PO (11:19)
[2020-03-11] MEDS: APIXABAN 5 MG TABLET PO ×2 (11:19→21:52)
[2020-03-11] MEDS: MEGESTROL 20 MG TABLET 40 MG PO ×2 (11:20→21:56)
[2020-03-11] MEDS: SODIUM CHLORIDE 0.9% FLUSH 10 ML IV ×2 (11:22→21:57)
[2020-03-11] MEDS: ONDANSETRON 4 MG/2 ML INJ IV (11:51)
--- NOTE | 2020-03-11 12:11 | P.PN_ITS ---
Subjective Subjective Date Patient Seen: 03/11/20 Time Patient Seen: 12:11 Interval history: No major overnight events. He has been tolerating a regular diet his nausea has largely resolved he is having significant amount of stool output from the ostomy. Lani Benito from wound ostomy care evaluated him yesterday and had concerns about the viability of the ostomy and its slough. She was started on Levaquin for urinary tract infection yesterday he is much mor e alert and oriented this morning. Exam Vital Signs (past 8 hours): - 03/11/20 06:11 03/11/20 08:00 Temperature 97.7 F Pulse Rate 69 Respiratory Rate 20 Blood Pressure 127/60 Pulse Oximetry 95 97 Oxygen Delivery Method CPAP Oxygen Flow Rate 0 Narrative Exam Narrative: General elderly man alert oriented in no acute distress he is breathing room air comfortably. Chest nonlabored respirations Abdomen midline incision clean open midline wound with wet to dry dressing. Ostomy productive of stool and air. Will return later today to remove the ostomy appliance and exam it in its entirety. Extremities warm and edematous Objective Labs Result Diagrams: 03/11/20 04:45 03/11/20 04:45 Labs: Laboratory Results - last 24 hr 03/10/20 03/11/20 03/11/20 12:35 04:45 04:45 WBC 10.5 RBC 3.05 L Hgb 8.3 L Hct 24.7 L MCV 81.2 MCH 27.1 MCHC 33.4 RDW 14.3 Plt Count 328 Neut % (Auto) 71.3 Lymph % (Auto) 23.5 L Dawson % (Auto) 4.1 Eos % (Auto) 0.8 L Baso % (Auto) 0.3 Neut # (Auto) 7500 H Lymph # (Auto) 2500 Dawson # (Auto) 400 Eos # (Auto) 100 Baso # (Auto) 0 Sodium 131 L Potassium 3.9 Chloride 98 Carbon Dioxide 28 BUN 14 Creatinine 0.71 Estimated GFR > 60.0 BUN/Creatinine Ratio 19.7 Glucose 89 Calcium 7.6 L Phosphorus 4.0 H Magnesium 2.1 Procalcitonin Urine Color Blank Urine Appearance Clear Urine pH 6.0 Ur Specific [place] 1.010 Urine Protein 1+ H Urine Glucose (UA) Negative Urine Ketones Negative Urine Occult Blood Trace-lysed Urine Nitrate Positive Urine Bilirubin Negative Urine Urobilinogen 4.0 H Ur Leukocyte Esterase Negative Urine RBC 0-1/hpf Urine WBC 1-5/hpf Ur Squamous Epith Cells 0-1 /hpf Urine Bacteria Many (>30) H Ur Culture Indicated? Specimen cultured 03/11/20 04:45 WBC RBC Hgb Hct MCV MCH MCHC RDW Plt Count Neut % (Auto) Lymph % (Auto) Dawson % (Auto) Eos % (Auto) Baso % (Auto) Neut # (Auto) Lymph # (Auto) Dawson # (Auto) Eos # (Auto) Baso # (Auto) Sodium Potassium Chloride Carbon Dioxide BUN Creatinine Estimated GFR BUN/Creatinine Ratio Glucose Calcium Phosphorus Magnesium Procalcitonin 0.29 Urine Color Urine Appearance Urine pH Ur Specific [place] Urine Protein Urine Glucose (UA) Urine Ketones Urine Occult Blood Urine Nitrate Urine Bilirubin Urine Urobilinogen Ur Leukocyte Esterase Urine RBC Urine WBC Ur Squamous Epith Cells Urine Bacteria Ur Culture Indicated? Assessment & Plan Post-op Postoperative Procedures: Procedures Operation Date: 02/24/20 09:15 Actual Procedures Side Surgeon p Appendectomy, partial cholectomy, lysis of adhesions Yao Cleary MD Operation Date: 03/01/20 08:00 Actual Procedures Side Surgeon p Exploratory Laparotomy. PARTIAL COLECTOMY. COLOSTOMY FORMATION. APPLICATION OF WOUND VAC Yao Cleary MD Postoperative status narrative: 85-year-old man postoperative day 10 after a return to the operating room for a partial colectomy and colostomy formation after a sigmoid anastomotic leak. Had a extensive discussion with the patient his and care management today regarding his goals of care. brings up the option of going home with hospice and I told him that I did n ot think this is appropriate given that he has no terminal illness. The other option for going directly home would be to hire several staff in order to adequately care for him at home which may not be possible financially. I do think that he would benefit significantly from residential to focus efforts on his rehabilitation. 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 I told them that I think he is medically stable for discharge in the near future and that we are providing a minimal amount of hospital service to him at this time that could not be otherwise be performed in a residential facility. feels that he needs more management of his fluid status and that he continues to be edematous. I told him that part of than edema is related to all the IV fluids he has recieved but a significant portion of it also secondary to his poor nutritional status and this would take quite some time. In regards to the end colostomy, there is sloughing of the colostomy mucosa however it continues to be productive of stool and air and is intact to the level of the fascia. I told them that I recommend observation of the ostomy unless it is frankly necrotic and he is sick because of it. The alternative is to return to the operating room now to resect more of his colon and revise the ostomy. I told them that any additional operation at this time would be extremely difficult and high risk given the past 2 recent operations. I told him that they are welcome to seek the opinion of another surgeon if they would desire. At the conclusion of the meeting we have agreed to a potential discharge on SundayMarch 15 if medically stable at that time. -Regular diet -Lasix today -PT/OT -Start Sertaline for depression -Will ask medicine to re-evaluate for the 's concern for a possible stroke during hospital stay -Afib-Continue Eliquis -UTI-continue Levaquin f/u culture -VTE prophylaxis-SCDs Time Spent With Patient Time with patient: Greater than 35 minutes Quality VTE Deep Vein Thrombosis/Pulmonary Embolism Present on Admission: No
--- NOTE | 2020-03-11 12:26 | DI.CT.S_ITS ---
PROCEDURE: CT HEAD/BRAIN WO CON INDICATIONS: r/o cva TECHNIQUE: Noncontrast 4.5 mm thick angled axial sections acquired from the foramen magnum to the vertex, with coronal and sagittal reformats. For radiation dose reduction, the following was used: automated exposure control, adjustment of mA and/or kV according to patient size. COMPARISON: None. FINDINGS: Image quality: Excellent. CSF spaces: Basal cisterns are patent. No extra-axial fluid collections. The ventricles are symmetric in size and shape. Brain: There is encephalomalacia in the right frontal and parietal lobe, consistent with old infarct. No intracranial bleeds or masses. There is moderate to severe cerebral volume loss for age, with resultant ventricular and sulcal prominence. There are moderate periventricular and deep white matter chronic small vessel ischemic changes. There is intracranial internal carotid artery atherosclerosis. Skull and face: Postsurgical changes related to prior craniotomy. Calvarium and visualized facial bones appear intact, without suspicious lesions. Sinuses: Visualized sinuses and mastoids are clear. IMPRESSION: 1. No acute intracranial abnormalities. 2. Old right frontoparietal infarct with encephalomalacia. 3. Cerebral volume loss and chronic microvascular ischemic changes. Dictated by: Ekaterina Almonte M.D. on 03/11/2020 at 13:03 Approved by: Ekaterina Almonte M.D. on 03/11/2020 at 13:11
--- NOTE | 2020-03-11 12:42 | PT-IP ANOTE ---
checked with nurse and stated to seen pt in the afternoon. pt just had a care conference with spouse in room and pt wants to rest first. will check back in afternoon.
--- NOTE | 2020-03-11 12:55 | CM.DPNOTE ---
DCP Cont Met w/patient's Odalys yesterday and today; had lengthy conversations w/spouse re: POC and DCP both days Yesterday, received call from Susie from [facility] P# [phone], patient has been accepted for admission when weaned off TPN and eating at least 50% of his meals. This WATER MAIN INSTALLER HELPER scheduled through Sunday and will update Susie re: DC date. Then met w/patient and Odalys to update yesterday; Odalys wavers throughout conversation, whether patient is medically stable(?) discussed patient's spirits being low, discussed SNF vs home w/hired caregivers. Discussed Odalys's concern about prognosis and Odalys wonders if patient will have a good enough quality of life throughout this recovery ? Discussed above w/ RN Trena yesterday and she suggested Palliative Care Consult . Patient currently full code. It was [id number] at this time, attempted request for PallCare consult yest afternoon and AAYUSH Dial was unable to d/t clinical demand , consult request also notably very late in the day. ARABELLA Bo
--- NOTE | 2020-03-11 13:40 | CM.DPNOTE ---
DCP Cont This morning, spoke w/Dr Cleary who wonders what is the POC for this patient? At this time, Palliative Care Consult scheduled (tentatively) for Sunday afternoon so this PRINTED CIRCUIT BOARD PCB DESIGNER requested to review DCP and POC w/patient and spouse in w/ Dr Cleary; During this mtg; Dr Cleary addressed questions and concerns brought up by spouse Odalys. Odalys asked about transfer to higher level of care and Dr Cleary suggested he could attempt but it was likely there would not be an accepting physician or hospital. Spouse indicated she was concerned there was something missed (medically) and Dr Cleary attempted to guide spouse through steps taken, medically, on patient's behalf throughout this hospitalization. Spouse suggests Hospice because if patient is on Hospice at SNF she can come visit him. This PRINTED CIRCUIT BOARD PCB DESIGNER explains Hospice service is not appropriate to liberate visitation rights. Patient and spouse understood this. Spouse Odalys then asks about DC date, wavering here as Odalys admits she is nervous about her leaving the acute care setting and going to SNF w/o any visitation rights. This PRINTED CIRCUIT BOARD PCB DESIGNER attempted to explain that patient is nearing his hospital goal for DC to lower level of care- SNF to continue rehab and recovery as patient and spouse have reiterated as the goal today. Spouse understands and hopeful patient will be here for the next day or two to address fluid overload (?) Dr Cleary agreeable to plan to keep patient (tentatively) until approx Sunday at which point patient is expected to be medically stable for DC to SNF, patient/spouse have chosen [facility] in [place]. Encouraged patient/spouse to consider that Hospice service can always be researched as a service option if patient's recovery course is further complicated, patient does not make the progress he hopes for, and/or quality of life is not tolerable, patient understood. Spouse does not want to review POLST or update code status at this time. Updated AAYUSH Flores, who had meanwhile offered her assistance this morning while this senior back end java developer and Dr Cleary where in patient's room, that Palliative Care Consult was no longer requested/needed per patient/spouse. ARABELLA Bo
[2020-03-11] MEDS: ACETAMINOPHEN 325 MG TABLET 650 MG PO (14:55)
--- NOTE | 2020-03-11 15:14 | PT.IPTN ---
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 PARTIAL COLECTOMY. COLOSTOMY FORMATION. APPLICATION OF WOUND VAC - Yao Cleary MD Physical Therapy Treatment Note M2 PT-IP Current Condition Start: 02/25/20 09:42 Freq: NEEDED Status: Active Protocol: Document 02/25/20 12:29 HH (Rec: 02/25/20 13:09 HH [email or web address]) Physical Therapy Current Condition Current Condition Evaluation Date 02/25/20 Treatment Diagnosis Appendectomy, partial cholectomy, lysis of adhesions , weakness Onset Date 02/24/20 Precautions Abdominal Surgery Precautions Log Roll,Lifting Restrictions, Gait Belt above Incisional Area Weight Bearing Status Weight Bearing Status Full Weight Bearing M3 PT-IP Subjective Start: 02/25/20 09:42 Freq: NEEDED Status: Active Protocol: Document 03/11/20 15:14 AB (Rec: 03/11/20 16:39 AB [email or web address]) Subjective Physical Therapy Visit Type Type Treatment Note Visit Start Time 15:14 Visit Stop Time 15:57 Total Visit Minutes 43 Number of FILE KEEPER Visits 0 Physical Therapy Visit Comments Patient Comments pt is agreeable to do PT M4 PT-IP Mobility and Gait Start: 02/25/20 09:42 Freq: NEEDED Status: Active Protocol: Document 03/11/20 15:14 AB (Rec: 03/11/20 16:39 AB [id number]) PT-Bed Mobility Assessment Sit to Supine Sit to Supine Maximum Assistance,2 Person Assistance PT-Transfer Assessment Sit to and From Stand Sit to and from Stand Maximum Assistance,2 Person Assistance,Use of Upper Extremities Equipment Transfer Assistive Device Gait Belt,Front Wheeled Walker Orthotic/Prosthetic Devices or Brace: No Transfers Transfer Destination Bed Transfer Technique Stand Pivot Transfer Ability Level of Assist 2 Person Assistance,Use of Upper Extremities Comments Mobility Comments completed sit to stand from chair max A x 2-3 and max cues . standing balance/tolerance conducted: static standing with cues for increasing weight bearing on LLE and increase aware of COG. pt used FWW for support. required max A x 2 for controlled descent to chair. completed sit to stand max A x2-3 and completed weight shifting activity and attempted lifting LLE off floor. pt required max A x 2 and max cues. completed sit to stand again max A x 2-3 and max cues. NAC assisted pt with hygiene care and brief change. pt completed stand pivot transfer using FWW max A x2-3 and max cues. pt completed sit to supine max A x 2-3 and max cues. assisted with positioning in bed. pt able to scoot up and sideways mod A and cues for bridging. positioned pt in bed. call light and table placed within reach. 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 and poor fine motor control able to abduct shoulder approx 40-50 degrees unable to fully extend his L arm and fingers Lower Extremity ROM Assessment Left Impaired Strength Upper Extremity Strength Assessment Left Impaired Shoulder 2- Elbow 3 Wrist 2- Hand 2- Lower Extremity Strength Assessment Left Impaired Hip 3+ Knee 4- Ankle 3 Coordination Assessment Gross Coordination Gross Coordination Impaired Sensation Assessment Sensation Gross Sensation WNL Muscle Tone Muscle Tone WNL No Muscle Tone Location Left Upper Extremity Type of Tone Hypertonicity,Flexor Severity of Tone Moderate M6 PT-IP Treatment Start: 02/25/20 09:42 Freq: NEEDED Status: Active Protocol: Document 03/11/20 15:14 AB (Rec: 03/11/20 16:39 AB [email or web address]) Physical Therapy Treatment Education Education Provided Safety M7 PT-IP Assessment and Plan Start: 02/25/20 09:42 Freq: NEEDED Status: Active Protocol: Document 03/11/20 15:14 AB (Rec: 03/11/20 16:39 AB [id number]) PT Summary Assessment and Plan Potential Rehabilitation Potential Good Summary Impairments Pain,ROM,Strength,Balance, Coordination,Sensation,Tone, Cognition,Bed Mobility, Transfers,Gait,Activity Tolerance Progress Towards Goals Slow Progress due to Medical Issues,Slow Progress due to Activity Tolerance Assessment Summary pt continues to require max A x 2-3 and max cues and has decrease activity tolerance requiring frequent rest breaks in between tasks. pt will require SNF rehab to improve strength and mobility. Goals Bed Mobility Goal Moderate Assistance Transfer Goal Moderate Assistance,Front Wheeled Walker Gait Goal Moderate Assistance,Front Wheel Walker Gait Distance 25 Days to Meet Goals 10 Frequency of Treatment Frequency Of Treatment Once a Day Treatment Plan Physical Therapy Treatment Plan Bed Mobility Training,Transfer Training,Gait Training, Therapeutic Exercise,Balance Retraining,Post Op Education, Discharge Planning,Hot or Cold Pack,Neuromuscular Re-ed, Coordination Retraining,Manual Therapy Other Recommendations and Next Treatment sitting/standing balance/ Focus tolerance, transfers Recommendations To Nursing Amount of Assist Needed Mechanical Lift Discharge Recommendations PT Discharge Recommendations SNF Rehab Transportation Needs at Discharge Wheelchair/Cabulance,Stretcher /Ambulance
--- NOTE | 2020-03-11 15:57 | OT.IP.TRT ---
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 PARTIAL COLECTOMY. COLOSTOMY FORMATION. APPLICATION OF WOUND VAC - Yao Cleary MD Occupational Therapy Treatment Note M2 OT-IP Current Condition Start: 02/25/20 13:57 Freq: Status: Active Protocol: Document 02/25/20 11:13 [facility] (Rec: 02/25/20 14:16 [facility] [id number]) Occupational Therapy Current Condition Current Condition Evaluation Date 02/25/20 Treatment Diagnosis Appendectomy, partial cholectomy, decreased self care Diagnosis Onset Date 02/24/20 Post Operative Precautions Abdominal Surgery Precautions Log Roll,Lifting Restrictions, Gait Belt above Incisional Area M3 OT- IP Subjective and Pain Start: 02/25/20 13:57 Freq: Status: Active Protocol: Document 03/11/20 16:17 [facility] (Rec: 03/11/20 16:40 [facility] [id number]) OT- Subjective Occupational Therapy Visit Type Type Treatment Note Visit Start Time 15:14 Visit Stop Time 15:57 Total Visit Minutes 43 Occupational Therapy Visit Comments Patient Comments Pt very tired but agreed to see OT/PT for functional transfer and toileting needs. Pt's and nursing aid present for the session. Patient/Caregiver Goals To go home, but open to going to rehab first. OT Pain Assessment Pain When Pain Assessed During Mobility Pain Present Pain Present Pain Reported Location Abdomen Pain Behaviors Guarding,Holding Area,Moaning M4 OT- IP ADL's Start: 02/25/20 13:57 Freq: Status: Active Protocol: Document 03/11/20 16:17 [facility] (Rec: 03/11/20 16:40 [facility] [id number]) OT ADL-Toileting General Evaluation Toileting Ability Total Assistance Comments OT Toileting Comments Pt MAX assist x 2 to stand with FWW while nursing aid able to assist to change pt's brief and assist with hygiene needs. Pt needing assist to help manage LUE on the FWW for balance , to asisst to wieght shift so able to balance weight equally on both sides. M5 OT- IP IADL's Start: 02/25/20 13:57 Freq: Status: Active Protocol: Document 02/25/20 11:13 [facility] (Rec: 02/25/20 14:16 [facility] [id number]) OT-Instrumental Activities of Daily Living Training And Development Officer Training And Development Officer Caregiver Provides Assist Training And Development Officer Comments Prior pt likes to assist to take out the trash. M6 OT- IP Functional Cognition Start: 02/25/20 13:57 Freq: Status: Active Protocol: Document 03/11/20 16:17 [facility] (Rec: 03/11/20 16:40 [facility] [id number]) Cognitive Factors Limiting Selfcare Function Cognitive Comments Cognitive Assessment Comments Pt starting to have better understanding of midline and with assist of therapist to be able to incorporate both sides of his body for transfer needs. M7 OT- IP Mobility and Balance Start: 02/25/20 13:57 Freq: Status: Active Protocol: Document 03/11/20 16:17 [facility] (Rec: 03/11/20 16:40 [facility] [id number]) OT-Transfer Assessment Sit to and From Stand Sit to and from Stand Maximum Assistance,2 Person Assistance Transfers Transfer Ability Maximum Assistance,2 Person Assistance Technique Transfer Destination Bed,Chair Transfer Technique Stand Step Pivot Devices Transfer Assistive Devices Gait Belt,Front Wheeled Walker Comments Mobility Comments Able to stand with FWW MAX A 2- 3 assist to help hold left hand on the FWW and to help pt put weight through his arm on the FWW , assist to shift his weight over to his right side in attempts to lift his left foot up. Pt tends to hyperextend and lock out his left knee when trying to move. OT- Balance Assessment Sitting Balance and Reactions Static Sitting Balance Ability Fair Dynamic Sitting Balance Ability Poor Standing Balance and Reactions Static Standing Balance Ability Poor Comments Other Balance Tests/Deviations/Treatment Work on standing to midline, : weight shifting and incorporating left side of his body with FWW MAX A 2-3. M9 OT- IP Assessment and Plan Start: 02/25/20 13:57 Freq: Status: Active Protocol: Document 03/11/20 16:17 [facility] (Rec: 03/11/20 16:40 [facility] [id number]) OT Summary Assessment and Plan Potential Rehabilitation Potential Fair Analytic Complexity at Evaluation Moderate Summary OT Impairments Pain,Balance,Functional Mobility,Grooming,Dressing, Toileting,Bathing,Toilet Transfers,Shower Transfers, Activity Tolerance Progress Towards Goals Progressing Toward Goals Assessment Summary Pt able to tolerate standing to midline with assist x3 and transfer with FWW from recliner to bed. Pt will benefit from skilled rehab prior to going home. Goals Self-Feeding Goal Independent Grooming Goal Independent Dressing Goal Minimal Assistance Toileting Goal Moderate Assistance Bathing Goal Moderate Assistance Toilet Transfer Goal Standby Assistance Shower Transfer Goal Minimal Assistance Patient/Caregiver Education Goal Demonstrate Post-Op Precautions,Caregiver Independent Assisting Patient Days to Meet Goals 15 Frequency of Treatment Frequency Of Treatment Once a Day Treatment Plan OT Treatment Plan ADL Training,Functional Mobility,Patient/Family Education,Discharge Planning Discharge Recommendations OT Discharge Recommendations SNF Rehab Home Equipment Needs Defer to SNF Transportation Needs at Discharge Wheelchair/Cabulance,Stretcher /Ambulance
--- NOTE | 2020-03-11 17:13 | PC.NURSE ---
Evening Shift Note: Pt checked on and assessed. Dr. Cleary to bedside. Pt reports low spirits/mood. Dr. Cleary started pt on sertraline today. This RN discussed new medication with pt and what to expect with timing. Dr. Cleary looked at pt's stoma, exterior visible portion is pale with sloughing tissue, but Dr. Cleary palpated inside stoma and reported that tissue is intact, pink and viable. This information was communicated to pt and pt's . Pt otherwise complains of SOB at rest, pt boosted and repositioned, with HOB to 30 degrees. Pt complains of reflux, Dr. Cleary changed famotidine to protonix BID. Pt also started on probiotics. Pt to be transferred out of ICU to acute care today. Report given to PAULA Mayen. Pt is now eating supper, will be transferred after supper.
[2020-03-11] MEDS: LACTOBACILLUS ACIDOPHILUS TABLET 1 EACH PO (17:29)
--- NOTE | 2020-03-11 18:17 | P.PN_ITS ---
Subjective Subjective Date Patient Seen: 03/11/20 Interval history: Patient is 85-year-old male postop day 10 partial colectomy and colostomy after sigmoid anastomosis leak. We were asked to re-evaluate patient for possible stroke. was concerned because he has had new severe weakness in the left leg which is same deficit as his prior stroke and periods where he seems confused staring out into space. Patient has poor appetite and nutritionally deficient since his surgery. He is being treated for UTI. He also is getting IV Lasix for generalized edema. He was started on sertraline for depression. He is back on Eliquis for atrial fibrillation. He is max 2 person assist. Exam Vital Signs (past 8 hours): - 03/11/20 14:00 Pulse Oximetry 94 Oxygen Delivery Method CPAP Oxygen Flow Rate 0 Narrative Exam Narrative: General: Alert but somewhat withdrawn male in no acute distress Lungs: Clear to auscultation Heart: Irregularly irregular Abdomen: Open midline abdominal wound, left side colostomy Extremities: 4+ edema bilaterally in lower extremities, as well as scrotal edema Neurological: Oriented to person, place and date, generalized weakness somewhat more prominent on the left leg Objective Labs Result Diagrams: 03/11/20 04:45 03/11/20 04:45 Labs: Laboratory Results - last 24 hr 03/11/20 03/11/20 03/11/20 04:45 04:45 04:45 WBC 10.5 RBC 3.05 L Hgb 8.3 L Hct 24.7 L MCV 81.2 MCH 27.1 MCHC 33.4 RDW 14.3 Plt Count 328 Neut % (Auto) 71.3 Lymph % (Auto) 23.5 L [place] % (Auto) 4.1 Eos % (Auto) 0.8 L Baso % (Auto) 0.3 Neut # (Auto) 7500 H Lymph # (Auto) 2500 [place] # (Auto) 400 Eos # (Auto) 100 Baso # (Auto) 0 Sodium 131 L Potassium 3.9 Chloride 98 Carbon Dioxide 28 BUN 14 Creatinine 0.71 Estimated GFR > 60.0 BUN/Creatinine Ratio 19.7 Glucose 89 Calcium 7.6 L Phosphorus 4.0 H Magnesium 2.1 Procalcitonin 0.29 Assessment & Plan Assessment & Plan narrative: 1. Postop weakness -patient had repeat noncontrast head CT which showed old right-sided CVA but no new findings -CBC, chemistries look okay -I do not think he has had a new stroke. He has generalized weakness due to nutritional deficiency, edema, prolonged bedrest. He has increased weakness in the left leg which is related to decompensation of deficit from prior stroke. -continue encouraging increase nutritional intake, TPN or PPN would be an option although it would make managing patient's edema more challenging -continue diuresis with Lasix -continue Eliquis -continue UTI treatment -agree with starting sertraline for depression -continue PT and OT Hospitalist service will see patient as needed. At this time, we do not have further evaluation planned. Quality VTE Deep Vein Thrombosis/Pulmonary Embolism Present on Admission: No
[2020-03-11 19:35] LABS: Cholesterol 87 mg/dL (140-199); HDL Cholesterol 14 mg/dL (40-60); LDL Cholesterol Calculated 51 mg/dL (<100); Triglycerides 112 mg/dL (35-150)
[2020-03-11] MEDS: SERTRALINE 50 MG TABLET 100 MG PO (21:55)
[2020-03-11] MEDS: PANTOPRAZOLE 20 MG TABLET PO (21:58)
[2020-03-12] VITALS (10 sets, daily range): BP systolic 123–132; BP diastolic 56–60; PULSE 67–75; RESP 14–20; TEMP 36.6–36.9; O2SAT 91–96
[2020-03-12] MEDS: PANTOPRAZOLE 20 MG TABLET PO ×2 (05:57→22:05)
[2020-03-12 06:54] LABS: Add Manual Diff / Slide Review NO; Basophils Absolute Auto 0 /uL (0-100); Basophils Percent Auto 0.3 % (0-2); Eosinophils Absolute Auto 100 /uL (0-450); Eosinophils Percent Auto 0.7 % (2-4); Hematocrit 25.5 % (41-53); Hemoglobin 8.6 g/dL (13.5-17.5); Lymphocytes Absolute Auto 2100 /uL (1100-4500); Lymphocytes Percent Auto 23.5 % (25-40); Mean Corpuscular HGB Conc 33.8 % (30-36); Mean Corpuscular Hemoglobin 27.3 PG (26-34); Mean Corpuscular Volume 80.9 fL (80-100); Monocytes Absolute Auto 500 /uL (0-900); Monocytes Percent Auto 5.3 % (3-14); Neutrophils Absolute Auto 6400 /uL (1500-7000); Neutrophils Percent Auto 70.2 % (50-75); Platelet Count 361 X10^3/uL (150-400); Red Blood Cell Count 3.15 X10^6/uL (4.5-5.9); Red Cell Distribution Width 14.4 % (11.6-14.8); White Blood Cell Count 9.1 X10^3/uL (4.5-11.0)
[2020-03-12 07:01] LABS: BUN Creatinine Ratio 18.5 (6-22); Blood Urea Nitrogen 15 mg/dL (9-20); Calcium 7.7 mg/dL (8.4-10.2); Carbon Dioxide 29 mmol/L (22-32); Chloride 98 mmol/L (98-107); Estimated Glomerular Filt Rate > 60.0 mL/min (>60); Glucose 95 mg/dL (80-110); HEMOLYSIS < 15 (0-50); Phosphorous 4.7 mg/dL (2.3-3.7); Potassium 3.6 mmol/L (3.4-5.1); Sodium 133 mmol/L (137-145)
[2020-03-12 08:15] LABS: Acinetobacter baumannii Not Detected (Not Detect); Candida albicans Not Detected (Not Detect); Candida glabrata Not Detected (Not Detect); Candida krusei Not Detected (Not Detect); Candida parapsilosis Not Detected (Not Detect); Candida tropicalis Not Detected (Not Detect); E. coli Not Detected (Not Detect); Enterobacter cloacae complex Not Detected (Not Detect); Enterobacteriaceae species Not Detected (Not Detect); Enterococcus species Not Detected (Not Detect); Haemophilus influenzae Not Detected (Not Detect); Listeria monocytogenes Not Detected (Not Detect); Neisseria meningitidis Not Detected (Not Detect); Proteus species Not Detected (Not Detect); Pseudomonas aeruginosa Not Detected (Not Detect); Serratia marcescens Not Detected (Not Detect); Staphylococcus species Not Detected (Not Detect); Streptococcus agalactiae (Gr B Not Detected (Not Detect); Streptococcus pneumonia Not Detected (Not Detect); Streptococcus pyogenes (Gr A) Not Detected (Not Detect); Streptococcus species Not Detected (Not Detect)
[2020-03-12] MEDS: ONDANSETRON 4 MG/2 ML INJ IV (08:58)
[2020-03-12] MEDS: ACETAMINOPHEN 325 MG TABLET 650 MG PO (08:59)
[2020-03-12] MEDS: SODIUM CHLORIDE 0.9% FLUSH 10 ML IV ×2 (08:59→22:02)
--- NOTE | 2020-03-12 09:15 | DIET.PN ---
Dietary Progress Note RD f/u for extended LOS s/p abdominal surgery. Pts POs 50-75% for past several days. Continue sending high pro yogurt smoothie c breakfast tray, Ensure Enlives c lunch and dinner trays to be consumed between meals. ONS provide 60% PRO needs and 50% kcal needs in addition to meals. HT: 172.7cm WT: 105kg BMI: 35.2 (obese class 2) Pt having significant ostomy output c resolved nausea. Per Madiha, ostomy patent and fxning well. Diet Order: General EER: 2100kcal (20kcal/kg), 105g PRO (1g/kg per post surgical) Monitoring/Evaluations: POs
[2020-03-12] MEDS: guaiFENesin Solution 100 MG/5 ML UDC 200 MG PO ×2 (11:05→22:02)
[2020-03-12] MEDS: carvediloL 6.25 MG TABLET PO ×2 (11:06→22:02)
[2020-03-12] MEDS: LACTOBACILLUS ACIDOPHILUS TABLET 1 EACH PO ×3 (11:06→17:26)
[2020-03-12] MEDS: MEGESTROL 20 MG TABLET 40 MG PO ×2 (11:06→22:04)
[2020-03-12] MEDS: polyethylene glycoL 3350 17 GM POWD.PACK 34 GM PO ×2 (11:06→22:01)
[2020-03-12] MEDS: LOSARTAN 50 MG TABLET PO (11:07)
[2020-03-12] MEDS: APIXABAN 5 MG TABLET PO ×2 (11:07→22:01)
[2020-03-12] MEDS: CEFTRIAXONE 1 GM/50 ML FROZ.PIGGY IV (11:09)
--- NOTE | 2020-03-12 11:52 | PT.IPTN ---
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 PARTIAL COLECTOMY. COLOSTOMY FORMATION. APPLICATION OF WOUND VAC - Yao Cleary MD Physical Therapy Treatment Note M2 PT-IP Current Condition Start: 02/25/20 09:42 Freq: NEEDED Status: Active Protocol: Document 02/25/20 12:29 HH (Rec: 02/25/20 13:09 [id number]) Physical Therapy Current Condition Current Condition Evaluation Date 02/25/20 Treatment Diagnosis Appendectomy, partial cholectomy, lysis of adhesions , weakness Onset Date 02/24/20 Precautions Abdominal Surgery Precautions Log Roll,Lifting Restrictions, Gait Belt above Incisional Area Weight Bearing Status Weight Bearing Status Full Weight Bearing M3 PT-IP Subjective Start: 02/25/20 09:42 Freq: NEEDED Status: Active Protocol: Document 03/12/20 11:52 AB (Rec: 03/12/20 13:23 AB [id number]) Subjective Physical Therapy Visit Type Type Treatment Note Visit Start Time 11:52 Visit Stop Time 12:37 Total Visit Minutes 42 Notes pt seen for split visits: 1152 to 1220 and 1223 to 1237 Number of MECHANICAL ENGINEERING ADVISOR Visits 0 Physical Therapy Visit Comments Patient Comments pt is agreeable to do PT Therapy Pain Assessment Pain Present Pain Present Denied Pain M4 PT-IP Mobility and Gait Start: 02/25/20 09:42 Freq: NEEDED Status: Active Protocol: Document 03/12/20 11:52 AB (Rec: 03/12/20 13:23 AB [id number]) PT-Bed Mobility Assessment Supine to Sit Supine to Sit Maximum Assistance,2 Person Assistance,Head of Bed Elevated PT-Transfer Assessment Sit to and From Stand Sit to and from Stand Maximum Assistance,2 Person Assistance,Use of Upper Extremities Equipment Transfer Assistive Device Gait Belt,Front Wheeled Walker Orthotic/Prosthetic Devices or Brace: No Transfers Transfer Destination Chair,Toilet Transfer Technique Stand Pivot Transfer Ability Level of Assist Maximum Assistance,2 Person Assistance,Use of Upper Extremities Comments Mobility Comments completed supine to sit with HOB elevated max A x 2 and max cues. pt was able to sit SBA on EOB. completed sit to stand max A x 2 from EOB. completed pivot transfer to chair max A x 2 and max cues. pt requested to use the commode. completed sit to stand from the chair ma xA x 2 -3 and max cues and completed pivot transfer using FWW max A x 2 and max cues chiar to bedside commode. completed sit to stand from bedside commode max A x 2 and max cues. pt was able to maintain standing using FWW max A x 2 and max cues. pt has to sit down to rest. completed sit to stand again max A x 2 and max cues. Nurse and NAC positioned chair behind pt. assisted pt max A x 2 for controlled descent to chair. positioned pt on chair . call light and table placed within reach. 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 and poor fine motor control able to abduct shoulder approx 40-50 degrees unable to fully extend his L arm and fingers Lower Extremity ROM Assessment Left Impaired Strength Upper Extremity Strength Assessment Left Impaired Shoulder 2- Elbow 3 Wrist 2- Hand 2- Lower Extremity Strength Assessment Left Impaired Hip 3+ Knee 4- Ankle 3 Coordination Assessment Gross Coordination Gross Coordination Impaired Sensation Assessment Sensation Gross Sensation WNL Muscle Tone Muscle Tone WNL No Muscle Tone Location Left Upper Extremity Type of Tone Hypertonicity,Flexor Severity of Tone Moderate M6 PT-IP Treatment Start: 02/25/20 09:42 Freq: NEEDED Status: Active Protocol: Document 03/12/20 11:52 AB (Rec: 03/12/20 13:23 AB [id number]) Physical Therapy Treatment Education Education Provided Safety M7 PT-IP Assessment and Plan Start: 02/25/20 09:42 Freq: NEEDED Status: Active Protocol: Document 03/12/20 11:52 AB (Rec: 03/12/20 13:23 AB [id number]) PT Summary Assessment and Plan Potential Rehabilitation Potential Good Summary Impairments Pain,ROM,Strength,Balance, Coordination,Sensation,Tone, Cognition,Bed Mobility, Transfers,Gait,Activity Tolerance Progress Towards Goals Slow Progress due to Medical Issues,Slow Progress due to Activity Tolerance Assessment Summary pt continues to require max A x 2-3 with mobility and has decrease activity tolerance but improving slowly with steadiness in standing. pt will benefit from SNF rehab. Goals Bed Mobility Goal Moderate Assistance Transfer Goal Moderate Assistance,Front Wheeled Walker Gait Goal Moderate Assistance,Front Wheel Walker Gait Distance 25 Days to Meet Goals 10 Frequency of Treatment Frequency Of Treatment Once a Day Treatment Plan Physical Therapy Treatment Plan Bed Mobility Training,Transfer Training,Gait Training, Therapeutic Exercise,Balance Retraining,Post Op Education, Discharge Planning,Hot or Cold Pack,Neuromuscular Re-ed, Coordination Retraining,Manual Therapy Other Recommendations and Next Treatment sitting/standing balance/ Focus tolerance, transfers Recommendations To Nursing Amount of Assist Needed Mechanical Lift Discharge Recommendations PT Discharge Recommendations SNF Rehab Transportation Needs at Discharge Wheelchair/Cabulance,Stretcher /Ambulance
--- NOTE | 2020-03-12 12:20 | P.PN_ITS ---
Subjective Subjective Date Patient Seen: 03/12/20 Time Patient Seen: 12:20 Interval history: No acute events overnight. Pt c/o anxiety and mild nausea. Exam Vital Signs (past 8 hours): - 03/12/20 06:00 03/12/20 08:01 03/12/20 10:00 Temperature 97.8 F Pulse Rate 71 Respiratory Rate 16 Blood Pressure 132/60 Pulse Oximetry 96 91 93 Oxygen Delivery Method CPAP Oxygen Flow Rate 0 Narrative Exam Narrative: GENERAL: Alert, comfortable appearing. Appears stated age. CARDIOVASCULAR: Regular rate. +pedal edema. RESPIRATORY: Non-tachypneic, breathing comfortably on room air. GASTROINTESTINAL: Abdomen soft, distended, lower midline wound is clean with saline packing. Packing removed in change during exam. Beefy granulation tissue with a small amount of fibrinous exudate at the base of the wound. Ostomy appliance in place with copious output in the ostomy bag. SKIN: Warm, dry, soft, appropriate color for ethnicity. No other lesions, rashes, or wounds. NEURO: Alert and Oriented PSYCH: Depressed affect and mood. Objective Labs Result Diagrams: 03/12/20 06:43 03/12/20 06:43 Labs: Laboratory Results - last 24 hr 03/10/20 03/11/20 03/12/20 09:20 04:45 06:43 WBC 9.1 RBC 3.15 L Hgb 8.6 L Hct 25.5 L MCV 80.9 MCH 27.3 MCHC 33.8 RDW 14.4 Plt Count 361 Neut % (Auto) 70.2 Lymph % (Auto) 23.5 L [place] % (Auto) 5.3 Eos % (Auto) 0.7 L Baso % (Auto) 0.3 Neut # (Auto) 6400 Lymph # (Auto) 2100 [place] # (Auto) 500 Eos # (Auto) 100 Baso # (Auto) 0 Sodium Potassium Chloride Carbon Dioxide BUN Creatinine Estimated GFR BUN/Creatinine Ratio Glucose Calcium Phosphorus Magnesium Triglycerides 112 Cholesterol 87 L LDL Cholesterol, Calc 51 HDL Cholesterol 14 L A. baumannii (PCR) Not detected Rita albicans (PCR) Not detected C. glabrata (PCR) Not detected C. krusei (PCR) Not detected C. parapsilosis (PCR) Not detected C. tropicalis (PCR) Not detected Enterobacteriac sp PCR Not detected E. cloacae complex PCR Not detected Enterococcus sp PCR Not detected E. coli (PCR) Not detected H. influenzae (PCR) Not detected Klebsiella oxytoca PCR Not detected Klebsiella pneumoniae Not detected List. monocytogenes PCR Not detected N. meningitidis (PCR) Not detected Proteus species (PCR) Not detected Serratia marcescens PCR Not detected Staphylococcus sp PCR Not detected Staph aureus (PCR) Not detected mecA-Methicil Res Gene Not Reportable Streptococcus sp PCR Not detected Group A Strep (PCR) Not detected Strep agalactiae (PCR) Not detected Strep pneumoniae (PCR) Not detected P. aeruginosa (PCR) Not detected Jose Juan/B-Vanco Res Genes Not Reportable KPC-Carbap Res Gene PCR Not Reportable 03/12/20 06:43 WBC RBC Hgb Hct MCV MCH MCHC RDW Plt Count Neut % (Auto) Lymph % (Auto) [place] % (Auto) Eos % (Auto) Baso % (Auto) Neut # (Auto) Lymph # (Auto) [place] # (Auto) Eos # (Auto) Baso # (Auto) Sodium 133 L Potassium 3.6 Chloride 98 Carbon Dioxide 29 BUN 15 Creatinine 0.81 Estimated GFR > 60.0 BUN/Creatinine Ratio 18.5 Glucose 95 Calcium 7.7 L Phosphorus 4.7 H Magnesium 2.0 Triglycerides Cholesterol LDL Cholesterol, Calc HDL Cholesterol A. baumannii (PCR) Rita albicans (PCR) C. glabrata (PCR) C. krusei (PCR) C. parapsilosis (PCR) C. tropicalis (PCR) Enterobacteriac sp PCR E. cloacae complex PCR Enterococcus sp PCR E. coli (PCR) H. influenzae (PCR) Klebsiella oxytoca PCR Klebsiella pneumoniae List. monocytogenes PCR N. meningitidis (PCR) Proteus species (PCR) Serratia marcescens PCR Staphylococcus sp PCR Staph aureus (PCR) mecA-Methicil Res Gene Streptococcus sp PCR Group A Strep (PCR) Strep agalactiae (PCR) Strep pneumoniae (PCR) P. aeruginosa (PCR) Jose Juan/B-Vanco Res Genes KPC-Carbap Res Gene PCR Assessment & Plan Assessment and plan (1) HTN (hypertension): Status: Acute (2) Edema: Problem details: LLE Status: Acute (3) CVA (cerebral vascular accident): Problem details: Hemiplegia, hemiparesis affecting left non-dominant side Status: Acute (4) Atrial fibrillation: Status: Acute (5) Ileus: Status: Acute (6) S/P colon resection: Status: Acute (7) Mass of appendix: Status: Acute (8) Difficulty swallowing: Problem details: r/t CVA Status: Acute Assessment & Plan narrative: 85-year-old man postoperative day 11 after a partial colectomy and end colostomy formation for a sigmoid anastomotic leak. He has weaned off of TPN, and is tolerating a diet relatively well. He continues to have lower extremity edema, and weakness, with difficulty ambulating. He did stand at the bedside with PT. Blood culture returned positive for gram-negative rods. Urine positive for strep epidermidis (greater than 100,000 CFU) and E coli (less than 10,000 CFU). Continue PT OT Antibiotics for positive blood culture and UTI P.o. intake as tolerated Dispo planning pending tolerance of adequate p.o., ambulation, sepsis/positive blood culture can be managed as an outpatient, and pain control with p.o. pain med COVID-19 COVID-19 status: Negative Result date/Date tested (Pos, Neg/Pending): 02/21/20 Time Spent With Patient Time with patient: 15-24 minutes Quality VTE Deep Vein Thrombosis/Pulmonary Embolism Present on Admission: No
--- NOTE | 2020-03-12 14:52 | PC.NURSE ---
SHIFT SUMMARY: DR. SMITH NOTIFIED OF POSITIVE BLOOD CX'S FIRST THINK THIS AM AT APPROX 0800. LATER MORNING, APPROX 1015 DR. SCHROEDER NOTIFIED OF SENSITIVIES OF UA INCLUDING RESISTANT TO LEVOFLOXACIN. ALSO NOTIFIED OF GRAM NEG RODS PER BLOOD CX. DR. SCHROEDER CHANGED ABX. DR. CARCAMO IN TO SEE PATIENT, NOTIFIED HER OF ABX CHANGE PER DR. SCHROEDER WITH RATIONALE. DR. CARCAMO DID PATIEN'T WET TO DRY DRSG CHANGE. ALL TISSUE APPEARS CLEAN, VIABLE AND RED. SURROUNDING SKIN CLEAR OF ERYTHEMA. PATIENT UP TO RECLINER FOR LUNCH W/ PHYSICAL THERAPY, RN AND CLAY HOUSE WORKER ASSIST. JOSHUA LIFTED BACK TO BED AFTER LUNCH. THROUGHOUT SHIFT PATIENT C/O SOB AT REST, DOES NOT APPEAR DISTRESSED. PREFERS TO WEAR CPAP AT ALL TIMES.
--- NOTE | 2020-03-12 15:25 | CM.DPNOTE ---
Addendum entered by ARABELLA Bo 03/12/20 16:25: Susie [facility]: P# [phone] F# [phone] Original Note: DCP Cont Faxed updated clinical notes to [facility] per request from Susie at [place]. Updated that expected DC date is Sunday 8.17.20 DC planning team continue to follow closely for coordination of DCP JW
--- NOTE | 2020-03-12 15:52 | PM.PN.1 ---
Subjective Subjective Date Patient Seen: 03/12/20 Interval history: Patient is 85-year-old male postop day 11 partial colectomy and colostomy after sigmoid anastomosis leak. We were asked to re-evaluate patient for possible stroke. was concerned because he has had new severe weakness in the left leg which is same deficit as his prior stroke and periods where he seems confused staring out into space. Patient has poor appetite and nutritionally deficient since his surgery. He has more of a generalized weakness and is max 2 person assist. He is being treated for UTI. His edema is better after IV Lasix. He was started on sertraline for depression. He is back on Eliquis for atrial fibrillation. His urine culture from 03/10 came back E coli resistant to Levaquin. Blood culture from 03/10 now growing Gram-negative bacteria. Patient has been afebrile. Exam Vital Signs (past 8 hours): - 03/12/20 08:01 03/12/20 10:00 03/12/20 14:00 Temperature 97.8 F Pulse Rate 71 Respiratory Rate 16 Blood Pressure 132/60 Pulse Oximetry 91 93 93 Oxygen Delivery Method Room Air Oxygen Flow Rate 0 Narrative Exam Narrative: General: Patient appears lethargic Lungs: Clear to auscultation Heart: Irregularly irregular Abdomen: Open midline abdominal wound, left side colostomy Extremities: Significant improvement of lower extremity and scrotal edema, with now just mild pitting edema Neurological: Nonfocal generalized weakness Objective Labs Result Diagrams: 03/12/20 06:43 03/12/20 06:43 Labs: Laboratory Results - last 24 hr 03/10/20 03/11/20 03/12/20 09:20 04:45 06:43 WBC 9.1 RBC 3.15 L Hgb 8.6 L Hct 25.5 L MCV 80.9 MCH 27.3 MCHC 33.8 RDW 14.4 Plt Count 361 Neut % (Auto) 70.2 Lymph % (Auto) 23.5 L [place] % (Auto) 5.3 Eos % (Auto) 0.7 L Baso % (Auto) 0.3 Neut # (Auto) 6400 Lymph # (Auto) 2100 [place] # (Auto) 500 Eos # (Auto) 100 Baso # (Auto) 0 Sodium Potassium Chloride Carbon Dioxide BUN Creatinine Estimated GFR BUN/Creatinine Ratio Glucose Calcium Phosphorus Magnesium Triglycerides 112 Cholesterol 87 L LDL Cholesterol, Calc 51 HDL Cholesterol 14 L A. baumannii (PCR) Not detected Rita albicans (PCR) Not detected C. glabrata (PCR) Not detected C. krusei (PCR) Not detected C. parapsilosis (PCR) Not detected C. tropicalis (PCR) Not detected Enterobacteriac sp PCR Not detected E. cloacae complex PCR Not detected Enterococcus sp PCR Not detected E. coli (PCR) Not detected H. influenzae (PCR) Not detected Klebsiella oxytoca PCR Not detected Klebsiella pneumoniae Not detected List. monocytogenes PCR Not detected N. meningitidis (PCR) Not detected Proteus species (PCR) Not detected Serratia marcescens PCR Not detected Staphylococcus sp PCR Not detected Staph aureus (PCR) Not detected mecA-Methicil Res Gene Not Reportable Streptococcus sp PCR Not detected Group A Strep (PCR) Not detected Strep agalactiae (PCR) Not detected Strep pneumoniae (PCR) Not detected P. aeruginosa (PCR) Not detected Jose Juan/B-Vanco Res Genes Not Reportable KPC-Carbap Res Gene PCR Not Reportable 03/12/20 06:43 WBC RBC Hgb Hct MCV MCH MCHC RDW Plt Count Neut % (Auto) Lymph % (Auto) [place] % (Auto) Eos % (Auto) Baso % (Auto) Neut # (Auto) Lymph # (Auto) [place] # (Auto) Eos # (Auto) Baso # (Auto) Sodium 133 L Potassium 3.6 Chloride 98 Carbon Dioxide 29 BUN 15 Creatinine 0.81 Estimated GFR > 60.0 BUN/Creatinine Ratio 18.5 Glucose 95 Calcium 7.7 L Phosphorus 4.7 H Magnesium 2.0 Triglycerides Cholesterol LDL Cholesterol, Calc HDL Cholesterol A. baumannii (PCR) Rita albicans (PCR) C. glabrata (PCR) C. krusei (PCR) C. parapsilosis (PCR) C. tropicalis (PCR) Enterobacteriac sp PCR E. cloacae complex PCR Enterococcus sp PCR E. coli (PCR) H. influenzae (PCR) Klebsiella oxytoca PCR Klebsiella pneumoniae List. monocytogenes PCR N. meningitidis (PCR) Proteus species (PCR) Serratia marcescens PCR Staphylococcus sp PCR Staph aureus (PCR) mecA-Methicil Res Gene Streptococcus sp PCR Group A Strep (PCR) Strep agalactiae (PCR) Strep pneumoniae (PCR) P. aeruginosa (PCR) Jose Juan/B-Vanco Res Genes KPC-Carbap Res Gene PCR Assessment & Plan Assessment & Plan narrative: 1. Postop generalized weakness -patient had repeat noncontrast head CT which showed old right-sided CVA but no new findings -CBC, chemistries look okay -weakness multifactorial due to post nutritional deficiency, prolonged bedrest, UTI -continue encouraging increase nutritional intake, TPN or PPN would be an option although it would make managing patient's edema more challenging -started on megestrol per surgery -continue PT and OT 2. Postop catheter associated complicated UTI with bacteremia -urine culture 03/10 growing E coli resistant to Levaquin -blood culture 03/10 growing gram-negative bacteria -change antibiotic to Rocephin 1 g IV daily -patient is not septic 3. Chronic atrial fibrillation -continue Eliquis and carvedilol 4. Hypertension, chronic -continue carvedilol and losartan 5. Reactive depression -started on sertraline 100 mg HS per surgery Quality VTE Deep Vein Thrombosis/Pulmonary Embolism Present on Admission: No
--- NOTE | 2020-03-12 17:52 | PC.NURSE ---
Ostomy Consult Note Rio awake with his CPAP, his Odalys is with him at his bedside. Rio looks better and is much more engaged. He talked about music, books, and friends he has as well as his career. He understands that he will be transferred on Sunday to a residential facility. I talked to them both about using technology to be able to communicate and this is one of Odalys's concerns. I changed Jerry appliance and took a picture. Some slough came off the stoma when I was cleaning it and underneath was beefy red stoma. 90 % slough and 10 % beefy red. He continues to have some induration around his stoma and redness but less swelling. He does has gas and light brown liquid effluent. His midline dressing is intact and I did not visualize his midline wound. His old GALA drain site has some serosanguenous drainage and slough, which I changed that dressing with a 2x2 gauze and a tagaderm dressing. I placed a 57mm flat moldable Convatec wafer with an suzanne ring and a clear non-filter pouch. I instructed Odalys with a stoma model how to measure, apply and remove an appliance as well as how to do the crusting technique. We also reviewed the [facility] New Patient Guide and Odalys will continue to reading this guide. I have left ostomy supplies in the room. I will return on Sunday.
--- NOTE | 2020-03-12 20:04 | PC.NURSE ---
Rio spoke with prov regarding results of echo and stress test and discussed going home today. D/C teaching done with patient and daughter Andria at bedside. Patient wished to shower prior to leaving and had done so. Tele and IV removed, pt momo. well. All questions and concerns were addressed prior to d/c. Patient is aware to f/u with PCP next week. Patient belongings were gathered by daughter and taken down to personal vehicle. Patient was taken to personal vehicle via wheelchair and ambulated self into car. Patient left in stable condition. VSS.
[2020-03-12] MEDS: SERTRALINE 50 MG TABLET 100 MG PO (22:01)
[2020-03-13] VITALS (10 sets, daily range): BP systolic 123–147; BP diastolic 65–72; PULSE 65–76; RESP 16–19; TEMP 36.8–37.3; O2SAT 93–95
[2020-03-13] MEDS: PANTOPRAZOLE 20 MG TABLET PO (07:01)
[2020-03-13] MEDS: polyethylene glycoL 3350 17 GM POWD.PACK 34 GM PO ×2 (08:28→21:29)
[2020-03-13] MEDS: SODIUM CHLORIDE 0.9% FLUSH 10 ML IV ×3 (08:29→21:31)
[2020-03-13] MEDS: guaiFENesin Solution 100 MG/5 ML UDC 200 MG PO ×2 (08:30→21:28)
[2020-03-13] MEDS: MEGESTROL 20 MG TABLET 40 MG PO ×2 (08:30→21:28)
[2020-03-13] MEDS: APIXABAN 5 MG TABLET PO ×2 (08:30→21:29)
[2020-03-13] MEDS: LACTOBACILLUS ACIDOPHILUS TABLET 1 EACH PO ×3 (08:30→16:20)
[2020-03-13] MEDS: ACETAMINOPHEN 325 MG TABLET 650 MG PO (08:30)
[2020-03-13] MEDS: LOSARTAN 50 MG TABLET PO (08:30)
[2020-03-13] MEDS: carvediloL 6.25 MG TABLET PO ×2 (08:31→21:28)
--- NOTE | 2020-03-13 10:35 | PT.IPTN ---
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 PARTIAL COLECTOMY. COLOSTOMY FORMATION. APPLICATION OF WOUND VAC - Yao Cleary MD Physical Therapy Treatment Note M2 PT-IP Current Condition Start: 02/25/20 09:42 Freq: NEEDED Status: Active Protocol: Document 02/25/20 12:29 HH (Rec: 02/25/20 13:09 [id number]) Physical Therapy Current Condition Current Condition Evaluation Date 02/25/20 Treatment Diagnosis Appendectomy, partial cholectomy, lysis of adhesions , weakness Onset Date 02/24/20 Precautions Abdominal Surgery Precautions Log Roll,Lifting Restrictions, Gait Belt above Incisional Area Weight Bearing Status Weight Bearing Status Full Weight Bearing M3 PT-IP Subjective Start: 02/25/20 09:42 Freq: NEEDED Status: Active Protocol: Document 03/13/20 10:35 AB (Rec: 03/13/20 12:07 AB [id number]) Subjective Physical Therapy Visit Type Type Treatment Note Visit Start Time 10:35 Visit Stop Time 11:22 Total Visit Minutes 41 Notes pt seen for split visits: 1035 to 1104 and 1110 to 1122 Number of KITCHEN HAND Visits 0 Physical Therapy Visit Comments Patient Comments pt is agreeable to do PT M4 PT-IP Mobility and Gait Start: 02/25/20 09:42 Freq: NEEDED Status: Active Protocol: Document 03/13/20 10:35 AB (Rec: 03/13/20 12:07 AB [id number]) PT-Bed Mobility Assessment Supine to Sit Supine to Sit Maximum Assistance,2 Person Assistance,Head of Bed Elevated Scooting Scooting to Edge of Bed Maximum Assistance PT-Transfer Assessment Sit to and From Stand Sit to and from Stand Moderate Assistance,Maximum Assistance,2 Person Assistance ,Use of Upper Extremities Equipment Transfer Assistive Device Gait Belt,Front Wheeled Walker Orthotic/Prosthetic Devices or Brace: No Transfers Transfer Destination Chair,Bedside Commode Transfer Technique Stand Step Pivot Transfer Ability Level of Assist Moderate Assistance,Maximum Assistance,2 Person Assistance ,Use of Upper Extremities Comments Mobility Comments pt completed supine to sit with HOB elevated max A x 2 and max cues. pt was able to sit on EOB SBA to CGA. cued for posture. completed sit to stand mod to max A x 2 and max cues. completed step transfer using FWW to bedside commode. required assistance for weight shifting and max cues for standing upright. pt completed sit to stand from bedside commode mod to max A x 2 and max cues and was able to maintain standing mod to max A x 2 using FWW while nurse assisted with hygiene care and brief management. pt requested to sit back down and rested. completed sit to stand again mod to max A x 2 and max cues and required max A x 2 using FWW for transfer to chair. pt is getting tired towards the end requiring increase assistance. positioned pt on the chair. call light and table placed within reach. 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 and poor fine motor control able to abduct shoulder approx 40-50 degrees unable to fully extend his L arm and fingers Lower Extremity ROM Assessment Left Impaired Strength Upper Extremity Strength Assessment Left Impaired Shoulder 2- Elbow 3 Wrist 2- Hand 2- Lower Extremity Strength Assessment Left Impaired Hip 3+ Knee 4- Ankle 3 Coordination Assessment Gross Coordination Gross Coordination Impaired Sensation Assessment Sensation Gross Sensation WNL Muscle Tone Muscle Tone WNL No Muscle Tone Location Left Upper Extremity Type of Tone Hypertonicity,Flexor Severity of Tone Moderate M6 PT-IP Treatment Start: 02/25/20 09:42 Freq: NEEDED Status: Active Protocol: Document 03/13/20 10:35 AB (Rec: 08/15/20 12:07 AB [id number]) Physical Therapy Treatment Exercises Exercises Ankle Pumps,Heel Slides Other Treatments Other Treatment Performed completed LE exercises prior to mobilizing M7 PT-IP Assessment and Plan Start: 02/25/20 09:42 Freq: NEEDED Status: Active Protocol: Document 03/13/20 10:35 AB (Rec: 03/13/20 12:07 AB [id number]) PT Summary Assessment and Plan Potential Rehabilitation Potential Good Summary Impairments Pain,ROM,Strength,Balance, Coordination,Sensation,Tone, Cognition,Bed Mobility, Transfers,Gait,Activity Tolerance Progress Towards Goals Slow Progress due to Medical Issues,Slow Progress due to Activity Tolerance Assessment Summary pt is slowly improving with mobility with improvement in sitting and static standing balance noted. pt requires mod to max A x 2 and max cues for all tasks. will require SNF rehab to improve strength and independence. Goals Bed Mobility Goal Moderate Assistance Transfer Goal Moderate Assistance,Front Wheeled Walker Gait Goal Moderate Assistance,Front Wheel Walker Gait Distance 25 Days to Meet Goals 10 Frequency of Treatment Frequency Of Treatment Once a Day Treatment Plan Physical Therapy Treatment Plan Bed Mobility Training,Transfer Training,Gait Training, Therapeutic Exercise,Balance Retraining,Post Op Education, Discharge Planning,Hot or Cold Pack,Neuromuscular Re-ed, Coordination Retraining,Manual Therapy Other Recommendations and Next Treatment sitting/standing balance/ Focus tolerance, transfers Recommendations To Nursing Amount of Assist Needed Mechanical Lift Discharge Recommendations PT Discharge Recommendations SNF Rehab Transportation Needs at Discharge Wheelchair/Cabulance,Stretcher /Ambulance
--- NOTE | 2020-03-13 11:21 | PM.PN.1 ---
Subjective Subjective Date Patient Seen: 03/13/20 Time Patient Seen: 11:21 Interval history: No acute events overnight. C/o heartburn. Exam Vital Signs (past 8 hours): - 03/13/20 04:00 03/13/20 08:29 Temperature 98.6 F Pulse Rate 76 Respiratory Rate 18 Blood Pressure 147/65 H Pulse Oximetry 94 94 Oxygen Delivery Method Room Air Oxygen Flow Rate 0 Narrative Exam Narrative: General: Sleepy, arousable, oriented to self and situation, appropriate verbal responses Lungs: Breathing comfortably on cpap Heart: Irregularly irregular; regular rate 76 Abdomen: Open midline abdominal wound, left side colostomy Extremities: Significant improvement of lower extremity and scrotal edema, with now just mild pitting edema Neurological: Nonfocal generalized weakness Objective Labs Result Diagrams: 03/12/20 06:43 03/12/20 06:43 Assessment & Plan Assessment and plan (1) HTN (hypertension): Status: Acute (2) Edema: Problem details: LLE Status: Acute (3) CVA (cerebral vascular accident): Problem details: Hemiplegia, hemiparesis affecting left non-dominant side Status: Acute (4) Atrial fibrillation: Status: Acute (5) Ileus: Status: Acute (6) S/P colon resection: Status: Acute (7) Mass of appendix: Status: Acute (8) Difficulty swallowing: Problem details: r/t CVA Status: Acute Assessment & Plan narrative: 85-year-old man postoperative day 12 after a partial colectomy and end colostomy formation for a sigmoid anastomotic leak. He has weaned off of TPN, and is tolerating a diet relatively well. He has good ostomy output and a well granulating lower midline incisional wound. He continues to have some lower extremity edema, and weakness, with difficulty ambulating. He is being treated with ceftriaxone for positive blood cultures. Plan is for dispo to SNF on Sunday. Continue PT OT Antibiotics for positive blood culture and UTI Encourage P.o. intake as tolerated Dispo planning pending tolerance of adequate p.o., ambulation, sepsis/positive blood culture can be managed as an outpatient, and pain control with p.o. pain med COVID-19 COVID-19 status: Negative Result date/Date tested (Pos, Neg/Pending): 02/21/20 Time Spent With Patient Time with patient: 15-24 minutes Quality VTE Deep Vein Thrombosis/Pulmonary Embolism Present on Admission: No
--- NOTE | 2020-03-13 11:25 | OT.IP.TRT ---
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 PARTIAL COLECTOMY. COLOSTOMY FORMATION. APPLICATION OF WOUND VAC - Yao Cleary MD Occupational Therapy Treatment Note M2 OT-IP Current Condition Start: 02/25/20 13:57 Freq: Status: Active Protocol: Document 02/25/20 11:13 [facility] (Rec: 02/25/20 14:16 [facility] [id number]) Occupational Therapy Current Condition Current Condition Evaluation Date 02/25/20 Treatment Diagnosis Appendectomy, partial cholectomy, decreased self care Diagnosis Onset Date 02/24/20 Post Operative Precautions Abdominal Surgery Precautions Log Roll,Lifting Restrictions, Gait Belt above Incisional Area M3 OT- IP Subjective and Pain Start: 02/25/20 13:57 Freq: Status: Active Protocol: Document 03/13/20 11:28 [facility]GR (Rec: 03/13/20 11:47 CGR [email or web address]) OT- Subjective Occupational Therapy Visit Type Type Progress Note Visit Start Time 10:50 Visit Stop Time 11:25 Total Visit Minutes 35 Notes Partial co-treat with p.t. OT Pain Assessment Pain Present Pain Present Denied Pain M4 OT- IP ADL's Start: 02/25/20 13:57 Freq: Status: Active Protocol: Document 03/13/20 11:28 CGR (Rec: 03/13/20 11:47 CGR [id number]) OT [id number] Comments OT Self-Feeding Comments not meal time OT ADL-Grooming General Evaluation Grooming Ability Standby Assistance Areas Needing Assistance Face Washing Comments OT Grooming Comments seated in chair with use of the R hand only. OT ADL-Oral Care General Eval Oral Care Ability Standby Assistance Areas of Assistance Brushing Teeth Comments Oral Care Comments seated in chair for brushing teeth. Pt did not use tooth paste and declined to use after asked. OT ADL-Dressing General Eval Lower Body Dressing Ability Maximum Assistance Areas Needing Assistance Underpants/Brief Comments OT Dressing Comments donned clean briefs with max a for threading and total a for pulling up in standing. OT ADL-Toileting General Evaluation Toileting Ability Maximum Assistance,Total Assistance Areas Needing Assistance Manage Clothing,Perform Perineal Hygiene Comments OT Toileting Comments pt transfered to BSC and urinated seated on BSC. Pt needed total assist for pericare. OT ADL-Bathing Comments OT Bathing Comments not performed in this session. M5 OT- IP IADL's Start: 02/25/20 13:57 Freq: Status: Active Protocol: Document 02/25/20 11:13 [facility] (Rec: 02/25/20 14:16 [facility] [id number]) OT-Instrumental Activities of Daily Living Rounder And Backer Rounder And Backer Caregiver Provides Assist Rounder And Backer Comments Prior pt likes to assist to take out the trash. M6 OT- IP Functional Cognition Start: 02/25/20 13:57 Freq: Status: Active Protocol: Document 03/13/20 11:28 CGR (Rec: 03/13/20 11:47 CGR [email or web address]) Cognitive Factors Limiting Selfcare Function Cognitive Ability Level of Alertness Alert Patient Orientation Name,Age,Birthday,Year,Place, Situation Attention Span Ability Capable of Focused Attention, Capable of Sustained Attention Ability to Follow Commands Able to Follow One Step Commands with Increased Time, Able to Follow One Step Commands with Repetition Cognitive Comments Cognitive Assessment Comments Pt needs extra time to answer questions. OT- Vision and Hearing OT- Hearing Assessment OT- Hearing Assessment WFL OT- Vision Assessment Visual Acuity WFL M7 OT- IP Mobility and Balance Start: 02/25/20 13:57 Freq: Status: Active Protocol: Document 03/13/20 11:28 [facility]GR (Rec: 03/13/20 11:47 [facility]GR [email or web address]) OT- Bed Mobility Assessment Rolling Type of Rolling Roll to Right Level of Assistance Maximum Assistance,2 Person Assistance,Head of Bed Elevated,Bedrails Supine to Sit Supine to Sit Assist Maximum Assistance,2 Person Assistance,Head of Bed Elevated,Bedrails Scooting Scooting to Edge of Bed Maximum Assistance,1 Person Assistance,2 Person Assistance ,Head of Bed Elevated,Bedrails OT-Transfer Assessment Sit to and From Stand Sit to and from Stand Moderate Assistance,Maximum Assistance,2 Person Assistance Transfers Transfer Ability Moderate Assistance,Maximum Assistance,2 Person Assistance Technique Transfer Destination Bed,Bedside Commode,Chair Transfer Technique Stand Step Pivot Devices Transfer Assistive Devices Gait Belt,Front Wheeled Walker Comments Mobility Comments Pt needs 2 to 3 people for safety with transfers and pericare. Pt needs greater assist as he fatigues. OT- Gait Assessment Comments Gait Ability Comments minimal mobility to BSC and chair OT- Balance Assessment Sitting Balance and Reactions Static Sitting Balance Ability Fair M8 OT- IP Objective Assessments Start: 02/25/20 13:57 Freq: Status: Active Protocol: Document 02/25/20 11:13 [facility] (Rec: 02/25/20 14:16 [facility] [id number]) OT Gross Range of Motion Upper Extremity Range of Motion Assessment Left Impaired OT Strength Upper Extremity Strength Assessment Left Impaired Shoulder 2- Elbow 3 Forearm 2- Wrist 2- Hand 2- OT-Muscle Tone Assessment Muscle Tone WNL No Muscle Tone Location Left Upper Extremity Type of Tone Hypotonicity M9 OT- IP Assessment and Plan Start: 02/25/20 13:57 Freq: Status: Active Protocol: Document 03/13/20 11:28 CGR (Rec: 03/13/20 11:47 CGR [email or web address]) OT Summary Assessment and Plan Potential Rehabilitation Potential Good Analytic Complexity at Evaluation Moderate Summary OT Impairments Pain,Balance,Functional Mobility,Grooming,Dressing, Toileting,Bathing,Toilet Transfers,Shower Transfers, Activity Tolerance Progress Towards Goals Progressing Toward Goals Assessment Summary Pt progressing with therapy. Pt needed mod to max x 2 on this date with increased ability to participate. Noted that pt is very slow to respond to questions and may benefit from a cog assessment. Goals Self-Feeding Goal Independent Grooming Goal Independent Dressing Goal Minimal Assistance Toileting Goal Moderate Assistance Bathing Goal Moderate Assistance Toilet Transfer Goal Standby Assistance Shower Transfer Goal Minimal Assistance Patient/Caregiver Education Goal Demonstrate Post-Op Precautions,Caregiver Independent Assisting Patient Days to Meet Goals 13 Frequency of Treatment Frequency Of Treatment Once a Day Treatment Plan OT Treatment Plan ADL Training,Functional Mobility,Patient/Family Education,Discharge Planning Other Treatment Recommendations and Next cog assessment, ADLs seated. Treatment Focus Discharge Recommendations OT Discharge Recommendations SNF Rehab Home Equipment Needs Defer to SNF Transportation Needs at Discharge Wheelchair/Cabulance
[2020-03-13] MEDS: CEFTRIAXONE 1 GM/50 ML FROZ.PIGGY IV (11:59)
--- NOTE | 2020-03-13 14:48 | PC.NURSE ---
Shift summary: Alert and oriented X3. Flat affect. Midline abd dressing C/D/I. Ostomy bag and wafer C/D/I with light brownish-yellow pasty stool. Stoma difficult to visualize r/t quality of stool, but appeared to have some slough present along with smaller area of beefy red. Abdomen distended, tender to palpation. BT hypoactive X4, flatus heard passing into colostomy bag. Minimal appetite but has been trying eat what he can. Sat up in chair for approx. 45 minutes (after getting there with PT/OT and RN). Back to bed per patient request, remains ashtyn lift for nursing transfers. Chronic weakness LUE and LLE r/t previous CVA. Assisting with Q2H reposition. Wears brief for urinary incontinence. Able to make needs known and calls appropriately. Light and belongings within reach, bed alarm on.
--- NOTE | 2020-03-13 16:55 | PC.NURSE ---
Addendum entered by Laurence Simmons R.N. 03/13/20 21:16: changed his colostomy bag because it was leaking. Old GALA drain dressing cleansed and changed because it was saturated with stool contents. cleaned stoma gently with warm wash cloth. Original Note: midline dressing changed. granulation tissue visible. pink. placed wet guaze and covered with abd pad and secured with tape. pt tolerated well. no pain.
--- NOTE | 2020-03-13 17:51 | PM.PN.1 ---
Subjective Subjective Date Patient Seen: 03/13/20 Interval history: I was asked to re-evaluate Mr. avalos 85-year-old gentleman who has had a complicated postoperative course following a colectomy and colostomy following and anastomotic leak. Patient was evaluated yesterday regarding concern for stroke. He had recurrence of his residual left-sided weakness. Today the patient is lying in bed with CPAP on. His is at the bedside who notes that he gets short of breath, and panics, and she is unclear whether it is due to breathing or something else. He continues to have some lower extremity edema. He has no specific chest pain. He does report some shortness of breath. Exam Vital Signs (past 8 hours): - 03/13/20 12:10 03/13/20 15:32 Temperature 99.1 F Pulse Rate 65 Respiratory Rate 19 Blood Pressure 123/67 Pulse Oximetry 93 95 Oxygen Delivery Method Room Air Oxygen Flow Rate 0 Narrative Exam Narrative: Elderly gentleman lying in bed with CPAP in place Lungs: Decreased breath sounds bilaterally Cardiac exam: Regular rate and rhythm normal S1-S2 with a 2/6 systolic ejection murmur Abdomen: Soft, nontender, ostomy with stool in the back Extremities: 1 to 2+ edema on the left 1+ on the right Objective Labs Result Diagrams: 03/12/20 06:43 03/12/20 06:43 Assessment & Plan Assessment & Plan narrative: 1. Shortness of breath associated pedal edema probable congestive heart failure -echocardiogram reveals EF of 75% -patient may have continued pulmonary edema given his recent surgery -will start Lasix 40 mg IV x1 -will check chest x-ray -will check troponin -will check BNP -will repeat electrolytes in the morning - - 2 .postop generalized weakness -patient had repeat noncontrast head CT which showed old right-sided CVA but no new findings -CBC, chemistries look okay -weakness multifactorial due to post nutritional deficiency, prolonged bedrest, UTI -continue encouraging increase nutritional intake, TPN or PPN would be an option although it would make managing patient's edema more challenging -started on megestrol per surgery -continue PT and OT 2. Postop catheter associated complicated UTI with bacteremia -urine culture 03/10 growing E coli resistant to Levaquin -blood culture / growing gram-negative bacteria -change antibiotic to Rocephin 1 g IV daily -patient is not septic 3. Chronic atrial fibrillation -continue Eliquis and carvedilol -resume telemetry given reports of palpitation -no evidence of RVR at this time 4. Hypertension, chronic -continue carvedilol and losartan 5. Reactive depression -started on sertraline 100 mg HS per surgery Quality VTE Deep Vein Thrombosis/Pulmonary Embolism Present on Admission: No
--- NOTE | 2020-03-13 17:57 | DI.RAD.S_ITS ---
PROCEDURE: XR CHEST 1V INDICATIONS: shortness of breath TECHNIQUE: One view of the chest was acquired. COMPARISON: [facility], CR, XR CHEST 1V, 03/06/2020, 5:08. [facility], CR, XR CHEST 1V, 03/10/2020, 9:11. FINDINGS: Surgical changes and devices: Right arm PICC line with Lungs and pleura: Lungs are clear. No pleural effusions or pneumothorax. Mediastinum: Mediastinal contours appear normal. Unchanged mild cardiomegaly. Bones and chest wall: No suspicious bony lesions. Overlying soft tissues appear unremarkable. IMPRESSION: Unchanged mild cardiomegaly. No evidence acute pulmonary process. Dictated by: Demario Salazar M.D. on 03/13/2020 at 18:33 Approved by: Demario Salazar M.D. on 03/13/2020 at 18:33
[2020-03-13 19:41] LABS: Creatine Kinase 27 U/L (55-170)
[2020-03-13] MEDS: POTASSIUM CHLORIDE 20 MEQ TAB 40 MEQ PO (19:51)
[2020-03-13 19:54] LABS: Troponin I < 0.012 ng/mL (0.01-0.034)
[2020-03-13] MEDS: SERTRALINE 50 MG TABLET 100 MG PO (21:28)
[2020-03-13] MEDS: PANTOPRAZOLE 20 MG TABLET 40 MG PO (21:30)
[2020-03-14] VITALS (21 sets, daily range): BP systolic 91–137; BP diastolic 48–74; PULSE 71–124; RESP 19–26; TEMP 36.6–38; O2SAT 92–95
[2020-03-14] MEDS: ONDANSETRON 4 MG/2 ML INJ IV ×2 (02:49→14:52)
[2020-03-14 06:58] LABS: BUN Creatinine Ratio 12.9 (6-22); Blood Urea Nitrogen 9 mg/dL (9-20); Carbon Dioxide 28 mmol/L (22-32); Chloride 101 mmol/L (98-107); Estimated Glomerular Filt Rate > 60.0 mL/min (>60); Glucose 102 mg/dL (80-110); HEMOLYSIS < 15 (0-50); Potassium 3.9 mmol/L (3.4-5.1); Sodium 134 mmol/L (137-145)
[2020-03-14 07:06] LABS: NT-proBNP (BNP-Adult 18+) 823 pg/mL (<450)
[2020-03-14] MEDS: PANTOPRAZOLE 20 MG TABLET 40 MG PO ×2 (07:29→20:50)
[2020-03-14] MEDS: LACTOBACILLUS ACIDOPHILUS TABLET 1 EACH PO ×3 (07:30→17:19)
[2020-03-14] MEDS: polyethylene glycoL 3350 17 GM POWD.PACK 34 GM PO (09:01)
[2020-03-14] MEDS: carvediloL 6.25 MG TABLET PO (09:01)
[2020-03-14] MEDS: guaiFENesin Solution 100 MG/5 ML UDC 200 MG PO ×2 (09:01→20:49)
[2020-03-14] MEDS: FUROSEMIDE 40 MG/4 ML VIAL IV (09:01)
[2020-03-14] MEDS: APIXABAN 5 MG TABLET PO ×2 (09:02→20:50)
[2020-03-14] MEDS: LOSARTAN 50 MG TABLET PO (09:02)
[2020-03-14] MEDS: SODIUM CHLORIDE 0.9% FLUSH 10 ML IV ×3 (09:03→20:50)
[2020-03-14] MEDS: MEGESTROL 20 MG TABLET 40 MG PO ×2 (09:03→20:50)
--- NOTE | 2020-03-14 09:21 | PM.PN.1 ---
Subjective Subjective Date Patient Seen: 03/14/20 Time Patient Seen: 09:21 Interval history: No acute events over night. Pt joking with staff this AM. Denies uncontrolled pain. Reports persistent nausea. Exam Vital Signs (past 8 hours): - 03/14/20 07:00 03/14/20 08:07 03/14/20 08:48 Temperature 98 F Pulse Rate 72 71 Respiratory Rate 20 24 Blood Pressure 137/69 Pulse Oximetry 94 94 92 03/14/20 09:01 03/14/20 09:02 Temperature Pulse Rate 71 71 Respiratory Rate Blood Pressure 137/69 137/69 Pulse Oximetry Oxygen Delivery Method CPAP Oxygen Flow Rate 0 Narrative Exam Narrative: General: Alert, comfortable, conversant, making jokes with staff, oriented to self and situation, appropriate verbal responses Lungs: Breathing comfortably on cpap Heart: Irregularly irregular; regular rate 71, 1+ BLE edema Abdomen: Open midline abdominal wound with clean granulation tissue; changed during exam, left side colostomy with some slough, thin but copious output and viable appearing mucosa; no surrounding cellutitis at either wound site Objective Labs Result Diagrams: 03/12/20 06:43 03/14/20 05:45 Labs: Laboratory Results - last 24 hr 03/13/20 03/14/20 19:20 05:45 Sodium 134 L Potassium 3.9 Chloride 101 Carbon Dioxide 28 BUN 9 Creatinine 0.70 Estimated GFR > 60.0 BUN/Creatinine Ratio 12.9 Glucose 102 Calcium 8.0 L Total Creatine Kinase 27 L CK-MB (CK-2) TNP CK-MB (CK-2) Rel Index TNP Troponin I < 0.012 NT-Pro-B Natriuret Pep 823 H Assessment & Plan Assessment and plan (1) HTN (hypertension): Problem details: Per hospitalist Status: Acute (2) Edema: Problem details: LLE Status: Acute (3) CVA (cerebral vascular accident): Problem details: Hemiplegia, hemiparesis affecting left non-dominant side Status: Acute (4) Atrial fibrillation: Problem details: Carvedilol and eliquis Status: Acute (5) Ileus: Status: Acute (6) S/P colon resection: Status: Acute (7) Bacteremia: Problem details: Rocephin per hospitalist Status: Acute (8) UTI (urinary tract infection): Problem details: Rocephin Status: Acute Assessment & Plan narrative: 85-year-old man postoperative day 13 after a partial colectomy and end colostomy formation for a sigmoid anastomotic leak. He is tolerating a diet relatively well, although he reports continual nausea. No oral intake was charted yesterday, but patient and report that he did eat an adequate amount throughout the day. He has good ostomy output and a well granulating, clean looking lower midline incisional wound. He continues to have some lower extremity edema, and weakness, with difficulty ambulating. He is being treated with ceftriaxone for positive blood cultures. Hospitalist is following for medical comorbidities including LE edema, CHF, history of stroke. From a surgical standpoint he is at a stable point. Hospitalist to see today for any further recommendations prior to SNF placement. Plan is for dispo to SNF on Sunday. Plan: Reduce Miralax to once daily Continue PT OT Cont Rocephin per hospitalist rec for positive blood culture and UTI Encourage P.o. intake as tolerated Dispo planning pending medical clearance by hospitalist, tolerance of adequate p.o., ambulation, sepsis/positive blood culture can be managed as an outpatient, and pain control with p.o. pain med COVID-19 COVID-19 status: Negative Result date/Date tested (Pos, Neg/Pending): 02/21/20 Time Spent With Patient Time with patient: 25 - 35 minutes Quality VTE Deep Vein Thrombosis/Pulmonary Embolism Present on Admission: No
[2020-03-14] MEDS: METOPROLOL TARTRATE 5 MG/5 ML INJ IV (10:42)
[2020-03-14] MEDS: CEFTRIAXONE 1 GM/50 ML FROZ.PIGGY IV (10:50)
--- NOTE | 2020-03-14 11:10 | CM.DPC ---
Addendum entered by Daniella Tavarez R.N. 03/14/20 12:29: Patient went into AFIB today and Dr. Galo is working with Nursing to get patients HR into normal Sinus rhythm again. Also, patients Nurse removed patients CPap mask to check o2 sat on RA and patient sats were 94%, 95% on RA. Daniella Tavarez RN Original Note: DCP Continues: Cm/Rn met with Dr. Galo, Patient and patients during rounds. Patient was wearing his CPAP machine because he states he can't breath without it. Dr. Galo asked nurse to remove the Cpap and get an O2 stat reading on RA. If patient doesn't do well on RA Dr. Galo stated she wants to look at doing a work up for possible PE or maybe Pneumonia since patient has been here for 19 days. CM/RN will follow to determine what Cm/RN can do to assist with D/C plan. Current plan if for patient to D/C to [facility] in [place] on Sunday03/15/20 but that will now depend on patients work up for breathing issues. CM/RN will follow closely to determine if Susie with [facility] needs to be called and told about possible delay in D/C as the day progresses. Patients was adamant that she doesn't feel comfortable with her D/C to SNF since she can't visit but is willing to work with it at D/C if needed. Daniella Tavarez RN
--- NOTE | 2020-03-14 11:50 | PT-IP ANOTE ---
Hold for today per RN due to HR and BP issues. Will check back with pt tomorrow.
[2020-03-14] MEDS: DIGOXIN 500 MCG/2 ML AMPUL 250 MCG IV ×3 (12:05→23:42)
--- NOTE | 2020-03-14 12:24 | PC.NURSE ---
Addendum entered by Deanna Plunkett R.N. 03/14/20 15:24: Patient VS 98/[address] Galo notified at 1400, no change in patient medication. Patient to have more digoxin 25Omcg at 1800. Original Note: 1030 Received call from ICU, pt tele reading was Afib in the 120's and 130's. Alerted Dr. Galo to these readings along with Patietn BP .Patient given 5mg metoprolol IV push, STAT EKG done. Patient's heart rate still sustained in the 120's, and BP 97/55. Patient given 250 mcg of Digoxin at 1205. Will continue to monitor heart rate. Dr. Galo dc'd the lasix and added PO metoprolol 25mg starting this evening. Lung sounds DIM. Was able to take Cpap off patient to do a trial run for hypoxia. Patient O2 saturation is 93% on Room Air. Midline dressing changed by Dr. Cervantes. Ostomy output is brown and runny. Bowel tones active in all 4 quadrants. Passing gas and stool. Patient has non pitting scrotal and lower leg edema +1, along with generalized edema. Patient baseline weakness in left arm and left leg. Pedal pulses palpable.
--- NOTE | 2020-03-14 16:42 | PM.PN.1 ---
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 The patient was found to have dense intra-abdominal adhesions and laparoscopic appendectomy was converted to open laparotomy and required partial sigmoid colectomy. That surgery was complicated by an anastomotic leak and is now status post end colostomy with additional small bowel resection. The patient has had significant anxiety, in addition to complaints of shortness of breath. He has been wearing his CPAP all day because of his concern regarding shortness of breath. His CPAP was removed his oxygenation was at 92%. The patient was placed back on telemetry and found today to be in rapid atrial fibrillation. He received IV digoxin as his blood pressure was somewhat low. She he received 1 dose of Lopressor without much improvement. His heart rate remains in the 1 teens 120s. He continues to complain of some shortness of breath. Patient had significant lower extremity edema. He received 2 doses of Lasix with good response. His repeat chest x-ray shows no evidence of infiltrate or fluid on x-ray. Exam Vital Signs (past 8 hours): - 03/14/20 08:48 03/14/20 09:01 03/14/20 09:02 Temperature 98 F Pulse Rate 71 71 71 Respiratory Rate 24 Blood Pressure 137/69 137/69 137/69 Pulse Oximetry 92 03/14/20 10:57 03/14/20 11:00 03/14/20 12:05 Temperature 98.1 F Pulse Rate 120 H 124 H Respiratory Rate 26 H Blood Pressure 133/74 97/55 L Pulse Oximetry 93 93 03/14/20 12:47 03/14/20 16:00 Temperature 98.8 F Pulse Rate 119 H Respiratory Rate 20 Blood Pressure 94/51 L 93/62 Pulse Oximetry 95 Oxygen Delivery Method Room Air Oxygen Flow Rate 0 Narrative Exam Narrative: Ill-appearing elderly male lying in bed Lungs: Decreased breath sounds bilaterally Cardiac exam: Tachycardic, irregularly irregular, normal S1-S2 Abdomen: Soft nontender, ostomy in place, Extremities: 1+ edema bilaterally Objective Labs Result Diagrams: 03/12/20 06:43 03/14/20 05:45 Labs: Laboratory Results - last 24 hr 03/10/20 03/13/20 03/14/20 09:20 19:20 05:45 Sodium 134 L Potassium 3.9 Chloride 101 Carbon Dioxide 28 BUN 9 Creatinine 0.70 Estimated GFR > 60.0 BUN/Creatinine Ratio 12.9 Glucose 102 Calcium 8.0 L Total Creatine Kinase 27 L CK-MB (CK-2) TNP CK-MB (CK-2) Rel Index TNP Troponin I < 0.012 NT-Pro-B Natriuret Pep 823 H A. baumannii (PCR) Not detected Rita albicans (PCR) Not detected C. glabrata (PCR) Not detected C. krusei (PCR) Not detected C. parapsilosis (PCR) Not detected C. tropicalis (PCR) Not detected Enterobacteriac sp PCR Not detected E. cloacae complex PCR Not detected Enterococcus sp PCR Not detected E. coli (PCR) Not detected H. influenzae (PCR) Not detected Klebsiella oxytoca PCR Not detected Klebsiella pneumoniae Not detected List. monocytogenes PCR Not detected N. meningitidis (PCR) Not detected Proteus species (PCR) Not detected Serratia marcescens PCR Not detected Staphylococcus sp PCR Not detected Staph aureus (PCR) Not detected Streptococcus sp PCR Not detected Group A Strep (PCR) Not detected Strep agalactiae (PCR) Not detected Strep pneumoniae (PCR) Not detected P. 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 The patient was found to have dense intra-abdominal adhesions and laparoscopic appendectomy was converted to open laparotomy and required partial sigmoid colectomy. That surgery was complicated by an anastomotic leak and is now status post end colostomy with additional small bowel resection. 1. Paroxysmal atrial fibrillation with acute RVR, -patient was mildly hypotensive earlier today, received IV digoxin as he was unable to an tolerate additional beta-candie -patient remains tachycardic, will try IV Lopressor as blood pressure tolerates -patient received Lasix yesterday for shortness of breath. BUN and creatinine improved it chest x-ray shows no evidence of pulmonary edema -Echocardiogram demonstrated mildly-moderately increased left ventricular thickness (concentric) with normal size and hyperdynamic systolic function (EF 70-75%), normal right ventricular size and function, mild aortic stenosis (valve area 1.6cm2, mean gradient 16mmHg), IVC is dilated (diameter is greater than 2.1 cm) and it collapses less than 50% with a sniff. This suggests a high right atrial pressure of 15 mm Hg. -CHADS2 Vasc score 6. Continue home Eliquis 5 mg twice daily (restarted 03/05/2020). -Continue metoprolol 5 mg IV every 6 hours (as blood pressure tolerates) . 2. Appendiceal mass status post elective appendectomy with complication of dense adhesions leading to open procedure with lysis of adhesions, sigmoid resection, ileus, and anastomotic leak now status post partial colectomy and end colostomy, present on admission. Active. -Patient had appendiceal mass and elective appendectomy with complication of dense intra-abdominal adhesions requiring conversion of laparoscopic appendectomy to open procedure with complication sigmoid resection, ileus, and subsequent anastomotic leak status post partial colectomy with end colostomy. -Continue physical and occupational therapy evaluation and treatment. - 2. Acute sepsis, not present on admission. Resolved. -Secondary to anastamotic leak with corresponding intra-abdominal contamination. -Patient with end-organ dysfunction of hypotension that responded to IV fluid resuscitation, TIEN, and thrombocytopenia. -Received broad-spectrum IV antibiotic with meropenem x5 days. 3. Acute peritonitis, secondary to anastomotic leak, not present on admission. Resolved. -WBC trended low to 3.1 then normalized. Procalcitonin peaked at 50.89 and trending down now 2.78 without further antibiotics. Continue to monitor WBC and procalcitonin daily. -Received meropenem 1g every 8 hours x 5 days. 4. Acute kidney injury, not present on admission. Resolved. -Likely secondary to intra-abdominal leak/contamination and sepsis as noted above. -Baseline creatinine 0.7-0.8. Creatinine trended up and peaked at 1.65 then trended down to normal. -Continue to avoid nephrotoxic agents. -Continue to monitor creatinine daily. 6. Hypertension, chronic, present on admission. Stable. -Continue to hold home losartan until blood pressures improved and will opt for rate control agents at this time to avoid atrial fibrillation with RVR. 7. ASCVD with history of DC status post stent x1 and CVA with residual left-sided weakness on Eliquis, chronic, present on admission. Presumed stable. -Patient reports he was previously on statin therapy but is no longer on statin due to side effects. Patient reports that he is on a weekly injection called Repatha (Evolocumab) to lower LDL. -The patient is followed by [facility] cardiology Dr. Jones. 8. Prostate cancer status post recent complicated robotic laprascopic prostatectomy requiring conversion to open procedure. -Continue previous outpatient follow-up per PCP or oncology. 9. Obstructive sleep apnea on CPAP, present on admission. Stable. -Continue home CPAP. Code status: Full code, designated surrogate decision maker is his spouse VTE prophylaxis: Ygleis Quality VTE Deep Vein Thrombosis/Pulmonary Embolism Present on Admission: No
[2020-03-14] MEDS: METOPROLOL ER 25 MG TABLET PO (16:54)
--- NOTE | 2020-03-14 18:35 | PC.NURSE ---
Addendum entered by Laurence Simmons R.N. 03/14/20 23:13: Late entry- 1900 Lopressor not given per Dr. Galo. HR 97bpm. At this time HR 88-90's afib Addendum entered by Laurence Simmons R.N. 03/14/20 22:31: Late entry: midline dressing cdi. RLQ pain 08/08, refused intervention. no n/v. Addendum entered by Laurence Simmons R.N. 03/14/20 21:34: febrile 100.4, pt used IS and flutter valve, temp down to 98.0F Original Note: BP 91/48, [id number], provider aware. ok to give digoxin IV. continue to monitor.
[2020-03-14] MEDS: SERTRALINE 50 MG TABLET 100 MG PO (20:49)
[2020-03-14 22:03] LABS: BUN Creatinine Ratio 14.9 (6-22); Blood Urea Nitrogen 11 mg/dL (9-20); Calcium 7.7 mg/dL (8.4-10.2); Carbon Dioxide 28 mmol/L (22-32); Chloride 98 mmol/L (98-107); Estimated Glomerular Filt Rate > 60.0 mL/min (>60); Glucose 107 mg/dL (80-110); HEMOLYSIS < 15 (0-50); Magnesium 1.9 mg/dL (1.6-2.3); Potassium 3.7 mmol/L (3.4-5.1); Sodium 133 mmol/L (137-145)
[2020-03-14] MEDS: MAGNESIUM OXIDE 400 MG TABLET PO (23:41)
[2020-03-14] MEDS: POTASSIUM CHLORIDE 20 MEQ TAB 40 MEQ PO (23:41)
[2020-03-15] VITALS (9 sets, daily range): BP systolic 109–157; BP diastolic 52–68; PULSE 72–82; RESP 22–24; TEMP 36.6; O2SAT 93–95
[2020-03-15] MEDS: METOPROLOL IR 25 MG TABLET 12.5 MG PO (02:34)
[2020-03-15] MEDS: PANTOPRAZOLE 20 MG TABLET 40 MG PO (06:39)
[2020-03-15] MEDS: DIGOXIN 500 MCG/2 ML AMPUL 250 MCG IV (06:39)
--- NOTE | 2020-03-15 09:11 | PM.PN.1 ---
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 The patient was found to have dense intra-abdominal adhesions and laparoscopic appendectomy was converted to open laparotomy and required partial sigmoid colectomy. That surgery was complicated by an anastomotic leak and is now status post end colostomy with additional small bowel resection. The patient is resting in bed comfortably on CPAP. The patient denies shortness of breath currently for which his shortness of breath likely was related to atrial fibrillation with RVR, mild hypervolemia, and underlying anxiety. Patient received IV diuresis with adequate diuresis and rate control medication which he spontaneously converted to sinus rhythm 03/14 at 23:38. The patient's spouse is at bedside and all questions have been answered. From a medical standpoint the patient appears to be ready to discharge. The patient and his spouse are both highly anxious and are concerned that residential facility will not be able to address any medical issues. Reassured both the patient and his spouse that they are a residential facility and that lab work, medications and medical issues can be addressed and if necessary he can be sent to the hospital. The patient has no other complaints and denies headache, chest pain, shortness of breath, abdominal pain, nausea, vomiting, fever, chills, dysuria, diarrhea or constipation. He is voiding and eliminating via ostomy without difficulty. He is up ambulating with assistance. Exam Vital Signs (past 8 hours): - 03/15/20 01:30 03/15/20 03:00 03/15/20 06:30 Temperature Pulse Rate 72 80 Respiratory Rate Blood Pressure 109/52 L 140/68 Pulse Oximetry 95 94 03/15/20 06:39 03/15/20 08:00 Temperature 97.9 F Pulse Rate 75 79 Respiratory Rate 24 Blood Pressure 140/68 137/67 Pulse Oximetry 94 Oxygen Delivery Method Room Air,CPAP Oxygen Flow Rate 0 Narrative Exam Narrative: General: Older gentleman sitting in bed in no acute distress, well developed, well nourished, appropriately interactive. HEENT: Normocephalic, atraumatic. External ears without defect. Pupils equal, round, and reactive to light. Anicteric sclerae, moist conjunctivae, and no lid lag. Oropharynx free of erythema and cobble stoning with moist mucosa. Neck: Supple with full range of motion. No lymphadenopathy or thyromegaly. Cardiovascular: Heart sounds distant but appears regular rate and rhythm without murmurs, rubs, or gallops appreciated. Pulmonary: Clear to auscultation bilaterally without crackles, wheezes, or rhonchi. Normal respiratory effort with no use of accessory muscles. Abdomen: Soft, no distension, vertical surgical wound with wound vac in place, ostomy with light pink stoma and gas with stool, bowel sounds present, vertical surgical wound with dressing in place C/D/I. Extremities: No clubbing, cyanosis, or edema. Skin: Normal temperature, turgor, and texture; no rash, ulcers, or subcutaneous nodules appreciated. Neurological: Cranial nerves grossly intact. Psychiatric: Depressed and anxiety mood and flat affect. Alert and oriented to person, place, and time. Objective Labs Result Diagrams: 03/12/20 06:43 03/14/20 21:45 Labs: Laboratory Results - last 24 hr 03/10/20 03/14/20 09:20 21:45 Sodium 133 L Potassium 3.7 Chloride 98 Carbon Dioxide 28 BUN 11 Creatinine 0.74 Estimated GFR > 60.0 BUN/Creatinine Ratio 14.9 Glucose 107 Calcium 7.7 L Magnesium 1.9 A. baumannii (PCR) Not detected Rita albicans (PCR) Not detected C. glabrata (PCR) Not detected C. krusei (PCR) Not detected C. parapsilosis (PCR) Not detected C. tropicalis (PCR) Not detected Enterobacteriac sp PCR Not detected E. cloacae complex PCR Not detected Enterococcus sp PCR Not detected E. coli (PCR) Not detected H. influenzae (PCR) Not detected Klebsiella oxytoca PCR Not detected Klebsiella pneumoniae Not detected List. monocytogenes PCR Not detected N. meningitidis (PCR) Not detected Proteus species (PCR) Not detected Serratia marcescens PCR Not detected Staphylococcus sp PCR Not detected Staph aureus (PCR) Not detected Streptococcus sp PCR Not detected Group A Strep (PCR) Not detected Strep agalactiae (PCR) Not detected Strep pneumoniae (PCR) Not detected P. 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 The patient was found to have dense intra-abdominal adhesions and laparoscopic appendectomy was converted to open laparotomy and required partial sigmoid colectomy. That surgery was complicated by an anastomotic leak and is now status post end colostomy with additional small bowel resection. 1. Paroxysmal atrial fibrillation with acute symptomatic RVR, acute on chronic, present on admission. RVR resolved. -Echocardiogram demonstrated mildly-moderately increased left ventricular thickness (concentric) with normal size and hyperdynamic systolic function (EF 70-75%), normal right ventricular size and function, mild aortic stenosis (valve area 1.6cm2, mean gradient 16mmHg), IVC is dilated (diameter is greater than 2.1 cm) and it collapses less than 50% with a sniff. This suggests a high right atrial pressure of 15 mm Hg. -CHADS2 Vasc score 6. Continue home Eliquis 5 mg twice daily. -Patient had symptomatic atrial fibrillation with RVR in the form of shortness of breath. Chest x-ray did not demonstrate any acute cardiopulmonary process. Patient received IV Lasix and was diuresed effectively. Patient was mildly hypotensive due to diuresis and antihypertensives, therefore, received digoxin x2. Discontinued carvedilol and started metoprolol tartrate 25 mg twice daily. Patient converted from atrial fibrillation to sinus rhythm yesterday 03/14 at 23:38 and shortness of breath resolved with rate control. Recommend continuing metoprolol tartrate 25 mg twice daily and monitoring electrolytes closely and repleting as necessary for which the patient may need to be on low-dose electrolyte replacement. Goal K >4.0 and Mg > 2.0. 2. Acute UTI, not present on admission. Resolving. -Urine culture grew E. coli resistant to fluoroquinolones. Levaquin was discontinued and started ceftriaxone 1 g IV daily. Recommend when patient is ready for discharge switched to cefdinir 300 mg twice daily to complete 7 days total of antibiotic treatment. 3. Appendiceal mass status post elective appendectomy with complication of dense adhesions leading to open procedure with lysis of adhesions, sigmoid resection, ileus, and anastomotic leak now status post partial colectomy and end colostomy, present on admission. Active. -Patient had appendiceal mass and elective appendectomy with complication of dense intra-abdominal adhesions requiring conversion of laparoscopic appendectomy to open procedure with complication sigmoid resection, ileus, and subsequent anastomotic leak status post partial colectomy with end colostomy. -Continue physical and occupational therapy evaluation and treatment. -Patient has intermittent nausea and indigestion continue famotidine 20 mg twice daily for GERD and GI prophylaxis. -Continue postoperative management per primary team general surgery. 4. Acute sepsis, not present on admission. Resolved. -Secondary to anastamotic leak with corresponding intra-abdominal contamination/peritonitis. -Patient with end-organ dysfunction of hypotension that responded to IV fluid resuscitation, TIEN, and thrombocytopenia. -Received broad-spectrum IV antibiotic with meropenem x5 days. 5. Acute peritonitis, secondary to anastomotic leak, not present on admission. Resolved. -WBC trended low to 3.1 then normalized. Procalcitonin peaked at 50.89 and trending down now 2.78 without further antibiotics. Continue to monitor WBC and procalcitonin daily. -Received meropenem 1g every 8 hours x 5 days. 6. Acute kidney injury, not present on admission. Resolved. -Likely secondary to intra-abdominal leak/contamination and sepsis as noted above. -Baseline creatinine 0.7-0.8. Creatinine trended up and peaked at 1.65 then trended down to normal. -Continue to avoid nephrotoxic agents. -Continue to monitor creatinine daily. 7. Hypertension, chronic, present on admission. Stable. -Held home losartan until blood pressures improves and continue rate control medications at this time to avoid atrial fibrillation with RVR. May consider restarting losartan 50 mg daily if BP returns to normal and/or becomes elevated. 8. ASCVD with history of LA status post stent x1 and CVA with residual left-sided weakness on Eliquis, chronic, present on admission. Presumed stable. -Patient reports he was previously on statin therapy but is no longer on statin due to side effects. Patient reports that he is on a weekly injection called Repatha (Evolocumab) to lower LDL. -The patient is followed by [facility] cardiology Dr. Jones. 9. Prostate cancer status post recent complicated robotic laprascopic prostatectomy requiring conversion to open procedure. -Continue previous outpatient follow-up per PCP or oncology. 10. Obstructive sleep apnea on CPAP, present on admission. Stable. -Continue home CPAP. 11. Depression and anxiety, chronic, present on admission. Active. -Primary team started sertraline 100 mg daily. Continue to monitor patient's mood and for any SI as an outpatient. Thank you for this interesting consult. Patient is stable from a medical standpoint and may be discharged when appropriate per primary team. Medicine team will sign off but please feel free to contact if further assistance is necessary. Quality VTE Deep Vein Thrombosis/Pulmonary Embolism Present on Admission: No
[2020-03-15 09:43] LABS: Add Manual Diff / Slide Review NO; Basophils Absolute Auto 100 /uL (0-100); Basophils Percent Auto 0.9 % (0-2); Eosinophils Absolute Auto 0 /uL (0-450); Eosinophils Percent Auto 0.4 % (2-4); Hematocrit 28.3 % (41-53); Hemoglobin 9.4 g/dL (13.5-17.5); Lymphocytes Absolute Auto 2000 /uL (1100-4500); Lymphocytes Percent Auto 18.8 % (25-40); Mean Corpuscular HGB Conc 33.2 % (30-36); Mean Corpuscular Hemoglobin 26.8 PG (26-34); Mean Corpuscular Volume 80.9 fL (80-100); Monocytes Absolute Auto 600 /uL (0-900); Monocytes Percent Auto 5.3 % (3-14); Neutrophils Absolute Auto 8100 /uL (1500-7000); Neutrophils Percent Auto 74.6 % (50-75); Platelet Count 445 X10^3/uL (150-400); Red Cell Distribution Width 14.5 % (11.6-14.8); White Blood Cell Count 10.9 X10^3/uL (4.5-11.0)
[2020-03-15 09:55] LABS: BUN Creatinine Ratio 13.3 (6-22); Blood Urea Nitrogen 10 mg/dL (9-20); Calcium 8.2 mg/dL (8.4-10.2); Carbon Dioxide 28 mmol/L (22-32); Chloride 100 mmol/L (98-107); Estimated Glomerular Filt Rate > 60.0 mL/min (>60); Glucose 111 mg/dL (80-110); HEMOLYSIS < 15 (0-50); Potassium 4.3 mmol/L (3.4-5.1); Sodium 134 mmol/L (137-145)
[2020-03-15] MEDS: APIXABAN 5 MG TABLET PO (10:04)
[2020-03-15] MEDS: MEGESTROL 20 MG TABLET 40 MG PO (10:05)
[2020-03-15] MEDS: LACTOBACILLUS ACIDOPHILUS TABLET 1 EACH PO (10:05)
[2020-03-15] MEDS: guaiFENesin Solution 100 MG/5 ML UDC 200 MG PO (10:05)
[2020-03-15] MEDS: SODIUM CHLORIDE 0.9% FLUSH 10 ML IV (10:06)
[2020-03-15] MEDS: METOPROLOL IR 25 MG TABLET PO (10:08)
--- NOTE | 2020-03-15 10:24 | OT.IP.TRT ---
Current Diagnoses Essential (primary) hypertension (02/24/20) Unspecified atrial fibrillation (02/24/20) Cerebral infarction, unspecified (02/24/20) Other specified diseases of appendix (02/24/20) Ileus, unspecified (02/24/20) Urinary tract infection, site not specified (02/24/20) Dysphagia, unspecified (02/24/20) Edema, unspecified (02/24/20) Bacteremia (02/24/20) Acquired absence of other specified parts of digestive tract (02/24/20) Surgery Performed Operation Date: 02/24/20 09:15 Actual Procedures p Appendectomy, partial cholectomy, lysis of adhesions - Yao Cleary MD Operation Date: 03/01/20 08:00 Actual Procedures p Exploratory Laparotomy. PARTIAL COLECTOMY. COLOSTOMY FORMATION. APPLICATION OF WOUND VAC - Yao Cleary MD Occupational Therapy Treatment Note M2 OT-IP Current Condition Start: 02/25/20 13:57 Freq: Status: Active Protocol: Document 02/25/20 11:13 [facility] (Rec: 02/25/20 14:16 [facility] [id number]) Occupational Therapy Current Condition Current Condition Evaluation Date 02/25/20 Treatment Diagnosis Appendectomy, partial cholectomy, decreased self care Diagnosis Onset Date 02/24/20 Post Operative Precautions Abdominal Surgery Precautions Log Roll,Lifting Restrictions, Gait Belt above Incisional Area M3 OT- IP Subjective and Pain Start: 02/25/20 13:57 Freq: Status: Active Protocol: Document 03/15/20 13:09 [facility] (Rec: 03/15/20 13:16 [facility]GR [email or web address]) OT- Subjective Occupational Therapy Visit Type Type Progress Note Visit Start Time 09:58 Visit Stop Time 10:24 Total Visit Minutes 26 Notes co-treat with P.T. OT Pain Assessment Pain When Pain Assessed At Rest Pain Present Pain Present Denied Pain M4 OT- IP ADL's Start: 02/25/20 13:57 Freq: Status: Active Protocol: Document 03/15/20 13:09 CGR (Rec: 03/15/20 13:16 CGR [id number]) OT [id number] Comments OT Self-Feeding Comments Not meal time OT ADL-Grooming Comments OT Grooming Comments Pt declined to perform with OT stating that he would perform with his later. OT ADL-Oral Care Comments Oral Care Comments Pt declined to perform with OT stating that he would perform with his later. OT ADL-Dressing General Eval Lower Body Dressing Ability Total Assistance Areas Needing Assistance Socks OT ADL-Toileting General Evaluation Toileting Ability Moderate Assistance Areas Needing Assistance Manage Clothing,Perform Perineal Hygiene Devices Toileting Assistive Devices Commode Comments OT Toileting Comments Pt urinated seated on BSC. Pt needed assist with brief and was able to perform front pericare but needed assist for back pericare. OT ADL-Bathing Comments OT Bathing Comments Not performed M5 OT- IP IADL's Start: 02/25/20 13:57 Freq: Status: Active Protocol: Document 02/25/20 11:13 [facility] (Rec: 02/25/20 14:16 [facility] [id number]) OT-Instrumental Activities of Daily Living Copy Cutter Copy Cutter Caregiver Provides Assist Copy Cutter Comments Prior pt likes to assist to take out the trash. M6 OT- IP Functional Cognition Start: 02/25/20 13:57 Freq: Status: Active Protocol: Document 03/13/20 11:28 CGR (Rec: 03/13/20 11:47 CGR [email or web address]) Cognitive Factors Limiting Selfcare Function Cognitive Ability Level of Alertness Alert Patient Orientation Name,Age,Birthday,Year,Place, Situation Attention Span Ability Capable of Focused Attention, Capable of Sustained Attention Ability to Follow Commands Able to Follow One Step Commands with Increased Time, Able to Follow One Step Commands with Repetition Cognitive Comments Cognitive Assessment Comments Pt needs extra time to answer questions. OT- Vision and Hearing OT- Hearing Assessment OT- Hearing Assessment WFL OT- Vision Assessment Visual Acuity WFL M7 OT- IP Mobility and Balance Start: 02/25/20 13:57 Freq: Status: Active Protocol: Document 03/15/20 13:09 CGR (Rec: 03/15/20 13:16 CGR [email or web address]) OT- Bed Mobility Assessment Supine to Sit Supine to Sit Assist Contact Guard Assistance,Head of Bed Elevated,Bedrails Scooting Scooting to Edge of Bed Moderate Assistance,Head of Bed Elevated,Bedrails OT-Transfer Assessment Sit to and From Stand Sit to and from Stand Minimal Assistance,2 Person Assistance Transfers Transfer Ability Moderate Assistance,2 Person Assistance Technique Transfer Destination Bed,Bedside Commode,Chair Transfer Technique Stand Step Pivot Devices Transfer Assistive Devices Gait Belt,Front Wheeled Walker Comments Mobility Comments Pt performed sit to stand with min x2 from bed and BSC and transfered with mod a. Pt had a LOB during transfer from BSC to chair with posterior lean that required max a x1 to regain balance but then was able to finish transfer. OT- Gait Assessment Comments Gait Ability Comments not performed OT- Balance Assessment Sitting Balance and Reactions Static Sitting Balance Ability Good Dynamic Sitting Balance Ability Fair M8 OT- IP Objective Assessments Start: 02/25/20 13:57 Freq: Status: Active Protocol: Document 02/25/20 11:13 [facility] (Rec: 02/25/20 14:16 [facility] [id number]) OT Gross Range of Motion Upper Extremity Range of Motion Assessment Left Impaired OT Strength Upper Extremity Strength Assessment Left Impaired Shoulder 2- Elbow 3 Forearm 2- Wrist 2- Hand 2- OT-Muscle Tone Assessment Muscle Tone WNL No Muscle Tone Location Left Upper Extremity Type of Tone Hypotonicity M9 OT- IP Assessment and Plan Start: 02/25/20 13:57 Freq: Status: Active Protocol: Document 03/15/20 13:09 CGR (Rec: 03/15/20 13:16 CGR [email or web address]) OT Summary Assessment and Plan Potential Rehabilitation Potential Good Analytic Complexity at Evaluation Moderate Summary OT Impairments Pain,Balance,Functional Mobility,Grooming,Dressing, Toileting,Bathing,Toilet Transfers,Shower Transfers, Activity Tolerance Progress Towards Goals Progressing Toward Goals Assessment Summary Pt progressing with therapy on this date. Per chart, pt with Afiv yesterday 03/14/20 but now improved and with increased strength and ability . Pt states fatigue and still with slow and flat affect. Pt will continue to benefit from rehab. Recommendation is still to discharge to SNF for continued therapy. Goals Self-Feeding Goal Independent Grooming Goal Independent Dressing Goal Minimal Assistance Toileting Goal Moderate Assistance Bathing Goal Moderate Assistance Toilet Transfer Goal Standby Assistance Shower Transfer Goal Minimal Assistance Patient/Caregiver Education Goal Demonstrate Post-Op Precautions,Caregiver Independent Assisting Patient Days to Meet Goals 12 Frequency of Treatment Frequency Of Treatment Once a Day Treatment Plan OT Treatment Plan ADL Training,Functional Mobility,Patient/Family Education,Discharge Planning Other Treatment Recommendations and Next cog assessment, ADLs seated. Treatment Focus Discharge Recommendations OT Discharge Recommendations SNF Rehab Home Equipment Needs Defer to SNF Transportation Needs at Discharge Stretcher/Ambulance
--- NOTE | 2020-03-15 10:24 | PT.IPTN ---
Current Diagnoses Essential (primary) hypertension (02/24/20) Unspecified atrial fibrillation (02/24/20) Cerebral infarction, unspecified (02/24/20) Other specified diseases of appendix (02/24/20) Ileus, unspecified (02/24/20) Urinary tract infection, site not specified (02/24/20) Dysphagia, unspecified (02/24/20) Edema, unspecified (02/24/20) Bacteremia (02/24/20) Acquired absence of other specified parts of digestive tract (02/24/20) Surgery Performed Operation Date: 02/24/20 09:15 Actual Procedures p Appendectomy, partial cholectomy, lysis of adhesions - Yao Cleary MD Operation Date: 03/01/20 08:00 Actual Procedures p Exploratory Laparotomy. PARTIAL COLECTOMY. COLOSTOMY FORMATION. APPLICATION OF WOUND VAC - Yao Cleary MD Physical Therapy Treatment Note M2 PT-IP Current Condition Start: 02/25/20 09:42 Freq: NEEDED Status: Active Protocol: Document 02/25/20 12:29 [facility] (Rec: 02/25/20 13:09 [id number]) Physical Therapy Current Condition Current Condition Evaluation Date 02/25/20 Treatment Diagnosis Appendectomy, partial cholectomy, lysis of adhesions , weakness Onset Date 02/24/20 Precautions Abdominal Surgery Precautions Log Roll,Lifting Restrictions, Gait Belt above Incisional Area Weight Bearing Status Weight Bearing Status Full Weight Bearing M3 PT-IP Subjective Start: 02/25/20 09:42 Freq: NEEDED Status: Active Protocol: Document 03/15/20 09:58 [facility] (Rec: 03/15/20 11:18 [facility] [id number]) Subjective Physical Therapy Visit Type Type Treatment Note Visit Start Time 09:58 Visit Stop Time 10:24 Total Visit Minutes 26 Notes Co-treat with OT. , RN Lani, PAULA Huff and towards end of treat Dr. Cleary present. Number of [employer] Visits 1 Physical Therapy Visit Comments Patient Comments pt is agreeable to do PT M4 PT-IP Mobility and Gait Start: 02/25/20 09:42 Freq: NEEDED Status: Active Protocol: Document 03/15/20 09:58 [facility] (Rec: 03/15/20 11:18 [facility] [id number]) PT-Bed Mobility Assessment Supine to Sit Supine to Sit Minimal Assistance,1 Person Assistance,Head of Bed Elevated,Bedrails Scooting Scooting to Edge of Bed Moderate Assistance PT-Transfer Assessment Sit to and From Stand Sit to and from Stand Minimal Assistance,2 Person Assistance,Use of Upper Extremities Equipment Transfer Assistive Device Gait Belt,Front Wheeled Walker Orthotic/Prosthetic Devices or Brace: No Transfers Transfer Destination Chair,Bedside Commode Transfer Technique Stand Step Pivot Transfer Ability Level of Assist Moderate Assistance,2 Person Assistance,Use of Upper Extremities Comments Mobility Comments Pt in bed upon arrival, BP in supine 147/68, HR 78, SpO2 94% on RA. Pt required Min A x1 with HOB elevated and use of bed rails then required Mod A to scoot left hip to EOB with use of draw sheet. Pt able to sit SBA on EOB for ~2 minutes with good sitting balance. BP in sitting 157/60, SpO2 93%. Pt stood with Min A x2 with OT on right side and [employer] on left side to block LLE and assist with LUE on walker. Pt cued to get balance in standing before pivoting. Pt required Mod A x2 to transfer with stand step pivot and cues to wt shift and move LLE. Pt was able to use RUE and manage walker with assist. Pt given cues to reach back for BSC before sitting. Pt able to urinate and perform pericare. Pt stood from BSC Min A x2 and RN and OT asssit with brief. Pt pivoted to right to transfer to chair continuing to require cues to advance LLE and not to sit to soon, pt began to fatigue and struggled with standing balance, pt was unable to control descent into chair. Once in chair pt was able to scoot back to assist OT and [employer] scoot further back in chair. HR 77/ 81 bpm throughout tx. Pt left in chair reclined with pillow under LUE for support, PAULA Garibay, Dr Cleary and present. 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 and poor fine motor control able to abduct shoulder approx 40-50 degrees unable to fully extend his L arm and fingers Lower Extremity ROM Assessment Left Impaired Strength Upper Extremity Strength Assessment Left Impaired Shoulder 2- Elbow 3 Wrist 2- Hand 2- Lower Extremity Strength Assessment Left Impaired Hip 3+ Knee 4- Ankle 3 Coordination Assessment Gross Coordination Gross Coordination Impaired Sensation Assessment Sensation Gross Sensation WNL Muscle Tone Muscle Tone WNL No Muscle Tone Location Left Upper Extremity Type of Tone Hypertonicity,Flexor Severity of Tone Moderate M6 PT-IP Treatment Start: 02/25/20 09:42 Freq: NEEDED Status: Active Protocol: Document 03/13/20 10:35 AB (Rec: 03/13/20 12:07 AB [id number]) Physical Therapy Treatment Exercises Exercises Ankle Pumps,Heel Slides Other Treatments Other Treatment Performed completed LE exercises prior to mobilizing M7 PT-IP Assessment and Plan Start: 02/25/20 09:42 Freq: NEEDED Status: Active Protocol: Document 03/15/20 09:58 [facility] (Rec: 03/15/20 11:18 [facility] [id number]) PT Summary Assessment and Plan Potential Rehabilitation Potential Good Summary Impairments Pain,ROM,Strength,Balance, Coordination,Sensation,Tone, Cognition,Bed Mobility, Transfers,Gait,Activity Tolerance Progress Towards Goals Slow Progress due to Medical Issues,Slow Progress due to Activity Tolerance Assessment Summary Pt improving with sitting and standing static balance with ability to sit on EOB SBA for ~2 minutes. Pt improving with transfer requiring Mod A x2 with cues for wt shifting to advance LLE. Pt sat on BSC then transferred to chair requiring increased cues as pt was fatigued and pt was rushing to chair to sit. Pt will require SNF rehab to improve activity tolerance, strength and functional mobility for independence. Goals Bed Mobility Goal Moderate Assistance Transfer Goal Moderate Assistance,Front Wheeled Walker Gait Goal Moderate Assistance,Front Wheel Walker Gait Distance 25 Days to Meet Goals 10 Frequency of Treatment Frequency Of Treatment Once a Day Treatment Plan Physical Therapy Treatment Plan Bed Mobility Training,Transfer Training,Gait Training, Therapeutic Exercise,Balance Retraining,Post Op Education, Discharge Planning,Hot or Cold Pack,Neuromuscular Re-ed, Coordination Retraining,Manual Therapy Other Recommendations and Next Treatment sitting/standing balance/ Focus tolerance, transfers Recommendations To Nursing Amount of Assist Needed Mechanical Lift Discharge Recommendations PT Discharge Recommendations SNF Rehab Transportation Needs at Discharge Stretcher/Ambulance
--- NOTE | 2020-03-15 10:46 | PC.NURSE ---
Ostomy Nurse Consult Note Rio working with PT and OT and got out of bed to the chair. His Odalys is here. I changed his ostomy appliance. I also took a picture. His stoma is recessed, the sutures are present and mostly unattched. His stoma continues to have slough yet there is beefy red, moist stoma also present. He continues to have a .5mm area of induration around the stoma and it is a darker pink than Sunday. He continues to have gas and some light ambrose colored effluent from his stoma. He stoma measures 38mm oval. I placed him in a Convatec Moldable convex wafer 57mm and clear non-filtered pouch. I also used an suzanne ring around the wafer opening for protection of his skin. I also changed the GALA site dressing with a 2x2 and tagaderm. This site has 100% slough and a scant amount of serous drainage. His midline dressing is intact. I did not visualize his midline incision. The plan is to have Rio transferred to [facility] this morning, but it sounds like the plans are changing and he may stay here one more day. I will not be following up with Rio here in house unless requested.
[2020-03-15] MEDS: CEFTRIAXONE 1 GM/50 ML FROZ.PIGGY IV (11:22)
[2020-03-15 12:31] LABS: COVID19 -Nasal RAPID Negative (Negative)
--- NOTE | 2020-03-15 12:51 | PM.DS.1 ---
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 Its size is less than 1 cm there is no associated lymphadenopathy. His surgical history is notable for a complicated robotic prostatectomy followed by a laparotomy for procedural complications. He is here today for an elective laparoscopic appendectomy. Medical history significant for HTN, Afib, brain stem stroke, obesity. Discharge Providers Provider Date of admission: 02/24/20 08:04 Discharge Date: 03/15/20 Primary care physician: Fidel Dial MD Consults: 02/24/20 08:49 Consult to Respiratory Therapy Evaluate & Treat Comment: Physician Instructions: Evaluate and treat 02/24/20 13:26 Consult to Occupational Therapy Evaluate & Treat Comment: Physician Instructions: Evaluate and treat Consult to Physical Therapy Evaluate & Treat Comment: Physician Instructions: Evaluate and Treat 02/26/20 13:27 Consult to Hospitalist Service Urgent Comment: Consulting Provider: Shante Pan Reason for consultation: afib RVR Has provider been notified: Yes 03/01/20 12:02 Consult to Wound Care Routine Comment: end sigmoid colostomy and midline wound vac Consulting Provider: Adonay- Wound Care 03/09/20 14:38 Consult to Dietitian, Adult Routine Comment: Reason For Exam: POOR CALORIC INTAKE/POST OP 03/10/20 14:12 Consult to Palliative Care Urgent Comment: Consulting Provider: Charity Dial Discharge provider: Yao Cleary MD Summary Hospital Course Discharge Diagnosis: Gastrointestinal stromal tumor Sepsis Peritonitis Atrial fibrilation Hospital Course: Patient underwent an elective laparoscopic converted to open appendectomy and sigmoid colectomy 02/24/20. His pelvis had extremely dense adhesions and a colotomy occurred during the course of lysis of adhesions. It required a partial resection of his sigmoid colon. Post operatively he had return of bowel function was passing flatus and having bowel movements. 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 His postoperative recovery was notable significant issues related to his atrial fibrillation. He has chronic rate controlled atrial fibrillation however he had significant Afib with RVR and associated hemodynamic changes with require dilt gtt ICU and consultation with Internal Medicine. On postoperative day 6 he developed severe abdominal pain, sepsis and associated periontinitis. Abdominal CT demonstrated free air. He returned to the operating room underwent an exploratory laparotomy which demonstrated feculent peritonitis and a leak from the sigmoid anastomosis secondary to ischemia. With his poor clinical status at the time of the operation no reasonable attempted at reanastomosis could be made and he received a Cecilia's procedure/end colostomy. He had a slow recovery after the 2nd operation. Major post operative issues include Afib, post operative ileus, open midline abdominal wound/wound vac. He developed a urinary tract infection 03/10 and associated bacteremia with E coli resistant to fluoroquinolones. He has received 5 days of IV antibiotic therapy for the UTI and bacteremia he has another 2 days of antibiotic therapy with Cefdinir remaining. On the date of discharge 03/15 he is doing relatively well. He is tolerant of a regular diet, voiding spontaneously, afebrile and without leukocytosis. He is receiving wet to dry once daily dressing to the abdominal midline. Exam Vital Signs (past 8 hours): - 03/15/20 06:30 03/15/20 06:39 03/15/20 08:00 Temperature 97.9 F Pulse Rate 80 75 79 Respiratory Rate 24 Blood Pressure 140/68 140/68 137/67 Pulse Oximetry 94 03/15/20 09:12 03/15/20 10:03 Temperature Pulse Rate 74 82 Respiratory Rate 22 Blood Pressure 157/60 H Pulse Oximetry 94 Oxygen Delivery Method Room Air Oxygen Flow Rate 0 Objective Labs Result Diagrams: 03/15/20 09:32 03/15/20 09:32 Labs: Laboratory Results - last 24 hr 03/14/20 03/15/20 03/15/20 21:45 09:32 09:32 WBC 10.9 RBC 3.50 L Hgb 9.4 L Hct 28.3 L MCV 80.9 MCH 26.8 MCHC 33.2 RDW 14.5 Plt Count 445 H Neut % (Auto) 74.6 Lymph % (Auto) 18.8 L [place] % (Auto) 5.3 Eos % (Auto) 0.4 L Baso % (Auto) 0.9 Neut # (Auto) 8100 H Lymph # (Auto) 2000 [place] # (Auto) 600 Eos # (Auto) 0 Baso # (Auto) 100 Sodium 133 L 134 L Potassium 3.7 4.3 Chloride 98 100 Carbon Dioxide 28 28 BUN 11 10 Creatinine 0.74 0.75 Estimated GFR > 60.0 > 60.0 BUN/Creatinine Ratio 14.9 13.3 Glucose 107 111 H Calcium 7.7 L 8.2 L Magnesium 1.9 COVID-19 PCR 03/15/20 03/15/20 03/15/20 09:32 10:20 10:20 WBC RBC Hgb Hct MCV MCH MCHC RDW Plt Count Neut % (Auto) Lymph % (Auto) [place] % (Auto) Eos % (Auto) Baso % (Auto) Neut # (Auto) Lymph # (Auto) [place] # (Auto) Eos # (Auto) Baso # (Auto) Sodium Potassium Chloride Carbon Dioxide BUN Creatinine Estimated GFR BUN/Creatinine Ratio Glucose Calcium Magnesium 2.0 COVID-19 PCR Cancelled Negative Discharge Plan Discharge Plan Patient Disposition: [facility] Other facility: [facility] Discharge orders & Medications Prescriptions: New acetaminophen 325 mg Tablet 650 mg PO Q6HR PRN (Reason: Fever/Mild Pain (1-3)) 30 Days RF: 0 polyethylene glycol 3350 17 gram Powder In Packet 34 gm PO DAILY 60 Days RF: 0 guaifenesin 100 mg/5 mL Liquid 200 mg PO BID 30 Days Qty: 600 RF: 0 famotidine [Pepcid AC] 20 mg Tablet 20 mg PO BID 30 Days Qty: 60 RF: 0 megestrol 20 mg Tablet 40 mg PO BID 30 Days Qty: 120 RF: 0 cefdinir 300 mg Capsule 300 mg PO BID Qty: 8 RF: 0 sertraline [Zoloft] 50 mg Tablet 100 mg PO BEDTIME 30 Days RF: 0 metoprolol tartrate 25 mg Tablet 25 mg PO BID 30 Days Qty: 60 RF: 0 Bacid 1 billion cell- 250 mg Tablet 1 ea PO TIDWM 30 Days RF: 0 Continued losartan 50 mg tablet 50 mg PO DAILY RF: 0 Eliquis 5 mg tablet 5 mg PO BID RF: 0 cholecalciferol (vitamin D3) 4,000 unit capsule 4,000 unit PO DAILY RF: 0 phenazopyridine [Pyridium] 100 mg tablet 100 mg PO TID RF: 0 Discontinued carvedilol 6.25 mg tablet 6.25 mg PO BID RF: 0 polyethylene glycol 3350 [Miralax] 17 gram/dose powder 17 gram PO DAILY RF: 0 docusate sodium 100 mg capsule 100 mg PO DAILY RF: 0 Follow up/Referrals: Fidel Dial MD [Primary Care Provider] - Yao Cleary MD [Physician] - 2 Weeks Diet/Activity/Treatments Diet: Regular Activity: Activity as tolerated Skin/Wound/Dressing Care Report to your healthcare provider any signs of infection, such as:: chills, fever, increased pain, unusual drainage and unusual redness Dressing: Wet to dry gauze dressing to midline abdominal incision daily [facility] Reason for rehabilitation: Post-operative therapy Discharge Data Primary Care Provider: Fidel Dial VTE Deep Vein Thrombosis/Pulmonary Embolism Present on Admission: No
--- NOTE | 2020-03-15 13:42 | PC.NURSE ---
Addendum entered by Daria Rosen R.N. 03/15/20 14:12: Dressing changed as ordered to mid abdomen, report given to ACLS. VSS and afebrile. Original Note: Day shift note: Report given to receiving RN at [facility] in [place]. All questions answered. Awaiting for ACLS arrival.
--- NOTE | 2020-03-15 14:34 | CM.DPC ---
DCP Continued: EMR reviewed: Cm/RN spoke with Dr. Carlisle and Dr. Rainey to determine if patient was going to be D/C today. Dr. rainey stated patient is ready for D/C. Dr. Carlisle agreed and stated that patient is ready for D/C. CM/RN called Susie at [facility] in [place] [phone] to discuss admission of patient today. Susie stated that Patients wives brother Dejuan Wills kept showing up there threatening the staff and telling them they should not admit the patient. Susie also stated that patients mother was just a patient there and that she still owed them $10,000. Cm/RN asked Susie how what someone else owes pertain to this patient? Susie stated she is worried that patient will occur a bill as well during stay. CM/Rn stated patient has medicare for the first 21 days. Susie asked CM to talk with patient and his and let them know that patient will have a copay after 21 days. CM/RN went to talk with Patient and patients about Mr. Wills and copay issue. patients stated that her brother has [employer] and that they should call the police if he shows up there and they were aware of medicare SNF coverage. CM/RN relayed the message to Susie and she agreed to accept the patient for admission today. CM/Rn spoke with patient and his at length about being D/C to SNF today. 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 Cm/Rn spoke with Dr. Rainey and she stated patient was worked up for Possible PE or pneumonia yesterday and was determined to be fine. Respiratory therapy did a run to see RA o2% when CPAP was removed patients o2 sat was between 93- 95% on RA. PT came in and worked with patient to transfer to commode and bed side chair while still off the CPAP- during exertion patients O2% never went bellow 95% RA. Cm/Rn went back into discuss D/c to SNF today and patients stated she still didn't feel that the patient was ready. CM/RN explained at length about what a Medicare D/C appeal looked like and discussed this as an option if patient and his felt like patient wasn't medically ready to leave the hospital and they wanted to appeal the discharge plan. CM/Rn allowed patient and his to talk and stepped out of the room. CM/Rn went back to talk to patient at 11am to discuss what they would like to do since D/C has been put in by Dr. carlisle. patient and patients agreed to go to SNF today. CM/Rn, patient, and patients discussed transportation for patient to [place]. CM/ RN spoke with patient and explained that patient might received a bill for BLS transport starting at $600.00 and then $12 a mile after that. Patients stated the her needed an ambulance transport and that was ok. Dr. Carlisle agreed that patient needed BLS transport to [facility] but would not need ALS. Dr Carlisle signed BLS medical necessity form and CM[facility]Rn called [facility] to [facility] up transport for the patient. B[facility] ambulance scheduled for 1:15pm picking supervisor. CM/RN faxed [facility] patients PASRR, D/C order, H&P and D/C summary, MAR and Progress report. Original PASRR placed in patients folder to go with patient to [facility] and a copy was given to RITA Hardy to scan into patients chart. BLS medical necessity form placed in patients folder for [facility] to have at transport. CM/RN gave patients a release of records form to get a copy of patients records from his stay. Medical records department was closed when patient went down to get them. Patients nurse called Medical records and got a copy made up for the patient. Patients went down to medical records with CM to pick the records up. CM/RN spoke with patient and patients about IMM. Patient stated understanding but didn't want to sign form. CM/Rn asked again if patient was Okay with D/C or did he want to appeal. Patient stated he was fine going to SNF in [place]. CM/Rn signed IMM based on conversation. BLS transport arrived to transport patient to SNF and patients refused BLS transport. She stated that patient needed ALS transport since he needs his CPAP 100% of the time. Dr. Rainey and Dr. Carlisle both stated that patient is fine not using CPAP during the Day with O2 sats ranging between 92% and 98% on RA. Patients sent BLS transport away and requested ALS transport so patient can have CPAP during transport. [facility] Dispatched [facility] to come and transport patient at 1:45pm. ARABELLA Gary called [facility] to make sure they were dispatching a new ambulance. CM/RN spoke with patient and his and explained that according to patient providers patient needed a BLS transport not an ALS transport and that they will most likely be billed for the ALS transport. patient and patients stated understanding and still want ALS transport. ALS transport arrived and picked patient up and transported patient to [facility]. Daniella Tavarez RN
== END 2020-03-15 14:16 | DRG 329 ==
LOC: AC 02-25 09:12 → ICU 02-28 15:11 → AC 03-01 14:01
PROVIDERS: Internal Medicine; Nurse Practitioner Adult Health; Surgery; Admitting Provider Surgery; PCP Internal Medicine; Referring Provider Surgery; Visit Provider Surgery
PROC: 0DTJ4ZZ Resection of Appendix, Percutaneous Endoscopic Approach (ICD-10-PCS; CPT 44970; principal; 2020-02-24 09:15)
PROC: 0DBN0ZZ Excision of Sigmoid Colon, Open Approach (ICD-10-PCS; CPT 49000; principal; 2020-03-01 08:00)
DX: C49.A9 Gastrointestinal stromal tumor of other sites (principal); K55.031 Focal (segmental) acute (reversible) ischemia of large intestine; N39.0 Urinary tract infection, site not specified; T83.511A Infection and inflammatory reaction due to indwelling urethral catheter, initial encounter; R65.20 Severe sepsis without septic shock; A41.9 Sepsis, unspecified organism; K65.9 Peritonitis, unspecified; N17.9 Acute kidney failure, unspecified; K91.71 Accidental puncture and laceration of a digestive system organ or structure during a digestive system procedure; E46 Unspecified protein-calorie malnutrition; K56.7 Ileus, unspecified; K91.89 Other postprocedural complications and disorders of digestive system; I69.354 Hemiplegia and hemiparesis following cerebral infarction affecting left non-dominant side; Z16.23 Resistance to quinolones and fluoroquinolones; K66.0 Peritoneal adhesions (postprocedural) (postinfection); I48.0 Paroxysmal atrial fibrillation; Y83.2 Surgical operation with anastomosis, bypass or graft as the cause of abnormal reaction of the patient, or of later complication, without mention of misadventure at the time of the procedure; Y73.3 Surgical instruments, materials and gastroenterology and urology devices (including sutures) associated with adverse incidents; D69.59 Other secondary thrombocytopenia; Z68.37 Body mass index [BMI] 37.0-37.9, adult; B96.20 Unspecified Escherichia coli [E. coli] as the cause of diseases classified elsewhere; I25.10 Atherosclerotic heart disease of native coronary artery without angina pectoris; G47.33 Obstructive sleep apnea (adult) (pediatric); I10 Essential (primary) hypertension; R06.02 Shortness of breath; R33.9 Retention of urine, unspecified; E78.5 Hyperlipidemia, unspecified; R60.0 Localized edema; F41.9 Anxiety disorder, unspecified; F32.9 Major depressive disorder, single episode, unspecified; R07.9 Chest pain, unspecified; Y83.8 Other surgical procedures as the cause of abnormal reaction of the patient, or of later complication, without mention of misadventure at the time of the procedure; Z87.891 Personal history of nicotine dependence; Z53.31 Laparoscopic surgical procedure converted to open procedure; Z85.46 Personal history of malignant neoplasm of prostate; Z11.59 Encounter for screening for other viral diseases
CPT/HCPCS: 36415; 36569; 36592; 36600; 44140; 44950; 70450; 71045; 74018; 74022; 74177; 80048; 80053; 80061; 81001; 82550; 82805; 82962; 83036; 83605; 83735; 83880; 84100; 84145; 84439; 84443; 84484; 85025; 86850; 86900; 86901; 87040; 87077; 87086; 87150; 87186; 87205; 87635; 93005; 93010; 93306; 94760; 94762; 97110; 97116; 97163; 97165; 97530; 97535; A9270; B4185; B4189; C9113; C9132; J0131; J0330; J0780; J1100; J1160; J1170; J1364; J1642; J1650; J1940; J1956; J2250; J2270; J2405; J2704; J2765; J3010; J3480; J7613; Q9957; Q9967